=== PATIENT | male | born 1945 | race Caucasian/White ===

== ENCOUNTER 2024-08-25 20:04 | Inpatient (IN) | payer MEDICARE, OTHER, SELFPAY ==
[2024-08-25 16:28] VITALS: BP 146/91
--- NOTE | 2024-08-25 16:34 | ED.GENMED ---
History of Present Illness
General
Chief Complaint: Fall
Source: patient
Exam Limitations: none
Time Seen by Provider: 08/25/24 16:25
History of Present Illness
History of Present Illness:
79-year-old male presents via EMS from home. He slid out of the couch sometime yesterday watching a football game and has been facedown since. He was able to call his daughter who called the ambulance. He denies any known injury from this
episode. He notes he is sore on his elbows and his knees. He is on an aspirin. Family notes that he has been having slurred speech for about a week. He denies chest pain or shortness of breath. No recent fever or cough. No other complaints at
this time
Phy Exam
Physical Exam
Physical Exam:
General: Well-developed male no acute respiratory distress
HEENT: Normocephalic superficial abrasions noted to the face mucosa dry
Heart: Regular rate and rhythm
Lungs: Clear to auscultation bilaterally no wheezing
Abdomen is soft nontender nondistended
Extremities: Mild edema bilateral lower extremities
Neurologic exam: Alert oriented to person and place. No facial asymmetry. There is mild dysarthria. There is no aphasia. There is no unilateral deficit otherwise
Course
Orders/Labs/Results
Orders:
Orders
08/25/24 16:27
Electrocardiogram (*1) Urgent
Reason for Study: Fatigue / Weakness
EKG- Treatment ONCE
08/25/24 16:32
CR Chest - 2 Views Urgent
Comment:
Reason For Exam: weakness
08/25/24 16:33
Urinalysis Reflex To Culture Urgent
Date Specimen was Collected: 08/25/24
Time Specimen was Collected: 16:55
08/25/24 16:34
COVID-19 Antigen Urgent
Source: Nasal Swab
CPK [Creatine Phosphokinase] Urgent
Complete Blood Count/With Diff Urgent
Comprehensive Metabolic Panel Urgent
Prothrombin Time Urgent
08/25/24 16:38
Influenza A+B Rapid Molecular Urgent
MK Source: Nasal Swab
Specimen Description:
08/25/24 16:47
CT Head W/o Iv Contrast Urgent
Comment:
Reason For Exam: fall
08/25/24 16:48
0.9% Sodium Chloride 500 ml [Nss] 500 ml IV BOLUS
08/25/24 18:24
0.9% Sodium Chloride 1000 ml [Nss] 1,000 ml IV BOLUS
Abnormal Lab Results
08/25/24
16:34
WBC 17.4 H 10^3/uL
(4.8-10.8)
MPV 11.2 H fL
(7.4-10.4)
Abs Immat Gran (auto) 0.1 H 10^3/uL
(0-0.05)
Absolute Neuts (auto) 14.8 H 10^3/uL
(1.4-6.5)
Absolute Monos (auto) 1.1 H 10^3/uL
(0.1-0.6)
Neutrophils % 85.1 H %
(42.2-75.2)
Lymphocytes % 7.2 L %
(20.5-51.1)
PT 14.8 H Sec
(11.4-14.6)
Glucose 177 H mg/dl
(70-99)
Total Bilirubin 1.8 H mg/dl
(0.2-1.3)
AST 63 H U/L
(17-59)
Creatine Kinase 1167 H U/L
(55-170)
08/25/24 16:34
08/25/24 16:34
Vital Signs
Initial and Last Documented VS:
Initial Vital Signs
Temp Pulse Resp BP Pulse Ox
98 F 95 18 146/91 96
08/25/24 16:28 08/25/24 16:28 08/25/24 16:28 08/25/24 16:28 08/25/24 16:28
Last Documented Vital Signs
Temp Pulse Resp BP Pulse Ox
98 F 95 18 146/91 96
08/25/24 16:28 08/25/24 16:28 08/25/24 16:28 08/25/24 16:28 08/25/24 16:28
MDM/Problems Addressed
Differential Diagnosis Includes:
Weakness slid out of couch yesterday on the floor since then. Question electrolyte abnormality versus rhabdomyolysis versus kidney failure. Will check for COVID flu UTI and perform chest. CT of the head pending.
*Critical Care Note
Total Time (30-74mins, 75-104mins- exclusive of procedures): Not Applicable
Update Note
Update Note:
CT head negative for acute finding. CPK 1167 with normal renal functions. COVID and flu negative. Patient has rhabdomyolysis from prolonged downtime on floor but also concern for potential stroke. Family now in the room I spoke with his daughter
and son. He was last spoken to and he had a normal dorsalis 1 week ago. Family noticed his slurred speech 4 days ago. He is beyond any potential window for TNK. But does warrant admission for dehydration and further stroke workup.
ED Attending Note
-
Portions of this chart may have been created with voice recognition software.� Occasional wrong word or��sound alike� substitutions may have occurred due to the inherent limitations of voice recognition software.
Discharge Plan
Departure
Patient Disposition: Admit
Date of Disposition: 08/25/24
Time of Disposition: 18:25
Presentation/result/management discussed w/ accepting MD/DO: Hospitalist
Discharge Problem:
Rhabdomyolysis, Dysarthria
Referrals:
Junaid Mckeon MD [Family Provider] -
Interventions
Interventions:
*Risk Screen - Suicide Last Done: 08/25/24 16:28
*General Assessment Last Done: 08/25/24 16:28
*Neglect/Abuse Screening Last Done: 08/25/24 16:28
Discharge Date and Time
Print Language: MONEGASQUE
[2024-08-25 16:42] LABS: % Basophils 0.6 % (0-2); % Eosinophils 0.5 % (0-6); % Immature Granulocytes 0.3 % (0-0.5); % Lymphocytes 7.2 % (20.5-51.1); % Monocytes 6.3 % (1.7-9.3); % Neutrophils 85.1 % (42.2-75.2); Absolute Basophils 0.1 10^3/uL (0-0.2); Absolute Eosinophils 0.1 10^3/uL (0-0.7); Absolute Immature Granulocytes 0.1 10^3/uL (0-0.05); Absolute Lymphocytes 1.3 10^3/uL (1.2-3.4); Absolute Monocytes 1.1 10^3/uL (0.1-0.6); Absolute Neutrophils 14.8 10^3/uL (1.4-6.5); Hematocrit 48.3 % (39.0-52.0); Hemoglobin 16.4 g/dL (13.0-18.0); Mean Corpuscular Hgb 29.2 pg (27.0-31.0); Mean Corpuscular Volume 86.1 fL (80.0-94.0); Mean Platelet Volume 11.2 fL (7.4-10.4); Nucleated Red Blood Cells % 0 % (-); Platelet Count 215 10^3/uL (130-400); Red Blood Cell Count 5.61 10^6/uL (4.70-6.10); Red Cell Dist. Width 13.4 % (11.5-14.5); White Blood Cell Count 17.4 10^3/uL (4.8-10.8)
[2024-08-25 16:52] LABS: INR 1.13; PT 14.8 Sec (11.4-14.6)
[2024-08-25] MEDS: NSS 500 IV (16:56)
[2024-08-25 16:58] LABS: ALT (SGPT) 32 U/L (0-50); AST (SGOT) 63 U/L (17-59); Albumin 4.4 g/dl (3.5-5.0); Alkaline Phosphatase 120 U/L (38-126); Blood Urea Nitrogen 15 mg/dl (9-20); Calcium 9.1 mg/dl (8.4-10.2); Carbon Dioxide 25 mmol/L (22-30); Chloride 101 mmol/L (98-107); Creatine Phosphokinase 1167 U/L (55-170); Glucose 177 mg/dl (70-99); Potassium 4.1 mmol/L (3.5-5.1); Sodium 141 mmol/L (135-145); Total Bilirubin 1.8 mg/dl (0.2-1.3); Total Protein 7.2 g/dl (6.3-8.2); eGFR > 60.00
[2024-08-25 17:34] LABS: COVID-19 Antigen Negative (Negative)
[2024-08-25] MEDS: NSS 1000 IV ×2 (18:32→21:55)
--- NOTE | 2024-08-25 18:33 | HPS.HSE ---
Addendum entered and electronically signed by Jamari Kowalski DO 08/25/24 23:12:
Patient seen and examined independently. Agree with findings and plan as set forth by ALDEN Gillette.
Patient is an 79y M with PMH significant for hypertension, DM-II and BPH who presents to ED after being 'found down' today at home. Patient states that he 'lowered' himself to the floor yesterday evening while trying to get to the bathroom. He
denies any trauma, injury, head impact, LOC, etc. He was unable to get up unassisted and crawled along the floor until he was able to reach his phone this afternoon. He called his daughter who came to assist him and found him down with abrasions
on the knees / feet. Patient was brought to the ED for further evaluation and treatment.
Daughter further stated that she has noted some thick or slurred speech for the past week or so. No recent symptoms of infection / acute illness.
In the ED, patient has some thickened or slurred speech with perhaps some mild L-sided weakness.
Ass:
Weakness, Aphasia / Dysarthria
Rhabdomyolysis
Leukocytosis - likely stress response
DM-II
Benign Hypertension
BPH
Plan:
Admit for further evaluation and treatment.
Monitor on tele overnight.
Follow serial Neuro exams.
Aggressive IVF support given time down, CPK, elevation, etc.
Follow renal function for any changes.
Check MRI brain in the AM.
PT / OT / Speech evaluations.
Neurology evaluation.
DAPT for now.
Original Note:
Family Physician
-
Family Physician: Junaid Mckeon
Chief Complaint
-
slurred speech
fall
History of Present Illness
79-year-old male with PMhf or DM, HTN, HLD, BPH presented to us with s/p fall at home. patient was found on the floor by his daughter today. patient stated he lowered himself to the floor as he was not able to get to the bathroom as there is steps
to get to the kitchen and bathroom from the living room. daughter thinks he fell sometimes last night. he crawled on the floor to get to the phone and called his daughter today afternoon asking for water. he has carpet rash on his knees and toes.
denied hitting head on the floor. he was noted to have some slurred speech for one week. stated dizzy. denied syncope.denied fever, chills, runny nose,congestion and cough.denied chest pain, sob. denied abdominal pain,n,v,d. denied dysuria or
hematuria
patient received normal saline in ER. admitting for further management.
Medical History
Past Medical History
Past Medical History: Reports Other
Additional Past Medical History:
HTN
HLD
BPH
DM
Past Surgical History: Reports Other
Additional Past Surgical History:
right hand surgery
Social History
Tobacco: Former Smoker
Alcohol: None
Drug: None
Personal: Single
Living: Alone
Family History
Family History: Not pertinent
Allergies / Home Medications
Allergies reflects when Allergies were last updated in [employer].
Home Medications with original date entered in [employer]
Allergy/Medication List:
Allergies
Allergy/AdvReac Type Severity Reaction Status Date / Time
Sulfa (Sulfonamide Allergy Unknown Unknown Verified 08/25/24 16:24
Antibiotics)
Home Medications
atorvastatin 20 mg tablet 20 mg PO DAILY 08/25/24
glyburide 5 mg tablet 5 mg PO DAILY 08/25/24
insulin glargine 100 unit/mL (3 mL) subcutaneous pen (Basaglar KwikPen U-100 Insulin) 11 unit SC HS 08/25/24
tamsulosin 0.4 mg capsule 0.4 mg PO HS 08/25/24
therapeutic multivitamin 1 tab PO DAILY 08/25/24
Review of Systems
-
Constitutional: Reports No Symptoms
EENT: Reports No Symptoms
Respiratory: Reports No Symptoms
Cardiac: Reports No Symptoms
Abdomen/GI: Reports No Symptoms
: Reports No Symptoms
Musculoskeletal: Reports No Symptoms
Skin: Reports No Symptoms
Neurological: Reports Dizzy and Other (slurred speech)
Endocrine: Reports No Symptoms
Hematologic/Lymphatic: Reports No Symptoms
Psych: Reports No Symptoms
Physical Exam
Vital Signs
Vital Signs
Temp Pulse Resp BP Pulse Ox
98 F 95 18 146/91 96
08/25/24 16:28 08/25/24 16:28 08/25/24 16:28 08/25/24 16:28 08/25/24 16:28
Physical Exam
General: Well Developed, Well Nourished and No Apparent Distress
HEENT: NormoCephalic, Moist mucous membranes and Atraumatic
Respiratory: Clear
Cardiac: S1/S2 and Regular Rhythm; No Murmur or Rub
GI: Soft, Non Tender, Non Distended and Normal Bowel Sounds; No Organomegaly
Rectal: Deferred by Provider
Musculoskeletal: No Clubbing, No Cyanosis and No Edema
Skin: No Rash
Neuro: Nonfocal/grossly intact, Slurred Speech and Other (left sided weakness)
Laboratory Results
-
08/25/24 16:34
08/25/24 16:34
Laboratory Results
PT 14.8 Sec (11.4-14.6) H 08/25/24 16:34
INR 1.13 08/25/24 16:34
Total Bilirubin 1.8 mg/dl (0.2-1.3) H 08/25/24 16:34
AST 63 U/L (17-59) H 08/25/24 16:34
ALT 32 U/L (0-50) 08/25/24 16:34
Alkaline Phosphatase 120 U/L (38-126) 08/25/24 16:34
Data Reviewed
-
CT Scan: Report Reviewed by me
Lab Data: Labs Reviewed by me
Impression/Plan
-
#weakness/slurred speech r/o acute CVA
-CT head negative
-obtain MRI/MRA
-obtain a1c and lipid profile
-statin and asa continued
-Plavix continued
-PT/OT
-neurology consulted
#rhabdo
-CPK 1167
-fluids continued
-trend CPK in am
#acute on chornic leukocytosis likely stress reaction
-wbc 17.4,-UA pending
-COVID negative
-negative for Flu A and B
-chest x ray with no acute cardiopulmonary process
-patient is afebrile
#HLD
-statin
#type 2 Dm
-sliding scale
-glyburide
-CHO diet
-glargine 5units at hs
#BPH
-Flomax continued
#DVT prophylaxis
-scd
#CODE status
-DNR
[2024-08-25 19:20] VITALS: BP 156/81
[2024-08-25 20:32] VITALS: BP 134/54
[2024-08-25 21:12] VITALS: BP 129/74; BMI 31.4
[2024-08-25 21:49] LABS: Glucose - Point of Care 237 mg/dl (70-99)
[2024-08-25] MEDS: FLOMAX 0.4 MG PO (21:56)
[2024-08-25] MEDS: LOW STRENGTH ASPIRIN 324 MG PO (21:56)
[2024-08-25] MEDS: LANTUS 0.05 UNITS SC (21:56)
[2024-08-25 23:54] VITALS: BP 153/73
[2024-08-26] VITALS (8 sets, daily range): BP systolic 133–173; BP diastolic 65–79; PULSE 74–82; O2SAT 93–94; BMI 31.4
[2024-08-26] MEDS: NSS 1000 IV ×2 (04:48→12:25)
[2024-08-26 07:57] LABS: Hematocrit 39.8 % (39.0-52.0); Hemoglobin 13.4 g/dL (13.0-18.0); Mean Corp Hgb Conc. 33.7 g/dL (33.0-37.0); Mean Corpuscular Volume 86.1 fL (80.0-94.0); Mean Platelet Volume 11.8 fL (7.4-10.4); Platelet Count 175 10^3/uL (130-400); Red Blood Cell Count 4.62 10^6/uL (4.70-6.10); Red Cell Dist. Width 13.7 % (11.5-14.5); White Blood Cell Count 11.6 10^3/uL (4.8-10.8)
--- NOTE | 2024-08-26 08:09 | CON.NEURO ---
Consultation
Order
Date of Consultation: 08/26/24
Requesting Provider: Jackie Mustafa CRNP
Reason for Consult: Dysarthria
Neurology Consultation Note.
HPI: This is an 79-year-old RH man with compromised man who presented to [facility] on 08/25/[facility]24 with dysarthria and left hemiparesis. The patient was found by the family on the floor on the day of presentation. Last time seen in
usual state of health�unknow.
ER VS: 146/91, 95, afebrile
EKG:NSR, QTc Int : 489 ms
PDMP: None
Labs: WBCs�17.4�11.6, fingerstick�237, total bili�1.8, SARS 2 COVID�negative, CK�1167,
CT head wo contrast�diffuse cortical atrophy
PMH: Ulcerative colitis on Remicade, L4-L5 spinal central canal stenosis, HTN, DLP, DM, BPH, hepatic steatosis,
PSH:
SH: Lives with family, retired,
FH: Not contributory to current presentation
All:Sulfas
ROS: Positive for left hemiparesis, dysarthria, negative for headache, chest pain
General: Well developed. In no acute distress.
Cardio: Regular rate and rhythm without murmur. Extremities are without cyanosis or edema.
Neuro:
Mental Status: Lethargic, oriented to self, place, month. Did not know the date, day or year. Poor attention and comprehension. Follows simple requests.
Cranial Nerves: Pupils are equally round and reactive to light. EOMs full. Blink to threat bilaterally. Left facial weakness. Severe dysarthria.
Motor: Severe left hemiparesis (no effort antigravity in the left>R leg, unable to lift left elbow of the bed).
Reflexes: Limited exam due to body habitus
Sensory: Localizes noxious stimuli
Coordination: No tremors myoclonic movements.
Gait: deferred
Assessment and Plan:
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
II. Encephalopathy(vascular, metabolic)
III. Chronic immunosuppression
-Continue Telemetry monitoring.
-Aspiration precautions
-Brain MRI results
-TTE
-CTA head and neck
-ASA 81 mg QD or 300 mg [place] daily
-No indications to DAPT due to high NIH score
-Lipitor 40 mg QHS.
-Please check HbA1C, LDL.
-I have left a message for patient's daughter with request to return my call to clarify patient's medical history and prior cognitive and functional baseline.
-DVT prophylaxis.
I personally reviewed all radiology and labs along with past medical records pertinent to current medical problems. Total time spent in patient care is 60 minutes.
Thank you for allowing us to participate in the care of this patient. We will continue to follow. Please do not hesitate to contact us with any questions or concerns.
Subjective/Objective
Subjective Data
Date of Service: August 26, 2024
Objective Data
Vital Signs
Temp Pulse Resp BP Pulse Ox
36.4 C 85 20 150/73 93
08/26/24 03:49 08/26/24 03:49 08/26/24 03:49 08/26/24 03:49 08/26/24 03:49
Lab Results
08/26/24 05:56
08/25/24 16:34
PT 14.8 Sec (11.4-14.6) H 08/25/24 16:34
INR 1.13 08/25/24 16:34
Sodium 141 mmol/L (135-145) 08/25/24 16:34
Potassium 4.1 mmol/L (3.5-5.1) 08/25/24 16:34
BUN 15 mg/dl (9-20) 08/25/24 16:34
Glucose 177 mg/dl (70-99) H 08/25/24 16:34
Calcium 9.1 mg/dl (8.4-10.2) 08/25/24 16:34
Patient Allergies
Sulfa (Sulfonamide Antibiotics) Allergy (Verified 08/25/24 21:05)
Unknown
Medications
-
Active Medications
Generic Name Dose Route Start Last Admin
Trade Name Freq PRN Reason Stop Dose Admin
Acetaminophen 650 mg 08/25/24 20:56
Acetaminophen 650 Mg Rectal Suppository RECTAL 09/22/24 20:55
Q4HPRN PRN
TRONCOSO, mild pain, or temp >100.4F
Acetaminophen 650 mg 08/25/24 20:56
Acetaminophen 325 Mg Tablet PO 09/22/24 20:55
Q4HPRN PRN
TRONCOSO, mild pain, or temp >100.4F
Aspirin 81 mg 08/26/24 08:00
Aspirin 81 Mg Chewable Tablet PO 09/23/24 07:59
DAILY LAUREL
Atorvastatin Calcium 20 mg 08/26/24 08:00
Atorvastatin (Lipitor) 20 Mg Tablet PO 09/23/24 07:59
DAILY LAUREL
Clopidogrel Bisulfate 75 mg 08/26/24 08:00
Clopidogrel 75 Mg Tablet PO 09/23/24 07:59
DAILY LAUREL
Dextrose 12.5 grams 08/25/24 20:56
Dextrose 50% (0.5 Grams/Ml) 50 Ml Syringe IV 09/22/24 20:55
[id number] PRN
hypoglycemia
Protocol
Glucagon 1 mg 08/25/24 20:56
Glucagon 1 Mg Vial IM 09/22/24 20:55
PRN PRN
hypoglycemia
Protocol
Glyburide 5 mg 08/26/24 08:00
Glyburide 5 Mg Tablet PO 09/23/24 07:59
DAILY LAUREL
Sodium Chloride 1,000 mls @ 150 mls/hr 08/25/24 20:56 08/26/24 04:48
Nss IV 1,000 mls
.Q6H40M LAUREL Administration
Insulin Glargine 5 units/ 0.05 mls @ 0 mls/hr 08/25/24 22:00 08/25/24 21:56
Device SC 09/22/24 21:59 0.05 mls
HS LAUREL Administration
As Directed
Insulin Aspart 0 units 08/26/24 07:30
Insulin Aspart Low Resistance 300 Units/3 Ml Pen.Injctr SC 09/23/24 07:29
AC LAUREL
Protocol
Sodium Chloride 0 flush 08/25/24 21:00
Sodium Chloride 0.9% (Flush) Syringe IV 09/22/24 20:59
PER PROTOCOL LAUREL
Tamsulosin HCl 0.4 mg 08/25/24 22:00 08/25/24 21:56
Tamsulosin 0.4 Mg Capsule PO 09/22/24 21:59 0.4 mg
HS LAUREL Administration
Home Medications
�Medication �Instructions �Recorded
atorvastatin 20 mg tablet 20 mg PO DAILY 08/25/24
glyburide 5 mg tablet 5 mg PO DAILY 08/25/24
insulin glargine 100 unit/mL (3 11 unit SC HS 08/25/24
mL) subcutaneous pen (Basaglar
KwikPen U-100 Insulin)
tamsulosin 0.4 mg capsule 0.4 mg PO HS 08/25/24
therapeutic multivitamin 1 tab PO DAILY 08/25/24
Vital Signs and Labs
-
Vital Signs and Labs:
Vital Signs
Temp Pulse Resp BP Pulse Ox
36.7 C 75 18 162/65 95
08/26/24 08:14 08/26/24 08:14 08/26/24 08:14 08/26/24 08:14 08/26/24 08:14
Lab Results
08/26/24 05:56
08/25/24 16:34
PT 14.8 Sec (11.4-14.6) H 08/25/24 16:34
INR 1.13 08/25/24 16:34
Sodium 141 mmol/L (135-145) 08/25/24 16:34
Potassium 4.1 mmol/L (3.5-5.1) 08/25/24 16:34
BUN 15 mg/dl (9-20) 08/25/24 16:34
Glucose 177 mg/dl (70-99) H 08/25/24 16:34
Calcium 9.1 mg/dl (8.4-10.2) 08/25/24 16:34
Medications
-
Medications:
Generic Name Dose Route Start Last Admin
Trade Name Freq PRN Reason Stop Dose Admin
Acetaminophen 650 mg 08/25/24 20:56
Acetaminophen 650 Mg Rectal Suppository RECTAL 09/22/24 20:55
Q4HPRN PRN
TRONCOSO, mild pain, or temp >100.4F
Acetaminophen 650 mg 08/25/24 20:56
Acetaminophen 325 Mg Tablet PO 09/22/24 20:55
Q4HPRN PRN
TRONCOSO, mild pain, or temp >100.4F
Aspirin 81 mg 08/26/24 08:00
Aspirin 81 Mg Chewable Tablet PO 09/23/24 07:59
DAILY LAUREL
Atorvastatin Calcium 20 mg 08/26/24 08:00
Atorvastatin (Lipitor) 20 Mg Tablet PO 09/23/24 07:59
DAILY LAUREL
Clopidogrel Bisulfate 75 mg 08/26/24 08:00
Clopidogrel 75 Mg Tablet PO 09/23/24 07:59
DAILY LAUREL
Dextrose 12.5 grams 08/25/24 20:56
Dextrose 50% (0.5 Grams/Ml) 50 Ml Syringe IV 09/22/24 20:55
[id number] PRN
hypoglycemia
Protocol
Glucagon 1 mg 08/25/24 20:56
Glucagon 1 Mg Vial IM 09/22/24 20:55
PRN PRN
hypoglycemia
Protocol
Glyburide 5 mg 08/26/24 08:00
Glyburide 5 Mg Tablet PO 09/23/24 07:59
DAILY LAUREL
Sodium Chloride 1,000 mls @ 150 mls/hr 08/25/24 20:56 08/26/24 04:48
Nss IV 1,000 mls
.Q6H40M LAUREL Administration
Insulin Glargine 5 units/ 0.05 mls @ 0 mls/hr 08/25/24 22:00 08/25/24 21:56
Device SC 09/22/24 21:59 0.05 mls
HS LAUREL Administration
As Directed
Insulin Aspart 0 units 08/26/24 07:30
Insulin Aspart Low Resistance 300 Units/3 Ml Pen.Injctr SC 09/23/24 07:29
AC LAUREL
Protocol
Sodium Chloride 0 flush 08/25/24 21:00
Sodium Chloride 0.9% (Flush) Syringe IV 09/22/24 20:59
PER PROTOCOL LAUREL
Tamsulosin HCl 0.4 mg 08/25/24 22:00 08/25/24 21:56
Tamsulosin 0.4 Mg Capsule PO 09/22/24 21:59 0.4 mg
HS LAUREL Administration
Home Medications
-
Home Medications
atorvastatin 20 mg tablet 20 mg PO DAILY 08/25/24
glyburide 5 mg tablet 5 mg PO DAILY 08/25/24
insulin glargine 100 unit/mL (3 mL) subcutaneous pen (Basaglar KwikPen U-100 Insulin) 11 unit SC 08/25/24
tamsulosin 0.4 mg capsule 0.4 mg PO HS 08/25/24
therapeutic multivitamin 1 tab PO DAILY 08/25/24
--- NOTE | 2024-08-26 08:15 | PTCARENOTE ---
NIHSS performed this AM with an increased score of 11 (previous score 6). Dr Guerra at bedside, made aware and felt a rapid response was not necessary. Will continue to monitor closely.
[2024-08-26 08:31] LABS: Creatine Phosphokinase 680 U/L (55-170); HDL Cholesterol 36 mg/dl; LDL Cholesterol, Calculated 59 mg/dl; Total Cholesterol 111 mg/dl (50-199); Triglyceride 84 mg/dl (10-149); Very Low Density Lipoprotein 16 mg/dl (0-30)
[2024-08-26 09:11] LABS: Glucose - Point of Care 131 mg/dl (70-99)
[2024-08-26] MEDS: NOVOLOG FLEXPEN-LOW RESISTANCE SC ×2 (09:42→12:31)
[2024-08-26] MEDS: MICRONASE 5 MG PO (09:54)
[2024-08-26] MEDS: PLAVIX 75 MG PO (09:54)
[2024-08-26] MEDS: LIPITOR 20 MG PO (09:54)
[2024-08-26] MEDS: LOW STRENGTH ASPIRIN 81 MG PO (09:54)
[2024-08-26 10:18] LABS: Glycohemoglobin (HgbA1c) 8.8 % (4.0-5.6)
--- NOTE | 2024-08-26 11:26 | PTOTSP ---
ST Acute Care Evaluations
Pt currently presents with clinical signs of moderate dysarthria as well as mild receptive and expressive language deficits. Further investigation into pt's hearing acuity and pt's baseline cognitive communication skills is warranted to further
guide tx plan.
Pt also presents with clinical signs of mild oral dysphagia characterized by prolonged mastication and bolus formation with munch chew pattern as well as mild pharyngeal dysphagia as evidenced by coughing during oral manipulation of solids as well
as coughing s/p ingestion of thin liquid consistencies.
Recommendations:
- Initiate a PO diet of SOFT BITE SIZED SOLIDS and MILDLY THICK LIQUIDS with NO STRAWS and meds whole in puree.
- Aspiration precautions: Close supervision with PO intake; HOB upright for all PO intake; small bites/sips; slow intake rate.
- TABLE GAMES SUPERVISOR to f/u re: diet tolerance and to determine if/when pt would benefit from an instrumental swallow study.
- TABLE GAMES SUPERVISOR to f/u for speech/language tx.
--- NOTE | 2024-08-26 11:34 | W.PN.UPDATE ---
Update Note
Progress Note Update
Spoke to patient's daughter who informed me that she spoke to Mr. Livingston around 4:30 PM on 08/24/24 before finding him on Sunday around 3 PM.
Prior to her admission the patient lived alone, ambulating independently and taking his medications unassisted.
--- NOTE | 2024-08-26 11:49 | W.PN.HOSP.TC ---
Today's Communication/Plan
-
Monitor vital signs see plan
Continue with aspirin and Plavix
MRI
Continue with neurochecks
PT/OT
Speech
Assessment / Plan
Assessment / Plan
right sided weakness/slurred speech likely secondary to acute CVA
-CT head negative
-obtain MRI/MRA
A1c 8.8, LDL 59
-statin and asa continued
-Plavix continued
-PT/OT
Speech following, recommended soft and bite-size
-neurology following
#rhabdo
Continue to monitor CK
Continue fluids for now
#acute on chornic leukocytosis likely stress reaction
-wbc 17.4
Check UA
-COVID negative
-negative for Flu A and B
-chest x ray with no acute cardiopulmonary process
-patient is afebrile
#HLD
-statin
#type 2 Dm
-sliding scale
-glyburide
-CHO diet
-glargine 5units at hs
#BPH
-Flomax continued
#DVT prophylaxis
-scd, Lovenox
#CODE status
-DNR
I spent a total of 52 minutes with the patient or on the floor. More than 50% of this time involved counseling and coordination of care.
Anticipated Discharge: 24 - 48 hours
Subjective/Interval History
-
Date of Service: August 26, 2024
Denies pain
Objective Data
-
Labs:
Laboratory Results
08/26/24
05:56
WBC 11.6 H
Hgb 13.4
Hct 39.8
Plt Count 175
Vital Signs:
Vital Signs
Temp Pulse Resp BP Pulse Ox
98.1 F 75 18 162/65 95
08/26/24 08:14 08/26/24 08:14 08/26/24 08:14 08/26/24 08:14 08/26/24 08:14
I&O
08/25/24 08/26/24 08/27/24
06:59 06:59 06:59
Intake Total 0 / 0
Balance 0 / 0
[2024-08-26 12:27] LABS: Glucose - Point of Care 178 mg/dl (70-99)
--- NOTE | 2024-08-26 15:37 | CM ---
Alert awake oriented patient who lives alone in a 2 story home with 2 step to enter and 13 steps to bed and bathroom. He is independent in all activities of daily living.PT OT indicated acute rehab. Reviewed acute rehab with pt and dgchristiana James. Pt
would like referral placed . [facility] rep notified to look at referral.No DME.
No VN /SNF hx
Pharmacy [facility]
PCP DR Junaid Mckeon
PLAN To [facility] if accepted
[2024-08-26 16:55] LABS: Glucose - Point of Care 294 mg/dl (70-99)
[2024-08-26] MEDS: LOVENOX 40 MG SC (17:37)
[2024-08-26] MEDS: NSS IV (17:38)
[2024-08-26] MEDS: NOVOLOG FLEXPEN-LOW RESISTANCE 3 UNITS SC (17:39)
[2024-08-26 18:08] LABS: Urine Albumin Trace (Neg - Trace); Urine Bilirubin Negative (Negative); Urine Character Clear (Clear); Urine Color Yellow; Urine Glucose 3+ (Negative); Urine Ketone Trace (Negative); Urine Leukocyte Negative (Negative); Urine Nitrite Negative (Negative); Urine Occult Blood Negative (Negative); Urine Specific Gravity 1.015 (<1.030); Urine Urobilinogen Negative (Neg - 1+)
[2024-08-26 21:35] LABS: Glucose - Point of Care 208 mg/dl (70-99)
[2024-08-26] MEDS: LANTUS 0.05 UNITS SC (21:46)
[2024-08-26] MEDS: FLOMAX 0.4 MG PO (21:46)
[2024-08-27] VITALS (9 sets, daily range): BP systolic 133–179; BP diastolic 60–87
[2024-08-27] MEDS: DESENEX/MITRAZOL/ZEASORB 1 APPLIC TOPICAL (01:25)
[2024-08-27 07:43] LABS: Glucose - Point of Care 154 mg/dl (70-99)
[2024-08-27 08:04] LABS: Hematocrit 38.6 % (39.0-52.0); Hemoglobin 13.4 g/dL (13.0-18.0); Mean Corp Hgb Conc. 34.7 g/dL (33.0-37.0); Mean Corpuscular Hgb 29.8 pg (27.0-31.0); Mean Corpuscular Volume 85.8 fL (80.0-94.0); Mean Platelet Volume 11.6 fL (7.4-10.4); Platelet Count 171 10^3/uL (130-400); Red Cell Dist. Width 13.6 % (11.5-14.5)
[2024-08-27 08:35] LABS: ALT (SGPT) 27 U/L (0-50); AST (SGOT) 33 U/L (17-59); Albumin 3.2 g/dl (3.5-5.0); Alkaline Phosphatase 88 U/L (38-126); Blood Urea Nitrogen 9 mg/dl (9-20); Calcium 8.1 mg/dl (8.4-10.2); Carbon Dioxide 27 mmol/L (22-30); Chloride 107 mmol/L (98-107); Creatine Phosphokinase 294 U/L (55-170); Estimated Creatinine Clearance 98 ml/min; Glucose 105 mg/dl (70-99); Potassium 3.4 mmol/L (3.5-5.1); Sodium 141 mmol/L (135-145); Total Bilirubin 0.9 mg/dl (0.2-1.3); Total Protein 5.6 g/dl (6.3-8.2); eGFR > 60.00
[2024-08-27] MEDS: LOW STRENGTH ASPIRIN 81 MG PO (08:46)
[2024-08-27] MEDS: MICRONASE 5 MG PO (08:46)
[2024-08-27] MEDS: LIPITOR 20 MG PO (08:46)
[2024-08-27] MEDS: NOVOLOG FLEXPEN-LOW RESISTANCE 1 UNITS SC (08:46)
[2024-08-27] MEDS: PROCARDIA XL (EXTENDED RELEASE) 30 MG PO (08:50)
[2024-08-27] MEDS: TYLENOL 650 MG PO (10:41)
[2024-08-27 11:41] LABS: Glucose - Point of Care 271 mg/dl (70-99)
--- NOTE | 2024-08-27 11:41 | PN.CDI ---
CDI
- -
CDI:
Physician Documentation Request
Admit Date: 08/25/24 20:04
Dear Doctor Raphael,
Patient admitted after being found on ground at home. Diagnosis include CVA and rhabdomyolysis
Please further clarify the type of rhabdomyolysis:
Traumatic
non-traumatic
Other
Use of terms such as suspected, likely, concern for, or probable (associated with a specific diagnosis that is being evaluated, monitored, or treated as if it exists) are acceptable and can be coded in the inpatient setting, when documented at the
time of discharge.
Thank you,
Vicenta Fraser RN, BSN
CDI Specialist
tiger text
Please use your independent medical judgment in providing your response.
--- NOTE | 2024-08-27 12:30 | PTCARENOTE ---
Addendum entered by Tiffanie Cespedes RN 08/27/24 15:00:
Ordered to check bladder scan- 236cc. Awaiting transport for CT. Will continue to monitor.
Original Note:
Patient complaining of diaphoresis and nausea. Dr Lim and Neurology made aware. Orders for Zofran given. NIH score remains an 11. Will continue to monitor closely.
--- NOTE | 2024-08-27 12:35 | W.PN.HOSP.TC ---
Addendum entered and electronically signed by Raymond Lim MD 08/28/24 11:46:
General: Well Developed, Well Nourished and No Apparent Distress
HEENT: NormoCephalic, Moist mucous membranes and Atraumatic
Respiratory: Clear
Cardiac: S1/S2 and Regular Rhythm
GI: Soft, Non Tender, Non Distended and Normal Bowel Sounds
Musculoskeletal: No Edema
Neuro: Slurred Speech and Other (left sided weakness)
Original Note:
Today's Communication/Plan
-
Monitor vital signs see plan
PT/OT
Physiatry consulted
Neurology following
Continue with aspirin
Started nifedipine
Discussed with son over the phone
Replete potassium
Assessment / Plan
Assessment / Plan
right sided weakness/slurred speech likely secondary to acute CVA
-CT head negative
CTA without any acute abnormality
MRI with restricted diffusion in the right paramedian stuart, compatible with acute or subacute infarct. Moderate atrophy. Also has possible C3-C4 spinal canal stenosis per imaging however patient has no symptoms.
A1c 8.8, LDL 59
-statin and asa continued
Plavix stopped due to high NIH scale, neurology following
-PT/OT recommending acute rehab, physiatry consulted
Speech following, recommended soft and bite-size
-neurology following
monitor on tele for arrhythmia
. Echo without any vegetations
#rhabdomyolysis, traumatic likely secondary to fall
Continue to monitor CK
Continue fluids for now
#acute on chornic leukocytosis likely stress reaction
-wbc 17.4 on admit
UA without UTI
-COVID negative
-negative for Flu A and B
-chest x ray with no acute cardiopulmonary process
-patient is afebrile
Hypertension
No prior history, start nifedipine
Monitor
Hypokalemia
Replete
#HLD
-statin
#type 2 Dm
-sliding scale
-glyburide
-CHO diet
Increase glargine to 11 units at bedtime which is his home dose
#BPH
-Flomax continued
#DVT prophylaxis
-scd, Lovenox
#CODE status
-DNR
PT/OT recommending acute rehab, physiatry consulted
I spent a total of 51 minutes with the patient or on the floor. More than 50% of this time involved counseling and coordination of care.
Anticipated Discharge: 24 - 48 hours
Subjective/Interval History
-
Date of Service: August 27, 2024
denies pain
Objective Data
-
Labs:
Laboratory Results
08/27/24
07:38
WBC 11.0 H
Hgb 13.4
Hct 38.6 L
Plt Count 171
Sodium 141
Potassium 3.4 L
Chloride 107
Carbon Dioxide 27
BUN 9
Creatinine 0.7
Glucose 105 H
Calcium 8.1 L
Total Bilirubin 0.9
AST 33
ALT 27
Alkaline Phosphatase 88
Vital Signs:
Vital Signs
Temp Pulse Resp BP Pulse Ox
97.9 F 73 18 133/60 91
08/27/24 11:18 08/27/24 12:20 08/27/24 11:18 08/27/24 12:20 08/27/24 11:18
I&O
08/26/24 08/27/24 08/28/24
06:59 06:59 06:59
Intake Total 0 / 0 2520 / 2520
Output Total 925 / 925
Balance 0 / 0 1595 / 1595
[2024-08-27] MEDS: NOVOLOG FLEXPEN-LOW RESISTANCE 3 UNITS SC ×2 (12:37→17:50)
[2024-08-27] MEDS: ZOFRAN 4 MG IV (12:39)
[2024-08-27] MEDS: KCL 260 MEQ IV (14:55)
[2024-08-27 16:47] LABS: Glucose - Point of Care 261 mg/dl (70-99)
--- NOTE | 2024-08-27 17:44 | W.PN.NEURO.1 ---
Today's Communication / Plan
-
.
Subjective/Objective
Subjective Data
Date of Service: August 27, 2024.
Neurology Follow up
Mr. Livingston complains about headache with associated vertigo nausea that started in the morning.
He has been hypertensive up to 179/87 in the morning.
Brain MRI showed an acute right pontine infarct.
Labs: Normal sodium, creatinine, glucose�105, CK�680�294, WBC�11, platelets�171.
TTE-ejection fraction�550-55%, normal LV wall thickness.
LDL�59, hemoglobin A1c�8.8
PMH: Ulcerative colitis on Remicade, L4-L5 spinal central canal stenosis, HTN, DLP, DM, BPH, hepatic steatosis,
SH: Lives with family, retired, non-smoker.
All:Sulfas
ROS: Positive for left hemiplegia, headache, vertigo, nausea.
Bitemporal abrasions
General: Well developed. In no acute distress.
Cardio: Regular rate and rhythm without murmur. Extremities are without cyanosis or edema.
Neuro:
Mental Status: Lethargic, oriented to self, place, month. Poor attention and comprehension. Follows simple requests.
Cranial Nerves: Pupils are equally round and reactive to light. EOMs full. Blink to threat bilaterally. Left facial weakness. Severe dysarthria.
Motor: Left hemiplegia right arm antigravity, right leg�moves within bed plane.
Reflexes: Limited exam due to body habitus
Sensory: Localizes noxious stimuli
Coordination: No tremors myoclonic movements.
Gait: deferred
Assessment and Plan:
I. Acute right pontine stroke. Likely etiology�small vessel disease
II. Encephalopathy(vascular, metabolic)
III. Postconcussive syndrome
IV. DM, uncontrolled
-Continue Telemetry monitoring.
-Blood pressure goal�normotension
-Optimize glycemic control
-Aspiration precautions
-ASA 81 mg QD or 300 mg SC daily
-No indications to DAPT due to high NIH score
-Lipitor 40 mg QHS.
-Repeat CT head to rule out ich
-PT
-Reglan as needed for nausea, meclizine 25 mg every 8 hours as needed for vertigo
-DVT prophylaxis.
-Please recall neurology service with any questions or concerns.
I personally reviewed all radiology and labs along with past medical records pertinent to current medical problems. Total time spent in patient care is 640minutes.
Thank you for allowing us to participate in the care of this patient. Please do not hesitate to contact us with any questions or concerns.
Objective Data
Vital Signs
Temp Pulse Resp BP Pulse Ox
36.4 C 71 18 147/74 93
08/27/24 15:11 08/27/24 15:11 08/27/24 15:11 08/27/24 15:11 08/27/24 12:35
Lab Results
08/27/24 07:38
08/27/24 07:38
PT 14.8 Sec (11.4-14.6) H 08/25/24 16:34
INR 1.13 08/25/24 16:34
Sodium 141 mmol/L (135-145) 08/27/24 07:38
Potassium 3.4 mmol/L (3.5-5.1) L 08/27/24 07:38
BUN 9 mg/dl (9-20) 08/27/24 07:38
Glucose 105 mg/dl (70-99) H 08/27/24 07:38
Calcium 8.1 mg/dl (8.4-10.2) L 08/27/24 07:38
LDL Cholesterol, Calc 59 mg/dl 08/26/24 05:56
Patient Allergies
Sulfa (Sulfonamide Antibiotics) Allergy (Verified 08/25/24 21:05)
Unknown
Vital Signs and Labs
-
Vital Signs and Labs:
Vital Signs
Temp Pulse Resp BP Pulse Ox
36.4 C 71 18 147/74 93
08/27/24 15:11 08/27/24 15:11 08/27/24 15:11 08/27/24 15:11 08/27/24 12:35
Lab Results
08/27/24 07:38
08/27/24 07:38
PT 14.8 Sec (11.4-14.6) H 08/25/24 16:34
INR 1.13 08/25/24 16:34
Sodium 141 mmol/L (135-145) 08/27/24 07:38
Potassium 3.4 mmol/L (3.5-5.1) L 08/27/24 07:38
BUN 9 mg/dl (9-20) 08/27/24 07:38
Glucose 105 mg/dl (70-99) H 08/27/24 07:38
Calcium 8.1 mg/dl (8.4-10.2) L 08/27/24 07:38
LDL Cholesterol, Calc 59 mg/dl 08/26/24 05:56
Medications
-
Medications:
Generic Name Dose Route Start Last Admin
Trade Name Freq PRN Reason Stop Dose Admin
Acetaminophen 650 mg 08/25/24 20:56
Acetaminophen 650 Mg Rectal Suppository RECTAL 09/22/24 20:55
Q4HPRN PRN
TRONCOSO, mild pain, or temp >100.4F
Acetaminophen 650 mg 08/25/24 20:56 08/27/24 10:41
Acetaminophen 325 Mg Tablet PO 09/22/24 20:55 650 mg
Q4HPRN PRN Administration
TRONCOSO, mild pain, or temp >100.4F
Aspirin 81 mg 08/26/24 08:00 08/27/24 08:46
Aspirin 81 Mg Chewable Tablet PO 09/23/24 07:59 81 mg
DAILY LAUREL Administration
Atorvastatin Calcium 20 mg 08/26/24 08:00 08/27/24 08:46
Atorvastatin (Lipitor) 20 Mg Tablet PO 09/23/24 07:59 20 mg
DAILY LAUREL Administration
Dextrose 12.5 grams 08/25/24 20:56
Dextrose 50% (0.5 Grams/Ml) 50 Ml Syringe IV 09/22/24 20:55
[id number] PRN
hypoglycemia
Protocol
Enoxaparin Sodium 40 mg 08/26/24 18:00 08/26/24 17:37
Enoxaparin Sodium 40 Mg/0.4 Ml Syringe SC 09/23/24 17:59 40 mg
QPM LAUREL Administration
Glucagon 1 mg 08/25/24 20:56
Glucagon 1 Mg Vial IM 09/22/24 20:55
PRN PRN
hypoglycemia
Protocol
Glyburide 5 mg 08/26/24 08:00 08/27/24 08:46
Glyburide 5 Mg Tablet PO 09/23/24 07:59 5 mg
DAILY LAUREL Administration
Hydralazine HCl 5 mg 08/27/24 10:40
Hydralazine 20 Mg/Ml Vial IV 09/24/24 10:39
Q6HPRN PRN
SBP>160
Insulin Glargine 11 units/ 0.11 mls @ 0 mls/hr 08/27/24 12:49
Device SC 09/22/24 21:59
HS LAUREL
As Directed
Insulin Aspart 0 units 08/26/24 07:30 08/27/24 12:37
Insulin Aspart Low Resistance 300 Units/3 Ml Pen.Injctr SC 09/23/24 07:29 3 units
AC LAUREL Administration
Protocol
Miconazole Nitrate 0 applic 08/26/24 08:58 08/27/24 01:25
Miconazole Powder Bottle TOPICAL 09/23/24 08:57 1 applic
BIDPRN PRN Administration
PER PROTOCOL
Nifedipine 30 mg 08/27/24 09:00 08/27/24 08:50
Nifedipine 30 Mg Extended Release Tablet PO 09/24/24 08:59 30 mg
DAILY LAUREL Administration
Ondansetron HCl 4 mg 08/27/24 12:33
Ondansetron 4 Mg/2 Ml Vial IV 09/24/24 12:32
Q6HPRN PRN
NAUSEA/VOMITING
Sodium Chloride 0 flush 08/25/24 21:00
Sodium Chloride 0.9% (Flush) Syringe IV 09/22/24 20:59
PER PROTOCOL LAUREL
Tamsulosin HCl 0.4 mg 08/25/24 22:00 08/26/24 21:46
Tamsulosin 0.4 Mg Capsule PO 09/22/24 21:59 0.4 mg
HS LAUREL Administration
Home Medications
-
Home Medications
atorvastatin 20 mg tablet 20 mg PO DAILY 08/25/24
glyburide 5 mg tablet 5 mg PO DAILY 08/25/24
insulin glargine 100 unit/mL (3 mL) subcutaneous pen (Basaglar KwikPen U-100 Insulin) 11 unit SC HS 08/25/24
tamsulosin 0.4 mg capsule 0.4 mg PO HS 08/25/24
therapeutic multivitamin 1 tab PO DAILY 08/25/24
[2024-08-27] MEDS: LOVENOX 40 MG SC (17:56)
[2024-08-27] MEDS: FLOMAX 0.4 MG PO (21:03)
[2024-08-27] MEDS: LANTUS 0.11 UNITS SC (21:28)
[2024-08-27 21:29] LABS: Glucose - Point of Care 222 mg/dl (70-99)
[2024-08-27] MEDS: APRESOLINE 5 MG IV (23:16)
[2024-08-28] VITALS (7 sets, daily range): BP systolic 139–177; BP diastolic 68–83; PULSE 73; O2SAT 92
[2024-08-28 08:15] LABS: Glucose - Point of Care 98 mg/dl (70-99)
[2024-08-28 08:16] LABS: Hematocrit 40.9 % (39.0-52.0); Hemoglobin 13.8 g/dL (13.0-18.0); Mean Corp Hgb Conc. 33.7 g/dL (33.0-37.0); Mean Corpuscular Hgb 29.2 pg (27.0-31.0); Mean Corpuscular Volume 86.7 fL (80.0-94.0); Mean Platelet Volume 11.5 fL (7.4-10.4); Platelet Count 180 10^3/uL (130-400); Red Blood Cell Count 4.72 10^6/uL (4.70-6.10); Red Cell Dist. Width 13.6 % (11.5-14.5); White Blood Cell Count 11.1 10^3/uL (4.8-10.8)
[2024-08-28] MEDS: NOVOLOG FLEXPEN-LOW RESISTANCE SC ×2 (08:30→12:10)
[2024-08-28] MEDS: MICRONASE 5 MG PO (08:31)
[2024-08-28] MEDS: PROCARDIA XL (EXTENDED RELEASE) 30 MG PO ×2 (08:31→21:10)
[2024-08-28] MEDS: LIPITOR 20 MG PO (08:31)
[2024-08-28] MEDS: LOW STRENGTH ASPIRIN 81 MG PO (08:32)
[2024-08-28 09:21] LABS: ALT (SGPT) 23 U/L (0-50); AST (SGOT) 23 U/L (17-59); Albumin 3.3 g/dl (3.5-5.0); Alkaline Phosphatase 93 U/L (38-126); Blood Urea Nitrogen 8 mg/dl (9-20); Calcium 8.2 mg/dl (8.4-10.2); Carbon Dioxide 27 mmol/L (22-30); Chloride 106 mmol/L (98-107); Creatine Phosphokinase 118 U/L (55-170); Estimated Creatinine Clearance 114 ml/min; Glucose 113 mg/dl (70-99); Potassium 3.7 mmol/L (3.5-5.1); Sodium 141 mmol/L (135-145); Total Bilirubin 0.7 mg/dl (0.2-1.3); Total Protein 5.9 g/dl (6.3-8.2); eGFR > 60.00
[2024-08-28] MEDS: ZOFRAN 4 MG IV (09:26)
--- NOTE | 2024-08-28 11:33 | W.PN.HOSP.TC ---
Today's Communication/Plan
-
Monitor vital signs see plan
Speech following
Continue to monitor p.o. intake
PT/OT
Bladder scan
Assessment / Plan
Assessment / Plan
right sided weakness/slurred speech likely secondary to acute CVA
-CT head negative
CTA without any acute abnormality
MRI with restricted diffusion in the right paramedian stuart, compatible with acute or subacute infarct. Moderate atrophy. Also has possible C3-C4 spinal canal stenosis per imaging however patient has no symptoms.
A1c 8.8, LDL 59
-statin and asa continued
Plavix stopped due to high NIH scale, neurology following
-PT/OT recommending acute rehab, physiatry consulted
repeat CT 08/27 neg for any bleeding. Suspect headaches is secondary to postconcussive syndrome
Speech following, recommended soft and bite-size
-neurology following
monitor on tele for arrhythmia
. Echo without any vegetations
#rhabdomyolysis, traumatic likely secondary to fall
Resolved
#acute on chornic leukocytosis likely stress reaction
-wbc 17.4 on admit
UA without UTI
-COVID negative
-negative for Flu A and B
-chest x ray with no acute cardiopulmonary process
-patient is afebrile
Hypertension
No prior history, started nifedipine, increase to twice daily
Monitor
Hypokalemia
Replete
#HLD
-statin
#type 2 Dm
-sliding scale
-glyburide
-CHO diet
glargine to 11 units at bedtime which is his home dose
#BPH
-Flomax continued
bladder scan
#DVT prophylaxis
-scd, Lovenox
#CODE status
-DNR
PT/OT recommending acute rehab, physiatry consulted
General: Well Developed, Well Nourished and No Apparent Distress
HEENT: NormoCephalic, Moist mucous membranes and Atraumatic
Respiratory: Clear
Cardiac: S1/S2 and Regular Rhythm; No Murmur or Rub
GI: Soft, Non Tender, Non Distended and Normal Bowel Sounds
Musculoskeletal: No Clubbing, No Cyanosis and No Edema
Neuro: Slurred Speech and Other (left sided weakness)
I spent a total of 51 minutes with the patient or on the floor. More than 50% of this time involved counseling and coordination of care.
Anticipated Discharge: 24 - 48 hours
Subjective/Interval History
-
Date of Service: August 28, 2024
denies pain
Objective Data
-
Labs:
Laboratory Results
08/28/24
06:18
WBC 11.1 H
Hgb 13.8
Hct 40.9
Plt Count 180
Sodium 141
Potassium 3.7
Chloride 106
Carbon Dioxide 27
BUN 8 L
Creatinine 0.6 L
Glucose 113 H
Calcium 8.2 L
Total Bilirubin 0.7
AST 23
ALT 23
Alkaline Phosphatase 93
Vital Signs:
Vital Signs
Temp Pulse Resp BP Pulse Ox
98.2 F 73 18 139/73 92
08/28/24 11:25 08/28/24 11:25 08/28/24 11:25 08/28/24 11:25 08/28/24 11:25
I&O
08/27/24 08/28/24 08/29/24
06:59 06:59 06:59
Intake Total 2520 / 2520 740 / 740
Output Total 925 / 925 300 / 300
Balance 1595 / 1595 440 / 440
[2024-08-28 12:03] LABS: Glucose - Point of Care 160 mg/dl (70-99)
[2024-08-28] MEDS: COLACE 100 MG PO ×2 (12:20→21:10)
--- NOTE | 2024-08-28 15:58 | CM ---
CM reviewed chart, per Juan Daniel at [facility], able to accept patient for acute rehab tomorrow. TT to Hospitalist with update. CM will continue to follow for all discharge planning needs.
Plan: [facility] tomorrow 08/29/24
--- NOTE | 2024-08-28 16:08 | PTOTSP ---
[employer] Notes
Impression: At least mild oral/pharyngeal dysphagia and moderate dysarthria secondary to right pontine stroke. Videofluoroscopic swallow study warranted to objectively assess swallowing function and rule out silent aspiration.
Recommendations:
1. IDDSI Level 6 Soft and Bite Sized, Thin Liquids
2. Medications: whole in puree
3. Strategies: partial supervision/assistance, HOB upright for all PO intake, small bites/sips, slow intake rate
4. Videofluoroscopic swallow study
5. Speech/language tx and cognitive linguistic evaluation as able/appropriate.
[2024-08-28 17:01] LABS: Glucose - Point of Care 172 mg/dl (70-99)
[2024-08-28] MEDS: NOVOLOG FLEXPEN-LOW RESISTANCE 1 UNITS SC (18:15)
[2024-08-28] MEDS: LOVENOX 40 MG SC (18:15)
[2024-08-28] MEDS: FLOMAX 0.4 MG PO (21:10)
[2024-08-28] MEDS: LANTUS 0.11 UNITS SC (21:30)
[2024-08-28 21:31] LABS: Glucose - Point of Care 173 mg/dl (70-99)
[2024-08-29] VITALS (7 sets, daily range): BP systolic 122–179; BP diastolic 66–87; BMI 31.4
[2024-08-29] MEDS: APRESOLINE 5 MG IV (00:10)
[2024-08-29] MEDS: LIPITOR 20 MG PO (08:07)
[2024-08-29] MEDS: PROCARDIA XL (EXTENDED RELEASE) 30 MG PO (08:07)
[2024-08-29] MEDS: COLACE PO ×2 (08:07→19:59)
[2024-08-29] MEDS: LOW STRENGTH ASPIRIN 81 MG PO (08:07)
[2024-08-29] MEDS: NOVOLOG FLEXPEN-LOW RESISTANCE SC ×2 (08:11→12:52)
[2024-08-29 08:22] LABS: Glucose - Point of Care 104 mg/dl (70-99)
[2024-08-29 08:35] LABS: ALT (SGPT) 22 U/L (0-50); AST (SGOT) 22 U/L (17-59); Albumin 3.3 g/dl (3.5-5.0); Alkaline Phosphatase 96 U/L (38-126); Blood Urea Nitrogen 10 mg/dl (9-20); Calcium 8.1 mg/dl (8.4-10.2); Carbon Dioxide 30 mmol/L (22-30); Chloride 101 mmol/L (98-107); Estimated Creatinine Clearance 98 ml/min; Glucose 91 mg/dl (70-99); Potassium 3.4 mmol/L (3.5-5.1); Sodium 138 mmol/L (135-145); Total Bilirubin 0.8 mg/dl (0.2-1.3); Total Protein 5.9 g/dl (6.3-8.2); eGFR > 60.00
--- NOTE | 2024-08-29 09:00 | CON.MD ---
Documented by User: Ana Ríos PA-C 08/29/24 17:12
Consultation - Medical
-
Referring Provider:
Chief Complaint: CVA with left sided weakness
History of Present Illness: Patient is a 79 year old make with PMH of (Ulcerative colitis on Remicade, L4-L5 spinal central canal stenosis, HTN, DLP, DM, BPH, hepatic steatosis) presented to ED on 08/25/24 after being found down at home the next
day. Patient reported to have lowered himself to the floor while trying to get to the bathroom. He was unable to get up unassisted and crawled along the floor until he was able to reach his phone the next day. He called his daughter who found him
and brought him to the ED with dysarthria and left sided weakness. He received IV fluid in the ED. CT head was initially negative. CTA without any acute abnormality. MRI of the brain showed right stuart acute or subacute infarct. Also noted to
have C3-C4 spinal canal stenosis. No indications to DAPT due to high NIH score. Was started on Plavix and aspirin. Plavix was stopped due to high NIH.
Past Medical History:�Ulcerative colitis on Remicade, L4-L5 spinal central canal stenosis, HTN, DLP, DM, BPH, hepatic steatosis,
Procedure History: Right hand surgery,
Family History:�
�
Social History:�
Functional Level Premorbidly:�Independent with all activities, daughter assist with grocery shopping. Has 4 children
Functional Level Currently: Bed mobility�dependent, transfer�mod assist, ambulation�sidesteps 1 foot to HOB with jolene-walker�max assist of 2, eating, grooming�set up, toileting�dependent, upper extremity self-care�max assist, lower extremity
self-care�dependent
Tobacco: Former smoker
Alcohol:�Denies
Drug use:�Denies
�
Lives with: Alone
24-hour assistance available:�
Number of floors:�Multilevel
# steps to enter:�1-2
# steps to second floor: FF
Potential First floor set up:�no
Driving:�yes
Occupation:�quality assurance manager
�
�
Allergies:�
Allergy/AdvReac Type Severity Reaction Status Date / Time
Sulfa (Sulfonamide Allergy Unknown Verified 08/25/24 21:05
Antibiotics)
Review of Systems:�
Constitutional: (x) abNormal _ fatigue
Eye: (x) Normal _
Ear/Nose/Throat: (x) Normal _
Respiratory: (x) normal
Cardiovascular: normal
Gastrointestinal: (x) abNormal _nausea, ulcerative colitis,
Genitourinary: (x)
Musculoskeletal: (x) left weakness due CVA, left inattention
Integumentary: (x) Normal _
Neurologic: (x) CVA, headache
Psychiatric: (x) Normal _
Endocrine: (x) Normal _
Hematologic/Lymphatic: (x) Normal _
Allergic/Immunologic: (x) Normal _
�
Medications:�
Active Current Visit Medication List
Category Date Time Status
Acetaminophen [Tylenol/Feverall] Med 08/25/24 20:56 Active
650 mg RECTAL Q4HPRN PRN
Acetaminophen [Tylenol] Med 08/25/24 20:56 Active
650 mg PO Q4HPRN PRN
Aspirin Chewable [Low Strength Aspirin] Med 08/26/24 08:00 Active
81 mg PO DAILY
Atorvastatin [Lipitor] Med 08/26/24 08:00 Active
20 mg PO DAILY
Dextrose 50%-Water [Dextrose 50% Syringe] Med 08/25/24 20:56 Active
12.5 grams IV [id number] PRN
Docusate Sodium [Colace] Med 08/28/24 12:00 Active
100 mg PO BID
Enoxaparin Sodium [Lovenox] Med 08/26/24 18:00 Active
40 mg SC QPM
Flush (0.9% Sodium Chloride) [Flush (Nss)] Med 08/25/24 21:00 Active
See Dose Instructions IV PER PROTOCOL
Glucagon [GlucaGen] Med 08/25/24 20:56 Active
1 mg IM PRN PRN
Glyburide [Micronase] Med 08/26/24 08:00 Hold
5 mg PO DAILY
HydrALAZINE [Apresoline] Med 08/27/24 10:40 Active
5 mg IV Q6HPRN PRN
Insulin Aspart Corrective Low [Novolog Flexpen-Low Med 08/26/24 07:30 Active
Resistance]
See Protocol SC AC
Insulin Glargine Lantus [Lantus] 11 units Med 08/27/24 12:49 Active
Subcutaneous Insulin Syringe [Syringe-Insulin] 0 unit
SC HS
Miconazole Nitrate [Desenex/Mitrazol/Zeasorb] Med 08/26/24 08:58 Active
See Dose Instructions TOPICAL BIDPRN PRN
NIFEdipine EXTENDED RELEASE [Procardia Xl (Extended Med 08/28/24 20:00 Active
Release)]
30 mg PO BID
Ondansetron Injectable [Zofran] Med 08/27/24 12:33 Active
4 mg IV Q6HPRN PRN
Tamsulosin [Flomax] Med 08/25/24 22:00 Active
0.4 mg PO HS
Vitals:
Physical Exam:�
General Appearance/Observation: Well-developed, well-nourished in no apparent distress.�
Pain/Comfort Assessment: none
Mood/Affect: Appropriate�
�
Integumentary/Operative Site:�No lesions noted during course of exam.
�
Eyes: Conjunctiva/Lids: normal���� Pupils: pupils equal round and reactive to light and Accommodation�
Ears/Nose/Throat: oral mucosa moist,� throat clear.������������ Lips/Teeth/Gums: normal�
Neck: No muscle spasm or tenderness�
Cardiovascular: Heart: regular, no murmur�
Pulses: dorsalis pedis 2+ bilaterally�
Respiratory: Respiratory Effort/Chest Expansion: normal������� Auscultation: Clear to auscultation bilaterally�
Gastrointestinal: abdomen not tender, seems distended and semi firm, normal abdominal bowel sounds with gurgling
Genitourinary: [place]�
Extremities:�Edema: None�Cyanosis: None�Trophic�changes: None
�
Neurology Exam:
Orientation: Alert, Oriented to self, time, Place.
Memory: seems intact for immediate medical concerns.
Comprehension: Intact
Two step command: Intact
Naming:says TV,bed, clock and able to tell time on clock
Cranial Nerves:
CNII:�Pupillary light reflex: Intact����Visual Field: intact
CN III, IV, : Extraocular muscles: Intact�
CN V:�Facial Sensation�at�Forehead: Impaired on the left,�Maxilla: Intact,�Mandible: Intact
CN VII:�Facial movement: weakness on the left
CN VIII:�Hearing: Normal
�� CN IX/X:�Speech & swallow: low volume, dysarthria, able to partially understand what he is saying �Position of Uvula: Midline
�� CN XI:�Shoulder shrug: weakness on left, flaccid
�� CN XII:�Tongue protrusion: deviated
Sensory:
Light touch: Intact in bilateral upper and lower extremities.
�
Reflexes:
Biceps: 1+ bilaterally
Brachioradialis: 1+ bilaterally
Triceps: 1+ bilaterally
Patellar: absent+ bilaterally
Achilles: absent+ bilaterally
�� Babinski: Down going on right, upgoing on the left
�� Clonus:none
�� Dyllan: Negative bilaterally�
Cerebellar: Dysmetria/Ataxia: not able to test left side due to weakness
Musculoskeletal: Motor: (Manual muscle scale 0-5)�
Muscle SA EF WE EE FF FA HF KE DF EHL PF
Right� 4 5 5 5 5 5 4 4 5 5 5
Left 0 0 0 0 0 0 0 0 0 0 0
�unable to lift or move LUE or LLE, Minimal wiggling of fingers on left hand
Tone:intact in all extremities
Range of Motion: Passively within normal limits in all extremities. �
Lab Results:
Labs
WBC 11.1 10^3/uL (4.8-10.8) H 08/28/24 06:18
RBC 4.72 10^6/uL (4.70-6.10) 08/28/24 06:18
Hgb 13.8 g/dL (13.0-18.0) 08/28/24 06:18
Hct 40.9 % (39.0-52.0) 08/28/24 06:18
MCV 86.7 fL (80.0-94.0) 08/28/24 06:18
MCH 29.2 pg (27.0-31.0) 08/28/24 06:18
MCHC 33.7 g/dL (33.0-37.0) 08/28/24 06:18
RDW 13.6 % (11.5-14.5) 08/28/24 06:18
Plt Count 180 10^3/uL (130-400) 08/28/24 06:18
MPV 11.5 fL (7.4-10.4) H 08/28/24 06:18
Abs Immat Gran (auto) 0.1 10^3/uL (0-0.05) H 08/25/24 16:34
Absolute Neuts (auto) 14.8 10^3/uL (1.4-6.5) H 08/25/24 16:34
Absolute Lymphs (auto) 1.3 10^3/uL (1.2-3.4) 08/25/24 16:34
Absolute Monos (auto) 1.1 10^3/uL (0.1-0.6) H 08/25/24 16:34
Absolute Eos (auto) 0.1 10^3/uL (0-0.7) 08/25/24 16:34
Absolute Basos (auto) 0.1 10^3/uL (0-0.2) 08/25/24 16:34
Immature Gran % 0.3 % (0-0.5) 08/25/24 16:34
Neutrophils % 85.1 % (42.2-75.2) H 08/25/24 16:34
Lymphocytes % 7.2 % (20.5-51.1) L 08/25/24 16:34
Monocytes % 6.3 % (1.7-9.3) 08/25/24 16:34
Eosinophils % 0.5 % (0-6) 08/25/24 16:34
Basophils % 0.6 % (0-2) 08/25/24 16:34
Nucleated RBC % 0 % (-) 08/25/24 16:34
PT 14.8 Sec (11.4-14.6) H 08/25/24 16:34
INR 1.13 08/25/24 16:34
Sodium 138 mmol/L (135-145) 08/29/24 07:06
Potassium 3.4 mmol/L (3.5-5.1) L 08/29/24 07:06
Chloride 101 mmol/L (98-107) 08/29/24 07:06
Carbon Dioxide 30 mmol/L (22-30) 08/29/24 07:06
BUN 10 mg/dl (9-20) 08/29/24 07:06
Creatinine 0.7 mg/dL (0.7-1.3) 08/29/24 07:06
Estimated Creat Clear 98 ml/min 08/29/24 07:06
eGFR > 60.00 08/29/24 07:06
Glucose 91 mg/dl (70-99) 08/29/24 07:06
Hemoglobin A1c 8.8 % (4.0-5.6) H 08/26/24 05:56
Calcium 8.1 mg/dl (8.4-10.2) L 08/29/24 07:06
Total Bilirubin 0.8 mg/dl (0.2-1.3) 08/29/24 07:06
AST 22 U/L (17-59) 08/29/24 07:06
ALT 22 U/L (0-50) 08/29/24 07:06
Alkaline Phosphatase 96 U/L (38-126) 08/29/24 07:06
Creatine Kinase 118 U/L (55-170) D 08/28/24 06:18
Total Protein 5.9 g/dl (6.3-8.2) L 08/29/24 07:06
Albumin 3.3 g/dl (3.5-5.0) L 08/29/24 07:06
Triglycerides 84 mg/dl (10-149) 08/26/24 05:56
Total Cholesterol 111 mg/dl (50-199) 08/26/24 05:56
LDL Cholesterol, Calc 59 mg/dl 08/26/24 05:56
VLDL Cholesterol, Calc 16 mg/dl (0-30) 08/26/24 05:56
HDL Cholesterol 36 mg/dl 08/26/24 05:56
Urine Color Yellow 08/26/24 17:49
Urine Clarity Clear (Clear) 08/26/24 17:49
Urine pH 5.0 (5.0-9.0) 08/26/24 17:49
Ur Specific [place] 1.015 (<1.030) 08/26/24 17:49
Urine Ketones Trace (Negative) A 08/26/24 17:49
Ur Occult Blood Reflex Negative (Negative) 08/26/24 17:49
Urine Nitrite (Reflex) Negative (Negative) 08/26/24 17:49
Urine Bilirubin Negative (Negative) 08/26/24 17:49
Urine Urobilinogen Negative (Neg - 1+) 08/26/24 17:49
Leukocyte Esterase Rfl Negative (Negative) 08/26/24 17:49
Urine Glucose 3+ (Negative) A 08/26/24 17:49
Urine Albumin (Reflex) Trace (Neg - Trace) 08/26/24 17:49
SARS-CoV-2 Antigen Negative (Negative) 08/25/24 16:34
POC Glucose 104 mg/dl (70-99) H 08/29/24 08:11
Diagnostic Results:�as per HPI�
CT scan without contrast brain - 08/27/24: No acute intracranial hemorrhage.
Small recent nonhemorrhagic infarct in the right stuart.
Brain MRI 08/26/2024:Foci of abnormal restricted diffusion in the right paramedian stuart, compatible with acute to subacute infarct. appears to be spinal cord compression and probably a degree of central canal stenosis at C3-4.
CT head and neck angio with/without contrast 08/25/2024 no evidence of acute vascular pathology of the head and neck. Mild atherosclerotic vascular disease. No focal stenosis
Chest x-ray 08/25/24:No acute cardiopulmonary process.
Echo 08/26/2024:Normal left ventricular wall
thickness. Normal left ventricular systolic function. Left ventricular ejection
fraction is 50-55% by visual assessment. Wall motion analysis is limited by
the image quality. Stage I diastolic dysfunction suggestive of abnormal
relaxation.
Lab Results:
Labs
WBC 11.1 10^3/uL (4.8-10.8) H 08/28/24 06:18
RBC 4.72 10^6/uL (4.70-6.10) 08/28/24 06:18
Hgb 13.8 g/dL (13.0-18.0) 08/28/24 06:18
Hct 40.9 % (39.0-52.0) 08/28/24 06:18
MCV 86.7 fL (80.0-94.0) 08/28/24 06:18
MCH 29.2 pg (27.0-31.0) 08/28/24 06:18
MCHC 33.7 g/dL (33.0-37.0) 08/28/24 06:18
RDW 13.6 % (11.5-14.5) 08/28/24 06:18
Plt Count 180 10^3/uL (130-400) 08/28/24 06:18
MPV 11.5 fL (7.4-10.4) H 08/28/24 06:18
Abs Immat Gran (auto) 0.1 10^3/uL (0-0.05) H 08/25/24 16:34
Absolute Neuts (auto) 14.8 10^3/uL (1.4-6.5) H 08/25/24 16:34
Absolute Lymphs (auto) 1.3 10^3/uL (1.2-3.4) 08/25/24 16:34
Absolute Monos (auto) 1.1 10^3/uL (0.1-0.6) H 08/25/24 16:34
Absolute Eos (auto) 0.1 10^3/uL (0-0.7) 08/25/24 16:34
Absolute Basos (auto) 0.1 10^3/uL (0-0.2) 08/25/24 16:34
Immature Gran % 0.3 % (0-0.5) 08/25/24 16:34
Neutrophils % 85.1 % (42.2-75.2) H 08/25/24 16:34
Lymphocytes % 7.2 % (20.5-51.1) L 08/25/24 16:34
Monocytes % 6.3 % (1.7-9.3) 08/25/24 16:34
Eosinophils % 0.5 % (0-6) 08/25/24 16:34
Basophils % 0.6 % (0-2) 08/25/24 16:34
Nucleated RBC % 0 % (-) 08/25/24 16:34
PT 14.8 Sec (11.4-14.6) H 08/25/24 16:34
INR 1.13 08/25/24 16:34
Sodium 138 mmol/L (135-145) 08/29/24 07:06
Potassium 3.4 mmol/L (3.5-5.1) L 08/29/24 07:06
Chloride 101 mmol/L (98-107) 08/29/24 07:06
Carbon Dioxide 30 mmol/L (22-30) 08/29/24 07:06
BUN 10 mg/dl (9-20) 08/29/24 07:06
Creatinine 0.7 mg/dL (0.7-1.3) 08/29/24 07:06
Estimated Creat Clear 98 ml/min 08/29/24 07:06
eGFR > 60.00 08/29/24 07:06
Glucose 91 mg/dl (70-99) 08/29/24 07:06
Hemoglobin A1c 8.8 % (4.0-5.6) H 08/26/24 05:56
Calcium 8.1 mg/dl (8.4-10.2) L 08/29/24 07:06
Total Bilirubin 0.8 mg/dl (0.2-1.3) 08/29/24 07:06
AST 22 U/L (17-59) 08/29/24 07:06
ALT 22 U/L (0-50) 08/29/24 07:06
Alkaline Phosphatase 96 U/L (38-126) 08/29/24 07:06
Creatine Kinase 118 U/L (55-170) D 08/28/24 06:18
Total Protein 5.9 g/dl (6.3-8.2) L 08/29/24 07:06
Albumin 3.3 g/dl (3.5-5.0) L 08/29/24 07:06
Triglycerides 84 mg/dl (10-149) 08/26/24 05:56
Total Cholesterol 111 mg/dl (50-199) 08/26/24 05:56
LDL Cholesterol, Calc 59 mg/dl 08/26/24 05:56
VLDL Cholesterol, Calc 16 mg/dl (0-30) 08/26/24 05:56
HDL Cholesterol 36 mg/dl 08/26/24 05:56
Urine Color Yellow 08/26/24 17:49
Urine Clarity Clear (Clear) 08/26/24 17:49
Urine pH 5.0 (5.0-9.0) 08/26/24 17:49
Ur Specific [place] 1.015 (<1.030) 08/26/24 17:49
Urine Ketones Trace (Negative) A 08/26/24 17:49
Ur Occult Blood Reflex Negative (Negative) 08/26/24 17:49
Urine Nitrite (Reflex) Negative (Negative) 08/26/24 17:49
Urine Bilirubin Negative (Negative) 08/26/24 17:49
Urine Urobilinogen Negative (Neg - 1+) 08/26/24 17:49
Leukocyte Esterase Rfl Negative (Negative) 08/26/24 17:49
Urine Glucose 3+ (Negative) A 08/26/24 17:49
Urine Albumin (Reflex) Trace (Neg - Trace) 08/26/24 17:49
SARS-CoV-2 Antigen Negative (Negative) 08/25/24 16:34
POC Glucose 104 mg/dl (70-99) H 08/29/24 08:11
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
Plan
PT/OT to increase independence with ADLs, improve balance, coordination, endurance, strength, mobility, community reintegration, decreased burden of care on others and family education.
CVA: right paramedian stuart acute or subacute infarct.Plavix DC'd due to high NIH. Continue aspirin and blood pressure control (SBP less than 180 and diastolic less than 100 to participate with therapy for ischemic stroke). Continue to monitor
neurologic status.
Left nondominant hemiparesis: High risk for falls and sliding out of chair/bed. Safety reinforced.
- Avoid using affected arm to help lift or pull patient as this will cause trauma to the shoulder.
Left neglect: Will need help scanning the environment
Dysphagia: speech evaluation, aspiration precautions. Advance diet as tolerated. T/C video swallow . On Soft and bite-size
Dysarthria: speech evaluation
rhabdomyolysis: traumatic likely secondary to fall. Resolved
HTN: nifedipine bid. monitor closely
HLD: Statin
DM II: Accu-Cheks, insulin sliding scale,glyburide, lantus- 11 units at bedtime which is his home dose
Acute on chronic leukocytosis: likely stress reaction. UA without UTI.COVID negative. Negative for Flu A and B.chest x ray with no acute cardiopulmonary process
patient is afebrile.
Hypokalemia: replete
Psych: Psychology consult. Monitor mood, adjust medications as needed.
Skin: monitor for pressure sores/rashes/lesions.
Pain: acetaminophen or oxycodone as needed.
Bowel: Colace and Senna, PRN bisacodyl.
Bladder/ BPH: Flomax time void, PVRs, PRN straight cath.
GI Prophylasis/ulcerative colitis: t/c Pantoprazole
DVT Prophylaxis: Mechanical and Lovenox
Pulmonary: Incentive spirometry
Obesity: Continue to licensed professional counselor patient about diet adjustments to control obesity. Body habitus and increased force to move body and extremities causes further difficulty with functional tasks.
Safety: Continue to reinforce assistance with all transfers.
Code Status: DNR
Dispo (date/plan/equipment needs): Home with family care. Social history reviewed.
Functional and Medical Goals:�Modified Independent with ADL�s, ambulation, transfers�
Discharge Destination:�Acute inpatient rehabilitation�when is medically stable and all testing recommended have been completed
Summary of recommendations: would benefit from acute inpatient rehabilitation for PT/OT to increase independence with ADLs, improve balance, coordination, endurance, strength, mobility, community reintegration, decreased burden of care on others
and family education.�.
Left nondominant hemiparesis: High risk for falls and sliding out of chair/bed. Safety reinforced. Recommend multi podus boot in LLE to prevent pressure injury
- Avoid using affected arm to help lift or pull patient as this will cause trauma to the shoulder.
Left neglect: Will need help scanning the environment
Dysphagia: speech evaluation, aspiration precautions. Advance diet as tolerated. T/C video swallow . On Soft and bite-size
Dysarthria: speech evaluation
Bowel: Colace and Senna, PRN bisacodyl.
Pulmonary: Incentive spirometry

Documented by User: Paddy Cha MD 08/29/24 17:40
Consultation - Medical
-
Referring Provider: Dr. Jimmy Lim
Chief Complaint: CVA with left sided weakness
History of Present Illness: Patient is a 79 year old make with PMH of (Ulcerative colitis on Remicade, L4-L5 spinal central canal stenosis, HTN, DLP, DM, BPH, hepatic steatosis) presented to ED on 08/25/24 after being found down at home the next
day. Patient reported to have lowered himself to the floor while trying to get to the bathroom. He was unable to get up unassisted and crawled along the floor until he was able to reach his phone the next day. He called his daughter who found him
and brought him to the ED with dysarthria and left sided weakness. He received IV fluid in the ED. CT head was initially negative. CTA without any acute abnormality. MRI of the brain showed right stuart acute or subacute infarct. Also noted to
have C3-C4 spinal canal stenosis. No indications to DAPT due to high NIH score. Was started on Plavix and aspirin. Plavix was stopped due to high NIH.
Overall patient feeling tired, notes that he inhaled something in his lungs earlier and is wiped out. GI is coming to bedside to place an NG tube. He denies any new numbness or tingling concerns. He had a video swallow this morning and was made
temporarily n.p.o. with an NG tube being placed as noted.
Past Medical History:�Ulcerative colitis on Remicade, L4-L5 spinal central canal stenosis, HTN, DLP, DM, BPH, hepatic steatosis,
Procedure History: Right hand surgery,
Family History:�Denies
�
Social History:�
Functional Level Premorbidly:�Independent with all activities, daughter assist with grocery shopping. Has 4 children
Functional Level Currently: Bed mobility�dependent, transfer�mod assist, ambulation�sidesteps 1 foot to HOB with jolene-walker�max assist of 2, eating, grooming�set up, toileting�dependent, upper extremity self-care�max assist, lower extremity
self-care�dependent
Tobacco: Former smoker
Alcohol:�Denies
Drug use:�Denies
�
Lives with: Alone
24-hour assistance available:�No
Number of floors:�Multilevel
# steps to enter:�1-2
# steps to second floor: FF
Potential First floor set up:�no
Driving:�yes
Occupation:�quality assurance manager
�
�
Allergies:�
Allergy/AdvReac Type Severity Reaction Status Date / Time
Sulfa (Sulfonamide Allergy Unknown Verified 08/25/24 21:05
Antibiotics)
Review of Systems:�
Constitutional: (x) abNormal _ fatigue
Eye: (x) Normal _
Ear/Nose/Throat: (x) Normal _
Respiratory: (x) normal
Cardiovascular: normal
Gastrointestinal: (x) abNormal _nausea, ulcerative colitis,
Genitourinary: (x)
Musculoskeletal: (x) left weakness due CVA, left inattention
Integumentary: (x) Normal _
Neurologic: (x) CVA, headache
Psychiatric: (x) Normal _
Endocrine: (x) Normal _
Hematologic/Lymphatic: (x) Normal _
Allergic/Immunologic: (x) Normal _
�
Medications:�
Active Current Visit Medication List
Category Date Time Status
Acetaminophen [Tylenol/Feverall] Med 08/25/24 20:56 Active
650 mg RECTAL Q4HPRN PRN
Acetaminophen [Tylenol] Med 08/25/24 20:56 Active
650 mg PO Q4HPRN PRN
Aspirin Chewable [Low Strength Aspirin] Med 08/26/24 08:00 Active
81 mg PO DAILY
Atorvastatin [Lipitor] Med 08/26/24 08:00 Active
20 mg PO DAILY
Dextrose 50%-Water [Dextrose 50% Syringe] Med 08/25/24 20:56 Active
12.5 grams IV [id number] PRN
Docusate Sodium [Colace] Med 08/28/24 12:00 Active
100 mg PO BID
Enoxaparin Sodium [Lovenox] Med 08/26/24 18:00 Active
40 mg SC QPM
Flush (0.9% Sodium Chloride) [Flush (Nss)] Med 08/25/24 21:00 Active
See Dose Instructions IV PER PROTOCOL
Glucagon [GlucaGen] Med 08/25/24 20:56 Active
1 mg IM PRN PRN
Glyburide [Micronase] Med 08/26/24 08:00 Hold
5 mg PO DAILY
HydrALAZINE [Apresoline] Med 08/27/24 10:40 Active
5 mg IV Q6HPRN PRN
Insulin Aspart Corrective Low [Novolog Flexpen-Low Med 08/26/24 07:30 Active
Resistance]
See Protocol SC AC
Insulin Glargine Lantus [Lantus] 11 units Med 08/27/24 12:49 Active
Subcutaneous Insulin Syringe [Syringe-Insulin] 0 unit
SC HS
Miconazole Nitrate [Desenex/Mitrazol/Zeasorb] Med 08/26/24 08:58 Active
See Dose Instructions TOPICAL BIDPRN PRN
NIFEdipine EXTENDED RELEASE [Procardia Xl (Extended Med 08/28/24 20:00 Active
Release)]
30 mg PO BID
Ondansetron Injectable [Zofran] Med 08/27/24 12:33 Active
4 mg IV Q6HPRN PRN
Tamsulosin [Flomax] Med 08/25/24 22:00 Active
0.4 mg PO HS
Vitals:
Temp Pulse Resp BP Pulse Ox
98.1 F 74 18 179/81 96
08/29/24 15:45 08/29/24 15:45 08/29/24 15:45 08/29/24 15:45 08/29/24 15:45
Height 5 ft 10 in
Actual Weight 99.393 kg
Body Mass Index (BMI) 31.4
Physical Exam:�
General Appearance/Observation: Well-developed, well-nourished male appears a little bit fatigued.�
Pain/Comfort Assessment: none
Mood/Affect: Appropriate�
�
Integumentary/Operative Site:�No lesions noted during course of exam.
�
Eyes: Conjunctiva/Lids: normal���� Pupils: pupils equal round and reactive to light and Accommodation�
Ears/Nose/Throat: oral mucosa moist,� throat clear.������������ Lips/Teeth/Gums: normal�
Cardiovascular: Heart: regular, no murmur�
Pulses: dorsalis pedis 2+ bilaterally�
Respiratory: Respiratory Effort/Chest Expansion: Has some decreased air to the bases bilaterally������� auscultation: Mild rhonchi to auscultation bilaterally�
Gastrointestinal: abdomen not tender, seems distended and semi firm, normal abdominal bowel sounds with gurgling
Genitourinary: [place]�
Extremities:�Edema: None�Cyanosis: None�Trophic�changes: None
�
Neurology Exam:
Orientation: Alert, Oriented to self, time, Place.
Memory: intact for immediate medical concerns.
Comprehension: Intact
Two step command: Intact
Naming:says TV,bed, clock and able to tell time on clock
Cranial Nerves:
CNII:�Pupillary light reflex: Intact����Visual Field: intact
CN III, IV, : Extraocular muscles: Intact�
CN V:�Facial Sensation�at�Forehead: Impaired on the left,�Maxilla: Intact,�Mandible: Intact
CN VII:�Facial movement: weakness on the left
CN VIII:�Hearing: Normal
CN IX/X:�Speech & swallow: low volume, dysarthria, able to partially understand what he is saying �Position of Uvula: Midline
CN XI:�Shoulder shrug: weakness on left, flaccid
CN XII:�Tongue protrusion: deviated to the left
Sensory:
Light touch: Intact in bilateral upper and lower extremities.
�
Reflexes:
Biceps: 2+ bilaterally
Brachioradialis: 2+ bilaterally
Triceps: 2+ bilaterally
Patellar: absent+ bilaterally
Achilles: absent+ bilaterally
�� Babinski: Down going on right, upgoing on the left
�� Clonus:none
�� Dyllan: Negative bilaterally�
Cerebellar: Dysmetria/Ataxia: not able to test left side due to weakness
Musculoskeletal: Motor: (Manual muscle scale 0-5)�
Muscle SA EF WE EE FF FA HF KE DF EHL PF
Right� 4 5 5 5 5 5 4 4 5 5 5
Left 0 0 0 0 1 0 0 0 0 0 0
�unable to lift or move LUE or LLE, Minimal wiggling of fingers on left hand
Tone:intact in all extremities
Range of Motion: Passively within normal limits in all extremities. �
Lab Results:
Labs
WBC 11.1 10^3/uL (4.8-10.8) H 08/28/24 06:18
RBC 4.72 10^6/uL (4.70-6.10) 08/28/24 06:18
Hgb 13.8 g/dL (13.0-18.0) 08/28/24 06:18
Hct 40.9 % (39.0-52.0) 08/28/24 06:18
MCV 86.7 fL (80.0-94.0) 08/28/24 06:18
MCH 29.2 pg (27.0-31.0) 08/28/24 06:18
MCHC 33.7 g/dL (33.0-37.0) 08/28/24 06:18
RDW 13.6 % (11.5-14.5) 08/28/24 06:18
Plt Count 180 10^3/uL (130-400) 08/28/24 06:18
MPV 11.5 fL (7.4-10.4) H 08/28/24 06:18
Abs Immat Gran (auto) 0.1 10^3/uL (0-0.05) H 08/25/24 16:34
Absolute Neuts (auto) 14.8 10^3/uL (1.4-6.5) H 08/25/24 16:34
Absolute Lymphs (auto) 1.3 10^3/uL (1.2-3.4) 08/25/24 16:34
Absolute Monos (auto) 1.1 10^3/uL (0.1-0.6) H 08/25/24 16:34
Absolute Eos (auto) 0.1 10^3/uL (0-0.7) 08/25/24 16:34
Absolute Basos (auto) 0.1 10^3/uL (0-0.2) 08/25/24 16:34
Immature Gran % 0.3 % (0-0.5) 08/25/24 16:34
Neutrophils % 85.1 % (42.2-75.2) H 08/25/24 16:34
Lymphocytes % 7.2 % (20.5-51.1) L 08/25/24 16:34
Monocytes % 6.3 % (1.7-9.3) 08/25/24 16:34
Eosinophils % 0.5 % (0-6) 08/25/24 16:34
Basophils % 0.6 % (0-2) 08/25/24 16:34
Nucleated RBC % 0 % (-) 08/25/24 16:34
PT 14.8 Sec (11.4-14.6) H 08/25/24 16:34
INR 1.13 08/25/24 16:34
Sodium 138 mmol/L (135-145) 08/29/24 07:06
Potassium 3.4 mmol/L (3.5-5.1) L 08/29/24 07:06
Chloride 101 mmol/L (98-107) 08/29/24 07:06
Carbon Dioxide 30 mmol/L (22-30) 08/29/24 07:06
BUN 10 mg/dl (9-20) 08/29/24 07:06
Creatinine 0.7 mg/dL (0.7-1.3) 08/29/24 07:06
Estimated Creat Clear 98 ml/min 08/29/24 07:06
eGFR > 60.00 08/29/24 07:06
Glucose 91 mg/dl (70-99) 08/29/24 07:06
Hemoglobin A1c 8.8 % (4.0-5.6) H 08/26/24 05:56
Calcium 8.1 mg/dl (8.4-10.2) L 08/29/24 07:06
Total Bilirubin 0.8 mg/dl (0.2-1.3) 08/29/24 07:06
AST 22 U/L (17-59) 08/29/24 07:06
ALT 22 U/L (0-50) 08/29/24 07:06
Alkaline Phosphatase 96 U/L (38-126) 08/29/24 07:06
Creatine Kinase 118 U/L (55-170) D 08/28/24 06:18
Total Protein 5.9 g/dl (6.3-8.2) L 08/29/24 07:06
Albumin 3.3 g/dl (3.5-5.0) L 08/29/24 07:06
Triglycerides 84 mg/dl (10-149) 08/26/24 05:56
Total Cholesterol 111 mg/dl (50-199) 08/26/24 05:56
LDL Cholesterol, Calc 59 mg/dl 08/26/24 05:56
VLDL Cholesterol, Calc 16 mg/dl (0-30) 08/26/24 05:56
HDL Cholesterol 36 mg/dl 08/26/24 05:56
Urine Color Yellow 08/26/24 17:49
Urine Clarity Clear (Clear) 08/26/24 17:49
Urine pH 5.0 (5.0-9.0) 08/26/24 17:49
Ur Specific [place] 1.015 (<1.030) 08/26/24 17:49
Urine Ketones Trace (Negative) A 08/26/24 17:49
Ur Occult Blood Reflex Negative (Negative) 08/26/24 17:49
Urine Nitrite (Reflex) Negative (Negative) 08/26/24 17:49
Urine Bilirubin Negative (Negative) 08/26/24 17:49
Urine Urobilinogen Negative (Neg - 1+) 08/26/24 17:49
Leukocyte Esterase Rfl Negative (Negative) 08/26/24 17:49
Urine Glucose 3+ (Negative) A 08/26/24 17:49
Urine Albumin (Reflex) Trace (Neg - Trace) 08/26/24 17:49
SARS-CoV-2 Antigen Negative (Negative) 08/25/24 16:34
POC Glucose 104 mg/dl (70-99) H 08/29/24 08:11
Diagnostic Results:�as per HPI�
CT scan without contrast brain - 08/27/24: No acute intracranial hemorrhage.
Small recent nonhemorrhagic infarct in the right stuart.
Brain MRI 08/26/2024:Foci of abnormal restricted diffusion in the right paramedian stuart, compatible with acute to subacute infarct. appears to be spinal cord compression and probably a degree of central canal stenosis at C3-4.
CT head and neck angio with/without contrast 08/25/2024 no evidence of acute vascular pathology of the head and neck. Mild atherosclerotic vascular disease. No focal stenosis
Chest x-ray 08/25/24:No acute cardiopulmonary process.
Echo 08/26/2024:Normal left ventricular wall
thickness. Normal left ventricular systolic function. Left ventricular ejection
fraction is 50-55% by visual assessment. Wall motion analysis is limited by
the image quality. Stage I diastolic dysfunction suggestive of abnormal
relaxation.
Lab Results:
Labs
WBC 11.1 10^3/uL (4.8-10.8) H 08/28/24 06:18
RBC 4.72 10^6/uL (4.70-6.10) 08/28/24 06:18
Hgb 13.8 g/dL (13.0-18.0) 08/28/24 06:18
Hct 40.9 % (39.0-52.0) 08/28/24 06:18
MCV 86.7 fL (80.0-94.0) 08/28/24 06:18
MCH 29.2 pg (27.0-31.0) 08/28/24 06:18
MCHC 33.7 g/dL (33.0-37.0) 08/28/24 06:18
RDW 13.6 % (11.5-14.5) 08/28/24 06:18
Plt Count 180 10^3/uL (130-400) 08/28/24 06:18
MPV 11.5 fL (7.4-10.4) H 08/28/24 06:18
Abs Immat Gran (auto) 0.1 10^3/uL (0-0.05) H 08/25/24 16:34
Absolute Neuts (auto) 14.8 10^3/uL (1.4-6.5) H 08/25/24 16:34
Absolute Lymphs (auto) 1.3 10^3/uL (1.2-3.4) 08/25/24 16:34
Absolute Monos (auto) 1.1 10^3/uL (0.1-0.6) H 08/25/24 16:34
Absolute Eos (auto) 0.1 10^3/uL (0-0.7) 08/25/24 16:34
Absolute Basos (auto) 0.1 10^3/uL (0-0.2) 08/25/24 16:34
Immature Gran % 0.3 % (0-0.5) 08/25/24 16:34
Neutrophils % 85.1 % (42.2-75.2) H 08/25/24 16:34
Lymphocytes % 7.2 % (20.5-51.1) L 08/25/24 16:34
Monocytes % 6.3 % (1.7-9.3) 08/25/24 16:34
Eosinophils % 0.5 % (0-6) 08/25/24 16:34
Basophils % 0.6 % (0-2) 08/25/24 16:34
Nucleated RBC % 0 % (-) 08/25/24 16:34
PT 14.8 Sec (11.4-14.6) H 08/25/24 16:34
INR 1.13 08/25/24 16:34
Sodium 138 mmol/L (135-145) 08/29/24 07:06
Potassium 3.4 mmol/L (3.5-5.1) L 08/29/24 07:06
Chloride 101 mmol/L (98-107) 08/29/24 07:06
Carbon Dioxide 30 mmol/L (22-30) 08/29/24 07:06
BUN 10 mg/dl (9-20) 08/29/24 07:06
Creatinine 0.7 mg/dL (0.7-1.3) 08/29/24 07:06
Estimated Creat Clear 98 ml/min 08/29/24 07:06
eGFR > 60.00 08/29/24 07:06
Glucose 91 mg/dl (70-99) 08/29/24 07:06
Hemoglobin A1c 8.8 % (4.0-5.6) H 08/26/24 05:56
Calcium 8.1 mg/dl (8.4-10.2) L 08/29/24 07:06
Total Bilirubin 0.8 mg/dl (0.2-1.3) 08/29/24 07:06
AST 22 U/L (17-59) 08/29/24 07:06
ALT 22 U/L (0-50) 08/29/24 07:06
Alkaline Phosphatase 96 U/L (38-126) 08/29/24 07:06
Creatine Kinase 118 U/L (55-170) D 08/28/24 06:18
Total Protein 5.9 g/dl (6.3-8.2) L 08/29/24 07:06
Albumin 3.3 g/dl (3.5-5.0) L 08/29/24 07:06
Triglycerides 84 mg/dl (10-149) 08/26/24 05:56
Total Cholesterol 111 mg/dl (50-199) 08/26/24 05:56
LDL Cholesterol, Calc 59 mg/dl 08/26/24 05:56
VLDL Cholesterol, Calc 16 mg/dl (0-30) 08/26/24 05:56
HDL Cholesterol 36 mg/dl 08/26/24 05:56
Urine Color Yellow 08/26/24 17:49
Urine Clarity Clear (Clear) 08/26/24 17:49
Urine pH 5.0 (5.0-9.0) 08/26/24 17:49
Ur Specific [place] 1.015 (<1.030) 08/26/24 17:49
Urine Ketones Trace (Negative) A 08/26/24 17:49
Ur Occult Blood Reflex Negative (Negative) 08/26/24 17:49
Urine Nitrite (Reflex) Negative (Negative) 08/26/24 17:49
Urine Bilirubin Negative (Negative) 08/26/24 17:49
Urine Urobilinogen Negative (Neg - 1+) 08/26/24 17:49
Leukocyte Esterase Rfl Negative (Negative) 08/26/24 17:49
Urine Glucose 3+ (Negative) A 08/26/24 17:49
Urine Albumin (Reflex) Trace (Neg - Trace) 08/26/24 17:49
SARS-CoV-2 Antigen Negative (Negative) 08/25/24 16:34
POC Glucose 104 mg/dl (70-99) H 08/29/24 08:11
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
Plan
PT/OT to increase independence with ADLs, improve balance, coordination, endurance, strength, mobility, community reintegration, decreased burden of care on others and family education.
CVA: right paramedian stuart acute or subacute infarct. Plavix DC'd due to high NIH. Continue aspirin and blood pressure control (SBP less than 180 and diastolic less than 100 to participate with therapy for ischemic stroke). Continue to monitor
neurologic status.
Left nondominant hemiparesis: High risk for falls and sliding out of chair/bed. Safety reinforced.
- Avoid using affected arm to help lift or pull patient as this will cause trauma to the shoulder.
Left neglect: Will need help scanning the environment
Dysphagia: speech, aspiration precautions. Failed video swallow test and made n.p.o., NG tube placed 08/29/2024 advance diet as tolerated.
Dysarthria: speech
rhabdomyolysis: traumatic likely secondary to fall. Resolved
HTN: nifedipine bid. monitor closely
HLD: Statin
DM II: Accu-Cheks, insulin sliding scale,glyburide, lantus- 11 units at bedtime which is his home dose
Acute on chronic leukocytosis: likely stress reaction. UA without UTI.COVID negative. Negative for Flu A and B.chest x ray with no acute cardiopulmonary process
patient is afebrile.
Hypokalemia: replete
Psych: Psychology consult. Monitor mood, adjust medications as needed.
Skin: monitor for pressure sores/rashes/lesions.
Pain: acetaminophen or oxycodone as needed.
Bowel: Colace and Senna, PRN bisacodyl.
Bladder/ BPH: Flomax time void, PVRs, PRN straight cath.
GI Prophylasis/ulcerative colitis: t/c Pantoprazole
DVT Prophylaxis: Mechanical and Lovenox
Pulmonary: Incentive spirometry
Obesity: Continue to licensed professional counselor patient about diet adjustments to control obesity. Body habitus and increased force to move body and extremities causes further difficulty with functional tasks.
Safety: Continue to reinforce assistance with all transfers.
Code Status: DNR
Dispo (date/plan/equipment needs): Home with family care. Social history reviewed.
Functional and Medical Goals:�Modified Independent with ADL�s, ambulation, transfers�
Discharge Destination:�Acute inpatient rehabilitation�when is medically stable and all testing recommended have been completed
Summary of recommendations: would benefit from acute inpatient rehabilitation for PT/OT to increase independence with ADLs, improve balance, coordination, endurance, strength, mobility, community reintegration, decreased burden of care on others
and family education.�.
Left nondominant hemiparesis: High risk for falls and sliding out of chair/bed. Safety reinforced. Recommend multi podus boot in LLE to prevent pressure injury
- Avoid using affected arm to help lift or pull patient as this will cause trauma to the shoulder.
Left neglect: Will need help scanning the environment
Dysphagia: speech evaluation, aspiration precautions. Advance diet as tolerated. T/C video swallow . On Soft and bite-size
Dysarthria: speech evaluation
Bowel: Colace and Senna, PRN bisacodyl.
Pulmonary: Incentive spirometry
Attending Statement:
I saw and examined the patient today. Reviewed care plan with patient, therapy, nursing, and physician psychology assistant. I agree with the above subjective and physical exam, and plan as documented by LONI Ríos with adjustments made as necessary.
Unfortunately patient with aspiration concern. Made n.p.o. based upon video swallow today and had NG tube placed. Will need consistent hydration and nutritional intake prior to going to an acute inpatient rehabilitation program which she will
benefit most from upon discharge after his feeding has been addressed.
--- NOTE | 2024-08-29 10:39 | CM ---
Addendum entered by Maria Alejandra Ramos 08/29/24 10:48:
Next available bed at [facility] is anticipated for September 02.
Addendum entered by Maria Alejandra Ramos 08/29/24 10:46:
Pt is not medically cleared for discharge to [facility] today due to aspiration. Mohini Alba at [facility] notified fo same. CM will continue to follow for transfer to [facility] when medically stable.
Original Note:
CM contacted by [facility] that a bed is available today for transfer of medically cleared. TT to Dr. Lim re: bed availability.
--- NOTE | 2024-08-29 11:00 | PTCARENOTE ---
Addendum entered by Tiffanie Cespedes RN 08/29/24 14:21:
Patient ordered strict NPO with Dobhoff placed. Abdominal xray to confirm placement.
Original Note:
Received call from speech stating VSE is complete but patient is complaining of feeling dizzy, diaphoretic and has a headache. Patient brought back to floor. MD made aware. PRN zofran given. Patient states he is tired and wants to sleep. Will
continue to monitor closely.
[2024-08-29] MEDS: KCL 270 MEQ IV (11:06)
[2024-08-29] MEDS: ZOFRAN 4 MG IV (11:08)
[2024-08-29 12:14] LABS: Glucose - Point of Care 151 mg/dl (70-99)
--- NOTE | 2024-08-29 12:49 | PTOTSP ---
Videofluoroscopic Swallow Study
Summary: Patient presents with mild-moderate oral and severe pharyngeal dysphagia with small volumes of aspiration with thin, mildly thick, moderately thick, and pureed consistencies without a sensory response. Volitional cough/swallow was
ineffective most of the time. Etiology of dysphagia is right pontine stroke. Acute aspiration complication risk is elevated given acute stroke, changes to mobility s/p stroke, and poor state of dentition/oral health.
Recommend:
1. Temporary NPO and further goals of care discussions about nutrition/hydration
2. Medications via non-oral means
3. Hold Aspiration Risk Hydration Protocol � as patient with significant lethargy and falling asleep upon f/u. Determine if when appropriate to initiate sips/chips.
4. Oral care 4x daily
5. Dysphagia tx and motor speech tx at the acute care level.
[2024-08-29] MEDS: D5/0.9% SODIUM CHLORIDE 1000 IV (12:57)
--- NOTE | 2024-08-29 13:06 | W.PN.HOSP.TC ---
Today's Communication/Plan
-
Monitor vitals
See plan
VSE noted
GI evaluation
Discussed with son
Dietary consult for tube feeding recs
Make aspirin rectally
Hydralazine as needed
gentle hydration
Assessment / Plan
Assessment / Plan
right sided weakness/slurred speech likely secondary to acute CVA
-CT head negative
CTA without any acute abnormality
MRI with restricted diffusion in the right paramedian stuart, compatible with acute or subacute infarct. Moderate atrophy. Also has possible C3-C4 spinal canal stenosis per imaging however patient has no symptoms.
A1c 8.8, LDL 59
Plavix stopped due to high NIH scale, neurology following; will need neurology follow-up outpatient
-PT/OT recommending acute rehab, physiatry consulted
repeat CT 08/27 neg for any bleeding. Suspect headaches is secondary to postconcussive syndrome
Speech following, initially recommended soft and bite-size. VSE 08/29 with aspiration. Now having difficulty with swallowing. VSE 08/29 with aspiration. Speech recommending n.p.o. Discussed with patient's son. Consulted GI for Dobbhoff and
possible PEG tube if does not improve. Speech to continue follow-up. Dietary consult for tube feeding recs. Start aspirin rectally. Holding p.o. meds.
-neurology following
monitor on tele for arrhythmia
. Echo without any vegetations
#rhabdomyolysis, traumatic likely secondary to fall
Resolved
#acute on chornic leukocytosis likely stress reaction
-wbc 17.4 on admit
UA without UTI
-COVID negative
-negative for Flu A and B
-chest x ray with no acute cardiopulmonary process
-patient is afebrile
cbc pending
Hypertension
No prior history, started nifedipine, increase to twice daily. however now on hold since NPO
Monitor
Hypokalemia
Replete
#HLD
-statin
#type 2 Dm
-sliding scale
-glyburide on hold
glargine to 11 units at bedtime which is his home dose; decreased glargine to 5 units since n.p.o. Gentle hydration
#BPH
-Flomax continued
bladder scan
#DVT prophylaxis
-scd, Lovenox
#CODE status
-DNR
PT/OT recommending acute rehab, physiatry consulted
General: Well Developed, Well Nourished and No Apparent Distress
HEENT: NormoCephalic, Moist mucous membranes and Atraumatic
Respiratory: Clear
Cardiac: S1/S2 and Regular Rhythm; No Murmur or Rub
GI: Soft, Non Tender, Non Distended and Normal Bowel Sounds
Musculoskeletal: No Clubbing, No Cyanosis and No Edema
Neuro: Slurred Speech and Other (left sided weakness)
I spent a total of 51 minutes with the patient or on the floor. More than 50% of this time involved counseling and coordination of care.
Anticipated Discharge: > 48 hours
Subjective/Interval History
-
Date of Service: August 29, 2024
denies nausea
Objective Data
-
Labs:
Laboratory Results
08/29/24 08/29/24
07:06 12:56
WBC Pending
Hgb Pending
Hct Pending
Plt Count Pending
Sodium 138
Potassium 3.4 L
Chloride 101
Carbon Dioxide 30
BUN 10
Creatinine 0.7
Glucose 91
Calcium 8.1 L
Total Bilirubin 0.8
AST 22
ALT 22
Alkaline Phosphatase 96
Vital Signs:
Vital Signs
Temp Pulse Resp BP Pulse Ox
98.6 F 74 18 134/68 94
08/29/24 11:36 08/29/24 11:36 08/29/24 11:36 08/29/24 11:36 08/29/24 11:36
I&O
08/28/24 08/29/24 08/30/24
06:59 06:59 06:59
Intake Total 740 / 740 1200 / 1200
Output Total 300 / 300 500 / 500
Balance 440 / 440 700 / 700
[2024-08-29 13:52] LABS: % Basophils 0.5 % (0-2); % Eosinophils 1.1 % (0-6); % Immature Granulocytes 0.4 % (0-0.5); % Lymphocytes 8.6 % (20.5-51.1); % Monocytes 5.7 % (1.7-9.3); % Neutrophils 83.7 % (42.2-75.2); Absolute Basophils 0.1 10^3/uL (0-0.2); Absolute Eosinophils 0.2 10^3/uL (0-0.7); Absolute Immature Granulocytes 0.1 10^3/uL (0-0.05); Absolute Lymphocytes 1.4 10^3/uL (1.2-3.4); Absolute Monocytes 0.9 10^3/uL (0.1-0.6); Absolute Neutrophils 13.3 10^3/uL (1.4-6.5); Hematocrit 44.1 % (39.0-52.0); Hemoglobin 14.8 g/dL (13.0-18.0); Mean Corp Hgb Conc. 33.6 g/dL (33.0-37.0); Mean Corpuscular Hgb 29.2 pg (27.0-31.0); Mean Corpuscular Volume 87.2 fL (80.0-94.0); Mean Platelet Volume 10.6 fL (7.4-10.4); Nucleated Red Blood Cells % 0 % (-); Platelet Count 197 10^3/uL (130-400); Red Blood Cell Count 5.06 10^6/uL (4.70-6.10); Red Cell Dist. Width 13.6 % (11.5-14.5); White Blood Cell Count 15.9 10^3/uL (4.8-10.8)
--- NOTE | 2024-08-29 15:04 | CON.GI ---
Addendum entered and electronically signed by Adonis Sharp MD 08/29/24 16:04:
I saw and examined the patient.
The MOTOR VEHICLE LICENSE CLERK or PA's note was reviewed and I agree with the note.
Comment: 79yo male admitted with weakness and aphasia dx'd with CVA. Pt failed VSE today and rec NPO. GI asked to place DHT
REC:
Place DHT and begin TF when position confirmed
Will follow status. If swallow function not improving, will discuss PEG placement then
Addendum entered and electronically signed by ALDEN Talbot 08/29/24 15:50:
DHT at tip of GE junction pulled back and repositioned -- will repeat X ray to confirm placement.
Original Note:
Consultation
-
Date/Time Consultation Requested: 08/29/24 1230
Date/Time Consultation Performed: 08/29/24 1430
Requesting Provider: Jimmy Lim MD
Performing Provider: ALDEN Castellon, Adonis Sharp MD
Reason for Consultation: nutritional evaluation
Medical History
Chief Complaint / HPI
Chief Complaint: dysphagia
History of Present Illness:
Pt is a 79yo with hx HTN, hypercholesterolemia, NIDDM, BPH with admission with weakness and aphasia with concern for CVA. VSE completed 08/29 with mild to mod oral and severe pharyngeal dysphagia with recommended NPO status. Asked to place DHT and
follow for need for possible peg. Pt currently complaints of nausea with movement but denies any other GI complaints, He denies hx EGD or colonoscopy in past. No current anticoagulation prior or during admission.
Past Medical History
Past Medical History: HTN, Hypercholesterolemia, NIDDM and Other (BPH)
Social History
Tobacco: Former Smoker
Alcohol: Other (social in past )
Drug: None
Living: Alone
Employment: Retired
Family History
Family History: Reviewed & Not Pertinent
Allergies / Home Medications
Allergy/AdvReac Type Severity Reaction Status Date / Time
Sulfa (Sulfonamide Allergy Unknown Verified 08/25/24 21:05
Antibiotics)
�Medication �Instructions �Recorded
atorvastatin 20 mg tablet 20 mg PO DAILY 08/25/24
glyburide 5 mg tablet 5 mg PO DAILY 08/25/24
insulin glargine 100 unit/mL (3 11 unit SC HS 08/25/24
mL) subcutaneous pen (Basaglar
KwikPen U-100 Insulin)
tamsulosin 0.4 mg capsule 0.4 mg PO HS 08/25/24
therapeutic multivitamin 1 tab PO DAILY 08/25/24
Review of Systems
-
History Source: Patient
Constitutional: Reports No Symptoms
EENT: Reports No Symptoms
Respiratory: Reports No Symptoms
Cardiac: Reports No Symptoms
Abdomen/GI: Reports Nausea
: Reports No Symptoms
Musculoskeletal: Reports No Symptoms
Skin: Reports No Symptoms
Neurological: Reports Weakness and Other (speech difficulty with CVA)
Endocrine: Reports No Symptoms
Hematologic/Lymphatic: Reports No Symptoms
Vital Signs
Temp Pulse Resp BP Pulse Ox
98.6 F 74 18 134/68 94
08/29/24 11:36 08/29/24 11:36 08/29/24 11:36 08/29/24 11:36 08/29/24 11:36
Physical Exam
Exam
General: Well Developed, Well Nourished and No Apparent Distress
HEENT: Normocephalic and Anicteric
Respiratory: Clear
Cardiac: Regular Rhythm
GI: Soft, Non Tender and Non Distended
Musculoskeletal: No Clubbing and No Cyanosis
Skin: Warm and Dry
Neuro: Awake, Alert, AO x 3 and Other (thick speech, left side weakness )
Psych: Calm
Results
WBC 15.9 10^3/uL (4.8-10.8) H 08/29/24 13:39
Hgb 14.8 g/dL (13.0-18.0) 08/29/24 13:39
Hct 44.1 % (39.0-52.0) 08/29/24 13:39
MCV 87.2 fL (80.0-94.0) 08/29/24 13:39
Plt Count 197 10^3/uL (130-400) 08/29/24 13:39
Absolute Neuts (auto) 13.3 10^3/uL (1.4-6.5) H 08/29/24 13:39
PT 14.8 Sec (11.4-14.6) H 08/25/24 16:34
INR 1.13 08/25/24 16:34
Sodium 138 mmol/L (135-145) 08/29/24 07:06
Potassium 3.4 mmol/L (3.5-5.1) L 08/29/24 07:06
Chloride 101 mmol/L (98-107) 08/29/24 07:06
Carbon Dioxide 30 mmol/L (22-30) 08/29/24 07:06
BUN 10 mg/dl (9-20) 08/29/24 07:06
Creatinine 0.7 mg/dL (0.7-1.3) 08/29/24 07:06
Calcium 8.1 mg/dl (8.4-10.2) L 08/29/24 07:06
Total Bilirubin 0.8 mg/dl (0.2-1.3) 08/29/24 07:06
AST 22 U/L (17-59) 08/29/24 07:06
ALT 22 U/L (0-50) 08/29/24 07:06
Alkaline Phosphatase 96 U/L (38-126) 08/29/24 07:06
Diagnostic Image Results:
08/26 MRI brain
IMPRESSION: Foci of abnormal restricted diffusion in the right paramedian stuart, compatible with acute to subacute infarct.
Foci of old infarction as described.
Prior GI Procedures:
EGD: none
Colonoscopy: none
Assessment / Plan
-
Pt is a 79yo with hx HTN, hypercholesterolemia, NIDDM, BPH with admission with weakness and aphasia with concern for CVA. VSE completed 08/29 with mild to mod oral and severe pharyngeal dysphagia with recommended NPO status. Asked to place DHT and
follow for need for possible peg. Pt currently complaints of nausea with movement but denies any other GI complaints, He denies hx EGD or colonoscopy in past. No current anticoagulation prior or during admission.
-failed VSE
-dysphagia/left sided weakness -s/p CVA
other med problems:
-NIDDM
-hypercholesterolemia
-BPH
-HTN
PLAN:
s/p DHT placement for nutrition
placed at 60cm left nare without difficulty
check X ray to confirm placement
tube feed per macroeconomics professor after DHT placement confirmed
call back if not improving and peg placement needed
-
-
Thank you for consultation and allowing me to participate in the patient's care. Please call the charge account identification clerk GI physician during the after hours with any questions or concerns.
[2024-08-29 17:04] LABS: Glucose - Point of Care 162 mg/dl (70-99)
[2024-08-29] MEDS: LOVENOX 40 MG SC (17:34)
[2024-08-29] MEDS: NOVOLOG FLEXPEN-LOW RESISTANCE 1 UNITS SC (17:34)
[2024-08-29] MEDS: PROCARDIA XL (EXTENDED RELEASE) PO (19:59)
[2024-08-29] MEDS: FLOMAX PO (20:00)
[2024-08-29 21:08] LABS: Glucose - Point of Care 131 mg/dl (70-99)
[2024-08-30] VITALS (9 sets, daily range): BP systolic 147–174; BP diastolic 61–78
[2024-08-30] MEDS: NOVOLOG FLEXPEN-LOW RESISTANCE SC ×4 (03:06→18:24)
[2024-08-30] MEDS: APRESOLINE 5 MG IV (04:47)
[2024-08-30] MEDS: D5/0.9% SODIUM CHLORIDE 1000 IV (04:48)
[2024-08-30 05:43] LABS: % Basophils 0.7 % (0-2); % Eosinophils 2.7 % (0-6); % Immature Granulocytes 0.4 % (0-0.5); % Lymphocytes 11.5 % (20.5-51.1); % Neutrophils 77.7 % (42.2-75.2); Absolute Basophils 0.1 10^3/uL (0-0.2); Absolute Eosinophils 0.4 10^3/uL (0-0.7); Absolute Immature Granulocytes 0.1 10^3/uL (0-0.05); Absolute Lymphocytes 1.6 10^3/uL (1.2-3.4); Hematocrit 41.4 % (39.0-52.0); Hemoglobin 13.7 g/dL (13.0-18.0); Mean Corp Hgb Conc. 33.1 g/dL (33.0-37.0); Mean Corpuscular Volume 87.5 fL (80.0-94.0); Mean Platelet Volume 11.3 fL (7.4-10.4); Nucleated Red Blood Cells % 0 % (-); Platelet Count 177 10^3/uL (130-400); Red Blood Cell Count 4.73 10^6/uL (4.70-6.10); Red Cell Dist. Width 13.4 % (11.5-14.5); White Blood Cell Count 14.1 10^3/uL (4.8-10.8)
[2024-08-30 06:05] LABS: Glucose - Point of Care 120 mg/dl (70-99)
[2024-08-30 06:16] LABS: ALT (SGPT) 19 U/L (0-50); AST (SGOT) 21 U/L (17-59); Alkaline Phosphatase 94 U/L (38-126); Blood Urea Nitrogen 10 mg/dl (9-20); Calcium 8.1 mg/dl (8.4-10.2); Carbon Dioxide 29 mmol/L (22-30); Chloride 104 mmol/L (98-107); Estimated Creatinine Clearance 98 ml/min; Glucose 122 mg/dl (70-99); Potassium 3.5 mmol/L (3.5-5.1); Sodium 138 mmol/L (135-145); Total Bilirubin 0.8 mg/dl (0.2-1.3); Total Protein 5.6 g/dl (6.3-8.2); eGFR > 60.00
[2024-08-30] MEDS: ASPIRIN 300 MG RECTAL (08:17)
[2024-08-30] MEDS: COLACE PO ×2 (08:19→20:33)
[2024-08-30] MEDS: PROCARDIA XL (EXTENDED RELEASE) PO (08:19)
--- NOTE | 2024-08-30 08:46 | W.PN.GI.CBS2 ---
Today's Communication / Plan
-
DHT tip now in antrum
Start TF- Jevity 1.5
Monitor swallowing function
If no improvement, discuss PEG
Assessment / Plan
-
Pt is a 79yo with hx HTN, hypercholesterolemia, NIDDM, BPH with admission with weakness and aphasia with concern for CVA. VSE completed 08/29 with mild to mod oral and severe pharyngeal dysphagia with recommended NPO status. Asked to place DHT and
follow for need for possible peg. Pt currently complaints of nausea with movement but denies any other GI complaints, He denies hx EGD or colonoscopy in past. No current anticoagulation prior or during admission.
Impression:
CVA
Dysphagia
other med problems:
-NIDDM
-hypercholesterolemia
-BPH
-HTN
Subjective
Subjective
Date of Service: August 30, 2024
No complaints
Objective
Data Reviewed
Laboratory Data:
Laboratory Results
08/30/24 04:48
08/30/24 04:48
Laboratory Results
PT 14.8 Sec (11.4-14.6) H 08/25/24 16:34
INR 1.13 08/25/24 16:34
Total Bilirubin 0.8 mg/dl (0.2-1.3) 08/30/24 04:48
AST 21 U/L (17-59) 08/30/24 04:48
ALT 19 U/L (0-50) 08/30/24 04:48
Alkaline Phosphatase 94 U/L (38-126) 08/30/24 04:48
Vital Signs and I&O:
Vital Signs
Temp Pulse Resp BP Pulse Ox
98.7 F 77 18 174/78 92
08/30/24 07:30 08/30/24 07:30 08/30/24 07:30 08/30/24 07:30 08/30/24 07:30
I&O
08/29/24 08/30/24 08/31/24
06:59 06:59 06:59
Intake Total 1200 / 1200 630 / 630
Output Total 500 / 500
Balance 700 / 700 630 / 630
Physical Exam
Physical Exam
GI: Soft, Non Distended and Non Tender
[2024-08-30] MEDS: NORVASC 5 MG TUBE (09:36)
--- NOTE | 2024-08-30 10:56 | PTCARENOTE ---
Patient with DHT confirmed in place by Xray. Jevity 1.5 started at 20 mls/hour with 25 ml water flush as per order. Educated patient. HOB elevated.
[2024-08-30 11:41] LABS: Glucose - Point of Care 128 mg/dl (70-99)
--- NOTE | 2024-08-30 12:11 | W.PN.HOSP.TC ---
Today's Communication/Plan
-
Monitor vitals
See plan
Speech to continue to follow
Start tube feeding
Start amlodipine through Dobbhoff
If swallowing does not improve then likely will need PEG tube
Monitor leukocytosis
Assessment / Plan
Assessment / Plan
right sided weakness/slurred speech likely secondary to acute CVA
-CT head negative
CTA without any acute abnormality
MRI with restricted diffusion in the right paramedian stuart, compatible with acute or subacute infarct. Moderate atrophy. Also has possible C3-C4 spinal canal stenosis per imaging however patient has no symptoms. Per neck CTA, its mild
A1c 8.8, LDL 59
Plavix stopped due to high NIH scale, neurology following; will need neurology follow-up outpatient
-PT/OT recommending acute rehab, physiatry consulted
repeat CT 08/27 neg for any bleeding. Suspect headaches is secondary to postconcussive syndrome
Speech following, initially recommended soft and bite-size. VSE 08/29 with aspiration. Now having difficulty with swallowing. VSE 08/29 with aspiration. Speech recommending n.p.o. Discussed with patient's son. Consulted GI for Dobbhoff and
possible PEG tube if does not improve. Speech to continue follow-up. aspirin rectally. Status post Dobbhoff. Started tube feeds. Nifedipine cannot go through Dobbhoff so instead started amlodipine for blood pressure
-neurology following
monitor on tele for arrhythmia
. Echo without any vegetations
#rhabdomyolysis, traumatic likely secondary to fall
Resolved
#acute on chronic leukocytosis likely stress reaction
-wbc 17.4 on admit
UA without UTI
-COVID negative
-negative for Flu A and B
-chest x ray with no acute cardiopulmonary process
-patient is afebrile
Hypertension
No prior history, started nifedipine, increase to twice daily. however now on hold since NPO
Monitor
Hypokalemia
Replete
#HLD
-statin
#type 2 Dm
-sliding scale
-glyburide on hold
glargine to 11 units at bedtime which is his home dose
#BPH
-Flomax continued
bladder scan
#DVT prophylaxis
-scd, Lovenox
#CODE status
-DNR
PT/OT recommending acute rehab, physiatry consulted
General: Well Developed, Well Nourished and No Apparent Distress
HEENT: NormoCephalic, Moist mucous membranes and Atraumatic; + dobhoff
Respiratory: Clear
Cardiac: S1/S2 and Regular Rhythm; No Murmur or Rub
GI: Soft, Non Tender, Non Distended and Normal Bowel Sounds
Musculoskeletal: No Clubbing, No Cyanosis and No Edema
Neuro: Slurred Speech and Other (left sided weakness)
I spent a total of 51 minutes with the patient or on the floor. More than 50% of this time involved counseling and coordination of care.
Anticipated Discharge: > 48 hours
Subjective/Interval History
-
Date of Service: August 30, 2024
Denies nausea
Objective Data
-
Labs:
Laboratory Results
08/30/24
04:48
WBC 14.1 H
Hgb 13.7
Hct 41.4
Plt Count 177
Sodium 138
Potassium 3.5
Chloride 104
Carbon Dioxide 29
BUN 10
Creatinine 0.7
Glucose 122 H
Calcium 8.1 L
Total Bilirubin 0.8
AST 21
ALT 19
Alkaline Phosphatase 94
Vital Signs:
Vital Signs
Temp Pulse Resp BP Pulse Ox
98.5 F 72 18 160/76 97
08/30/24 11:32 08/30/24 11:32 08/30/24 11:32 08/30/24 11:32 08/30/24 11:32
I&O
08/29/24 08/30/24 08/31/24
06:59 06:59 06:59
Intake Total 1200 / 1200 630 / 630
Output Total 500 / 500
Balance 700 / 700 630 / 630
[2024-08-30] MEDS: LOVENOX 40 MG SC (18:12)
[2024-08-30 18:20] LABS: Glucose - Point of Care 139 mg/dl (70-99)
[2024-08-30] MEDS: FLOMAX PO (20:34)
[2024-08-31] VITALS (8 sets, daily range): BP systolic 138–177; BP diastolic 59–80; PULSE 72
[2024-08-31 00:22] LABS: Glucose - Point of Care 220 mg/dl (70-99)
[2024-08-31] MEDS: APRESOLINE 5 MG IV ×2 (00:39→15:52)
[2024-08-31] MEDS: NOVOLOG FLEXPEN-LOW RESISTANCE 2 UNITS SC ×2 (00:40→13:23)
[2024-08-31] MEDS: LANTUS 0.11 UNITS SC (00:40)
[2024-08-31 06:19] LABS: Glucose - Point of Care 257 mg/dl (70-99)
[2024-08-31] MEDS: NOVOLOG FLEXPEN-LOW RESISTANCE 3 UNITS SC ×2 (06:35→18:18)
[2024-08-31] MEDS: COLACE PO ×2 (07:34→22:14)
[2024-08-31 08:15] LABS: % Basophils 0.7 % (0-2); % Eosinophils 5.2 % (0-6); % Immature Granulocytes 0.5 % (0-0.5); % Lymphocytes 13.1 % (20.5-51.1); % Monocytes 7.7 % (1.7-9.3); % Neutrophils 72.8 % (42.2-75.2); Absolute Basophils 0.1 10^3/uL (0-0.2); Absolute Eosinophils 0.6 10^3/uL (0-0.7); Absolute Immature Granulocytes 0.1 10^3/uL (0-0.05); Absolute Lymphocytes 1.4 10^3/uL (1.2-3.4); Absolute Monocytes 0.8 10^3/uL (0.1-0.6); Absolute Neutrophils 7.8 10^3/uL (1.4-6.5); Hemoglobin 13.5 g/dL (13.0-18.0); Mean Corp Hgb Conc. 33.8 g/dL (33.0-37.0); Mean Corpuscular Hgb 29.2 pg (27.0-31.0); Mean Corpuscular Volume 86.6 fL (80.0-94.0); Mean Platelet Volume 11.7 fL (7.4-10.4); Nucleated Red Blood Cells % 0 % (-); Platelet Count 172 10^3/uL (130-400); Red Blood Cell Count 4.62 10^6/uL (4.70-6.10); Red Cell Dist. Width 13.6 % (11.5-14.5); White Blood Cell Count 10.7 10^3/uL (4.8-10.8)
[2024-08-31 08:38] LABS: Glucose - Point of Care 231 mg/dl (70-99)
[2024-08-31 08:44] LABS: ALT (SGPT) 20 U/L (0-50); AST (SGOT) 21 U/L (17-59); Albumin 2.9 g/dl (3.5-5.0); Alkaline Phosphatase 89 U/L (38-126); Blood Urea Nitrogen 9 mg/dl (9-20); Calcium 7.8 mg/dl (8.4-10.2); Carbon Dioxide 30 mmol/L (22-30); Chloride 100 mmol/L (98-107); Estimated Creatinine Clearance 114 ml/min; Glucose 217 mg/dl (70-99); Potassium 3.6 mmol/L (3.5-5.1); Sodium 137 mmol/L (135-145); Total Bilirubin 0.5 mg/dl (0.2-1.3); Total Protein 5.4 g/dl (6.3-8.2); eGFR > 60.00
[2024-08-31] MEDS: NORVASC 5 MG TUBE (09:41)
[2024-08-31] MEDS: ASPIRIN 300 MG RECTAL (09:41)
[2024-08-31] MEDS: COZAAR 25 MG TUBE (09:41)
--- NOTE | 2024-08-31 10:52 | W.PN.GI.CBS2 ---
Today's Communication / Plan
-
Cont DHT feeds
Cont Speech therapy
If not improving, will discuss PEG next
Assessment / Plan
-
Pt is a 79yo with hx HTN, hypercholesterolemia, NIDDM, BPH with admission with weakness and aphasia with concern for CVA. VSE completed 08/29 with mild to mod oral and severe pharyngeal dysphagia with recommended NPO status. Asked to place DHT and
follow for need for possible peg. Pt currently complaints of nausea with movement but denies any other GI complaints, He denies hx EGD or colonoscopy in past. No current anticoagulation prior or during admission.
Impression:
CVA
Dysphagia
other med problems:
-NIDDM
-hypercholesterolemia
-BPH
-HTN
Subjective
Subjective
Date of Service: August 31, 2024
TF at 60cc/hr. Worked with Speech/Swallow yesterday
Objective
Data Reviewed
Laboratory Data:
Laboratory Results
08/31/24 05:52
08/31/24 05:52
Laboratory Results
PT 14.8 Sec (11.4-14.6) H 08/25/24 16:34
INR 1.13 08/25/24 16:34
Total Bilirubin 0.5 mg/dl (0.2-1.3) 08/31/24 05:52
AST 21 U/L (17-59) 08/31/24 05:52
ALT 20 U/L (0-50) 08/31/24 05:52
Alkaline Phosphatase 89 U/L (38-126) 08/31/24 05:52
Vital Signs and I&O:
Vital Signs
Temp Pulse Resp BP Pulse Ox
97.7 F 62 20 177/68 94
08/31/24 07:55 08/31/24 07:55 08/31/24 07:55 08/31/24 09:41 08/31/24 07:55
I&O
08/30/24 08/31/24 09/01/24
06:59 06:59 06:59
Intake Total 630 / 630
Output Total 250 / 250
Balance 630 / 630 -250 / -250
Physical Exam
Physical Exam
GI: Soft and Non Tender
--- NOTE | 2024-08-31 12:43 | W.PN.HOSP.TC ---
Today's Communication/Plan
-
Monitor vital signs see plan
Continue with tube feeds with Dobbhoff
Speech following, if does not improve then will likely need PEG tube
GI following
Continue with amlodipine, add losartan
Assessment / Plan
Assessment / Plan
right sided weakness/slurred speech likely secondary to acute CVA
-CT head negative
CTA without any acute abnormality
MRI with restricted diffusion in the right paramedian stuart, compatible with acute or subacute infarct. Moderate atrophy. Also has possible C3-C4 spinal canal stenosis per imaging however patient has no symptoms. Per neck CTA, its mild
A1c 8.8, LDL 59
Plavix stopped due to high NIH scale, neurology following; will need neurology follow-up outpatient
-PT/OT recommending acute rehab, physiatry consulted
repeat CT 08/27 neg for any bleeding. Suspect headaches is secondary to postconcussive syndrome
Speech following,VSE 08/29 with aspiration. Now having difficulty with swallowing. Speech recommending n.p.o. Discussed with patient's son. Consulted GI for Dobbhoff and possible PEG tube if does not improve. Speech to continue follow-up.
aspirin rectally. Status post Dobbhoff. cw tube feeds. Nifedipine cannot go through Dobbhoff so instead started amlodipine for blood pressure. added losartan
-neurology following
monitor on tele for arrhythmia
. Echo without any vegetations
#rhabdomyolysis, traumatic likely secondary to fall
Resolved
#acute on chronic leukocytosis likely stress reaction
-wbc 17.4 on admit
UA without UTI
-COVID negative
-negative for Flu A and B
-chest x ray with no acute cardiopulmonary process
-patient is afebrile
Hypertension
Started amlodipine, added losartan. Uptitrate as tolerated
Hydralazine as needed
Monitor
Hypokalemia
resolved
#HLD
-statin
#type 2 Dm
-sliding scale
-glyburide on hold
Increase glargine to 14 units
#BPH
-Flomax continued
bladder scan
#DVT prophylaxis
-scd, Lovenox
#CODE status
-DNR
PT/OT recommending acute rehab, physiatry consulted
General: Well Developed, Well Nourished and No Apparent Distress
HEENT: NormoCephalic, Moist mucous membranes and Atraumatic; + dobhoff
Respiratory: Clear
Cardiac: S1/S2 and Regular Rhythm; No Murmur or Rub
GI: Soft, Non Tender, Non Distended and Normal Bowel Sounds
Musculoskeletal: No Clubbing, No Cyanosis and No Edema
Neuro: Slurred Speech and Other (left sided weakness)
I spent a total of 52 minutes with the patient or on the floor. More than 50% of this time involved counseling and coordination of care.
Anticipated Discharge: 24 - 48 hours
Subjective/Interval History
-
Date of Service: August 31, 2024
denies headache
Objective Data
-
Labs:
Laboratory Results
08/31/24
05:52
WBC 10.7
Hgb 13.5
Hct 40.0
Plt Count 172
Sodium 137
Potassium 3.6
Chloride 100
Carbon Dioxide 30
BUN 9
Creatinine 0.6 L
Glucose 217 H
Calcium 7.8 L
Total Bilirubin 0.5
AST 21
ALT 20
Alkaline Phosphatase 89
Vital Signs:
Vital Signs
Temp Pulse Resp BP Pulse Ox
97.7 F 62 20 177/68 94
08/31/24 07:55 08/31/24 07:55 08/31/24 07:55 08/31/24 09:41 08/31/24 07:55
I&O
08/30/24 08/31/2425
06:59 06:59 06:59
Intake Total 630 / 630
Output Total 250 / 250
Balance 630 / 630 -250 / -250
[2024-08-31 13:23] LABS: Glucose - Point of Care 247 mg/dl (70-99)
[2024-08-31] MEDS: LOVENOX 40 MG SC (18:10)
[2024-08-31 18:18] LABS: Glucose - Point of Care 252 mg/dl (70-99)
--- NOTE | 2024-08-31 18:31 | PTCARENOTE ---
Patient at goal rate of Jevity 1.5 - 55 mls/hour with 25 ml/hour flush. Two episodes of diarrhea today. DHT in right nare at 70 cm. Denies nausea/no vomiting. Denies abdominal tenderness.
[2024-08-31] MEDS: FLOMAX 0.4 MG TUBE (22:14)
[2024-08-31 23:39] LABS: Glucose - Point of Care 241 mg/dl (70-99)
[2024-09-01] VITALS (7 sets, daily range): BP systolic 157–171; BP diastolic 70–79; PULSE 81
[2024-09-01] MEDS: LANTUS 0.14 UNITS SC ×2 (00:25→21:43)
[2024-09-01] MEDS: NOVOLOG FLEXPEN-LOW RESISTANCE 2 UNITS SC ×4 (00:26→17:48)
[2024-09-01 05:58] LABS: Glucose - Point of Care 208 mg/dl (70-99)
[2024-09-01 08:17] LABS: % Basophils 0.7 % (0-2); % Eosinophils 4.7 % (0-6); % Immature Granulocytes 0.5 % (0-0.5); % Lymphocytes 9.8 % (20.5-51.1); % Monocytes 6.8 % (1.7-9.3); % Neutrophils 77.5 % (42.2-75.2); Absolute Basophils 0.1 10^3/uL (0-0.2); Absolute Eosinophils 0.6 10^3/uL (0-0.7); Absolute Immature Granulocytes 0.1 10^3/uL (0-0.05); Absolute Lymphocytes 1.2 10^3/uL (1.2-3.4); Absolute Monocytes 0.8 10^3/uL (0.1-0.6); Absolute Neutrophils 9.3 10^3/uL (1.4-6.5); Hematocrit 41.6 % (39.0-52.0); Hemoglobin 14.3 g/dL (13.0-18.0); Mean Corp Hgb Conc. 34.4 g/dL (33.0-37.0); Mean Corpuscular Hgb 29.3 pg (27.0-31.0); Mean Corpuscular Volume 85.2 fL (80.0-94.0); Mean Platelet Volume 11.2 fL (7.4-10.4); Nucleated Red Blood Cells % 0 % (-); Platelet Count 190 10^3/uL (130-400); Red Blood Cell Count 4.88 10^6/uL (4.70-6.10); Red Cell Dist. Width 13.5 % (11.5-14.5); White Blood Cell Count 11.9 10^3/uL (4.8-10.8)
[2024-09-01 08:37] LABS: ALT (SGPT) 23 U/L (0-50); AST (SGOT) 21 U/L (17-59); Albumin 3.1 g/dl (3.5-5.0); Alkaline Phosphatase 89 U/L (38-126); Blood Urea Nitrogen 10 mg/dl (9-20); Calcium 8.3 mg/dl (8.4-10.2); Carbon Dioxide 30 mmol/L (22-30); Chloride 97 mmol/L (98-107); Estimated Creatinine Clearance 114 ml/min; Glucose 246 mg/dl (70-99); Potassium 3.7 mmol/L (3.5-5.1); Sodium 135 mmol/L (135-145); Total Bilirubin 0.5 mg/dl (0.2-1.3); Total Protein 5.7 g/dl (6.3-8.2); eGFR > 60.00
--- NOTE | 2024-09-01 08:44 | W.PN.GI.CBS2 ---
Addendum entered and electronically signed by Adonis Sharp MD 09/01/24 12:16:
I saw and examined the patient.
The COST CONTROL SUPERVISOR or PA's note was reviewed and I agree with the note.
Comment: No complaints. Tolerating TF
ABD soft NT
REC:
Speech continuing to work with pt
Planning VSE Sunday
Cont TF via DHT
Will sign off for now. Please call back if PEG tube needed
Original Note:
Today's Communication / Plan
-
pt speech with some improvement but still with hemiplegia
cont tube feeds via DHT
for repeat speech eval today to determine if peg needed vs continue with speech therapy follow
plan for eventual rehab post admission
remains on Lovenox low dose for DVT prophylaxis
will hold stool softener with loose stools with tube feeds now running add Miralax PRN
Assessment / Plan
-
Pt is a 79yo with hx HTN, hypercholesterolemia, NIDDM, BPH with admission with weakness and aphasia with concern for CVA. VSE completed 08/29 with mild to mod oral and severe pharyngeal dysphagia with recommended NPO status. Asked to place DHT and
follow for need for possible peg. Pt currently complaints of nausea with movement but denies any other GI complaints, He denies hx EGD or colonoscopy in past. No current anticoagulation prior or during admission.
Impression:
CVA
Dysphagia
mild leukocytosis
other med problems:
-NIDDM
-hypercholesterolemia
-BPH
-HTN
PLAN:
pt speech with some improvement but still with hemiplegia
cont tube feeds via DHT
for repeat speech eval today to determine if peg needed vs continue with speech therapy follow
plan for eventual rehab post admission
remains on Lovenox low dose for DVT prophylaxis
will hold stool softener with loose stools with tube feeds now running add Miralax PRN
Subjective
Subjective
Date of Service: September 01, 2024
08/31 brown stool on tube feeds
Objective
Data Reviewed
Laboratory Data:
Laboratory Results
09/01/24 07:37
09/01/24 07:37
Laboratory Results
PT 14.8 Sec (11.4-14.6) H 08/25/24 16:34
INR 1.13 08/25/24 16:34
Total Bilirubin 0.5 mg/dl (0.2-1.3) 09/01/24 07:37
AST 21 U/L (17-59) 09/01/24 07:37
ALT 23 U/L (0-50) 09/01/24 07:37
Alkaline Phosphatase 89 U/L (38-126) 09/01/24 07:37
Vital Signs and I&O:
Vital Signs
Temp Pulse Resp BP Pulse Ox
97.8 F 73 20 157/75 94
08/31/24 23:17 09/01/24 03:15 08/31/24 23:17 09/01/24 03:15 08/31/24 23:17
I&O
08/31/24 09/01/24 09/02/24
06:59 06:59 06:59
Intake Total 1999
Output Total 250 / 250 1750 / 1750
Balance -250 / -250 250 / 250
Physical Exam
Physical Exam
HEENT: Anicteric and Moist mucous membranes
Cardiology: Normal Sinus Rhythm
Pulmonary: Clear
GI: Soft, Non Distended and Non Tender
Rectal: Other (large liquid brown stool)
Extremities: No Edema
Neuro: Other (left hemiplegia -- speech with some improvment since Sunday )
[2024-09-01] MEDS: NORVASC 5 MG TUBE (09:09)
[2024-09-01] MEDS: ASPIRIN 300 MG RECTAL (09:09)
[2024-09-01] MEDS: COZAAR 25 MG TUBE (09:09)
[2024-09-01] MEDS: COLACE PO (09:09)
--- NOTE | 2024-09-01 11:15 | W.PN.HOSP.TC ---
Today's Communication/Plan
-
repeat VSE on 09/03
Assessment / Plan
Assessment / Plan
right sided weakness/slurred speech likely secondary to acute CVA
Dysphagia
-CT head negative
-CTA without any acute abnormality
-MRI with restricted diffusion in the right paramedian stuart, compatible with acute or subacute infarct. Moderate atrophy. Also has possible C3-C4 spinal canal stenosis per imaging however patient has no symptoms. Per neck CTA, its mild
-A1c 8.8, LDL 59
-with high NIH score, Plavix not recmomended
-PT/OT recommending acute rehab, physiatry consulted
-repeat CT 08/27 neg for any bleeding. Suspect headaches is secondary to postconcussive syndrome
-Speech following,VSE 08/29 with aspiration - continue TF. Plan to repeat VSE on 09/03 to assess change and then assess if PEG indicated
-continue asa (via tube is OK); Lipitor
-BP control: Losartan QD, Amlodipine 5mg QD - new meds
-TTE without thrombus
#rhabdomyolysis, traumatic likely secondary to fall
Resolved
#acute on chronic leukocytosis likely stress reaction
-wbc 17.4 on admit
UA without UTI
-COVID negative
-negative for Flu A and B
-chest x ray with no acute cardiopulmonary process
-patient is afebrile
Hypertension
Started amlodipine, added losartan. Uptitrate as tolerated
Hydralazine as needed
Hypokalemia
resolved
#HLD
-statin
#type 2 Dm
-sliding scale
-glyburide on hold
Increase glargine to 14 units
#BPH
-Flomax continued
bladder scan
#DVT prophylaxis
-scd, Lovenox
#CODE status
-DNR
PT/OT recommending acute rehab, physiatry consulted
General: Well Developed, Well Nourished and No Apparent Distress
HEENT: NormoCephalic, Moist mucous membranes and Atraumatic; + dobhoff
Respiratory: Clear
Cardiac: S1/S2 and Regular Rhythm; No Murmur or Rub
GI: Soft, Non Tender, Non Distended and Normal Bowel Sounds
Musculoskeletal: No Clubbing, No Cyanosis and No Edema
Neuro: Slurred Speech and Other (left sided weakness)
I spent a total of 52 minutes with the patient or on the floor. More than 50% of this time involved counseling and coordination of care.
Anticipated Discharge: > 48 hours
Subjective/Interval History
-
Date of Service: September 01, 2024
no new complaints
did not pass swallow this morning
Objective Data
-
Labs:
Laboratory Results
09/01/24
07:37
WBC 11.9 H
Hgb 14.3
Hct 41.6
Plt Count 190
Sodium 135
Potassium 3.7
Chloride 97 L
Carbon Dioxide 30
BUN 10
Creatinine 0.6 L
Glucose 246 H
Calcium 8.3 L
Total Bilirubin 0.5
AST 21
ALT 23
Alkaline Phosphatase 89
Vital Signs:
Vital Signs
Temp Pulse Resp BP Pulse Ox
97.8 F 74 20 168/75 92
09/01/24 07:30 09/01/24 07:30 09/01/24 07:30 09/01/24 07:30 09/01/24 07:30
I&O
08/31/24 09/01/24 09/02/24
06:59 06:59 06:59
Intake Total 1999
Output Total 250 / 250 1750 / 1750
Balance -250 / -250 250 / 250
Review of Systems
-
History Source: Patient
All other systems: Reviewed and negative
Data Reviewed
-
Diagnostic Radiology: Report Reviewed by me
Labs: Labs Reviewed by me
[2024-09-01 11:45] LABS: Glucose - Point of Care 205 mg/dl (70-99)
--- NOTE | 2024-09-01 12:38 | PN.CDI ---
CDI
- -
CDI:
Physician Documentation Request
Admit Date: 08/25/24 20:04
Dear Doctor Maxine,
Patient admitted for CVA.
Neuro consult, progress notes and rehab evaluation state 'left hemiplegia'
Hospitalist progress notes states 'right sided weakness'
In an attempt to clarify potentially conflicting documentation, please clarify the side of the hemiplegia:
Left
Right
Other
Use of terms such as suspected, likely, concern for, or probable (associated with a specific diagnosis that is being evaluated, monitored, or treated as if it exists) are acceptable and can be coded in the inpatient setting, when documented at the
time of discharge.
Thank you,
Vicenta Fraser RN, BSN
CDI Specialist
tiger text
Please use your independent medical judgment in providing your response.
--- NOTE | 2024-09-01 15:31 | PTOTSP ---
Dysphagia Therapy
Impression: Per video swallow study 08/29/2024 - Mild-moderate oral and severe pharyngeal dysphagia with small volumes of aspiration of all consistencies without a sensory response. Of note, no aspiration occurred with thin liquids via tsp.
Initiate Aspiration Risk Hydration Protocol to allow opportunities to use swallowing muscles. Repeat video swallow study planned for 09/03/2024 at the earliest.
Recommend:
1. NPO (DHT in place)
2. Medications via non-oral means
3. Aspiration Risk Hydration Protocol � unlimited ice chips after oral care with supervision.
4. Oral care 4x daily
5. Dysphagia tx and motor speech tx at the acute care level. Assess cognitive linguistic skills as able/appropriate.
6. Repeat video swallow study no earlier than 09/03/2024
--- NOTE | 2024-09-01 16:12 | W.PN.UPDATE ---
Update Note
Progress Note Update
DHT clogged -- replaced by Dr. collier in distal stomach--ok to use as confirmed placement with X ray
[2024-09-01] MEDS: MYCOSTATIN ORAL SUSPENSION PO (16:37)
[2024-09-01] MEDS: MYCOSTATIN ORAL SUSPENSION 5 ML PO ×2 (17:48→21:42)
[2024-09-01] MEDS: LOVENOX 40 MG SC (17:48)
[2024-09-01 17:50] LABS: Glucose - Point of Care 236 mg/dl (70-99)
[2024-09-01 21:08] LABS: Glucose - Point of Care 299 mg/dl (70-99)
[2024-09-01] MEDS: FLOMAX 0.4 MG TUBE (21:43)
[2024-09-02 00:07] LABS: Glucose - Point of Care 290 mg/dl (70-99)
[2024-09-02] MEDS: APRESOLINE 5 MG IV (00:16)
[2024-09-02] MEDS: NOVOLOG FLEXPEN-LOW RESISTANCE 3 UNITS SC ×4 (00:17→23:50)
[2024-09-02 05:17] LABS: Glucose - Point of Care 287 mg/dl (70-99)
[2024-09-02 06:09] LABS: Glucose - Point of Care 322 mg/dl (70-99)
[2024-09-02 06:26] LABS: Hematocrit 41.4 % (39.0-52.0); Hemoglobin 14.1 g/dL (13.0-18.0); Mean Corp Hgb Conc. 34.1 g/dL (33.0-37.0); Mean Corpuscular Hgb 29.1 pg (27.0-31.0); Mean Corpuscular Volume 85.4 fL (80.0-94.0); Mean Platelet Volume 11.4 fL (7.4-10.4); Platelet Count 207 10^3/uL (130-400); Red Blood Cell Count 4.85 10^6/uL (4.70-6.10); Red Cell Dist. Width 13.7 % (11.5-14.5); White Blood Cell Count 11.7 10^3/uL (4.8-10.8)
[2024-09-02 06:48] LABS: Blood Urea Nitrogen 13 mg/dl (9-20); Calcium 8.4 mg/dl (8.4-10.2); Carbon Dioxide 30 mmol/L (22-30); Chloride 96 mmol/L (98-107); Estimated Creatinine Clearance 98 ml/min; Glucose 307 mg/dl (70-99); Potassium 4.1 mmol/L (3.5-5.1); Sodium 135 mmol/L (135-145); eGFR > 60.00
[2024-09-02 07:30] VITALS: BP 184/78
[2024-09-02] MEDS: COZAAR 25 MG TUBE (08:12)
[2024-09-02] MEDS: NORVASC 5 MG TUBE (08:12)
[2024-09-02] MEDS: MYCOSTATIN ORAL SUSPENSION 5 ML PO ×4 (08:12→21:00)
[2024-09-02] MEDS: LOW STRENGTH ASPIRIN 81 MG TUBE (08:12)
--- NOTE | 2024-09-02 11:12 | W.PN.HOSP.TC ---
Today's Communication/Plan
-
VSE tomorrow
Assessment / Plan
Assessment / Plan
right sided weakness/slurred speech likely secondary to acute CVA
Dysphagia
-CT head negative
-CTA without any acute abnormality
-MRI with restricted diffusion in the right paramedian stuart, compatible with acute or subacute infarct. Moderate atrophy. Also has possible C3-C4 spinal canal stenosis per imaging however patient has no symptoms. Per neck CTA, its mild
-A1c 8.8, LDL 59
-with high NIH score, Plavix not recmomended
-PT/OT recommending acute rehab, physiatry consulted
-repeat CT 08/27 neg for any bleeding. Suspect headaches is secondary to postconcussive syndrome
-Speech following,VSE 08/29 with aspiration - continue TF. Plan to repeat VSE on 09/03 to assess change and then assess if PEG indicated
-continue asa (via tube is OK); Lipitor
-BP control: Losartan QD, Amlodipine 5mg QD - new meds
-TTE without thrombus
#rhabdomyolysis, traumatic likely secondary to fall
Resolved
#acute on chronic leukocytosis likely stress reaction
-wbc 17.4 on admit
UA without UTI
-COVID negative
-negative for Flu A and B
-chest x ray with no acute cardiopulmonary process
-patient is afebrile
Hypertension
Started amlodipine, added losartan. Uptitrate as tolerated
Hydralazine as needed
Hypokalemia
resolved
#HLD
-statin
#type 2 Dm
-sliding scale
-glyburide on hold
Increase glargine to 14 units; add on lantus 5 in AM and start TID aspart 5u nits
#BPH
-Flomax continued
bladder scan
#DVT prophylaxis
-scd, Lovenox
#CODE status
-DNR
PT/OT recommending acute rehab, physiatry consulted
I spent a total of 52 minutes with the patient or on the floor. More than 50% of this time involved counseling and coordination of care.
Anticipated Discharge: 24 - 48 hours
Subjective/Interval History
-
Date of Service: September 02, 2024
no new complaints
Objective Data
-
Labs:
Laboratory Results
09/02/24
05:26
WBC 11.7 H
Hgb 14.1
Hct 41.4
Plt Count 207
Sodium 135
Potassium 4.1
Chloride 96 L
Carbon Dioxide 30
BUN 13
Creatinine 0.7
Glucose 307 H
Calcium 8.4
Vital Signs:
Vital Signs
Temp Pulse Resp BP Pulse Ox
97.7 F 73 20 184/78 96
09/02/24 07:30 09/02/24 07:30 09/02/24 07:30 09/02/24 07:30 09/02/24 08:00
I&O
09/01/24 09/02/24 09/03/24
06:59 06:59 06:59
Intake Total 1999 / 1999 1480 / 1480
Output Total 1750 / 1750 1275 / 1275
Balance 250 / 250 205 / 205
Review of Systems
-
History Source: Patient
All other systems: Reviewed and negative
Physical Exam
-
General: No Apparent Distress and Appears Chronically Ill
HEENT: PERRLA
Respiratory: Clear to Auscultation; Negative Wheezes
Cardiac: Regular Rhythm and S1/S2
GI: Soft and Nontender
Skin: Warm and Dry; Negative Rash
Neuro: AO x 3 and Other (left hemiparesis )
Psych: Calm
Data Reviewed
-
Diagnostic Radiology: Report Reviewed by me
Labs: Labs Reviewed by me
[2024-09-02 12:01] LABS: Glucose - Point of Care 302 mg/dl (70-99)
[2024-09-02] MEDS: LANTUS 0.05 UNITS SC (12:01)
[2024-09-02] MEDS: NOVOLOG FLEXPEN-LOW RESISTANCE 4 UNITS SC (12:03)
[2024-09-02] MEDS: NOVOLOG FLEXPEN 5 UNITS SC ×3 (12:03→21:22)
--- NOTE | 2024-09-02 14:44 | CM ---
Gan transfer on hold.
Patient for VSE tomorrow.
TF via Dobbhoff.
CM will continue to follow for d/c needs.
[2024-09-02 15:30] VITALS: BP 150/68
[2024-09-02 16:07] VITALS: BP 120/72; BP 141/72; PULSE 85; PULSE 92; O2SAT 92
[2024-09-02] MEDS: ZOFRAN 4 MG IV (16:46)
[2024-09-02] MEDS: LOVENOX 40 MG SC (16:55)
[2024-09-02 17:44] LABS: Glucose - Point of Care 238 mg/dl (70-99)
[2024-09-02] MEDS: FLOMAX 0.4 MG TUBE (21:00)
[2024-09-02] MEDS: LANTUS 0.14 UNITS SC (21:21)
[2024-09-02 23:45] LABS: Glucose - Point of Care 251 mg/dl (70-99)
[2024-09-02 23:55] VITALS: BP 138/65
--- NOTE | 2024-09-03 02:35 | DOWNTIME ---
There was a [employer] Client Quality And Reliability Engineer Downtime on 09/03/2024 from 0100 to 09/03/2023 at 0205 . Downtime documentation of patient's care, including medication administrations, has been reconciled in the electronic record per guidelines. Refer to the
patient's paper chart under the miscellaneous tab to see printed paper medication records and downtime forms.
[2024-09-03 06:19] LABS: Glucose - Point of Care 319 mg/dl (70-99)
[2024-09-03] MEDS: NOVOLOG FLEXPEN-LOW RESISTANCE 4 UNITS SC (06:19)
[2024-09-03 06:33] LABS: Glucose - Point of Care 332 mg/dl (70-99)
[2024-09-03 06:49] LABS: Hematocrit 42.3 % (39.0-52.0); Mean Corp Hgb Conc. 33.1 g/dL (33.0-37.0); Mean Corpuscular Hgb 28.9 pg (27.0-31.0); Mean Corpuscular Volume 87.4 fL (80.0-94.0); Mean Platelet Volume 11.5 fL (7.4-10.4); Platelet Count 206 10^3/uL (130-400); Red Blood Cell Count 4.84 10^6/uL (4.70-6.10); Red Cell Dist. Width 13.8 % (11.5-14.5); White Blood Cell Count 11.9 10^3/uL (4.8-10.8)
[2024-09-03 07:07] LABS: Blood Urea Nitrogen 18 mg/dl (9-20); Calcium 8.6 mg/dl (8.4-10.2); Carbon Dioxide 32 mmol/L (22-30); Chloride 94 mmol/L (98-107); Estimated Creatinine Clearance 98 ml/min; Glucose 342 mg/dl (70-99); Potassium 4.2 mmol/L (3.5-5.1); Sodium 135 mmol/L (135-145); eGFR > 60.00
[2024-09-03 07:25] VITALS: BP 145/66
[2024-09-03 08:18] LABS: Glucose - Point of Care 354 mg/dl (70-99)
[2024-09-03] MEDS: LOW STRENGTH ASPIRIN TUBE ×2 (08:36→11:31)
[2024-09-03] MEDS: LANTUS 0.05 UNITS SC ×2 (08:36→21:17)
[2024-09-03] MEDS: MYCOSTATIN ORAL SUSPENSION PO ×5 (08:36→21:15)
[2024-09-03] MEDS: NORVASC TUBE ×2 (08:36→11:31)
[2024-09-03] MEDS: COZAAR TUBE ×2 (08:36→11:32)
[2024-09-03] MEDS: NOVOLOG FLEXPEN 5 UNITS SC (08:37)
--- NOTE | 2024-09-03 09:39 | PTCARENOTE ---
unable to flush DHT at this time. GI made aware. pt to go for VSE. Unable to give pt's AM meds at this time. awaiting VSE results to resume.
--- NOTE | 2024-09-03 10:05 | PTCARENOTE ---
Tiago Jose M out at this time as per GI.
--- NOTE | 2024-09-03 11:24 | PTCARENOTE ---
pt s/p VSE. pt stated not feeling good. pt with white Emesis from Barium. MD made aware.
--- NOTE | 2024-09-03 11:34 | W.PN.HOSP.TC ---
Addendum entered and electronically signed by Trina Goodman MD 09/03/24 12:14:
*left sided weakness/ not right
Original Note:
Today's Communication/Plan
-
awaiting results VSE, may need PEG tomorrow. patient states he would want this
Assessment / Plan
Assessment / Plan
right sided weakness/slurred speech likely secondary to acute CVA
Dysphagia
-CT head negative
-CTA without any acute abnormality
-MRI with restricted diffusion in the right paramedian stuart, compatible with acute or subacute infarct. Moderate atrophy. Also has possible C3-C4 spinal canal stenosis per imaging however patient has no symptoms. Per neck CTA, its mild
-A1c 8.8, LDL 59
-with high NIH score, Plavix not recommended
-PT/OT recommending acute rehab, physiatry consulted
-repeat CT 08/27 neg for any bleeding. Suspect headaches is secondary to postconcussive syndrome
-Speech following,VSE 08/29 with aspiration - continue TF. Plan to repeat VSE on 09/03 to assess change and then assess if PEG indicated. Patient states he would want PEG if indicated
-morning 09/03 - dobhoff clogged - rectal aspirin, IV hydral PRN;
-continue asa (via tube is OK); Lipitor
-BP control: Losartan QD, Amlodipine 5mg QD - new meds
-TTE without thrombus
#rhabdomyolysis, traumatic likely secondary to fall
Resolved
#acute on chronic leukocytosis likely stress reaction
-wbc 17.4 on admit
UA without UTI
-COVID negative
-negative for Flu A and B
-chest x ray with no acute cardiopulmonary process
-patient is afebrile
Hypertension
Started amlodipine, added losartan. Uptitrate as tolerated
Hydralazine as needed
Hypokalemia
resolved
#HLD
-statin
#type 2 Dm
Hyperglycemia
-lantus BID
-TF on hold with clogged dobjoff
-increase ISS to moderate given BGL > 300 and monitor throughout today
#BPH
-Flomax continued
bladder scan
#DVT prophylaxis
-scd, Lovenox
#CODE status
-DNR
PT/OT recommending acute rehab, physiatry consulted
I spent a total of 52 minutes with the patient or on the floor. More than 50% of this time involved counseling and coordination of care.
Anticipated Discharge: 24 - 48 hours
Subjective/Interval History
-
Date of Service: September 03, 2024
no new complaints
Objective Data
-
Labs:
Laboratory Results
09/03/24
05:53
WBC 11.9 H
Hgb 14.0
Hct 42.3
Plt Count 206
Sodium 135
Potassium 4.2
Chloride 94 L
Carbon Dioxide 32 H
BUN 18
Creatinine 0.7
Glucose 342 H
Calcium 8.6
Vital Signs:
Vital Signs
Temp Pulse Resp BP Pulse Ox
97.6 F 82 18 145/66 96
09/03/24 07:25 09/03/24 07:25 09/03/24 07:25 09/03/24 07:25 09/03/24 10:25
I&O
09/02/24 09/03/24 09/04/24
06:59 06:59 06:59
Intake Total 1480 / 1480 0 / 0
Output Total 1275 / 1275 1300 / 1300
Balance 205 / 205 -1300 / -1300
Review of Systems
-
History Source: Patient
All other systems: Reviewed and negative
Physical Exam
-
General: No Apparent Distress and Appears Chronically Ill
HEENT: PERRLA
Respiratory: Clear to Auscultation; Negative Wheezes
Cardiac: Regular Rhythm and S1/S2
GI: Soft and Nontender
Skin: Warm and Dry; Negative Rash
Neuro: AO x 3 and Other (left hemiparesis )
Psych: Calm
Data Reviewed
-
Diagnostic Radiology: Report Reviewed by me
Labs: Labs Reviewed by me
[2024-09-03 12:07] LABS: Glucose - Point of Care 176 mg/dl (70-99)
[2024-09-03] MEDS: NOVOLOG FLEXPEN-LOW RESISTANCE 1 UNITS SC ×2 (12:15→18:03)
--- NOTE | 2024-09-03 12:26 | PTOTSP ---
Videofluoroscopic swallow study
Summary: Patient with mild oral and severe pharyngeal dysphagia without significant improvement from last study. Aspiration without a cough occurred during the swallow with thin liquids and mildly thick liquids. Increased darkening of contrast
noted in anterior trachea with trials over time concerning for aspiration of pharyngeal residue with other thickened liquid trials. Volitional cough/swallow was largely ineffective.
Recommend:
1. NPO - consider non-oral means
2. Medications via non-oral means
3. Aspiration Risk Hydration Protocol � unlimited ice chips after oral care with supervision.
4. Oral care 4x daily
5. Dysphagia tx and motor speech tx at the acute care level and after D/C from acute care. Patient would benefit from cough strength training (EMST) and therapeutic trials of PO with BOND ANALYST (swallowing against resistive bolus with puree).
[2024-09-03] MEDS: ASPIRIN 300 MG RECTAL (12:49)
[2024-09-03] MEDS: NSS 1000 IV (12:52)
--- NOTE | 2024-09-03 12:52 | W.PN.GI.CBS2 ---
Today's Communication / Plan
-
repeat speech eval with continued dysphagia and recommended NPO
will add for peg tomorrow
abx diamond sizer and sorter for GI procedure
hold Lovenox and add comp stocking
pt agreeable to proceed - reviewed risk/benefits
NPO for now - hold on replacing DHT with plan for peg- 09/04 - reviewed with hospitalist for alternative meds
plan for eventual rehab post admission
Assessment / Plan
-
Pt is a 79yo with hx HTN, hypercholesterolemia, NIDDM, BPH with admission with weakness and aphasia with concern for CVA. VSE completed 08/29 with mild to mod oral and severe pharyngeal dysphagia with recommended NPO status. Asked to place DHT and
follow for need for possible peg. Pt currently complaints of nausea with movement but denies any other GI complaints, He denies hx EGD or colonoscopy in past. No current anticoagulation prior or during admission.
09/03 VSE mild oral and severe pharyngeal dysphagia without significant improvement from last study- cont NPO, aspiration risk
Impression:
CVA with hemiplegia
Dysphagia
mild leukocytosis
other med problems:
-NIDDM
-hypercholesterolemia
-BPH
-HTN
PLAN:
repeat speech eval with continued dysphagia and recommended NPO
will add for peg tomorrow
abx diamond sizer and sorter to OR for tomorrow
hold Lovenox and add comp stocking
pt agreeable to proceed - reviewed risk/benefits
NPO for now - hold on replacing DHT with plan for peg- 09/04 - reviewed with hospitalist for alternative meds
plan for eventual rehab post admission
Subjective
Subjective
Date of Service: September 03, 2024
NPO, DHT was clogged, brown stools
Objective
Data Reviewed
Laboratory Data:
Laboratory Results
09/03/24 05:53
09/03/24 05:53
Laboratory Results
PT 14.8 Sec (11.4-14.6) H 08/25/24 16:34
INR 1.13 08/25/24 16:34
Magnesium 2.0 mg/dl (1.6-2.3) 09/02/24 05:26
Total Bilirubin 0.5 mg/dl (0.2-1.3) 09/01/24 07:37
AST 21 U/L (17-59) 09/01/24 07:37
ALT 23 U/L (0-50) 09/01/24 07:37
Alkaline Phosphatase 89 U/L (38-126) 09/01/24 07:37
Vital Signs and I&O:
Vital Signs
Temp Pulse Resp BP Pulse Ox
97.6 F 82 18 145/66 96
09/03/24 07:25 09/03/24 07:25 09/03/24 07:25 09/03/24 07:25 09/03/24 10:25
I&O
09/02/24 09/03/24 09/04/24
06:59 06:59 06:59
Intake Total 1480 / 1480 0 / 0
Output Total 1275 / 1275 1300 / 1300
Balance 205 / 205 -1300 / -1300
Physical Exam
Physical Exam
HEENT: Anicteric and Moist mucous membranes
Cardiology: Normal Sinus Rhythm
Pulmonary: Clear
GI: Soft, Non Distended and Non Tender
Extremities: No Edema
Neuro: Other (hemiplegia )
[2024-09-03 15:05] VITALS: BP 127/55
[2024-09-03 15:55] LABS: Glucose - Point of Care 152 mg/dl (70-99)
--- NOTE | 2024-09-03 16:29 | CM ---
Spoke with [facility] rep. Pt is for Peg tube placement tomorrow.
MD to reorder PT OT postop and then Malik will evaluate if pt ap[propriate.
Pt will need to tolerate tube feedings prior to dc to [place].
IMM reviewed with pt . IMM copy left in room.
[place]/Dr Cha evaluated pt.
PLAN Post Peg tube evaluate for [facility] rehab
[2024-09-03 18:01] LABS: Glucose - Point of Care 167 mg/dl (70-99)
[2024-09-03] MEDS: FLOMAX TUBE (21:15)
[2024-09-03 21:20] LABS: Glucose - Point of Care 127 mg/dl (70-99)
[2024-09-03 23:25] VITALS: BP 148/68
[2024-09-04] VITALS (14 sets, daily range): BP systolic 105–175; BP diastolic 57–83; PULSE 73; O2SAT 95
[2024-09-04 00:13] LABS: Glucose - Point of Care 127 mg/dl (70-99)
[2024-09-04] MEDS: NOVOLOG FLEXPEN-LOW RESISTANCE SC ×3 (00:36→23:23)
[2024-09-04] MEDS: NSS 1000 IV ×2 (05:17→23:24)
[2024-09-04 05:27] LABS: Glucose - Point of Care 125 mg/dl (70-99)
[2024-09-04 06:21] LABS: Hemoglobin 15.2 g/dL (13.0-18.0); Mean Corpuscular Hgb 28.8 pg (27.0-31.0); Mean Corpuscular Volume 87.3 fL (80.0-94.0); Mean Platelet Volume 11.2 fL (7.4-10.4); Platelet Count 222 10^3/uL (130-400); Red Blood Cell Count 5.27 10^6/uL (4.70-6.10); Red Cell Dist. Width 13.6 % (11.5-14.5); White Blood Cell Count 13.6 10^3/uL (4.8-10.8)
[2024-09-04 06:26] LABS: INR 1.03; PT 13.8 Sec (11.4-14.6)
[2024-09-04 06:46] LABS: Blood Urea Nitrogen 13 mg/dl (9-20); Calcium 8.7 mg/dl (8.4-10.2); Carbon Dioxide 28 mmol/L (22-30); Chloride 99 mmol/L (98-107); Estimated Creatinine Clearance 114 ml/min; Glucose 139 mg/dl (70-99); Potassium 4.2 mmol/L (3.5-5.1); Sodium 137 mmol/L (135-145); eGFR > 60.00
--- NOTE | 2024-09-04 10:51 | PTCARENOTE ---
Received pt from PACU via stretcher s/p PEG tube placement, accompanied by volunteer. Pt transferred to bed with assit x3. Pt AAO x3; moves RT side well; LUE/LLE without random movement. VSS. On nc 4 lpm- pulse ox 96%, no SOB noted. Abd obese,
soft, PEG tube intact; bumper @ 3.5 cm; abd binder in place over site. Condom cath P/I clear yellow urine. IVF's NSS @ 60 ml/hr resumed via Rt forearm site; infusing without sx of infiltraton. Resting quietly at present, no c/o. Will continue to
monitor.
[2024-09-04 11:03] LABS: Glucose - Point of Care 161 mg/dl (70-99)
[2024-09-04] MEDS: MYCOSTATIN ORAL SUSPENSION PO ×4 (11:03→22:20)
[2024-09-04] MEDS: COZAAR 25 MG TUBE (11:06)
[2024-09-04] MEDS: LANTUS 0.05 UNITS SC ×2 (11:08→23:22)
[2024-09-04] MEDS: PROTONIX IV 40 MG IV ×2 (11:09→19:50)
[2024-09-04] MEDS: FLUSH (NSS) 1 FLUSH IV (11:09)
[2024-09-04] MEDS: LOW STRENGTH ASPIRIN 81 MG TUBE (11:09)
[2024-09-04] MEDS: NORVASC 5 MG TUBE (11:09)
[2024-09-04] MEDS: NSS (PRESERVATIVE FREE) 10 ML IV ×2 (11:09→19:50)
--- NOTE | 2024-09-04 12:08 | W.PN.HOSP.TC ---
Today's Communication/Plan
-
s/p PEG
Assessment / Plan
Assessment / Plan
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
-CT head negative
-CTA without any acute abnormality
-MRI with restricted diffusion in the right paramedian stuart, compatible with acute or subacute infarct. Moderate atrophy.
-A1c 8.8, LDL 59
-with high NIH score, Plavix not recommended
-PT/OT recommending acute rehab, physiatry consulted
-repeat CT 08/27 neg for any bleeding. Suspect headaches is secondary to postconcussive syndrome
-Speech following,VSE 08/29 and repeat 09/03 with aspiration - continue TF. now s/p PEG this AM
-continue asa/statin
-BP control: Losartan QD, Amlodipine 5mg QD - new meds
-TTE without thrombus
#rhabdomyolysis, traumatic likely secondary to fall
Resolved
#acute on chronic leukocytosis likely stress reaction
-wbc 17.4 on admit, improved but remains mildly elevatd
UA without UTI
-COVID negative
-negative for Flu A and B
-chest x ray with no acute cardiopulmonary process
-patient is afebrile
Hypertension
Started amlodipine, added losartan. Uptitrate as tolerated
Hydralazine as needed
Hypokalemia
resolved
#HLD
-statin
#type 2 Dm
Hyperglycemia
-lantus BID
-BGL were very elevated with TF - will need to adjust insulin when resumed
#BPH
-Flomax continued
bladder scan
#DVT prophylaxis
-scd, Lovenox
#CODE status
-DNR
PT/OT recommending acute rehab, physiatry consulted
I spent a total of 52 minutes with the patient or on the floor. More than 50% of this time involved counseling and coordination of care.
Anticipated Discharge: 24 - 48 hours
Subjective/Interval History
-
Date of Service: September 04, 2024
no new complaints
s/p PEG, has abdominal binder on
Objective Data
-
Labs:
Laboratory Results
09/04/24
05:56
WBC 13.6 H
Hgb 15.2
Hct 46.0
Plt Count 222
PT 13.8
INR 1.03
Sodium 137
Potassium 4.2
Chloride 99
Carbon Dioxide 28
BUN 13
Creatinine 0.6 L
Glucose 139 H
Calcium 8.7
Vital Signs:
Vital Signs
Temp Pulse Resp BP Pulse Ox
98 F 69 18 160/76 98
09/04/24 11:30 09/04/24 11:30 09/04/24 11:30 09/04/24 11:30 09/04/24 11:30
I&O
09/03/24 09/04/24 09/05/24
06:59 06:59 06:59
Intake Total 0 / 0 360 / 360 50 / 50
Output Total 1300 / 1300 1300 / 1300
Balance -1300 / -1300 -940 / -940 50 / 50
Review of Systems
-
History Source: Patient
All other systems: Reviewed and negative
Physical Exam
-
General: No Apparent Distress and Appears Chronically Ill
HEENT: PERRLA
Respiratory: Clear to Auscultation; Negative Wheezes
Cardiac: Regular Rhythm and S1/S2
GI: Soft, Nontender and Other (s/p PEG; abdominal binder on )
Skin: Warm and Dry; Negative Rash
Neuro: AO x 3 and Other (left hemiparesis )
Psych: Calm
Data Reviewed
-
Diagnostic Radiology: Report Reviewed by me
Labs: Labs Reviewed by me
[2024-09-04 12:33] LABS: Glucose - Point of Care 209 mg/dl (70-99)
[2024-09-04] MEDS: NOVOLOG FLEXPEN-LOW RESISTANCE 2 UNITS SC (13:01)
--- NOTE | 2024-09-04 16:41 | PTCARENOTE ---
Pt sleeping but easily arousable; alert; oriented x 3 when awake. Speech sl slurred at times. Pt has Lt facial droop; LUE/LLE weakness. Pleasant and cooperative. VSS. On room air- pulse ox 96%, no SOB noted. Abd large, soft, PEG tube site
intact; Abd binder in place. Condom cath P/I large amts clear lt [place] urine. IV NSS @ 60 ml/hr infusing via Rt forearm site without sx of infiltration. Knee high SCDs in place. Pt resting comfortably at present, no c/o . Will continue to monitor.
[2024-09-04 17:50] LABS: Glucose - Point of Care 150 mg/dl (70-99)
[2024-09-04] MEDS: NOVOLOG FLEXPEN-LOW RESISTANCE 1 UNITS SC (17:51)
[2024-09-04] MEDS: FLUSH (NSS) 2 FLUSH IV (19:51)
[2024-09-04] MEDS: FLOMAX 0.4 MG TUBE (22:20)
[2024-09-04 23:14] LABS: Glucose - Point of Care 120 mg/dl (70-99)
[2024-09-05] VITALS (7 sets, daily range): BP systolic 138–164; BP diastolic 63–80; PULSE 67; O2SAT 93
[2024-09-05 05:24] LABS: Glucose - Point of Care 118 mg/dl (70-99)
[2024-09-05] MEDS: NOVOLOG FLEXPEN-LOW RESISTANCE SC ×4 (05:27→23:39)
[2024-09-05 06:02] LABS: Hematocrit 41.7 % (39.0-52.0); Hemoglobin 14.2 g/dL (13.0-18.0); Mean Corp Hgb Conc. 34.1 g/dL (33.0-37.0); Mean Corpuscular Hgb 29.2 pg (27.0-31.0); Mean Corpuscular Volume 85.6 fL (80.0-94.0); Mean Platelet Volume 11.1 fL (7.4-10.4); Platelet Count 217 10^3/uL (130-400); Red Blood Cell Count 4.87 10^6/uL (4.70-6.10); Red Cell Dist. Width 13.5 % (11.5-14.5); White Blood Cell Count 13.1 10^3/uL (4.8-10.8)
[2024-09-05 06:26] LABS: Blood Urea Nitrogen 13 mg/dl (9-20); Calcium 8.7 mg/dl (8.4-10.2); Carbon Dioxide 27 mmol/L (22-30); Chloride 101 mmol/L (98-107); Estimated Creatinine Clearance 98 ml/min; Glucose 120 mg/dl (70-99); Sodium 136 mmol/L (135-145); eGFR > 60.00
[2024-09-05] MEDS: COZAAR 25 MG TUBE (09:29)
[2024-09-05] MEDS: NORVASC 5 MG TUBE (09:30)
[2024-09-05] MEDS: LOW STRENGTH ASPIRIN 81 MG TUBE (09:30)
[2024-09-05] MEDS: PROTONIX IV 40 MG IV ×2 (09:31→21:30)
[2024-09-05] MEDS: MYCOSTATIN ORAL SUSPENSION PO ×4 (09:31→21:31)
[2024-09-05] MEDS: NSS (PRESERVATIVE FREE) 10 ML IV ×2 (09:31→21:30)
[2024-09-05] MEDS: LANTUS 0.05 UNITS SC ×2 (10:20→23:17)
--- NOTE | 2024-09-05 10:35 | W.PN.HOSP.TC ---
Today's Communication/Plan
-
see bold
Assessment / Plan
Assessment / Plan
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
-CT head negative
-CTA without any acute abnormality
-MRI with restricted diffusion in the right paramedian stuart, compatible with acute or subacute infarct. Moderate atrophy.
-A1c 8.8, LDL 59
-with high NIH score, Plavix not recommended
-PT/OT recommending acute rehab, physiatry consulted
-repeat CT 08/27 neg for any bleeding. Suspect headaches is secondary to postconcussive syndrome
-Speech following, VSE 08/29 and repeat 09/03 with aspiration - continue TF. now s/p PEG morning of 09/04 --> will start TF todya
-continue asa/statin
-BP control: Losartan QD, Amlodipine 5mg QD - new meds
-TTE without thrombus
-PT/OT re-consulted to evaluated for acute rehab
#rhabdomyolysis, traumatic likely secondary to fall
Resolved
#acute on chronic leukocytosis likely stress reaction
-wbc 17.4 on admit, improved but remains mildly elevated
UA without UTI
-COVID negative
-negative for Flu A and B
-chest x ray with no acute cardiopulmonary process
-patient is afebrile
Hypertension
Started amlodipine, added losartan. Uptitrate as tolerated
Hydralazine as needed
Hypokalemia
resolved
#HLD
-statin
#type 2 Dm
Hyperglycemia
-lantus BID
-BGL were very elevated with TF - will need to adjust insulin when resumed *DM JUNK DEALER consulted todau
#BPH
-Flomax continued
bladder scan
#DVT prophylaxis
-scd, Lovenox
#CODE status
-DNR
PT/OT recommending acute rehab, physiatry consulted
I spent a total of 52 minutes with the patient or on the floor. More than 50% of this time involved counseling and coordination of care.
Anticipated Discharge: 24 - 48 hours
Subjective/Interval History
-
Date of Service: September 05, 2024
no new complaints
site of PEG insertion a little sore
Objective Data
-
Labs:
Laboratory Results
09/05/24
05:22
WBC 13.1 H
Hgb 14.2
Hct 41.7
Plt Count 217
Sodium 136
Potassium 4.0
Chloride 101
Carbon Dioxide 27
BUN 13
Creatinine 0.7
Glucose 120 H
Calcium 8.7
Vital Signs:
Vital Signs
Temp Pulse Resp BP Pulse Ox
97.4 F 70 20 156/68 95
09/05/24 07:05 09/05/24 09:29 09/05/24 07:05 09/05/24 09:29 09/05/24 07:05
I&O
09/04/24 09/05/24 09/06/24
06:59 06:59 06:59
Intake Total 360 / 360 750 / 750
Output Total 1300 / 1300 2074 / 2074
Balance -940 / -940 -1325 / -1325
Review of Systems
-
History Source: Patient
All other systems: Reviewed and negative
Physical Exam
-
General: No Apparent Distress and Appears Chronically Ill
HEENT: PERRLA
Respiratory: Clear to Auscultation; Negative Wheezes
Cardiac: Regular Rhythm and S1/S2
GI: Soft, Nontender and Other (s/p PEG; abdominal binder on )
Skin: Warm and Dry; Negative Rash
Neuro: AO x 3 and Other (left hemiparesis )
Psych: Calm
Data Reviewed
-
Diagnostic Radiology: Report Reviewed by me
Labs: Labs Reviewed by me
--- NOTE | 2024-09-05 11:02 | W.PN.GI.CBS2 ---
Addendum entered and electronically signed by ALDEN Ulloa 09/05/24 16:42:
Asked to see Patient as PEG became clogged at FEED port. Was able to unclog with cleaning brush and flush with water. There was also medication granules impacted in the medication port that were removed as well and flushed. Would use the feed port
for meds as this has larger caliber. Ensure that they are completely crushed and flushed.
Original Note:
Today's Communication / Plan
-
as per plan.
GI signing off
Assessment / Plan
-
Pt is a 79yo with hx HTN, hypercholesterolemia, NIDDM, BPH with admission with weakness and aphasia with concern for CVA. VSE completed 08/29 with mild to mod oral and severe pharyngeal dysphagia with recommended NPO status. Asked to place DHT and
follow for need for possible peg. Pt currently complaints of nausea with movement but denies any other GI complaints, He denies hx EGD or colonoscopy in past. No current anticoagulation prior or during admission.
09/03 VSE mild oral and severe pharyngeal dysphagia without significant improvement from last study- cont NPO, aspiration risk
Impression:
S/P PEG on 09/04/23
Non Bleeding DU on EGD
CVA with hemiplegia
Dysphagia
mild leukocytosis
other med problems:
-NIDDM
-hypercholesterolemia
-BPH
-HTN
PLAN:
-Ok to use PEG tube for feeds
-Continue PPI BID x 6 weeks then daily. If has issue [facility] can always get Omeprazole orally disintegrating tablets-> found OTC (20 mg) dissolve in 5 ml water and give via PEG (BID for 6 weeks then daily)
-PEG care: antibiotic ointment to site daily x 7 days. Clean site with soap and water daily and dry thoroughly.
-Call office for follow up for PEG check with SECURITY DISPATCHER in 1 month.
-Will be available as needed or by request.
Subjective
Subjective
Date of Service: September 05, 2024
Patient s/p PEG yesterday. No complaints. Using for meds without any issues. Patient with non bleeding DU on EGD. Discussed with him. Will need to be on PPI BID for 6 weeks then daily.
Objective
Data Reviewed
Laboratory Data:
Laboratory Results
09/05/24 05:22
09/05/24 05:22
Laboratory Results
PT 13.8 Sec (11.4-14.6) 09/04/24 05:56
INR 1.03 09/04/24 05:56
Magnesium 2.0 mg/dl (1.6-2.3) 09/02/24 05:26
Total Bilirubin 0.5 mg/dl (0.2-1.3) 09/01/24 07:37
AST 21 U/L (17-59) 09/01/24 07:37
ALT 23 U/L (0-50) 09/01/24 07:37
Alkaline Phosphatase 89 U/L (38-126) 09/01/24 07:37
Vital Signs and I&O:
Vital Signs
Temp Pulse Resp BP Pulse Ox
97.4 F 70 20 156/68 95
09/05/24 07:05 09/05/24 09:29 09/05/24 07:05 09/05/24 09:29 09/05/24 07:05
I&O
09/04/24 09/05/24 09/06/24
06:59 06:59 06:59
Intake Total 360 / 360 750 / 750
Output Total 1300 / 1300 2074 / 2074
Balance -940 / -940 -1325 / -1325
Physical Exam
Physical Exam
HEENT: Anicteric
Cardiology: Normal Sinus Rhythm
Pulmonary: Clear (anterior)
GI: Soft, Non Distended, Non Tender, Normal Bowel Sounds and Other (PEG in LUQ, no erythema or exudate, bumper loosened to 4 cm from skin.)
Neuro: Non Focal
--- NOTE | 2024-09-05 11:16 | CM ---
Peg placed yesterday .
Tube feeding starting today.
Spoke with [facility] rep. Malik aware Peg tube placement.
As per Malik rehab will reassess PT OT Sunday . Would appreciate PT OT evals done on Sunday if possible.
Pt will need to tolerate tube feedings prior to dc to [place].
Malik
[phone]'
fax [phone]
PLAN [facility] rehab if tolerating Peg tube feeding and PT OT done and appropriate
[2024-09-05 11:32] LABS: Glucose - Point of Care 116 mg/dl (70-99)
--- NOTE | 2024-09-05 11:49 | PN.DE.MGMTRT ---
Insulin Management
- -
09/05/2024: Diabetes management Consult
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
PMH; HTN, HLD, BPH and T2DM. Was taking Basaglar 11 units @ HS and Glyburide 5mg daily SALES AND MARKETING INTERN. A1C 8.8, Cr 0.7, eGFR>60
PT awake, alert, oriented, resting in bed, offers no complaints, able to discuss diabetes plan of care.
Pt was initiated on tube feeds contributing to hyperglycemia 09/01-09/03, requiring BID dose of Lantus and Aspart Q6hrs.
Of note, Pt underwent Speech eval with VSE 08/29, repeated on 09/03 with aspiration.
TF were held 09/04 for PEG tube placement and glucose level was WNL off tube feeds. Plan is to resume TF via PEG today.
Recs once tube feeds have been resumed: Lantus 10 units BID, NovoLog 5 units Q6hrs with low corrective. closely monitor glucose trend and adjust insulin doses if necessary
Stop Glyburide indefinitely, especially if pt is discharge home on short acting insulin.
Diabetes History
- -
Type of Diabetes: 2 requiring insulin
Pre-Admission Diabetes Regimen
09/05/24
05:22
Creatinine 0.7
Lab Results
Hemoglobin A1c 8.8 % (4.0-5.6) H 08/26/24 05:56
Insulin Pump Settings
IP Diabetes Regimen
09/04/24 09/04/24 09/04/24
12:32 17:49 23:13
Glucose
POC Glucose 209 H 150 H 120 H
09/05/24 09/05/24 09/05/24
05:22 05:23 11:30
Glucose 120 H
POC Glucose 118 H 116 H
Patient Education
[2024-09-05] MEDS: NSS 1000 IV (15:41)
--- NOTE | 2024-09-05 17:15 | PTCARENOTE ---
Received patient this am AAOx3 . Pt NPO. Jevity 1.5 started this afternoon. Peg tube clogged. GI DENTURE WAXER saw patient. G tube now working. Tube feeding infusing without difficulty. Pt offered no complaints. Made patient comfortable. Cont to assess
patient status.
[2024-09-05 17:42] LABS: Glucose - Point of Care 119 mg/dl (70-99)
[2024-09-05] MEDS: FLOMAX 0.4 MG TUBE (21:31)
[2024-09-05 23:11] LABS: Glucose - Point of Care 143 mg/dl (70-99)
[2024-09-06 05:56] LABS: Glucose - Point of Care 183 mg/dl (70-99)
[2024-09-06] MEDS: NOVOLOG FLEXPEN-LOW RESISTANCE 1 UNITS SC (06:33)
[2024-09-06 07:05] VITALS: BP 143/64
[2024-09-06 08:01] LABS: Blood Urea Nitrogen 15 mg/dl (9-20); Calcium 8.6 mg/dl (8.4-10.2); Carbon Dioxide 25 mmol/L (22-30); Chloride 102 mmol/L (98-107); Estimated Creatinine Clearance 98 ml/min; Glucose 201 mg/dl (70-99); Potassium 3.9 mmol/L (3.5-5.1); Sodium 135 mmol/L (135-145); eGFR > 60.00
[2024-09-06] MEDS: NSS 1000 IV (08:07)
[2024-09-06] MEDS: NORVASC 5 MG TUBE (08:07)
[2024-09-06] MEDS: MYCOSTATIN ORAL SUSPENSION PO (08:07)
[2024-09-06] MEDS: COZAAR 25 MG TUBE (08:08)
[2024-09-06] MEDS: PROTONIX IV 40 MG IV ×2 (08:08→20:18)
[2024-09-06] MEDS: NSS (PRESERVATIVE FREE) 10 ML IV ×2 (08:08→20:18)
[2024-09-06] MEDS: FLUSH (NSS) 1 FLUSH IV (08:08)
[2024-09-06] MEDS: LOW STRENGTH ASPIRIN 81 MG TUBE (08:08)
[2024-09-06] MEDS: LANTUS 0.05 UNITS SC (08:09)
--- NOTE | 2024-09-06 10:24 | W.PN.HOSP.TC ---
Addendum entered and electronically signed by Trina Goodman MD 09/06/24 13:20:
Non-bleeding Duodenal ulcers seen on EGD
-continue PPI
Original Note:
Today's Communication/Plan
-
continue advancing TF to goal rate
plan for acute rehab Sunday
Assessment / Plan
Assessment / Plan
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
-CT head negative
-CTA without any acute abnormality
-MRI with restricted diffusion in the right paramedian stuart, compatible with acute or subacute infarct. Moderate atrophy.
-A1c 8.8, LDL 59
-with high NIH score, Plavix not recommended
-PT/OT recommending acute rehab, physiatry consulted
-repeat CT 08/27 neg for any bleeding. Suspect headaches is secondary to postconcussive syndrome
-Speech following, VSE 08/29 and repeat 09/03 with aspiration - continue TF. now s/p PEG morning of 09/04 --> TF initiated on 09/05
-continue asa/statin
-BP control: Losartan QD, Amlodipine 5mg QD - new meds
-TTE without thrombus
-PT/OT re-consulted to evaluated for acute rehab - earliest would be [facility] per CM
#rhabdomyolysis, traumatic likely secondary to fall
Resolved
#acute on chronic leukocytosis likely stress reaction
-wbc 17.4 on admit, improved but remains mildly elevated
UA without UTI
-COVID negative
-negative for Flu A and B
-chest x ray with no acute cardiopulmonary process
-patient is afebrile
Hypertension
Started amlodipine, added losartan. Uptitrate as tolerated
Hydralazine as needed
Hypokalemia
resolved
#HLD
-statin
#type 2 Dm
Hyperglycemia
-lantus BID
-BGL were very elevated with TF - will need to adjust insulin when resumed
-appreciate DM CAFETERIA HELPER recs - will increase Lantus to 10 units BID starting tomorrow
#BPH
-Flomax continued
bladder scan
#DVT prophylaxis
-scd, Lovenox
#CODE status
-DNR
PT/OT recommending acute rehab, physiatry consulted
Anticipated Discharge: 24 - 48 hours
Subjective/Interval History
-
Date of Service: September 06, 2024
no complaints
tolerating tube feeds
Objective Data
-
Labs:
Laboratory Results
09/06/24
06:18
Sodium 135
Potassium 3.9
Chloride 102
Carbon Dioxide 25
BUN 15
Creatinine 0.7
Glucose 201 H
Calcium 8.6
Vital Signs:
Vital Signs
Temp Pulse Resp BP Pulse Ox
97.6 F 71 20 143/64 95
09/06/24 07:05 09/06/24 08:08 09/06/24 07:05 09/06/24 08:08 09/06/24 08:04
I&O
09/05/24 09/06/24 09/07/24
06:59 06:59 06:59
Intake Total 750 / 750 1800 / 1800
Output Total 2074 1320 / 1320
Balance -1325 / -1325 480 / 480
Review of Systems
-
History Source: Patient
All other systems: Reviewed and negative
Physical Exam
-
General: No Apparent Distress and Appears Chronically Ill
HEENT: PERRLA
Respiratory: Clear to Auscultation; Negative Wheezes
Cardiac: Regular Rhythm and S1/S2
GI: Soft, Nontender and Other (s/p PEG; abdominal binder on )
Skin: Warm and Dry; Negative Rash
Neuro: AO x 3 and Other (left hemiparesis )
Psych: Calm
Data Reviewed
-
Diagnostic Radiology: Report Reviewed by me
Labs: Labs Reviewed by me
[2024-09-06] MEDS: LOVENOX 40 MG SC (10:43)
[2024-09-06 11:58] LABS: Glucose - Point of Care 247 mg/dl (70-99)
[2024-09-06] MEDS: NOVOLOG FLEXPEN-LOW RESISTANCE 2 UNITS SC ×3 (12:26→23:33)
[2024-09-06] MEDS: MYCOSTATIN ORAL SUSPENSION 5 ML PO ×3 (12:26→21:18)
[2024-09-06 14:27] VITALS: BP 90/63; PULSE 75
[2024-09-06 15:28] VITALS: BP 90/63
[2024-09-06 16:05] VITALS: BP 144/63
--- NOTE | 2024-09-06 16:05 | PTCARENOTE ---
Pt AAO x3; cooperative; speech sl slurred at times d/t Lt facial droop. LUE/LLE without random movement. VSS. On room air- pulse ox 93%, no SOB noted. Abd large, soft, PEG tube with Jevity 1.5 currently infusing @ 40 ml/hr; ivan well. Incont
large amts urine. Resting comfortably at present. Will continue to monitor.
[2024-09-06 17:19] LABS: Glucose - Point of Care 240 mg/dl (70-99)
[2024-09-06 21:06] LABS: Glucose - Point of Care 238 mg/dl (70-99)
[2024-09-06] MEDS: LIPITOR 20 MG TUBE (21:14)
[2024-09-06] MEDS: FLOMAX 0.4 MG TUBE (21:18)
[2024-09-06] MEDS: LANTUS 0.1 UNITS SC (21:19)
[2024-09-06 23:25] LABS: Glucose - Point of Care 239 mg/dl (70-99)
[2024-09-06 23:32] VITALS: BP 172/72
[2024-09-07] VITALS (7 sets, daily range): BP systolic 131–161; BP diastolic 64–76; PULSE 73; O2SAT 92
[2024-09-07 05:42] LABS: Glucose - Point of Care 259 mg/dl (70-99)
[2024-09-07] MEDS: NOVOLOG FLEXPEN-LOW RESISTANCE 3 UNITS SC ×2 (05:55→11:52)
[2024-09-07] MEDS: PROTONIX IV 40 MG IV (08:23)
[2024-09-07] MEDS: NSS (PRESERVATIVE FREE) 10 ML IV (08:23)
[2024-09-07] MEDS: NORVASC 5 MG TUBE (08:23)
[2024-09-07] MEDS: MYCOSTATIN ORAL SUSPENSION 5 ML PO ×3 (08:24→20:59)
[2024-09-07] MEDS: COZAAR 25 MG TUBE (08:24)
[2024-09-07] MEDS: LOW STRENGTH ASPIRIN 81 MG TUBE (08:24)
[2024-09-07] MEDS: LANTUS 0.1 UNITS SC ×2 (08:37→22:56)
[2024-09-07 08:52] LABS: Blood Urea Nitrogen 14 mg/dl (9-20); Calcium 8.5 mg/dl (8.4-10.2); Carbon Dioxide 28 mmol/L (22-30); Chloride 98 mmol/L (98-107); Estimated Creatinine Clearance 114 ml/min; Glucose 277 mg/dl (70-99); Potassium 3.9 mmol/L (3.5-5.1); Sodium 136 mmol/L (135-145); eGFR > 60.00
--- NOTE | 2024-09-07 09:28 | W.PN.HOSP.TC ---
Today's Communication/Plan
-
dispo planning, hopefully [facility] tomorrow
Assessment / Plan
Assessment / Plan
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
-CT head negative
-CTA without any acute abnormality
-MRI with restricted diffusion in the right paramedian stuart, compatible with acute or subacute infarct. Moderate atrophy.
-A1c 8.8, LDL 59
-TTE without thrombus
-repeat CT 08/27 neg for any bleeding. Suspect headaches is secondary to postconcussive syndrome
-VSE 08/29 and repeat 09/03 with aspiration. now s/p PEG morning of 09/04 --> TF initiated on 09/05 and now at goal
-continue asa/statin, -with high NIH score, Plavix not recommended
-BP control: Losartan QD, Amlodipine 5mg QD - new meds
-PT/OT re-consulted to evaluated for acute rehab - earliest would be Sunday per CM
#rhabdomyolysis, traumatic likely secondary to fall
Resolved
#acute on chronic leukocytosis likely stress reaction
-wbc 17.4 on admit, improved but remains mildly elevated
UA without UTI
-COVID negative
-negative for Flu A and B
-chest x ray with no acute cardiopulmonary process
-patient is afebrile
Hypertension
Started amlodipine, added losartan
Hydralazine as needed
Hypokalemia
resolved
#HLD
-statin
#type 2 Dm
Hyperglycemia
-BGL were very elevated with TF
-appreciate DM PUBLIC HEALTH POLICY ANALYST recs: Lantus 10 units BID with Aspart 5 units QID and adjust as needed
-*post rehab ideally lower glucose TF can be ordered for patient
#BPH
-Flomax continued
bladder scan
#DVT prophylaxis
-scd, Lovenox
#CODE status
-DNR
PT/OT recommending acute rehab, physiatry consulted
Anticipated Discharge: 24 - 48 hours
Subjective/Interval History
-
Date of Service: September 07, 2024
no new complaints
Objective Data
-
Labs:
Laboratory Results
09/07/24
07:22
Sodium 136
Potassium 3.9
Chloride 98
Carbon Dioxide 28
BUN 14
Creatinine 0.6 L
Glucose 277 H
Calcium 8.5
Vital Signs:
Vital Signs
Temp Pulse Resp BP Pulse Ox
97.6 F 74 14 142/74 93
09/07/24 07:11 09/07/24 08:23 09/07/24 07:11 09/07/24 08:23 09/07/24 07:11
I&O
09/06/24 09/07/24 09/08/24
06:59 06:59 06:59
Intake Total 2069 212 / 2124
Output Total 1050 / 1050 400 / 400
Balance 1020 / 1020 1725 / 1725
Review of Systems
-
History Source: Patient
All other systems: Reviewed and negative
Physical Exam
-
General: No Apparent Distress and Appears Chronically Ill
HEENT: PERRLA
Respiratory: Clear to Auscultation; Negative Wheezes
Cardiac: Regular Rhythm and S1/S2
GI: Soft, Nontender and Other (s/p PEG; site c/d/i)
Skin: Warm and Dry; Negative Rash
Neuro: AO x 3 and Other (left hemiparesis )
Psych: Calm
Data Reviewed
-
Diagnostic Radiology: Report Reviewed by me
Labs: Labs Reviewed by me
[2024-09-07 10:18] LABS: Glucose - Point of Care 264 mg/dl (70-99)
[2024-09-07] MEDS: NOVOLOG FLEXPEN 5 UNITS SC ×3 (10:20→18:43)
[2024-09-07 11:34] LABS: Glucose - Point of Care 282 mg/dl (70-99)
[2024-09-07] MEDS: TYLENOL 650 MG PO (11:51)
--- NOTE | 2024-09-07 12:16 | W.PN.HOSP.TC ---
Today's Communication/Plan
-
dispo planning for [facility]
Assessment / Plan
Assessment / Plan
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
-CT head negative
-CTA without any acute abnormality
-MRI with restricted diffusion in the right paramedian stuart, compatible with acute or subacute infarct. Moderate atrophy.
-A1c 8.8, LDL 59
-TTE without thrombus
-repeat CT 08/27 neg for any bleeding. Suspect headaches is secondary to postconcussive syndrome
-VSE 08/29 and repeat 09/03 with aspiration. now s/p PEG morning of 09/04 --> TF initiated on 09/05 and now at goal
-continue asa/statin, -with high NIH score, Plavix not recommended
-BP control: Losartan QD, Amlodipine 5mg QD - new meds
-PT/OT re-consulted to evaluated for acute rehab - earliest would be Sunday per CM
Duodenal Ulcer
-EGD 09/04 with Duodenitis and non-bleeding duoedenal ulcers
-continue BID PPI x 6 weeks then daily
- lansoprazole ordered here. Per GI, can also use omeprazole orally disintegrating tablets which are OTC (20mg) dissolve in 5ml water and give via PEG
Rhabdomyolysis, traumatic likely secondary to fall
Resolved
Acute on chronic leukocytosis likely stress reaction
-WBC 17.4 on admit, improved but remains mildly elevated
UA without UTI
-COVID negative
-negative for Flu A and B
-chest x ray with no acute cardiopulmonary process
-patient is afebrile
Hypertension
Started amlodipine, added losartan
Hydralazine as needed
Hypokalemia
resolved
#HLD
-statin
#type 2 Dm
Hyperglycemia
-BGL were very elevated with TF
-appreciate DM WASHING MACHINE LOADER recs: Lantus 10 units BID with Aspart 5 units QID and adjust as needed
-*post rehab ideally lower glucose TF can be ordered for patient
#BPH
-Flomax continued
bladder scan
#DVT prophylaxis
-scd, Lovenox
#CODE status
-DNR
PT/OT recommending acute rehab, physiatry consulted
Anticipated Discharge: 24 - 48 hours
Subjective/Interval History
-
Date of Service: September 07, 2024
feeling well this morning, no new complaints
Objective Data
-
Labs:
Laboratory Results
09/07/24
07:22
Sodium 136
Potassium 3.9
Chloride 98
Carbon Dioxide 28
BUN 14
Creatinine 0.6 L
Glucose 277 H
Calcium 8.5
Vital Signs:
Vital Signs
Temp Pulse Resp BP Pulse Ox
97.6 F 74 14 142/74 93
09/07/24 07:11 09/07/24 08:23 09/07/24 07:11 09/07/24 08:23 09/07/24 08:00
I&O
09/06/24 09/07/24 09/08/24
06:59 06:59 06:59
Intake Total 2069 / 0 5 / 2124
Output Total 1050 / 1050 400 / 400 275 / 275
Balance 1020 / 1020 1725 / 1725 -275 / -275
Review of Systems
-
History Source: Patient
All other systems: Reviewed and negative
Physical Exam
-
General: No Apparent Distress and Appears Chronically Ill
HEENT: PERRLA
Respiratory: Clear to Auscultation; Negative Wheezes
Cardiac: Regular Rhythm and S1/S2
GI: Soft, Nontender and Other (s/p PEG; site c/d/i)
Skin: Warm and Dry; Negative Rash
Neuro: AO x 3 and Other (left hemiparesis )
Psych: Calm
Data Reviewed
-
Diagnostic Radiology: Report Reviewed by me
Labs: Labs Reviewed by me
[2024-09-07] MEDS: MYCOSTATIN ORAL SUSPENSION PO (13:00)
[2024-09-07] MEDS: LOVENOX 40 MG SC (18:21)
[2024-09-07 18:30] LABS: Glucose - Point of Care 237 mg/dl (70-99)
[2024-09-07] MEDS: NOVOLOG FLEXPEN-LOW RESISTANCE 2 UNITS SC (18:42)
--- NOTE | 2024-09-07 19:14 | PTCARENOTE ---
Received patient this am AAOx3. Pt OOB to chair an tolerated for 2 hrs. At 1330 Pt complained of being nausea. Tube feeding residual was 150 ml. Discarded. Pt stated that nausea went away after [address] Goodman made aware. Pt's tube
feeding was held for 2.5 hours. Residual 5 ml. Tube feedings restarted at 55/hr at 1615 an patient tolerating. Made patient comfortable. Cont to assess pt status.
[2024-09-07] MEDS: PREVACID 15 MG TUBE (20:46)
[2024-09-07] MEDS: LIPITOR 20 MG TUBE (20:59)
[2024-09-07] MEDS: FLOMAX 0.4 MG TUBE (20:59)
[2024-09-07 21:39] LABS: Glucose - Point of Care 208 mg/dl (70-99)
[2024-09-08 00:18] LABS: Glucose - Point of Care 182 mg/dl (70-99)
[2024-09-08] MEDS: NOVOLOG FLEXPEN 5 UNITS SC ×2 (00:18→05:57)
[2024-09-08] MEDS: NOVOLOG FLEXPEN-LOW RESISTANCE 1 UNITS SC ×2 (00:23→17:55)
[2024-09-08 05:50] LABS: Glucose - Point of Care 261 mg/dl (70-99)
[2024-09-08] MEDS: NOVOLOG FLEXPEN-LOW RESISTANCE 3 UNITS SC ×2 (05:57→12:13)
[2024-09-08 07:25] VITALS: BP 136/59
--- NOTE | 2024-09-08 07:50 | PN.DE.MGMTRT ---
Insulin Management
- -
09/08/2024: Diabetes management Follow Up
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
PMH; HTN, HLD, BPH and T2DM. Was taking Basaglar 11 units @ HS and Glyburide 5mg daily CONTINUOUS IMPROVEMENT ANALYST. A1C 8.8, Cr 0.7, eGFR>60
PT awake, alert, oriented, resting in bed, offers no complaints, able to discuss diabetes plan of care.
Pt remains on tube feeds contributing to hyperglycemia, currently on Lantus BID and Aspart Q6hrs.
09/07 glucose range 208 to 282, requiring 3 units additional corrective insulin. FBG 261 this AM.
Will increase NovoLog to 8 units Q6 hrs and Lantus to 12 units BID. Cont low corrective.
Will cont to follow and closely monitor glucose trend and adjust insulin doses if necessary
Stop Glyburide indefinitely. PEG tube in place with group home tube feeds.
Diabetes History
- -
Type of Diabetes: 2 requiring insulin
Pre-Admission Diabetes Regimen
09/07/24
07:22
Creatinine 0.6 L
Lab Results
Hemoglobin A1c 8.8 % (4.0-5.6) H 08/26/24 05:56
Insulin Pump Settings
IP Diabetes Regimen
09/07/24 09/07/24 09/07/24
07:22 10:16 11:33
Glucose 277 H
POC Glucose 264 H 282 H
09/07/24 09/07/24 09/08/24
18:29 21:38 00:17
Glucose
POC Glucose 237 H 208 H 182 H
09/08/24
05:49
Glucose
POC Glucose 261 H
Meal type: Dinner
Meal type: Lunch
Meal type: Breakfast
Patient Education
[2024-09-08] MEDS: LANTUS 0.1 UNITS SC (08:00)
[2024-09-08] MEDS: MYCOSTATIN ORAL SUSPENSION 5 ML PO ×3 (09:16→17:50)
[2024-09-08] MEDS: LOW STRENGTH ASPIRIN 81 MG TUBE (09:16)
[2024-09-08] MEDS: NORVASC 5 MG TUBE (09:16)
[2024-09-08] MEDS: PREVACID 15 MG TUBE (09:17)
[2024-09-08] MEDS: COZAAR 25 MG TUBE (09:17)
--- NOTE | 2024-09-08 11:14 | CM ---
Addendum entered by Mayra Bunch RN 09/08/24 12:10:
MD ordered discharge today.
PLAN To [facility]
Original Note:
Peg placed placed last week. Tube feeding maintained at 55 cc hr.
Spoke with [facility] can accept today.
PT OT evals done Sunday = acute rehab.
[facility]
[phone]'
fax [phone]
PLAN [facility] can accept today if medically ready
[2024-09-08 11:45] LABS: Glucose - Point of Care 263 mg/dl (70-99)
--- NOTE | 2024-09-08 11:55 | W.PN.HOSP.TC ---
Today's Communication/Plan
-
Monitor vital signs see plan
Discharged today to [facility]
Continue with tube feeds
Continue aspirin
Continue with BP meds
Time of discharge 38 minutes
Assessment / Plan
Assessment / Plan
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
-CT head negative
-CTA without any acute abnormality
-MRI with restricted diffusion in the right paramedian stuart, compatible with acute or subacute infarct. Moderate atrophy.
-A1c 8.8, LDL 59
-TTE without thrombus
-repeat CT 08/27 neg for any bleeding. Suspect headaches is secondary to postconcussive syndrome
-VSE 08/29 and repeat 09/03 with aspiration. now s/p PEG morning of 09/04 --> TF initiated on 09/05 and now at goal
-continue asa/statin, -with high NIH score, Plavix not recommended
-BP control: Losartan QD, Amlodipine 5mg QD - new meds
-PT/OT re-consulted to evaluated for acute rehab - earliest would be Sunday per CM
Duodenal Ulcer
-EGD 09/04 with Duodenitis and non-bleeding duoedenal ulcers
-continue BID PPI x 6 weeks then daily
- lansoprazole ordered here. Per GI, can also use omeprazole orally disintegrating tablets which are OTC (20mg) dissolve in 5ml water and give via PEG
Rhabdomyolysis, traumatic likely secondary to fall
Resolved
Acute on chronic leukocytosis likely stress reaction
-WBC 17.4 on admit, improved but remains mildly elevated
UA without UTI
-COVID negative
-negative for Flu A and B
-chest x ray with no acute cardiopulmonary process
-patient is afebrile
Hypertension
Started amlodipine, added losartan
Hydralazine as needed
Hypokalemia
resolved
#HLD
-statin
#type 2 Dm
Hyperglycemia
-BGL were very elevated with TF
-appreciate DM FIELD TECHNICAL ASSISTANT recs: Lantus 12 units BID with Aspart 8 units QID and adjust as needed
-*post rehab ideally lower glucose TF can be ordered for patient
#BPH
-Flomax continued
bladder scan
#DVT prophylaxis
-scd, Lovenox
#CODE status
-DNR
PT/OT recommending acute rehab, physiatry consulted
General: No Apparent Distress and Appears Chronically Ill
HEENT: PERRLA
Respiratory: Clear to Auscultation; Negative Wheezes
Cardiac: Regular Rhythm and S1/S2
GI: Soft, Nontender and Other (s/p PEG; site c/d/i)
Skin: Warm and Dry; Negative Rash
Neuro: AO x 3 and Other (left hemiparesis )
Psych: Calm
Anticipated Discharge: Today
Subjective/Interval History
-
Date of Service: September 08, 2024
Denies nausea
Objective Data
-
Vital Signs:
Vital Signs
Temp Pulse Resp BP Pulse Ox
97.6 F 70 20 136/59 92
09/08/24 07:25 09/08/24 09:16 09/08/24 07:25 09/08/24 09:16 09/08/24 07:25
I&O
09/07/24 09/08/24 09/09/24
06:59 06:59 06:59
Intake Total 2125 / 2125 1555 / 1555
Output Total 400 / 400 725 / 725
Balance 1725 / 1725 830 / 830
--- NOTE | 2024-09-08 12:03 | W.DCSUMMARY ---
Discharge Summary
Discharge Data
Date of Admission: 08/25/24
Date of Discharge: 09/08/24
-
Pending Results: No
Hospital Course
79-year-old male with past medical history of diabetes mellitus, BPH came to the hospital with acute stroke with left sided hemiparesis and aphasia with dysphagia. MRI was done which showed acute stroke. Patient was seen by neurology throughout
hospitalization. Patient was seen by speech therapy throughout hospitalization and had a video swallow study which was concerning for aspiration. Initially patient had NG tube however his dysphagia did not improve so he ends up getting PEG tube on
09/04/2024. Patient was seen by GI throughout hospitalization and had an EGD on this hospitalization which showed duodenitis and nonbleeding duodenal ulcer. Patient was then put on PPI. While he was on tube feeds his blood sugar also continue to
be elevated so he was started on insulin. On this hospitalization he was also hypertensive and was started on amlodipine and losartan. Patient was also evaluated by physical therapy who recommended acute rehab. Once his symptoms continue to
improve he was then discharged to acute rehab with instructions to follow-up with all the physicians outpatient.
Discharge Plan
-
Patient Disposition: Acute Rehab Facility
Discharge Diagnosis/Procedures: Ischemic stroke with left hemiparesis and dysarthria now s/p PEG placement 09/05/24
Rhabdomyolysis
Hypertension
Type 2 diabetes mellitus
Diet: Tube feeding
Additional Diets: Jevity 1.5 55 mL/hr ; tube flushes 25ml/hr
Activity: As tolerated
Driving Restrictions: No driving
Bathing Restrictions: None
Other Services: PT and OT
Referrals:
Laura Garcia CRNP [Specified Professional Personl] - in one month (PEG tube check)
Junaid Mckeon MD [Family Provider] - in less than 1 week
Renee Guerra MD [Active] -
Additional Discharge Medication Instructions: STOP GLYBURIDE, Your insulin dosing is adjusted on TF
Lansoprazole started for treatment of Duodenal Ulcers. Take twice a day x 6 weeks then daily
Prescriptions:
New
atorvastatin 20 mg Tablet
20 mg feeding tube HS Qty: 0 0RF
miconazole nitrate [Miconazorb AF] 2 % Powder
1 applic topical BIDPRN PRN (Reason: PER PROTOCOL) Qty: 0 0RF
losartan 25 mg Tablet
25 mg feeding tube DAILY Qty: 0 0RF
nystatin 100,000 unit/mL Suspension
5 ml PO QID Qty: 0 0RF
polyethylene glycol 3350 17 gram Powder In Packet
17 g feeding tube DAILY PRN (Reason: constipation) Qty: 0 0RF
aspirin 81 mg Tablet,Chewable
81 mg feeding tube DAILY Qty: 0 0RF
Insulin Glargine Lantus [Lantus] 12 UNITS
Subcutaneous Insulin Syringe [Syringe-Insulin] 0 UNIT
As Directed mls/hr SC DAILY
Ordered By: Raymond Lim MD
Last Taken: 09/08/24 08:00 0.1 mls
Insulin Glargine Lantus [Lantus] 12 UNITS
Subcutaneous Insulin Syringe [Syringe-Insulin] 0 UNIT
As Directed mls/hr SC HS
Ordered By: Raymond Lim MD
Last Taken: 09/07/24 22:56 0.1 mls
insulin aspart U-100 100 unit/mL (3 mL) Insulin Pen
8 unit SC Q6 Qty: 0 0RF
amlodipine 5 mg Tablet
5 mg feeding tube DAILY Qty: 0 0RF
lansoprazole 15 mg Tablet,Disintegrat, Delay Rel
15 mg feeding tube BID Qty: 0 0RF
Rx Instructions:
Take twice a day for 6 weeks, then daily.
acetaminophen 325 mg Tablet
650 mg PO Q4HPRN PRN (Reason: TRONCOSO, mild pain, or temp >100.4F) Qty: 0 0RF
Continued
therapeutic multivitamin Tablet
1 tab PO DAILY
tamsulosin 0.4 mg Capsule
0.4 mg PO HS
Discontinued
atorvastatin 20 mg Tablet
20 mg PO DAILY
glyburide 5 mg Tablet
5 mg PO DAILY
insulin glargine [Basaglar KwikPen U-100 Insulin] 100 unit/mL (3 mL) Insulin Pen
11 unit SC HS
Discharge Orders:
Discharge Patient (As Directed); Ordered 09/08/24
Ordered By: Raymond Lim
Discharge Date and Time
Discharge Date/Time: 09/08/24 18:30
Print Language: KHMER
[2024-09-08] MEDS: NOVOLOG FLEXPEN 8 UNITS SC ×2 (12:13→17:56)
[2024-09-08 15:04] VITALS: BP 146/68
[2024-09-08] MEDS: LOVENOX 40 MG SC (17:49)
[2024-09-08 17:56] LABS: Glucose - Point of Care 179 mg/dl (70-99)
== END 2024-09-08 18:30 | DRG 64 ==
LOC: 4 EAST ACU 20:04
PROVIDERS: Emergency Medicine; Internal Medicine Gastroenterology; Physician Assistant; Registered Nurse; Student in an Organized Health Care Education/Training Program; ADMITTING PHYSICIAN Hospitalist; ATTENDING PHYSICIAN Internal Medicine; CONSULT PHYSICIAN Physical Medicine & Rehabilitation; CONSULT PHYSICIAN Psychiatry & Neurology Neurology; CONSULT PHYSICIAN Specialist; EMERGENCY PHYSICIAN Student in an Organized Health Care Education/Training Program; FAMILY PHYSICIAN Family Medicine
PROC: 3E0G76Z Introduction of Nutritional Substance into Upper GI, Via Natural or Artificial Opening (ICD-10-PCS; 2024-09-04)
PROC: 0DH63UZ Insertion of Feeding Device into Stomach, Percutaneous Approach (ICD-10-PCS; 2024-09-04)
PROC: 0DB68ZX Excision of Stomach, Via Natural or Artificial Opening Endoscopic, Diagnostic (ICD-10-PCS; 2024-09-04)
DX: I63.9 Cerebral infarction, unspecified (principal); G93.41 Metabolic encephalopathy; G81.94 Hemiplegia, unspecified affecting left nondominant side; D84.821 Immunodeficiency due to drugs; K51.90 Ulcerative colitis, unspecified, without complications; R47.01 Aphasia; R13.10 Dysphagia, unspecified; K26.9 Duodenal ulcer, unspecified as acute or chronic, without hemorrhage or perforation; K29.80 Duodenitis without bleeding; K29.70 Gastritis, unspecified, without bleeding; E11.9 Type 2 diabetes mellitus without complications; N40.0 Benign prostatic hyperplasia without lower urinary tract symptoms; E78.00 Pure hypercholesterolemia, unspecified; I10 Essential (primary) hypertension; T79.6XXA Traumatic ischemia of muscle, initial encounter; W08.XXXA Fall from other furniture, initial encounter; E87.6 Hypokalemia; Z66 Do not resuscitate
CPT/HCPCS: 88305; 70450; 70496; 70498; 70551; 71046; 74018; 74230; 80048; 80053; 80061; 81003; 82550; 82962; 83036; 83735; 85025; 85027; 85610; 87502; 87811; 88342; 92507; 92523; 92526; 92610; 92611; 93005; 93306; 96360; 96361; 97110; 97112; 97129; 97163; 97167; 97530; 97535; 99285; Q9967

== ENCOUNTER → 2024-10-09 10:51 | Outpatient (REF) | payer OTHER, MEDICARE, SELFPAY ==
[2024-10-09 11:36] LABS: % Eosinophils 5.8 % (0-6); % Immature Granulocytes 0.4 % (0-0.5); % Lymphocytes 15.7 % (20.5-51.1); % Monocytes 7.1 % (1.7-9.3); Absolute Basophils 0.1 10^3/uL (0-0.2); Absolute Eosinophils 0.6 10^3/uL (0-0.7); Absolute Lymphocytes 1.6 10^3/uL (1.2-3.4); Absolute Monocytes 0.7 10^3/uL (0.1-0.6); Absolute Neutrophils 7.2 10^3/uL (1.4-6.5); Hematocrit 38.6 % (39.0-52.0); Mean Corp Hgb Conc. 33.7 g/dL (33.0-37.0); Mean Corpuscular Hgb 29.6 pg (27.0-31.0); Mean Corpuscular Volume 87.9 fL (80.0-94.0); Mean Platelet Volume 11.6 fL (7.4-10.4); Nucleated Red Blood Cells % 0 % (-); Platelet Count 188 10^3/uL (130-400); Red Blood Cell Count 4.39 10^6/uL (4.70-6.10); Red Cell Dist. Width 13.8 % (11.5-14.5); White Blood Cell Count 10.3 10^3/uL (4.8-10.8)
[2024-10-09 11:48] LABS: Blood Urea Nitrogen 12 mg/dl (9-20); Calcium 8.8 mg/dl (8.4-10.2); Carbon Dioxide 33 mmol/L (22-30); Chloride 97 mmol/L (98-107); Glucose 346 mg/dl (70-99); Sodium 135 mmol/L (135-145); eGFR > 60.00
== END ==
LOC: OLABN 10:51
PROVIDERS: ATTENDING PHYSICIAN Student in an Organized Health Care Education/Training Program
DX: I63.9 Cerebral infarction, unspecified (principal)
CPT/HCPCS: 36415; 80048; 85025

== ENCOUNTER → 2024-10-20 09:36 | Outpatient (REF) | payer OTHER, MEDICARE, SELFPAY ==
[2024-10-20 11:19] LABS: Hematocrit 39.1 % (39.0-52.0); Mean Corp Hgb Conc. 33.2 g/dL (33.0-37.0); Mean Corpuscular Hgb 29.3 pg (27.0-31.0); Mean Corpuscular Volume 88.1 fL (80.0-94.0); Mean Platelet Volume 11.7 fL (7.4-10.4); Platelet Count 209 10^3/uL (130-400); Red Blood Cell Count 4.44 10^6/uL (4.70-6.10); Red Cell Dist. Width 14.2 % (11.5-14.5); White Blood Cell Count 13.1 10^3/uL (4.8-10.8)
[2024-10-20 12:25] LABS: Blood Urea Nitrogen 10 mg/dl (9-20); Calcium 9.1 mg/dl (8.4-10.2); Carbon Dioxide 30 mmol/L (22-30); Chloride 98 mmol/L (98-107); Glucose 201 mg/dl (70-99); Sodium 138 mmol/L (135-145); eGFR > 60.00
[2024-10-20 12:32] LABS: Glycohemoglobin (HgbA1c) 9.3 % (4.0-5.6)
== END ==
LOC: OLABN 09:36
PROVIDERS: ATTENDING PHYSICIAN Student in an Organized Health Care Education/Training Program
DX: I10 Essential (primary) hypertension (principal); E78.5 Hyperlipidemia, unspecified; E11.9 Type 2 diabetes mellitus without complications
CPT/HCPCS: 36415; 80048; 83036; 85027

== ENCOUNTER → 2024-10-21 10:11 | Outpatient (REF) | payer OTHER, MEDICARE, SELFPAY ==
[2024-10-21 10:59] LABS: Urine Albumin 1+ (Neg - Trace); Urine Bilirubin Negative (Negative); Urine Character Cloudy (Clear); Urine Color Yellow; Urine Glucose 4+ (Negative); Urine Ketone Negative (Negative); Urine Leukocyte Negative (Negative); Urine Nitrite Negative (Negative); Urine Occult Blood Negative (Negative); Urine Specific Gravity 1.025 (<1.030); Urine Urobilinogen Negative (Neg - 1+)
[2024-10-21 12:54] LABS: Urine Amorphous Seen; Urine Squamous Cell 0-2 /LPF (Few)
[2024-10-21 12:59] LABS: Urine Bacteria Moderate (Negative)
[2024-10-21 13:01] LABS: Urine Red Blood Cell 0-2 /HPF (0-2); Urine White Cell 0-2 /HPF (0-5)
== END ==
LOC: OLABN 10:11
PROVIDERS: ATTENDING PHYSICIAN Student in an Organized Health Care Education/Training Program
DX: D72.820 Lymphocytosis (symptomatic) (principal); R53.0 Neoplastic (malignant) related fatigue
CPT/HCPCS: 81003; 81015; 87086

== ENCOUNTER 2024-11-20 17:27 | Emergency (ER) | payer MEDICARE, OTHER, SELFPAY ==
[2024-11-20 17:30] VITALS: BP 129/59; BMI 29.4
[2024-11-20 17:34] VITALS: BP 129/59
[2024-11-20 18:00] VITALS: BP 133/70
[2024-11-20 19:00] VITALS: BP 136/77
--- NOTE | 2024-11-20 19:33 | ED.GENMED ---
History of Present Illness
General
Chief Complaint: Abnormal Lab Value
Source: patient and family (daughter)
Exam Limitations: none
Time Seen by Provider: 11/20/24 17:33
Nursing documentation reviewed up to this point in time: agreed with
History of Present Illness
History of Present Illness:
The patient is an 79-year-old man with a past medical history of high blood pressure, hyperlipidemia, and a history of prior stroke which left patient with left-sided weakness and slurred speech, who was sent in from [facility] after patient
was found to have an abnormality seen on his CT head that was done earlier this morning. According to his daughter who is with the patient in the ED, the patient developed fairly sudden onset of right body weakness and difficulty walking at least 5
weeks ago (during beginning of October). At that time, the family expressed to [facility] that they were concerned that he was having a stroke and wanted him sent to the ED for evaluation. However, at that time, the patient adamantly refused to
go to the ER and never went to be assessed. Since then, the patient has had ongoing difficulties with walking. Daughter reports that the right sided weakness seems to be substantially improved. His daughter reports that he had a CT head done this
morning as recommendation based of ongoing difficulty walking and it showed encephalomalacia within the cerebellar hemispheres likely due to late subacute/chronic infarct. Patient reports he feels well and really does not want to have to be
admitted to the hospital. His daughter reports that he seems slightly confused but has had no fever, cough, chest pain or shortness of breath.
Past History
Past History
ED Past Medical History: CVA, HTN and Hypercholesterolemia
ED Past Surgical History: Other
Social History
Tobacco: Other
Alcohol: Other
Drug: None
Personal:
Living: assisted
Employment: Other
Family History
Family History: Other
Review of Systems
Review of Systems
Allergies reviewed?: Yes
All Other Systems: ROS reviewed and negative except as documented in HPI and ROS
Constitutional: Reports no symptoms
EENT: Reports no symptoms
Respiratory: Reports no symptoms
Cardiac: Reports no symptoms
ABD/GI: Reports no symptoms
: Reports no symptoms
Musculoskeletal: Reports no symptoms
Skin: Reports no symptoms
Neurological: Reports other (Weakness on the right of several weeks that is now better. Difficulty walking)
Endocrine: Reports no symptoms
Hematologic/Lymphatic: Reports no symptoms
Psychiatric: Reports no symptoms
Phy Exam
Physical Exam
Physical Exam:
Physical Exam
General: no apparent distress, not acutely ill. Well and comfortable appearing, conversational
Neck: supple.
Heart: s1/s2 regular rate and rhythm,
Lungs: no acute respiratory distress. clear bilaterally
Abdomen: Soft, nontender
Neuro: alert and orientedx3. Answers all questions appropriately. Cranial nerves equal and symmetric bilaterally. Extraocular muscles intact. Left arm 1 out of 5 strength which patient reports is chronic. Left leg 3
out of 5 strength which patient reports is chronic. 5 out of 5 strength in right arm and right leg.
Skin: no rash
Psychiatric: well kept. interactive and cooperative
Extremities: no edema. no calf tenderness. negative homans. good distal pulses
Course
Orders/Labs/Results
Orders:
Orders
11/20/24 19:48
Urinalysis Reflex To Culture Urgent
Date Specimen was Collected: 11/20/24
Time Specimen was Collected: 20:38
11/20/24 19:49
Electrocardiogram (*1) Urgent
Reason for Study: TIA/Stroke
EKG- Treatment ONCE
11/20/24 20:26
Complete Blood Count/With Diff Urgent
Comprehensive Metabolic Panel Urgent
Abnormal Lab Results
11/20/24
20:26
WBC 14.3 H 10^3/uL
(4.8-10.8)
RBC 4.45 L 10^6/uL
(4.70-6.10)
Hct 38.2 L %
(39.0-52.0)
MPV 10.7 H fL
(7.4-10.4)
Abs Immat Gran (auto) 0.1 H 10^3/uL
(0-0.05)
Absolute Neuts (auto) 10.7 H 10^3/uL
(1.4-6.5)
Absolute Monos (auto) 0.9 H 10^3/uL
(0.1-0.6)
Lymphocytes % 12.8 L %
(20.5-51.1)
11/20/24 20:26
Vital Signs
Initial and Last Documented VS:
Initial Vital Signs
Temp Pulse Resp BP Pulse Ox
97.6 F 88 17 129/59 95
11/20/24 17:30 11/20/24 17:30 11/20/24 17:30 11/20/24 17:30 11/20/24 17:30
Last Documented Vital Signs
Temp Pulse Resp BP Pulse Ox
97.6 F 88 17 129/59 94
11/20/24 17:30 11/20/24 17:30 11/20/24 17:30 11/20/24 17:34 11/20/24 17:36
MDM/Problems Addressed
Differential Diagnosis Includes:
TIA, CVA, UTI, hyponatremia
MDM/Problems Addressed:
Patient reports with subacute (at least 5 to 6 weeks) of increased difficulty walking and resolved right sided body weakness
Chronic conditions affecting care:
CVA
*Radiology
Radiology exam reviewed: radiology read reviewed
*Pulse Oximetry
Patient hypoxic: no
*EKG
Interpreted by ED Provider?: Yes
Interpretation: abnormal
Comparison EKG: no changes
Rate: normal
Rhythm: sinus
[place]: left axis deviation
Interval: normal interval
QRS Pattern: wide non-specific
Ischemia: non-specific ST changes
*Marketing Writer Interpretation
Rate: normal
Interpretation: normal
Rhythm: sinus
*Critical Care Note
Total Time (30-74mins, 75-104mins- exclusive of procedures): Not Applicable
Data Reviewed
Review of Other/Old Records Reveals: Discharge Summary (Discharge summary reviewed from August 2024 which showed that patient was admitted for aphasia and left-sided paresis due to acute stroke)
Source: patient and family
Patient Management
Social determinants of health affecting care: Living situation and Strong social support
Discussion with other providers: Other (Case discussed at length with Dr. Asher Holly from neurology who felt that due to the fact the patient has been having the symptoms for over 5 weeks, he did not need to be admitted to the hospital. Rather, he
encouraged that we increase the patient's statin from 20 mg to 40 mg. )
Escalation/DeEscalation of care consider admission/obs:
Given that the patient experienced these stroke-like symptoms over 5 weeks ago involving gait disturbance and right-sided body weakness, Dr. Holly did not feel that patient needed to be hospitalized. Fortunately, patient has excellent strength on the
right side of his body. Dr. Holly did not feel that a carotid artery ultrasound or MRI needed to be done emergently or urgently, and additionally, patient adamantly did not want to be admitted. Daughter understands this and is comfortable with the
plan to increase patient's statin dose as to decrease his risk of further strokes.
ED Attending Note
-
Portions of this chart may have been created with voice recognition software.� Occasional wrong word or��sound alike� substitutions may have occurred due to the inherent limitations of voice recognition software.
Discharge Plan
Departure
Prescriptions:
No Action
therapeutic multivitamin Tablet
1 tab PO DAILY
tamsulosin 0.4 mg Capsule
0.4 mg PO HS
miconazole nitrate [Miconazorb AF] 2 % Powder
1 applic topical BIDPRN PRN (Reason: PER PROTOCOL) Qty: 0 0RF
polyethylene glycol 3350 17 gram Powder In Packet
17 g feeding tube DAILY PRN (Reason: constipation) Qty: 0 0RF
trazodone 50 mg Tablet
25 mg feeding tube HS 30 Days Qty: 15 0RF
clotrimazole [Athlete's Foot (clotrimazole)] 1 % Cream
1 applic topical BID 30 Days Qty: 50 0RF
enoxaparin 40 mg/0.4 mL Syringe
40 mg SC QPM 30 Days Qty: 12 0RF
Insulin Glargine Lantus [Lantus] 8 UNITS
Subcutaneous Insulin Syringe [Syringe-Insulin] 0 UNIT
As Directed mls/hr SC HS
Ordered By: Ana Ríos PA-C
Last Taken: Unknown
melatonin 5 mg Tablet
5 mg feeding tube HSPRN PRN (Reason: sleep) 30 Days Qty: 30 0RF
ondansetron HCl 4 mg Tablet
4 mg feeding tube Q8HPRN PRN (Reason: nausea) 30 Days Qty: 30 0RF
metoclopramide HCl 5 mg Tablet
5 mg PO Q8HPRN PRN (Reason: nausea,vomiting) 30 Days Qty: 30 0RF
pantoprazole 40 mg Tablet,Delayed Release (Dr/Ec)
40 mg PO BID 30 Days Qty: 60 0RF
acetaminophen 650 mg/20.3 mL Solution
650 mg PO Q4HPRN PRN (Reason: mild pain) 30 Days Qty: 100 0RF
atorvastatin 20 mg Tablet
20 mg feeding tube HS Qty: 0 0RF
losartan 25 mg Tablet
25 mg feeding tube DAILY Qty: 0 0RF
aspirin 81 mg Tablet,Chewable
81 mg feeding tube DAILY Qty: 0 0RF
Referrals:
Won Benjamin DO [Family Provider] -
Interventions
Interventions:
*Risk Screen - Suicide Last Done: 11/20/24 17:30
*General Assessment Last Done: 11/20/24 17:30
*Neglect/Abuse Screening Last Done: 11/20/24 17:30
*ED- Fall Risk Assessment Last Done: 11/20/24 17:30
*ED COVID-19 Vaccine History Last Done: 11/20/24 17:30
Discharge Date and Time
Print Language: TELUGU
[2024-11-20 20:00] VITALS: BP 141/84
[2024-11-20 20:33] LABS: % Basophils 0.7 % (0-2); % Eosinophils 4.7 % (0-6); % Immature Granulocytes 0.4 % (0-0.5); % Lymphocytes 12.8 % (20.5-51.1); % Monocytes 6.5 % (1.7-9.3); % Neutrophils 74.9 % (42.2-75.2); Absolute Basophils 0.1 10^3/uL (0-0.2); Absolute Eosinophils 0.7 10^3/uL (0-0.7); Absolute Immature Granulocytes 0.1 10^3/uL (0-0.05); Absolute Lymphocytes 1.8 10^3/uL (1.2-3.4); Absolute Monocytes 0.9 10^3/uL (0.1-0.6); Absolute Neutrophils 10.7 10^3/uL (1.4-6.5); Hematocrit 38.2 % (39.0-52.0); Mean Corpuscular Hgb 29.2 pg (27.0-31.0); Mean Corpuscular Volume 85.8 fL (80.0-94.0); Mean Platelet Volume 10.7 fL (7.4-10.4); Nucleated Red Blood Cells % 0 % (-); Platelet Count 236 10^3/uL (130-400); Red Blood Cell Count 4.45 10^6/uL (4.70-6.10); Red Cell Dist. Width 14.1 % (11.5-14.5); White Blood Cell Count 14.3 10^3/uL (4.8-10.8)
[2024-11-20 20:50] LABS: Urine Albumin Negative (Neg - Trace); Urine Bilirubin Negative (Negative); Urine Character Clear (Clear); Urine Color Yellow; Urine Glucose 4+ (Negative); Urine Ketone Negative (Negative); Urine Leukocyte Negative (Negative); Urine Nitrite Negative (Negative); Urine Occult Blood Negative (Negative); Urine Urobilinogen Negative (Neg - 1+)
[2024-11-20 20:50] LABS: ALT (SGPT) 19 U/L (0-50); AST (SGOT) 18 U/L (17-59); Albumin 3.8 g/dl (3.5-5.0); Alkaline Phosphatase 90 U/L (38-126); Blood Urea Nitrogen 16 mg/dl (9-20); Calcium 9.1 mg/dl (8.4-10.2); Carbon Dioxide 31 mmol/L (22-30); Chloride 102 mmol/L (98-107); Estimated Creatinine Clearance 85 ml/min; Glucose 185 mg/dl (70-99); Potassium 4.2 mmol/L (3.5-5.1); Sodium 140 mmol/L (135-145); Total Bilirubin 0.6 mg/dl (0.2-1.3); Total Protein 6.7 g/dl (6.3-8.2); eGFR > 60.00
[2024-11-20 21:00] VITALS: BP 115/62
== END 2024-11-21 00:42 | disposition home or self-care (01) ==
LOC: EMR 17:27
PROVIDERS: EMERGENCY PHYSICIAN Emergency Medicine; FAMILY PHYSICIAN Student in an Organized Health Care Education/Training Program
DX: I63.9 Cerebral infarction, unspecified (principal); R47.81 Slurred speech; E78.00 Pure hypercholesterolemia, unspecified; I10 Essential (primary) hypertension; Z86.73 Personal history of transient ischemic attack (TIA), and cerebral infarction without residual deficits
CPT/HCPCS: 99283; 70450; 80053; 81003; 85025; 93005

== ENCOUNTER → 2024-12-23 10:25 | Outpatient (REF) | payer MEDICARE, OTHER, SELFPAY | LOC: MRI 3T 10:25 | PROVIDERS: ATTENDING PHYSICIAN Nurse Practitioner Adult Health; FAMILY PHYSICIAN Student in an Organized Health Care Education/Training Program | DX: I63.9 Cerebral infarction, unspecified (principal) | CPT/HCPCS: 70551 ==

== ENCOUNTER → 2025-01-19 13:55 | Outpatient (REF) | payer MEDICARE, OTHER, SELFPAY | LOC: OLABN 13:55 | PROVIDERS: ATTENDING PHYSICIAN Student in an Organized Health Care Education/Training Program | DX: E11.9 Type 2 diabetes mellitus without complications (principal) | CPT/HCPCS: 36415; 83036 ==

== ENCOUNTER → 2025-02-09 22:30 | Outpatient (REF) | payer MEDICARE, OTHER, SELFPAY | LOC: OLABN 22:30 | PROVIDERS: ATTENDING PHYSICIAN Student in an Organized Health Care Education/Training Program | DX: K59.00 Constipation, unspecified (principal) | CPT/HCPCS: 82705; 83993; 87045; 87046; 87324; 87328; 87329; 87338; 87427; 87449; 89055 ==

== ENCOUNTER → 2025-02-10 09:21 | Outpatient (REF) | payer MEDICARE, OTHER, SELFPAY ==
[2025-02-10 10:25] LABS: Hematocrit 37.8 % (39.0-52.0); Hemoglobin 12.1 g/dL (13.0-18.0); Mean Corp Hgb Conc. 32.0 g/dL (33.0-37.0); Mean Corpuscular Volume 86.7 fL (80.0-94.0); Nucleated Red Blood Cells % 0 % (-); Platelet Count 268 10^3/uL (130-400); Red Cell Dist. Width 13.4 % (11.5-14.5)
[2025-02-10 10:43] LABS: ALT (SGPT) 28 U/L (0-50); AST (SGOT) 22 U/L (17-59); Alkaline Phosphatase 96 U/L (38-126); Blood Urea Nitrogen 14 mg/dl (9-20); Calcium 8.4 mg/dl (8.4-10.2); Carbon Dioxide 31 mmol/L (22-30); Chloride 105 mmol/L (98-107); Glucose 87 mg/dl (70-99); Magnesium 2.1 mg/dl (1.6-2.3); Potassium 4.1 mmol/L (3.5-5.1); Sodium 141 mmol/L (135-145); eGFR > 60.00
[2025-02-10 10:54] LABS: Albumin 3.4 g/dl (3.5-5.0); Total Protein 6.2 g/dl (6.3-8.2)
[2025-02-10 11:31] LABS: C-Reactive Protein 72.80 mg/L (0.0-10.00)
== END ==
LOC: OLABN 09:21
PROVIDERS: ATTENDING PHYSICIAN Student in an Organized Health Care Education/Training Program
DX: K59.00 Constipation, unspecified (principal)
CPT/HCPCS: 36415; 80053; 83735; 85025; 86140

== ENCOUNTER 2025-03-20 21:08 | Inpatient (IN) | payer MEDICARE, OTHER, SELFPAY ==
[2025-03-20 18:00] VITALS: BP 116/57
[2025-03-20 18:21] LABS: Hematocrit 35.3 % (39.0-52.0); Hemoglobin 11.6 g/dL (13.0-18.0); Mean Corp Hgb Conc. 32.9 g/dL (33.0-37.0); Mean Corpuscular Volume 82.3 fL (80.0-94.0); Nucleated Red Blood Cells % 0 % (-); Platelet Count 273 10^3/uL (130-400); Red Cell Dist. Width 15.9 % (11.5-14.5)
[2025-03-20 18:29] LABS: Urine Character Clear (Clear)
[2025-03-20 18:40] LABS: ALT (SGPT) 35 U/L (0-50); AST (SGOT) 37 U/L (17-59); Albumin 3.1 g/dl (3.5-5.0); Alkaline Phosphatase 464 U/L (38-126); Blood Urea Nitrogen 18 mg/dl (9-20); Calcium 8.4 mg/dl (8.4-10.2); Carbon Dioxide 31 mmol/L (22-30); Chloride 97 mmol/L (98-107); Glucose 310 mg/dl (70-99); Potassium 4.0 mmol/L (3.5-5.1); Sodium 134 mmol/L (135-145); Total Protein 6.4 g/dl (6.3-8.2); eGFR > 60.00
[2025-03-20 18:41] LABS: Urine Squamous Cell 0-2 /LPF (Few)
[2025-03-20 18:42] LABS: Urine White Cell >100 /HPF (0-5)
--- NOTE | 2025-03-20 18:42 | ED.GENMED ---
History of Present Illness
General
Chief Complaint: Change in Mental Status
Time Seen by Provider: 03/20/25 18:32
History of Present Illness
History of Present Illness:
79-year-old male with history of prior stroke and left hemiparesis presents from assisted living facility for evaluation of altered mental status and confusion beginning earlier today. According to EMS the patient was not able to respond to
questions as he normally would. On arrival he has noted to be febrile and very delayed to respond to questions. He is not oriented to time or place
Past History
Past History
ED Past Medical History: CVA, HTN and Hypercholesterolemia
ED Past Surgical History: Other
Social History
Tobacco: Other
Alcohol: Other
Drug: None
Personal:
Living: [facility]
Employment: Other
Family History
Family History: Other
Review of Systems
Review of Systems
Allergies reviewed?: Yes
All Other Systems: ROS reviewed and negative except as documented in HPI and ROS
Phy Exam
Physical Exam
Physical Exam:
GEN: Ill-appearing alert
HEENT: Oral mucosa dry, no scleral icterus
Cardiac: Tachycardic, regular
Lung: No respiratory distress, no tachypnea, lungs clear
Abdomen: Soft, nontender
MSK: No gross deformity or injuries, superficial ulceration to the left calcaneus with extensive edema and swelling extending proximally into the calf
Skin: Good color, no pallor or jaundice, no rashes
Neuro: Alert, follows commands, LEFT hemiparesis
Psych: Calm, cooperative
Sepsis
Sepsis Screening
Sepsis Assessment: Sepsis
Sepsis Screen
Sepsis Screen: Sepsis
Date: 03/20/25
Time: 23:07
Course
Orders/Labs/Results
Orders:
Orders
03/20/25 Breakfast
Clear Liquid
03/20/25 18:06
Electrocardiogram (*1) Urgent
Reason for Study: Tachycardia
EKG- Treatment ONCE
03/20/25 18:13
Complete Blood Count/With Diff Urgent
Lactic Acid Urgent
Urinalysis Reflex To Culture Urgent
Date Specimen was Collected: 03/20/25
Time Specimen was Collected: 18:06
Urine Microscopic Reflex Cult Urgent
Blood Culture Urgent
MK Source: Blood/Venous
Specimen Description:
Date Specimen was Collected: 03/20/25
Time Specimen was Collected: 18:06
Urine Culture Urgent
MK Source: U
Specimen Description:
Date Specimen was Collected: 03/20/25
Time Specimen was Collected: 18:06
03/20/25 18:14
Comprehensive Metabolic Panel Urgent
03/20/25 18:18
COVID-19 Antigen Urgent
Source: Nasal Swab
Blood Culture Urgent
MK Source: Blood/Venous
Specimen Description:
Influenza A+B Rapid Molecular Urgent
MK Source: Nasal Swab
Specimen Description:
03/20/25 18:40
CefTRIAXone [Rocephin] 1,000 mg IV NOW STA
CR Heel/os Calcis - Left 2 Vw* Urgent
Comment:
Reason For Exam: heel ulcer
Venous Doppler Lwr Ext Left [US Periph Venous LOWER Ext LT] Urgent
Comment:
Reason For Exam: LLE edema
03/20/25 18:41
CT Head W/o Iv Contrast Urgent
Comment:
Reason For Exam: altered mental status
0.9% Sodium Chloride 1000 ml [Nss] 1,000 ml IV BOLUS
Acetaminophen 1000MG/100Ml [Ofirmev] 1,000 mg in 100 ml IV ONCE
Acetaminophen IV Indication:: ED Narcotic Naive Pt-ONCE
03/20/25 18:50
Wound Culture [Wound/Abscess/Other Culture] Urgent
MK Source: Ulcer
Specimen Description:
Date Specimen was Collected: 03/20/25
Time Specimen was Collected: 18:49
Comment: L heel
03/20/25 19:27
Vancomycin [Vancocin] 2,000 mg 0.9% Sodium Chloride 500 ml [Nss] 500 ml IV NOW
03/20/25 20:53
Admit/Transfer Patient As Directed
Co-Sign Provider:
Level of Care: Inpatient admission
Assign to:: Telemetry
Physician / Group: Dex
Diagnosis: Sepsis, UTI, Left Heel Wound, UC
Reason for Telemetry: Arrhythmia
Date to Stop Telemetry: 03/23/25
Time to Stop Telemetry: 11:00
Reason for Hospitalization: Sepsis, UTI, Left Heel Wound, UC
Expected length of stay greater than two midnights?: Yes
ELOS- Estimated Length of Stay in days: 4
I certify the patient meets the requirements for IP care: Yes
03/20/25 20:55
PRN Pain Medication Management As Directed
May give lesser potent ordered pain med per pt: Yes
preference::
Protocol:: Medication orders for pain may be administered in a
manner that supports deferring to patient preference
when the pt is:
- Requesting an ordered lesser potent pain medication.
Least to most potent pain medications are defined
as: acetaminophen < NSAID < tramadol < opioids
(morphine, oxycodone, hydromorphone).
- Requesting a lesser dose of the same medication IF
ORDERED.
- Requesting a less intrusive route of administration
if both routes are prescribed by the provider (PO <
IV).
03/20/25 20:59
Code Status As Directed
Resuscitation Status: Full Code
03/20/25 22:47
0.9% Sodium Chloride 1000 ml [Nss] 1,000 ml IV 125 mls/hr
Acetaminophen [Tylenol] 650 mg PO Q4HPRN PRN
Dextrose 50%-Water [Dextrose 50% Syringe] 12.5 grams IV [id number] PRN
Glucagon [GlucaGen] 1 mg IM PRN PRN
Tamsulosin [Flomax] 0.4 mg PO HS
VANCOMYCIN Pharmacy to Dose [VANCOCIN Pharmacy to Dose] 1 each Pharmacy To Prepare [Call Pharmacy To Prepare] 0 ml IV PER PROTOCOL
insulin glargine [Basaglar KwikPen U-100 Insulin] 20 unit SC HS
03/20/25 22:47
WOUND/OSTOMY CONSULT Routine
Reason for Consult: L Heel Wound, Sacral Wound
Activity As Directed
Activity Level: Ambulate
With Assistance
Bedside Glucose Monitoring As Directed
Frequency: AC&HS
Additional Instructions:: Change to q6h if pt on TPN, tube feeding or not eating
Bladder Scan As Directed
Follow Bladder Retention/Intermittent Cath Algorithm?: Yes
PRN if no void in __ hours: 6
Frequency: Per Retention Algorithm
If Bladder Scan Result >: 400
then:: Straight cath
EKG with chest pain [ECG as needed] As Directed
ECG as needed for:: Chest Pain
I/O [Intake/ Output] As Directed
Frequency: Per unit guidelines
Straight Cath As Directed
Frequency: Per Retention Algorithm
Additional Instructions: straight cath as needed per acute urinary retention algorithm for 24 hrs
Additional Instructions: for bladder scan greater than 400 mL
Vital Signs As Directed
Frequency: Per unit guidelines
Weight As Directed
Frequency: Daily
Oxygen Therapy [O2 Therapy] [RESP] Routine
Titrate/Wean O2 to maintain O2 sat greater than (%): 94
Ot Eval And Treat Routine
PT Consult [Pt Eval And Treat] Routine
Activity Level: Ambulate
With Assistance
Speech Therapy Eval & Treat Routine
DX Deep Vein Thrombosis Video Routine
03/21/25 00:00
Piperacillin/Tazo 3.375 Gram [Zosyn] 3.375 gram in 50 ml IV Q6H
03/21/25 06:00
Basic Metabolic Panel IN AM
Complete Blood Count/No Diff IN AM
Glycohemoglobin (HgbA1c) IN AM
LFT [Rnger-Wcbu-Zmnlpbx] IN AM
03/21/25 07:30
Insulin Aspart Corrective Low [Novolog Flexpen-Low Resistance] See Protocol SC AC
03/21/25 08:00
Budesonide [Entocort EC] 9 mg PO DAILY
Clopidogrel Bisulfate [Plavix] 75 mg PO DAILY
Gabapentin [Neurontin] 100 mg PO BID
Heparin 5,000 units SC Q12
mesalamine 4.8 grams PO DAILY
03/23/25 11:00
DC Protocol for Telemetry ONCE
Abnormal Lab Results
03/20/25 03/20/25
18:13 18:14
WBC 19.7 H 10^3/uL
(4.8-10.8)
RBC 4.29 L 10^6/uL
(4.70-6.10)
Hgb 11.6 L g/dL
(13.0-18.0)
Hct 35.3 L %
(39.0-52.0)
MCHC 32.9 L g/dL
(33.0-37.0)
RDW 15.9 H %
(11.5-14.5)
Abs Immat Gran (auto) 0.1 H 10^3/uL
(0-0.05)
Absolute Neuts (auto) 17.2 H 10^3/uL
(1.4-6.5)
Absolute Lymphs (auto) 0.7 L 10^3/uL
(1.2-3.4)
Absolute Monos (auto) 1.6 H 10^3/uL
(0.1-0.6)
Immature Gran % 0.6 H %
(0-0.5)
Neutrophils % 87.4 H %
(42.2-75.2)
Lymphocytes % 3.4 L %
(20.5-51.1)
Sodium 134 L mmol/L
(135-145)
Chloride 97 L mmol/L
(98-107)
Carbon Dioxide 31 H mmol/L
(22-30)
Glucose 310 H mg/dl
(70-99)
Alkaline Phosphatase 464 H U/L
(38-126)
Albumin 3.1 L g/dl
(3.5-5.0)
Ur Occult Blood Reflex 2+ A
(Negative)
Urine Nitrite (Reflex) Positive A
(Negative)
Leukocyte Esterase Rfl 3+ A
(Negative)
Urine RBC 3-6 A /HPF
(0-2)
Urine WBC (Reflex) >100 A /HPF
(0-5)
Urine Bacteria (Reflex) Many A
(Negative)
Urine Glucose 3+ A
(Negative)
Urine Albumin (Reflex) 3+ A
(Neg - Trace)
03/20/25 18:13
03/20/25 18:14
Vital Signs
Initial and Last Documented VS:
Initial Vital Signs
Temp Pulse Resp BP Pulse Ox
104.1 F H 107 16 116/57 95
03/20/25 18:00 03/20/25 18:00 03/20/25 18:00 03/20/25 18:00 03/20/25 18:00
Last Documented Vital Signs
Temp Pulse Resp BP Pulse Ox
97.8 F 87 16 99/49 95
03/20/25 20:40 03/20/25 22:00 03/20/25 22:00 03/20/25 22:00 03/20/25 22:00
MDM/Problems Addressed
MDM/Problems Addressed:
Patient's mental status did improve with antipyretics in the ED. Given IV fluids and broad-spectrum IV antibiotics as source of infection is felt to be most likely urinary tract infection as well as left lower extremity cellulitis. Will admit to
the hospitalist service for further management
*Pulse Oximetry
SaO2: 95
Nasal Cannula flow liters per minute: 4
Oxygen Mode of Delivery: Room air
Patient hypoxic: no
*Critical Care Note
Total Time (30-74mins, 75-104mins- exclusive of procedures): Not Applicable
ED Attending Note
-
Portions of this chart may have been created with voice recognition software.� Occasional wrong word or��sound alike� substitutions may have occurred due to the inherent limitations of voice recognition software.
Discharge Plan
Departure
Patient Disposition: Admit
Date of Disposition: 03/20/25
Time of Disposition: 20:19
Admit to: Med/Surg
Presentation/result/management discussed w/ accepting MD/DO: Hospitalist
Discharge Problem:
Sepsis, Urinary tract infection, Cellulitis of left lower extremity
Interventions
Interventions:
*Risk Screen - Suicide Last Done: 03/20/25 18:07
*General Assessment Last Done: 03/20/25 18:07
*Neglect/Abuse Screening Last Done: 03/20/25 18:07
*ED- Fall Risk Assessment Last Done: 03/20/25 18:07
*ED COVID-19 Vaccine History Last Done: 03/20/25 18:07
*Nursing Disposition Last Done: 03/20/25 22:41
ED- Pulmonary Assessment Last Done: 03/20/25 20:51
ED- Neurological Assessment Last Done: 03/20/25 20:51
ED- Cardiac Assessment Last Done: 03/20/25 20:51
Discharge Date and Time
Discharge Date/Time: 03/20/25 22:41
[2025-03-20] MEDS: OFIRMEV 100 IV (18:44)
[2025-03-20] MEDS: NSS 1000 IV ×3 (18:44→23:35)
[2025-03-20] MEDS: ROCEPHIN 1000 MG IV (18:45)
[2025-03-20 18:54] LABS: COVID-19 Antigen Negative (Negative)
[2025-03-20 19:00] VITALS: BP 97/44
--- NOTE | 2025-03-20 19:13 | EDRN ---
called pharmacy for vancomycin
[2025-03-20] MEDS: VANCOCIN 540 MG IV (20:25)
--- NOTE | 2025-03-20 20:57 | EDRN ---
Pillow placed under pt's head, under LLE/heel and pt propped on R side with pillows to relieve pain in sacrum. Pt said he was comfortable after repositioning.
[2025-03-20 21:00] VITALS: BP 95/48
--- NOTE | 2025-03-20 21:03 | HPS.HSE ---
Family Physician
-
Family Physician: Laura Newton DO
Chief Complaint
-
Lethargy / Confusion
History of Present Illness
Patient is an 79y M with PMH significant for L hemiparesis and dysphagia s/p CVA who presents to ED from local assisted living for evaluation of lethargy. History obtained from patient, family and assisted living record. Patient suffered a CVA
in August 2024 with resultant L hemiparesis and dysphagia. He was PEG-dependent for a time but has been eating / drinking on his own since October. Family states that he entered assisted living about 3 weeks ago and has steadily declined since that
time. Patient has had increase in frequency of loose, non-bloody stools. He has known UC; however, his symptoms were relatively controlled for several months following his stroke.
Patient has some sacral breakdown as he spends the majority of his time in bed / in a wheelchair.
Family also noted a wound to the L heel / ankle about one week ago. It is unclear when / how this wound occurred. Patient does not move his LLE on his own at all following his CVA.
Today, AL staff noted that the patient was lethargic / poorly responsive and they sent him to the ED for further evaluation.
At the time of my examination, patient is awake and answering questions - though he does appear fatigued.
Medical History
Past Medical History
Past Medical History: Reports Other
Additional Past Medical History:
ASCVD / CVA
Left Hemiparesis / Dysphagia
Hypertension
DM-II
BPH
Ulcerative Colitis
Past Surgical History: Reports Other
Additional Past Surgical History:
Right Hand Surgery
PEG Placement / Removal
Social History
Tobacco: Former Smoker
Alcohol: None
Drug: None
Personal: Single
Living: Assisted Living
Family History
Family History: Not pertinent
Allergies / Home Medications
Allergies reflects when Allergies were last updated in [employer].
Home Medications with original date entered in [employer]
Allergy/Medication List:
Allergies
Allergy/AdvReac Type Severity Reaction Status Date / Time
Sulfa (Sulfonamide Allergy Unknown Verified 03/20/25 21:08
Antibiotics)
Home Medications
tamsulosin 0.4 mg capsule 0.4 mg PO HS Urinary Issue 08/25/24
therapeutic multivitamin 1 tab PO DAILY Supplement 08/25/24
pantoprazole 40 mg tablet,delayed release 40 mg PO BID Gastrointestinal issue 30 days #60 tabs 10/01/24
atorvastatin 40 mg tablet 40 mg PO DAILY #30 tabs 11/20/24
acetaminophen 325 mg tablet (Tylenol) 650 mg PO HS 03/20/25
acetaminophen 325 mg tablet (Tylenol) 650 mg PO Q4HPRN PRN mild pain 03/20/25
baclofen 5 mg tablet 5 mg PO HS 03/20/25
bisacodyl 10 mg rectal suppository (Dulcolax (bisacodyl)) 10 mg CA DAILYPRN PRN if no bm by 3rd day 03/20/25
budesonide 3 mg capsule,delayed,extended release 9 mg PO DAILY 03/20/25
clopidogrel 75 mg tablet (Plavix) 75 mg PO DAILY 03/20/25
gabapentin 100 mg capsule 100 mg PO BID 03/20/25
guar gum 1 tbsp PO DAILY 03/20/25
insulin glargine 100 unit/mL (3 mL) subcutaneous pen (Basaglar KwikPen U-100 Insulin) 20 unit SC HS 03/20/25
losartan 25 mg tablet 25 mg PO DAILY Blood pressure 03/20/25
magnesium hydroxide 400 mg/5 mL oral suspension (Milk of Magnesia) 2,400 mg PO DAILYPRN PRN constipation 03/20/25
mesalamine 1.2 gram tablet,delayed release 4.8 g PO DAILY 03/20/25
ondansetron 4 mg disintegrating tablet 4 mg PO Q8HPRN PRN nausea 03/20/25
sitagliptin phosphate 100 mg tablet (Januvia) 100 mg PO DAILY 03/20/25
trazodone 50 mg tablet 25 mg PO HS Sleep 03/20/25
vitamins A,C,F-ipxx-ceoqld 2,148 mcg-113 mg-45 mg-17.4 mg tablet (PreserVision AREDS) 1 tab PO BID 03/20/25
Review of Systems
-
History Source: Patient and Family
A 12 point ROS was completed and negative except as noted: Yes
Constitutional: Reports Fatigue; Denies Fever or Chills
Respiratory: Denies Cough or Trouble Breathing
Cardiac: Denies Chest Pain or Palpitations
Abdomen/GI: Reports Diarrhea; Denies Abdominal Pain, Nausea, Vomiting or Bloody Stools
: Denies Dysuria or Frequency
Musculoskeletal: Denies Joint Pain or Edema
Skin: Reports Other (Wounds: sacrum, L heel)
Neurological: Denies Headache
Physical Exam
Vital Signs
Vital Signs
Temp Pulse Resp BP Pulse Ox
97.8 F 100 25 97/44 96
03/20/25 20:40 03/20/25 19:00 03/20/25 19:00 03/20/25 19:00 03/20/25 19:00
Physical Exam
General: Other (Chronically ill-appearing 79y M in no acute distress.)
HEENT: Other (Dry MM. Neck supple.)
Respiratory: Clear; No Wheezes, Rales or Rhonchi
Cardiac: S1/S2 and Regular Rhythm; No Murmur
GI: Soft, Non Tender, Non Distended and Normal Bowel Sounds
Musculoskeletal: No Clubbing and Other (L heel wound / semilunar laceration over the heel with necrotic edges and scant bloody discharge / drainage.)
Skin: Other (Small sacral wound with minimal skin breakdown and mild surrounding erythema.)
Neuro: Other (L hemiparesis, L facial droop, mild dysarthria - no new deficits.)
Laboratory Results
-
03/20/25 18:13
03/20/25 18:14
Laboratory Results
Lactic Acid 1.8 mmol/L (0.7-2.0) 03/20/25 18:13
Total Bilirubin 1.1 mg/dl (0.2-1.3) 03/20/25 18:14
AST 37 U/L (17-59) 03/20/25 18:14
ALT 35 U/L (0-50) 03/20/25 18:14
Alkaline Phosphatase 464 U/L (38-126) H 03/20/25 18:14
Impression/Plan
-
A/P: Patient is an 79y M with PMH significant for CVA with L hemiparesis, UC, hypertension and DM-II who presents to ED for evaluation of lethargy / fatigue.
UTI
Sepsis secondary to the above
BPH with LUTS
- Admit for further evaluation and treatment.
- Patient presents with fever, tachycardia, tachypnea, leukocytosis and UA consistent with infection.
- Recent flare of UC / increased stooling and immobility likely contributing to development of UTI.
- Continue broad spectrum abx for now pending culture results and adjust as able.
- IVF support and follow for improvement.
- Follow fever curve.
- Bladder scan protocol to rule out retention. Continue tamsulosin.
Wounds
- Patient with small area of sacral breakdown - but more significant wound of the L heel.
- Unclear etiology / mechanism of wound.
- Wound Care evaluation for local care recommendations.
- Abx as noted above.
Ulcerative Colitis
- Family reports recent increase in loose, non-bloody stools.
- Was off of UC medications for a time (while in rehab, SNF, etc).
- Continue current mesalamine / budesonide for now.
- GI evaluation for additional recommendations.
ASCVD
CVA with L Hemiparesis and Dysphagia / Dysarthria
- Stable. No new focal deficits.
- Continue Plavix.
- Patient functionally not doing very well at assisted living over the past 3 weeks.
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
Benign Hypertension
- Stable. Losartan on hold acutely. Resume when appropriate.
DM-II
- Stable. Continue basal insulin.
- Follow glucose and cover with SSI as needed.
- Update A1C.
DVT Prophylaxis: Subcut Heparin
Code Status: Full
[2025-03-20 22:00] VITALS: BP 99/37; BP 99/49
[2025-03-20 23:17] VITALS: BP 101/49; BMI 27.2
[2025-03-20 23:42] LABS: Glucose - Point of Care 291 mg/dl (70-99)
[2025-03-20] MEDS: FLOMAX 0.4 MG PO (23:48)
[2025-03-20] MEDS: LANTUS 0.2 UNITS SC (23:48)
[2025-03-20] MEDS: ZOSYN 50 IV (23:48)
[2025-03-20] MEDS: TYLENOL 650 MG PO (23:49)
[2025-03-21] VITALS (8 sets, daily range): BP systolic 104–132; BP diastolic 47–70; BMI 27.2
[2025-03-21] MEDS: ZOSYN 50 IV ×4 (05:38→23:06)
[2025-03-21 08:12] LABS: Glucose - Point of Care 229 mg/dl (70-99)
[2025-03-21 08:58] LABS: Hematocrit 33.2 % (39.0-52.0); Hemoglobin 11.0 g/dL (13.0-18.0); Mean Corp Hgb Conc. 33.1 g/dL (33.0-37.0); Mean Corpuscular Volume 82.0 fL (80.0-94.0); Platelet Count 256 10^3/uL (130-400); Red Cell Dist. Width 15.6 % (11.5-14.5)
--- NOTE | 2025-03-21 09:06 | W.PN.HOSP.TC ---
Addendum entered and electronically signed by Pilo Terry DO 03/21/25 14:49:
Updated patient's daughter Leah on the phone, all questions answered.
I feel that Asher would best be served in a intermediate rather than assisted living. Daughter mentioned that he was previously in [facility] and she took him out and moved him to an assisted living facility 3 weeks ago.
Subsequently he had a rapid decline.
Will need to address goals of care with patient.
Addendum entered and electronically signed by Pilo Terry DO 03/21/25 13:46:
I left a voicemail for patient's son Mariano to call me back.
Original Note:
Today's Communication/Plan
-
Continue antibiotics
Await cultures
Podiatry consult
TREVOR
Assessment / Plan
Assessment / Plan
Gen-AAOx3, NAD
HEENT-NC, AT, anicteric, clear oral mm
Neck-supple
CV-reg, no M, +S1/S2
Lungs-clear B/L
Abd-soft, NT, ND
Ext-no edema
Musculoskeletal-no cyanosis, clubbing
Skin-warm and dry
Neuro-grossly non-focal
Psych-calm, cooperative
Sepsis -differential diagnosis of UTI versus left heel wound infection versus other. Hemodynamically stable, afebrile this morning. Currently on IV vancomycin, Zosyn.
1 out of 2 blood cultures show gram-positive cocci in clusters, unclear if true infection versus contamination. Urine culture pending.
Left heel necrotic decubital wound - suspect pressure injury related due to limited mobility, hemiparesis from stroke. Offload left heel with pillows. Discussed with nursing. Consult podiatry for debridement. X-ray of heel negative for osteo.
Check TREVOR.
Ulcerative colitis -with diarrhea. GI was consulted. On budesonide, mesalamine. Currently on clear liquid diet, advance if okay with GI.
Normocytic anemia -unknown acuity. Hemoglobin was normal in November. Monitor for now. No evidence of bleeding.
Pseudohyponatremia -present on admission, due to hyperglycemia. 134. Repeat labs pending.
DM 2 with hyperglycemia -hemoglobin A1c 8.0% in January of this year. Glucose 229 this morning.
Prior to admission he was on Januvia 100 mg daily, glargine insulin 20 units at bedtime.
Currently on Lantus 20 units at bedtime, low resistance aspart scale.
Stage II sacral decubital wound -continue local care. Wound care consulted.
History of stroke with left hemiparesis
Hyperlipidemia -atorvastatin.
Essential hypertension -stable.
BPH -tamsulosin.
Full code
Anticipated Discharge: > 48 hours
Subjective/Interval History
-
Date of Service: March 21, 2025
Patient seen and examined. No complaints.
Objective Data
-
Labs:
Laboratory Results
03/21/25
08:14
WBC 16.6 H
Hgb 11.0 L
Hct 33.2 L
Plt Count 256
Sodium Pending
Potassium Pending
Chloride Pending
Carbon Dioxide Pending
BUN Pending
Creatinine Pending
Glucose Pending
Calcium Pending
Total Bilirubin Pending
AST Pending
ALT Pending
Alkaline Phosphatase Pending
Vital Signs:
Vital Signs
Temp Pulse Resp BP Pulse Ox
97.5 F 85 18 111/55 91
03/21/25 07:00 03/21/25 07:00 03/21/25 07:00 03/21/25 07:00 03/21/25 07:00
Review of Systems
-
History Source: Patient
All other systems: Reviewed and negative
[2025-03-21 09:21] LABS: ALT (SGPT) 28 U/L (0-50); AST (SGOT) 29 U/L (17-59); Albumin 2.9 g/dl (3.5-5.0); Alkaline Phosphatase 369 U/L (38-126); Blood Urea Nitrogen 19 mg/dl (9-20); Calcium 8.1 mg/dl (8.4-10.2); Carbon Dioxide 27 mmol/L (22-30); Chloride 103 mmol/L (98-107); Estimated Creatinine Clearance 72 ml/min; Glucose 232 mg/dl (70-99); Potassium 4.1 mmol/L (3.5-5.1); Sodium 136 mmol/L (135-145); Total Protein 6.0 g/dl (6.3-8.2); eGFR > 60.00
[2025-03-21] MEDS: VANCOCIN 150 IV (09:21)
--- NOTE | 2025-03-21 09:26 | PTOTSP ---
Addendum entered and electronically signed by ST Jerald 03/21/25 09:43:
*Pt at risk for developing aspiration given history of silent aspiration on VSE, history of CVA, and poor state of dentition/oral health
Original Note:
Speech Therapy Evaluation
Pt seen at bedside for swallow evaluation. Pt on clear liquids only until a clearance is obtained from gastroenterology. Pt managed single sips and sequential sips of thin liquids with grossly functional oral phase, multiple swallows, and
intermittent throat clear but no immediate or delayed cough response. Pt with history of silent aspiration with thins and mildly thick liquids per VSE 09/25/2024. Cannot rule out silent aspiration at bedside.
Recommendations:
1. Recommend IDDSI 0 (Thins liquids) diet with good oral care
2. Meds as tolerated
3. Standard aspiration precautions
4. Trials of solid PO once gastroenterology provides clearance for solids
5. Consider VSE due to history of silent aspiration
[2025-03-21] MEDS: NOVOLOG FLEXPEN-LOW RESISTANCE 2 UNITS SC ×3 (09:30→17:06)
[2025-03-21] MEDS: ENTOCORT EC 9 MG PO (09:32)
[2025-03-21] MEDS: HEPARIN 5000 UNITS SC ×2 (09:32→22:23)
[2025-03-21] MEDS: NEURONTIN 100 MG PO ×2 (09:33→22:23)
[2025-03-21] MEDS: PLAVIX 75 MG PO (09:33)
--- NOTE | 2025-03-21 09:34 | PHA.VAN.IN ---
Assessment
- Assessment
Renal Function: Appears similar to baseline
Maximum Temperature: 104.1
Minimum Temperature: 97.5
Concomitant Antimicrobials: piperacillin/tazobactam
AUC Dosing Plan
- Dosing Variables
Dosing Weight (kg): 83.5
Dosing CrCl (ml/min): 72
Vd coefficient (L/kg): 0.7
- Empiric Dosing
Initial / Loading Dose: vancomycin 2000 mg x 1
Maintenance Regimen: vancomycin 1000 mg Q12H
Estimated AUC (mcg*h/mL): 550
Estimated Peak (mcg*h/mL): 31.9
Estimated Trough (mcg/ml): 15.7
Estimated Half Life (H): 10.8
- Monitoring
No levels ordered at this time: consider levels in next few days
Pharmacokinetics Vancomycin I
- -
Patient Age: 79
Patient Sex: Male
Vancomycin Day #: 2
Indication: Skin And Soft Tissue
Requesting Provider: Dr. Dex Kauffman
Pertinent Antimicrobial Allergies:
sulfa
Height / Weight:
Height 5 ft 9 in
Actual Weight 83.461 kg
IBW in k.7
Adjusted BW in k.8
- Vital Signs / Lab Results
Temp Pulse Resp BP Pulse Ox
97.5 F 85 18 111/55 91
03/21/25 07:00 03/21/25 07:00 03/21/25 07:00 03/21/25 07:00 03/21/25 07:00
Lab Results - Hematology
03/20/25 03/21/25
18:13 08:14
WBC 19.7 H 16.6 H
Lab Results - Chemistry
03/20/25 03/21/25
18:14 08:14
BUN 18 19
Creatinine 0.9 0.8
Estimated Creat Clear 72
Albumin 3.1 L 2.9 L
03/20/25
18:13
Lactic Acid 1.8
Lab Results - Urine
03/20/25
18:13
Urine Nitrite (Reflex) Positive A
Leukocyte Esterase Rfl 3+ A
Urine WBC (Reflex) >100 A
Ur Squamous Epith Cells 0-2
Urine Bacteria (Reflex) Many A
Microbiology Results
03/20/25 18:13 Blood Culture - Preliminary
Blood/Venous Staph aureus MRSA
Gram Stain - Preliminary
03/20/25 18:18 Influenza Types A & B (KRISTINE) - Final
Nasal Swab Negative for Influenza A & B, NAAT
Negative results must be combined with clinical observations
and patient history.
Nucleic Acid Amplification test (NAAT)performed on the
[employer] platform.
[2025-03-21] MEDS: NSS IV (10:37)
[2025-03-21] MEDS: LR 1000 IV (11:02)
[2025-03-21 11:06] LABS: Glycohemoglobin (HgbA1c) 9.3 % (4.0-5.6)
[2025-03-21 12:09] LABS: Glucose - Point of Care 211 mg/dl (70-99)
--- NOTE | 2025-03-21 13:37 | W.CS.POD ---
Consult Summary - Podiatry
-
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
and admitted with concern for sepsis related to possibly URI vs left heel wound and/cellulitis. The patient is unsure how the heel wound developed, however he is in a wheel chair most of the time. He reports pain in the heel with pressure, but
denies fever, chills or sweats. The patient was seen today with pressure of the involved heel currently on the bed surface.
LE EXAM:
Non-paplable pedal pulses, bilaterally.
There is dependent edema with light erythema of the left lower leg. Left postero-plantar heel with large, well demarcated wound approximately 8cm x 5cm in diameter with 5cm x 5cm of this a soft, black decubitus wound.
The base is soft, but without fluctuance. No discharge/bleeding noted. This area is very cold, and quite painful to the touch, ischemic in nature. There is no cellulitis extending off the heel, and no extension proximally.
Hemiplegia, Left. with no other overt deformity noted.
Assessment:
Ischemic, decubitus wound of the left posteroplantar heel, without overt clinical signs of infection.
Type 2 DM
PVD
Sepsis of unclear origin.
Plan:
I do not believe the patient's sepsis is related to the heel decubitus. Much of the LLE edema is due to the hemiplegia and dependent positioning of the LE.
No surgical intervention of the left heel warranted at this time.
Consider vascular consult.
Suggest Santyl for chemical debridement topically. Await wound care consult.
The left heel must be suspended off the bed surface. Heel drop device recommended.
Will follow as necessary..
--- NOTE | 2025-03-21 14:28 | PTOTSP ---
Speech Pathology Follow Up
Patient seen for follow up same day as evaluation per RN request re: GI upgraded pt from clears to low residue.
Impression:
79M with admission for sepsis, UTI, and lt heel wound presents with at least a mild oropgharynegal dyspgaia likely acute on chronic. Intermittent throat clearing and coughing with thin liquids and solids this date, although inconsistent and appeared
to be related to poor positioning. Aspiration risk is increased given current hospitalization for sepsis and UTI; and hx of CVA with lt hemiparesis.
Recommend:
1. Trial Minced and Moist (IDDSI 5), thin liquids SINGLE SIPS ONLY
2. Meds crushed in puree
3. FULL supervision
4. Safe swallowing strategies: small bites, single sips, slow rate, upright as much as possible for PO
5. [employer] service to follow up re: to assess diet level tolerance; r/o need for repeat VSE; and upgrade diet as able
--- NOTE | 2025-03-21 14:48 | CM ---
Jeana attempted to see patient but he is sleeping. SPoke to RN who said patient's sleep has been interrupt/ed since admit to floor. CM attempted call to /dgtr and to son. JEANA spoke to Yamileth nurse at [facility] where patient has been living
since 02/27/2025. He was admitted there from [facility] where he went after last admit to . He was at w/c level. He needed to be pushed in w/c. He was an assist of 1 but became an assist of 2 after the wound on his heel developed. Yamileth confirmed son
is out of country on vacation and dgtr did not answer phone.
PT OT assessed today and he was dependent.
CM to follow for discharge needs. Patient may need SNF placement or return to [facility].
--- NOTE | 2025-03-21 14:57 | CON.GI ---
Addendum entered and electronically signed by Elsa Szymanski MD 03/22/25 09:21:
Spoke to patient's daughter this am . both budesonide and mesalamine were discontinued at the facility as they were making his symptoms worse . He was doing ok without those medications at the facility. will d/c steroids
Original Note:
Consultation
-
Date/Time Consultation Requested: 03/20/2025
Date/Time Consultation Performed: 03/21/2025
Requesting Provider: Hospitalist
Performing Provider: Sarmad CLARKE
Reason for Consultation: Lethargy/confusion
Medical History
Chief Complaint / HPI
Chief Complaint: Lethargy/confusion
History of Present Illness:
79-year-old male with past medical history of CVA with left hemiparesis/dysphagia, hypertension, diabetes, BPH, ulcerative colitis brought in by family as patient health has been declining steadily over the last 3 weeks. Patient is currently
staying at the assisted living and was noted to be lethargic/poor responsive. Most of the history obtained from H&P as patient is not a good historian. Patient is currently being treated for sepsis secondary to UTI/necrotic wound in the heel. GI
was consulted with history of ulcerative colitis. Documented patient has been on mesalamine/budesonide.
Patient was seen by BRICK VENEER MAKER in our office 02/18/2025. Office notes reviewed.
Patient was diagnosed to have rectosigmoid colitis Diagnosed initially 2012 . last colonoscopy [address] Shelton. Failed in the past Remicade/Humira/Entyvio/Xeljanz/Stela. Adverse reactions with 6-MP with LFT elevation. Adverse reaction
to sulfa as well. Patient was started on budesonide/mesalamine at that time.
Past Medical History
Past Medical History: Other (ASCVD / CVA Left Hemiparesis / Dysphagia Hypertension DM-II BPH Ulcerative Colitis)
Past Surgical History: Other (Right Hand Surgery PEG Placement / Removal)
Social History
Tobacco: Former Smoker
Alcohol: None
Drug: None
Allergies / Home Medications
Allergy/AdvReac Type Severity Reaction Status Date / Time
Sulfa (Sulfonamide Allergy Unknown Verified 03/20/25 21:08
Antibiotics)
�Medication �Instructions �Recorded
tamsulosin 0.4 mg capsule 0.4 mg PO HS Urinary Issue 08/25/24
therapeutic multivitamin 1 tab PO DAILY Supplement 08/25/24
pantoprazole 40 mg tablet,delayed 40 mg PO BID Gastrointestinal 10/01/24
release issue 30 days #60 tabs
atorvastatin 40 mg tablet 40 mg PO DAILY #30 tabs 11/20/24
acetaminophen 325 mg tablet 650 mg PO HS 03/20/25
(Tylenol)
acetaminophen 325 mg tablet 650 mg PO Q4HPRN PRN mild pain 03/20/25
(Tylenol)
baclofen 5 mg tablet 5 mg PO HS 03/20/25
bisacodyl 10 mg rectal suppository 10 mg IN DAILYPRN PRN if no bm by 03/20/25
(Dulcolax (bisacodyl)) 3rd day
budesonide 3 mg 9 mg PO DAILY 03/20/25
capsule,delayed,extended release
clopidogrel 75 mg tablet (Plavix) 75 mg PO DAILY 03/20/25
gabapentin 100 mg capsule 100 mg PO BID 03/20/25
guar gum 1 tbsp PO DAILY 03/20/25
insulin glargine 100 unit/mL (3 20 unit SC HS 03/20/25
mL) subcutaneous pen (Basaglar
KwikPen U-100 Insulin)
losartan 25 mg tablet 25 mg PO DAILY Blood pressure 03/20/25
magnesium hydroxide 400 mg/5 mL 2,400 mg PO DAILYPRN PRN 03/20/25
oral suspension (Milk of Magnesia) constipation
mesalamine 1.2 gram tablet,delayed 4.8 g PO DAILY 03/20/25
release
ondansetron 4 mg disintegrating 4 mg PO Q8HPRN PRN nausea 03/20/25
tablet
sitagliptin phosphate 100 mg 100 mg PO DAILY 03/20/25
tablet (Januvia)
trazodone 50 mg tablet 25 mg PO HS Sleep 03/20/25
vitamins A,C,Q-oyjp-qpoolt 2,148 1 tab PO BID 03/20/25
mcg-113 mg-45 mg-17.4 mg tablet
(PreserVision AREDS)
Review of Systems
Vital Signs
Temp Pulse Resp BP Pulse Ox
99 F 108 18 130/62 93
03/21/25 11:00 03/21/25 11:00 03/21/25 11:00 03/21/25 11:00 03/21/25 11:00
Physical Exam
Exam
General: Comfortable
Respiratory: Clear
Cardiac: S1/S2
GI: Soft, Non Tender and Non Distended
Results
WBC 16.6 10^3/uL (4.8-10.8) H 03/21/25 08:14
Hgb 11.0 g/dL (13.0-18.0) L 03/21/25 08:14
Hct 33.2 % (39.0-52.0) L 03/21/25 08:14
MCV 82.0 fL (80.0-94.0) 03/21/25 08:14
Plt Count 256 10^3/uL (130-400) 03/21/25 08:14
Absolute Neuts (auto) 17.2 10^3/uL (1.4-6.5) H 03/20/25 18:13
Sodium 136 mmol/L (135-145) 03/21/25 08:14
Potassium 4.1 mmol/L (3.5-5.1) 03/21/25 08:14
Chloride 103 mmol/L (98-107) 03/21/25 08:14
Carbon Dioxide 27 mmol/L (22-30) 03/21/25 08:14
BUN 19 mg/dl (9-20) 03/21/25 08:14
Creatinine 0.8 mg/dL (0.7-1.3) 03/21/25 08:14
Calcium 8.1 mg/dl (8.4-10.2) L 03/21/25 08:14
Total Bilirubin 1.0 mg/dl (0.2-1.3) 03/21/25 08:14
AST 29 U/L (17-59) 03/21/25 08:14
ALT 28 U/L (0-50) 03/21/25 08:14
Alkaline Phosphatase 369 U/L (38-126) H 03/21/25 08:14
Diagnostic Image Results:
Prior GI Procedures:
EGD: 09/04/2024-EGD with PEG placement
Normal esophagus
Gastritis
Duodenitis/nonbleeding duodenal ulcer
Colonoscopy:
Assessment / Plan
-
79-year-old male With past medical history of CVA, diabetes, hypertension, ulcerative colitis admitted with sepsis secondary to UTI/heel ulcers. GI was consulted with history of ulcerative colitis in the past.
Patient was seen by BRICK VENEER MAKER in our office 02/18/2025. Office notes reviewed.
Patient was diagnosed to have rectosigmoid colitis Diagnosed initially 2012 . last colonoscopy [address] Shelton. Failed in the past Remicade/Humira/Entyvio/Xeljanz/Stelara. Adverse reactions with 6-MP with LFT elevation. Adverse reaction
to sulfa as well. Patient was started on budesonide/mesalamine
--sepsis
--hx of UC-currently on budesonide/mesalamine
--Hx of PUD on last EGD
--s/p PEG removal 12/2024
plan
Continue management of sepsis as per medical team
ok to advance diet as tolerated
Attempted to reach family (son/daughter) multiple times for further information but no answer. His history of ulcerative colitis is chronic. Last telephone encounter with Dr. Reddy last month reviewed-worsening symptom after starting
budesonide/mesalamine. Some improvement after stopping medication. I am not sure whether patient continues to take the medication at the facility prior to the admission. Unable to clarify the information with patient/patient's family at this
point. Okay to continue steroids for now. Will attempt to call tomorrow again
If Worsening diarrhea will recommend stool studies for infection
Recommend adding pantoprazole with history of peptic ulcer disease
Will follow
Total Time Spent with Patient (in minutes): 55
-
-
Thank you for consultation and allowing me to participate in the patient's care. Please call the human capital consultant GI physician during the after hours with any questions or concerns.
[2025-03-21] MEDS: PROTONIX 40 MG PO (16:00)
--- NOTE | 2025-03-21 16:40 | CON.ID ---
Consultation
-
Date/Time Consultation Requested: March 21, 2025 0943
Date/Time Consultation Performed: March 21, 2025 1640
Requesting Provider: Dr. Pilo Terry
Performing Provider: Dr. Indy Moralez
Reason for Consultation: Diabetic foot infection
Chief Complaint / Past History
Chief Complaint
Weakness
History of Present Illness
79-year-old male with history of diabetes mellitus type 2, ulcerative colitis, CVA with left hemiparesis in August 2024 went to [facility] then discharged to SNF. He was then recently went back to the assisted living 3 weeks ago. Patient noted to
be very lethargic at home and therefore sent to the ER yesterday. He was febrile 104.1. White count 19.7. Patient noted to have a large left heel wound. He was started on vancomycin and Zosyn. Patient reports fevers and chills. He complains of
left foot pain. He thinks he got the left heel wound at the snf. He noticed it when he went back to the assisted living. Patient also with recent increase stool output when he was off of the mesalamine while at SNF. Diarrhea improved
today. He reports poor appetite. No cough or shortness of breath. No dysuria, urgency, frequency, or back pain.
Past History
Additional Past Medical History:
CVA with left hemiparesis and dysphagia
Diabetes mellitus type 2
Hypertension
BPH
Ulcerative colitis on mesalamine
Allergy History:
Sulfa (Sulfonamide Antibiotics) Allergy (Verified 03/20/25 21:08)
Unknown
Medications Reviewed: Yes
Current Antibiotics:
Vancomycin
Zosyn
Social History
Tobacco: Former Smoker
Alcohol: None
Drug: None
Living: Assisted Living
Family History
Family History: Not Pertinent
Review of Systems
Review of Systems
General: Fever, Chills and Change in Appetite
HEENT: Negative Headache or Pharyngitis
Cardiovascular: Negative Chest Pain or Dyspnea
Respiratory: Negative Cough
Gasteroenterology: Negative Nausea or Vomiting
Genital / Urological: Negative Dysuria or Flank Pain
Endocrine: Weakness and Fatigue
All systems: All other systems were reviewed and were negative
Vital Signs
Temp Pulse Resp BP Pulse Ox
99 F 108 18 130/62 93
03/21/25 11:00 03/21/25 11:00 03/21/25 11:00 03/21/25 11:00 03/21/25 11:00
Selected Entries
03/20/25
18:00
Temp 104.1 F H
Physical Exam
Physical Exam
Constitutional: Acutely Ill and Chronically Ill
Eyes: No Conjunctival Hemorrhage and Sclera Anicteric
Cardiovascular: Regular Rate and S1/S2
Pulmonary: Non Labored and Other (poor respiratory effort)
Gastrointestinal: Soft, Non Tender, Non Distended and Normal Bowel Sounds
Genito-Urinary: Negative CVA Tenderness
Extremities: Edema (LLE) and Erythema (mild erythema distal LLE with warmth)
Wound: Other (left heel large necrotic wound,unstageable)
Neurological: AO x 3 and Other
Lab / Diagnostic Study Results
03/21/25 08:14
03/21/25 08:14
Abs Immat Gran (auto) 0.1 10^3/uL (0-0.05) H 03/20/25 18:13
Absolute Neuts (auto) 17.2 10^3/uL (1.4-6.5) H 03/20/25 18:13
Absolute Lymphs (auto) 0.7 10^3/uL (1.2-3.4) L 03/20/25 18:13
Absolute Monos (auto) 1.6 10^3/uL (0.1-0.6) H 03/20/25 18:13
Absolute Basos (auto) 0.1 10^3/uL (0-0.2) 03/20/25 18:13
Immature Gran % 0.6 % (0-0.5) H 03/20/25 18:13
Neutrophils % 87.4 % (42.2-75.2) H 03/20/25 18:13
Lymphocytes % 3.4 % (20.5-51.1) L 03/20/25 18:13
Monocytes % 8.3 % (1.7-9.3) 03/20/25 18:13
Eosinophils % 0.0 % (0-6) 03/20/25 18:13
Basophils % 0.3 % (0-2) 03/20/25 18:13
ESR 97 mm/hour (0-20) H 03/21/25 08:14
Lactic Acid 1.8 mmol/L (0.7-2.0) 03/20/25 18:13
Ur Squamous Epith Cells 0-2 /LPF (Few) 03/20/25 18:13
Microbiology Results
Micro:
03/20/25 18:50 Wound Culture - Pending
Ulcer Gram Stain - Preliminary
03/20/25 18:18 Blood Culture - Preliminary
Blood/Venous Positive culture in progress
Gram Stain - Preliminary
03/20/25 18:13 Blood Culture - Preliminary
Blood/Venous Staph aureus MRSA
Gram Stain - Preliminary
03/21/25 05:42 MRSA Screen - Pending
Nose
03/20/25 18:18 Influenza Types A & B (KRISTINE) - Final
Nasal Swab Negative for Influenza A & B, NAAT
Negative results must be combined with clinical observations
and patient history.
Nucleic Acid Amplification test (NAAT)performed on the
[employer] platform.
03/20/25 18:13 Urine Culture - Pending
Urine
03/20/25 Left heel XRAY: No findings to suggest recent focal cortical bony destructive process.
Assessment / Plan
# MRSA bacteremia
# Left heel necrotic wound - possible source of bacteremia
# Fever
# Leukocytosis
# Diabetes mellitus type 2, uncontrolled A1c 9.3
# Hx CVA with left hemiparesis and dysphagia
# Ulcerative colitis on mesalamine
- Repeat blood cx's in am
- Ordered TTE for Sunday
- PAD work-up with arterial duplex
- Consider MRI of foot to eval for underlying abscess
- Continue Vancomycin IV. Follow levels closely.
- Can continue Zosyn for now.
- Trend temps/wbc.
[2025-03-21 16:44] LABS: Glucose - Point of Care 211 mg/dl (70-99)
[2025-03-21] MEDS: NOVOLOG FLEXPEN 4 UNITS SC (17:06)
[2025-03-21] MEDS: VANCOCIN 200 IV (17:07)
--- NOTE | 2025-03-21 19:00 | PTCARENOTE ---
1845 Explain to pt and pt's daughter at bedside, pt will be moved to a private room. Pt transferred via bed to room 430. All personnel belongings sent with pt. Report given to fleet service clerk nurse.
[2025-03-21 21:51] LABS: Glucose - Point of Care 191 mg/dl (70-99)
[2025-03-21] MEDS: FLOMAX 0.4 MG PO (22:24)
[2025-03-21] MEDS: LANTUS 0.24 UNITS SC (22:27)
[2025-03-21] MEDS: TYLENOL 650 MG PO (22:37)
[2025-03-22 03:12] VITALS: BP 102/44
[2025-03-22] MEDS: ZOSYN 50 IV ×3 (05:09→17:22)
[2025-03-22] MEDS: VANCOCIN 200 IV ×2 (05:33→17:22)
[2025-03-22 06:00] VITALS: BMI 27.8
[2025-03-22 06:35] LABS: Hematocrit 31.1 % (39.0-52.0); Hemoglobin 10.0 g/dL (13.0-18.0); Mean Corp Hgb Conc. 32.2 g/dL (33.0-37.0); Mean Corpuscular Volume 83.6 fL (80.0-94.0); Nucleated Red Blood Cells % 0 % (-); Platelet Count 233 10^3/uL (130-400); Red Cell Dist. Width 15.7 % (11.5-14.5)
[2025-03-22 06:46] LABS: Blood Urea Nitrogen 16 mg/dl (9-20); Calcium 8.0 mg/dl (8.4-10.2); Carbon Dioxide 30 mmol/L (22-30); Chloride 102 mmol/L (98-107); Estimated Creatinine Clearance 72 ml/min; Glucose 68 mg/dl (70-99); Potassium 3.5 mmol/L (3.5-5.1); Sodium 137 mmol/L (135-145); eGFR > 60.00
[2025-03-22 07:00] VITALS: BP 97/50
--- NOTE | 2025-03-22 07:49 | CON.VAS ---
Consultation
Consultation Request
Date/Time Consultation Performed: 03/22/2025
Requesting Provider: Mara
Performing Provider: Norman
Reason for Consultation: Left heel wound
Medical History
-
Chief Complaint: Left heel wound
History of Present Illness:
79 yo male, frail appearing
CVA in 08/2024
Resulted in left hemiparesis
Living in a facility currently
Mostly in wheelchair. Little to no ambulation
Left heel wound
Vascular surgery input requested
Patient reports some pain at the left heel
Not sure how long the wound has been there
Past Medical History
Past Medical History: Reports Other
Additional Past Medical History:
ASCVD / CVA
Left Hemiparesis / Dysphagia
Hypertension
DM-II
BPH
Ulcerative Colitis
Past Surgical History: Reports Other
Additional Past Surgical History:
Right Hand Surgery
PEG Placement / Removal
Social History
Tobacco: Former Smoker
Alcohol: None
Drug: None
Personal: Single
Living: Assisted Living
Family History
Family History: Not pertinent
Allergies / Home Medications
Allergy/AdvReac Type Severity Reaction Status Date / Time
Sulfa (Sulfonamide Allergy Unknown Verified 03/20/25 21:08
Antibiotics)
�Medication �Instructions �Recorded �Confirmed �Type
tamsulosin 0.4 mg capsule 0.4 mg PO HS Urinary Issue 08/25/24 03/20/25 History
therapeutic multivitamin 1 tab PO DAILY Supplement 08/25/24 03/20/25 History
pantoprazole 40 mg tablet,delayed 40 mg PO BID Gastrointestinal 10/01/24 03/20/25 Rx
release issue 30 days #60 tabs
atorvastatin 40 mg tablet 40 mg PO DAILY #30 tabs 11/20/24 03/20/25 Rx
acetaminophen 325 mg tablet 650 mg PO HS 03/20/25 03/20/25 History
(Tylenol)
acetaminophen 325 mg tablet 650 mg PO Q4HPRN PRN mild pain 03/20/25 03/20/25 History
(Tylenol)
baclofen 5 mg tablet 5 mg PO HS 03/20/25 03/20/25 History
bisacodyl 10 mg rectal suppository 10 mg AK DAILYPRN PRN if no bm by 03/20/25 03/20/25 History
(Dulcolax (bisacodyl)) 3rd day
budesonide 3 mg 9 mg PO DAILY 03/20/25 03/20/25 History
capsule,delayed,extended release
clopidogrel 75 mg tablet (Plavix) 75 mg PO DAILY 03/20/25 03/20/25 History
gabapentin 100 mg capsule 100 mg PO BID 03/20/25 03/20/25 History
guar gum 1 tbsp PO DAILY 03/20/25 03/20/25 History
insulin glargine 100 unit/mL (3 20 unit SC HS 03/20/25 03/20/25 History
mL) subcutaneous pen (Basaglar
KwikPen U-100 Insulin)
losartan 25 mg tablet 25 mg PO DAILY Blood pressure 03/20/25 03/20/25 History
magnesium hydroxide 400 mg/5 mL 2,400 mg PO DAILYPRN PRN 03/20/25 03/20/25 History
oral suspension (Milk of Magnesia) constipation
mesalamine 1.2 gram tablet,delayed 4.8 g PO DAILY 03/20/25 03/20/25 History
release
ondansetron 4 mg disintegrating 4 mg PO Q8HPRN PRN nausea 03/20/25 03/20/25 History
tablet
sitagliptin phosphate 100 mg 100 mg PO DAILY 03/20/25 03/20/25 History
tablet (Januvia)
trazodone 50 mg tablet 25 mg PO HS Sleep 03/20/25 03/20/25 History
vitamins A,C,S-tmhc-ibvbkl 2,148 1 tab PO BID 03/20/25 03/20/25 History
mcg-113 mg-45 mg-17.4 mg tablet
(PreserVision AREDS)
Physical Exam
Vital Signs
Temp Pulse Resp BP Pulse Ox
98.4 F 85 16 102/44 92
03/22/25 03:12 03/22/25 03:12 03/22/25 03:12 03/22/25 03:12 03/22/25 03:12
Lab Results
03/22/25 06:27
03/22/25 06:27
Physical Exam
General: Other (Non toxic appearing. No distress. Alert/oriented. Left heel wound. Non palp pedal pulses on the left. Non palp pop. Left foot is warm. Toes pink. )
Assessment / Plan
-
Left heel wound. Likely pressure induced. Likely underlying PAD
-TREVOR/TBI with arterial duplex
-Keep NPO after MN for possible LLE a'gram endovascular intervention afternoon of 03/23/25
-IV ABX
-Local wound care to left heel
-Soft heel protector boot to offload the left heel AT ALL TIMES
-Call with questions/concerns
[id number]
[facility] Vascular Surgery
[2025-03-22 08:29] LABS: Glucose - Point of Care 59 mg/dl (70-99)
[2025-03-22] MEDS: NOVOLOG FLEXPEN SC (08:48)
[2025-03-22] MEDS: HEPARIN 5000 UNITS SC ×2 (08:49→21:42)
[2025-03-22] MEDS: ENTOCORT EC 9 MG PO (08:49)
[2025-03-22] MEDS: PLAVIX 75 MG PO (08:49)
[2025-03-22] MEDS: NEURONTIN 100 MG PO ×2 (08:49→21:42)
[2025-03-22] MEDS: NOVOLOG FLEXPEN-LOW RESISTANCE SC ×3 (08:49→16:43)
--- NOTE | 2025-03-22 08:59 | PHA.VAN.FU ---
Vancomycin Assessment / Plan
- Assessment
Renal Function: Stable
WBC's are: Trending Up
In the past 24 hrs, patient has been: Afebrile
Concomitant Antimicrobials: piperacillin/tazobactam
- Dosing Plan
Continue: vancomycin 1000 mg Q12H
- Monitoring Plan
Peak Level: 03/22 2100
Trough Level: 03/23 0530
MRSA Screen: Ordered per protocol (MRSA screen positive)
- Follow Up
Pharmacy will continue to follow.
Vancomycin Follow UP
- -
Patient Age: 79
Patient Sex: Male
Vancomycin Day #: 3
Indication: Skin And Soft Tissue
Requesting Provider: Dr. Dex Kauffman
Pertinent Antimicrobial Allergies:
sulfa
Height / Weight:
Height 5 ft 9 in
Actual Weight 85.417 kg
IBW in k.7
Adjusted BW in k.8
- Vital Signs / Lab Results
Temp Pulse Resp BP Pulse Ox
97.9 F 90 16 97/50 92
03/22/25 07:00 03/22/25 07:00 03/22/25 07:00 03/22/25 07:00 03/22/25 07:00
Lab Results - Hematology
03/20/25 03/21/25 03/22/25
18:13 08:14 06:27
WBC 19.7 H 16.6 H 16.8 H
Lab Results - Chemistry
03/20/25 03/21/25 03/22/25
18:14 08:14 06:27
BUN 18 19 16
Creatinine 0.9 0.8 0.8
Estimated Creat Clear 72 72
Albumin 3.1 L 2.9 L
03/20/25
18:13
Lactic Acid 1.8
Microbiology Results
03/21/25 05:42 MRSA Screen - Final
Nose Staph aureus MRSA
03/20/25 18:50 Gram Stain - Preliminary
Ulcer
03/20/25 18:18 Blood Culture - Preliminary
Blood/Venous Positive culture in progress
Gram Stain - Preliminary
03/20/25 18:13 Blood Culture - Preliminary
Blood/Venous Staph aureus MRSA
Gram Stain - Preliminary
03/20/25 18:18 Influenza Types A & B (KRISTINE) - Final
Nasal Swab Negative for Influenza A & B, NAAT
Negative results must be combined with clinical observations
and patient history.
Nucleic Acid Amplification test (NAAT)performed on the
[employer] platform.
[2025-03-22 09:21] LABS: Glucose - Point of Care 66 mg/dl (70-99)
[2025-03-22 09:54] LABS: Glucose - Point of Care 101 mg/dl (70-99)
[2025-03-22 11:00] VITALS: BP 108/52
--- NOTE | 2025-03-22 11:09 | W.PN.HOSP.TC ---
Addendum entered and electronically signed by Pilo Terry DO 03/22/25 14:30:
Updated patient's daughter Leah on the phone, all questions answered.
Original Note:
Today's Communication/Plan
-
Continue antibiotics
MRI left heel
Echocardiogram
Adjust insulin
Assessment / Plan
Assessment / Plan
Gen-AAOx3, NAD
HEENT-NC, AT, anicteric, clear oral mm
Neck-supple
CV-reg, no M, +S1/S2
Lungs-clear B/L
Abd-soft, NT, ND
Ext-no edema, left heel dressing intact
Musculoskeletal-no cyanosis, clubbing
Skin-warm and dry
Neuro-grossly non-focal
Psych-calm, cooperative
MRSA sepsis -suspect source is left heel decubital wound infection. MRI ordered, rule out osteomyelitis, abscess. Podiatry to comment. Continue empiric antibiotics, ID following.
Transthoracic echocardiogram ordered.
Left heel necrotic decubital wound - suspect pressure injury related due to limited mobility, hemiparesis from stroke. Offload left heel with pillows. Discussed with nursing. Podiatry following. X-ray of heel negative for osteo.
Check TREVOR. Vascular surgery following.
Ulcerative colitis -with diarrhea. GI recommends discontinuing steroids and mesalamine. Discussed with Dr. Szymanski. Advance diet.
Normocytic anemia -unknown acuity. Hemoglobin was normal in November. Monitor for now. No evidence of bleeding.
Pseudohyponatremia -present on admission, resolved.
DM 2 with hyperglycemia/hypoglycemia -hemoglobin A1c 8.0% in January of this year. Glucose 68 this morning, 191 last night.
Prior to admission he was on Januvia 100 mg daily, glargine insulin 20 units at bedtime.
Lower Lantus dose from 24 down to 20 units at bedtime.
Stage II sacral decubital wound -continue local care. Wound care consulted.
History of stroke with left hemiparesis
Hyperlipidemia -atorvastatin.
Essential hypertension -stable.
BPH -tamsulosin.
Full code
Anticipated Discharge: > 48 hours
Subjective/Interval History
-
Date of Service: March 22, 2025
Patient seen and examined. No complaints.
Objective Data
-
Labs:
Laboratory Results
03/22/25
06:27
WBC 16.8 H
Hgb 10.0 L
Hct 31.1 L
Plt Count 233
Sodium 137
Potassium 3.5
Chloride 102
Carbon Dioxide 30
BUN 16
Creatinine 0.8
Glucose 68 L
Calcium 8.0 L
Vital Signs:
Vital Signs
Temp Pulse Resp BP Pulse Ox
97.9 F 90 16 97/50 92
03/22/25 07:00 03/22/25 07:00 03/22/25 07:00 03/22/25 07:00 03/22/25 07:00
I&O
03/21/25 03/22/25 03/23/25
06:59 06:59 06:59
Intake Total 1790 / 1790 920 / 920
Balance 1790 / 1790 920 / 920
Review of Systems
-
History Source: Patient
All other systems: Reviewed and negative
--- NOTE | 2025-03-22 11:20 | W.PN.GI.CBS2 ---
Today's Communication / Plan
-
Continue diet
Assessment / Plan
-
79-year-old male With past medical history of CVA, diabetes, hypertension, ulcerative colitis admitted with sepsis secondary to UTI/heel ulcers. GI was consulted with history of ulcerative colitis in the past.
Patient was seen by MECHANICAL MANUFACTURING ENGINEER in our office 02/18/2025. Office notes reviewed.
Patient was diagnosed to have rectosigmoid colitis Diagnosed initially 2012 . last colonoscopy [address] Shelton. Failed in the past Remicade/Humira/Entyvio/Xeljanz/Stelara. Adverse reactions with 6-MP with LFT elevation. Adverse reaction
to sulfa as well. Patient was started on budesonide/mesalamine
--sepsis
--hx of UC-currently not on budesonide/mesalamine
--Hx of PUD on last EGD
--s/p PEG removal 12/2024
plan
Continue management of sepsis as per medical team
ok to advance diet as tolerated
Discussed with patient's daughter. Patient discontinued mesalamine/steroids at his facility after discussing with Dr. Reddy . Symptomatic improvement of loose stool after stopping medication. Currently not experiencing any severe diarrhea.
Will continue to hold medication for UC. Patient requires outpatient follow-up with Dr. Reddy to discuss further treatment
If Worsening diarrhea will recommend stool studies for infection
pantoprazole was added with history of peptic ulcer disease
No further GI recommendation at this point. Will sign off. Please call us back if any questions
Total Time Spent with Patient (in minutes): 35
Subjective
Subjective
Date of Service: March 22, 2025
Denies any abdominal pain/diarrhea. Discussed with patient's daughter this a.m-patient is not currently taking any mesalamine or budesonide for UC. (Symptomatic improvement at the facility after stopping the medication )
Objective
Data Reviewed
Laboratory Data:
Laboratory Results
03/22/25 06:27
03/22/25 06:27
Laboratory Results
Total Bilirubin 1.0 mg/dl (0.2-1.3) 03/21/25 08:14
AST 29 U/L (17-59) 03/21/25 08:14
ALT 28 U/L (0-50) 03/21/25 08:14
Alkaline Phosphatase 369 U/L (38-126) H 03/21/25 08:14
Vital Signs and I&O:
Vital Signs
Temp Pulse Resp BP Pulse Ox
99.1 F 98 20 108/52 92
03/22/25 11:00 03/22/25 11:00 03/22/25 11:00 03/22/25 11:00 03/22/25 11:00
I&O
03/21/25 03/22/25 03/23/25
06:59 06:59 06:59
Intake Total 1790 / 1790 920 / 920
Balance 1790 / 1790 920 / 920
Physical Exam
Physical Exam
GI: Soft, Non Distended and Non Tender
[2025-03-22] MEDS: KCL 40 MEQ PO (11:43)
[2025-03-22 12:02] LABS: Glucose - Point of Care 143 mg/dl (70-99)
[2025-03-22 14:11] LABS: Glucose - Point of Care 106 mg/dl (70-99)
--- NOTE | 2025-03-22 14:25 | W.PN.ID1 ---
Date of Service
Date of Service: March 22, 2025
Today's Communication
Continue current antibiotics for today.
Assessment / Plan
# MRSA bacteremia
# Left heel necrotic wound - possible source of bacteremia
# Fever
# Leukocytosis
# Elevated ESR
# Diabetes mellitus type 2, uncontrolled A1c 9.3
# Hx CVA with left hemiparesis and dysphagia
# Ulcerative colitis on mesalamine
- Repeat blood pending.
- Await echocardiogram (TTE)
- PAD work-up with arterial duplex
- Consider MRI of foot to eval for underlying abscess
- Continue Vancomycin IV. Follow levels closely.
- Continue Zosyn for now.
- Trend temps/wbc.
- local care to left heel; offload.
Chief Complaint
-: Bacteremia
Subjective / Review of Systems
Patient seen and examined. Reports some left lower extremity discomfort.
Review of Systems: No Fever and No Chills
Vital Signs / Physical Exam
Vital Signs
Vital Signs
Temp Pulse Resp BP Pulse Ox
99.1 F 98 20 108/52 92
03/22/25 11:00 03/22/25 11:00 03/22/25 11:00 03/22/25 11:00 03/22/25 11:00
Physical Exam
Constitutional: Comfortable, Chronically Ill and Non-toxic
Eyes: No Conjunctival Hemorrhage and Sclera Anicteric
Cardiovascular: S1/S2; Negative S3/S4 or Murmur
Pulmonary: Clear and Non Labored
Gastrointestinal: Soft and Non Tender
Extremities: Edema; Negative Cyanosis or Erythema
Wound: Other (Right heel wound dressed.)
Neurological: Awake and Alert
Psychological: Calm
Objective Data
Lab Data
Lab Results
03/22/25 06:27
03/22/25 06:27
ESR 97 mm/hour (0-20) H 03/21/25 08:14
Estimated Creat Clear 72 ml/min 03/22/25 06:27
Lactic Acid 1.8 mmol/L (0.7-2.0) 03/20/25 18:13
Total Bilirubin 1.0 mg/dl (0.2-1.3) 03/21/25 08:14
AST 29 U/L (17-59) 03/21/25 08:14
ALT 28 U/L (0-50) 03/21/25 08:14
Alkaline Phosphatase 369 U/L (38-126) H 03/21/25 08:14
Most recent labs reviewed.
Micro Results:
03/20/25 18:18 Blood Culture - Preliminary
Blood/Venous Positive culture in progress
Gram Stain - Preliminary
03/20/25 18:13 Blood Culture - Preliminary
Blood/Venous Staph aureus MRSA
Gram Stain - Preliminary
03/20/25 18:13 Urine Culture - Preliminary
Urine Escherichia coli
03/20/25 18:50 Wound Culture - Preliminary
Ulcer Gram Stain - Preliminary
03/21/25 05:42 MRSA Screen - Final
Nose Staph aureus MRSA
03/22/25 07:08 Blood Culture - Pending
Blood/Venous
03/22/25 06:27 Blood Culture - Pending
Blood/Venous
03/20/25 18:18 Influenza Types A & B (KRISTINE) - Final
Nasal Swab Negative for Influenza A & B, NAAT
Negative results must be combined with clinical observations
and patient history.
Nucleic Acid Amplification test (NAAT)performed on the
[employer] platform.
03/20/25 Left heel XRAY: No findings to suggest recent focal cortical bony destructive process.
[2025-03-22 15:00] VITALS: BP 110/55
[2025-03-22 16:40] LABS: Glucose - Point of Care 121 mg/dl (70-99)
[2025-03-22] MEDS: TYLENOL 650 MG PO (17:21)
[2025-03-22 19:13] VITALS: BP 112/51
[2025-03-22] MEDS: FLOMAX 0.4 MG PO (21:43)
[2025-03-22 21:54] LABS: Glucose - Point of Care 150 mg/dl (70-99)
[2025-03-22] MEDS: LANTUS 0.2 UNITS SC (22:09)
[2025-03-22 23:30] VITALS: BP 114/55
[2025-03-23] VITALS (19 sets, daily range): BP systolic 102–146; BP diastolic 42–87; BMI 28.0
[2025-03-23] MEDS: ZOSYN 50 IV ×3 (00:38→12:42)
[2025-03-23] MEDS: FLUSH (NSS) 2 FLUSH IV ×2 (00:39→05:21)
[2025-03-23 03:06] LABS: Glucose - Point of Care 83 mg/dl (70-99)
[2025-03-23] MEDS: VANCOCIN 200 IV ×2 (06:27→17:14)
[2025-03-23 06:47] LABS: Hematocrit 28.6 % (39.0-52.0); Hemoglobin 9.5 g/dL (13.0-18.0); Mean Corp Hgb Conc. 33.2 g/dL (33.0-37.0); Mean Corpuscular Volume 81.7 fL (80.0-94.0); Nucleated Red Blood Cells % 0 % (-); Platelet Count 239 10^3/uL (130-400); Red Cell Dist. Width 15.6 % (11.5-14.5)
[2025-03-23 07:06] LABS: Blood Urea Nitrogen 14 mg/dl (9-20); Calcium 7.9 mg/dl (8.4-10.2); Carbon Dioxide 30 mmol/L (22-30); Chloride 103 mmol/L (98-107); Estimated Creatinine Clearance 72 ml/min; Glucose 71 mg/dl (70-99); Potassium 3.3 mmol/L (3.5-5.1); Sodium 136 mmol/L (135-145); eGFR > 60.00
[2025-03-23 07:29] LABS: C-Reactive Protein 241.10 mg/L (0.0-10.00)
[2025-03-23 08:09] LABS: Glucose - Point of Care 83 mg/dl (70-99)
[2025-03-23] MEDS: NOVOLOG FLEXPEN-LOW RESISTANCE SC ×3 (08:15→16:27)
[2025-03-23] MEDS: NEURONTIN 100 MG PO ×2 (08:15→20:33)
[2025-03-23] MEDS: PLAVIX 75 MG PO (08:15)
[2025-03-23] MEDS: HEPARIN 5000 UNITS SC ×2 (08:16→20:33)
--- NOTE | 2025-03-23 09:26 | PHA.VAN.FU ---
Addendum entered and electronically signed by Urvashi Parks RPH 03/23/25 11:48:
Agree with assessment and plan.
Original Note:
Vancomycin Assessment / Plan
- Assessment
Renal Function: Stable
WBC's are: Trending Down
In the past 24 hrs, patient has been: Afebrile
Concomitant Antimicrobials: piperacillin/tazobactam
- Assessment - Trough Based Monitoring
Trough Value: 14.9 - drawn ~11H after third 1000mg dose
Level Today was: Appropriate
Level Comments: peak not drawn as ordered, unable to calculate pt specific PK
- Dosing Plan
Continue: 1000mg q12h
- Monitoring Plan
Peak Level: 03/23 2100
Trough Level: 03/24 0530
- Follow Up
Pharmacy will continue to follow.
Vancomycin Follow UP
- -
Patient Age: 79
Patient Sex: Male
Vancomycin Day #: 4
Indication: Skin And Soft Tissue
Requesting Provider: Dr. Dex Kauffman
Pertinent Antimicrobial Allergies:
sulfa
Height / Weight:
Height 5 ft 9 in
Actual Weight 85.927 kg
IBW in k.7
Adjusted BW in k.8
Pertinent Past Medical History: limited mobility
- Vital Signs / Lab Results
Temp Pulse Resp BP Pulse Ox
97.7 F 74 16 125/55 92
03/23/25 07:45 03/23/25 07:45 03/23/25 07:45 03/23/25 07:45 03/23/25 07:45
Lab Results - Hematology
03/20/25 03/21/25 03/22/25
18:13 08:14 06:27
WBC 19.7 H 16.6 H 16.8 H
03/23/25
06:23
WBC 14.6 H
Lab Results - Chemistry
03/20/25 03/21/25 03/22/25
18:14 08:14 06:27
BUN 18 19 16
Creatinine 0.9 0.8 0.8
Estimated Creat Clear 72 72
Albumin 3.1 L 2.9 L
03/23/25
06:23
BUN 14
Creatinine 0.8
Estimated Creat Clear 72
Albumin
03/20/25
18:13
Lactic Acid 1.8
Microbiology Results
03/20/25 18:13 Blood Culture - Preliminary
Blood/Venous Staph aureus MRSA
Gram Stain - Preliminary
03/20/25 18:13 Urine Culture - Final
Urine Escherichia coli
03/22/25 07:08 Blood Culture - Preliminary
Blood/Venous Positive culture in progress
Gram Stain - Preliminary
03/22/25 06:27 Blood Culture - Preliminary
Blood/Venous Positive culture in progress
Gram Stain - Preliminary
03/20/25 18:18 Blood Culture - Preliminary
Blood/Venous Positive culture in progress
Gram Stain - Preliminary
03/20/25 18:50 Wound Culture - Preliminary
Ulcer Gram Stain - Preliminary
03/21/25 05:42 MRSA Screen - Final
Nose Staph aureus MRSA
Therapeutic Drug Monitoring
Vancomycin Peak Cancelled 03/23/25 08:00
Vancomycin Trough 14.9 ug/ml (5-20) 03/23/25 06:23
--- NOTE | 2025-03-23 10:15 | WOUNDNOTE ---
L HEEL MEDIAL VIEW
--- NOTE | 2025-03-23 10:16 | WOUNDNOTE ---
NADINE RN note: Patient admitted with sepsis, UTI and cellulitis of L leg.
See H&P for complete history. [facility] since 02/27/25.
PMH: ED Past Medical History: CVA-L sided weakness, HTN, diabetes type 2 and Hypercholesterolemia
Wound Location and type/assessment: Patient admitted with: Unstageable PI to L heel, dry intact brown eschar, painful to touch. R heel is intact. R sacrum with small stage 3 PI, blanchable pink surrounding. Pale light maroon discoloration on
gluteal cleft, suspect evolving DTI. R medial upper thigh with light pink line, patient confirmed he uses diaper at [place], suspect from ties. Patient confirmed he goes from bed to wheelchair daily, not walking. Patient turned with assist of Dr. Moralez at
bedside. Patient had TREVOR/TBI and MRI this morning, results pending. Vascular on consult, reviewed note. Hgb A1c is 9.3.
Appetite: Poor, encouraged protein in diet.
Pressure redistribution devices in place: On [facility] care air bed, turning schedule. Fiber filled boots ordered. Air chair cushion when sitting in chair.
Plan: L heel keep dry, paint with Betadine and dry dressing daily. Offloading heel boots. Will order Santyl for R sacral ulcer, silicone foam changed. Nurse Queenie updated on the above, supplies brought to , nurse will apply boots to offload both
heels when back from testing. Confirmed orders with Dr. Moralez.
Updated care plan and will follow as needed.
Note to case management of equipment requested for discharge: Wound care.
Recommend follow up with vascular.
--- NOTE | 2025-03-23 12:06 | W.SUR.PREOP ---
Addendum entered and electronically signed by Luis Austin III, MD 03/23/25 13:27:
Spoke with the patient as well as his son Mariano at [phone]. Explained my assessment and plan regarding Mr. Livingston's left heel wound and limb threatening ischemia. The technical aspects of the lower extremity arteriogram were discussed with
them in detail. The benefits and rationale for this approach were discussed with them in detail. Operative risks were discussed with them in detail including but not limited to arterial access site injury, bleeding, infection, contrast
nephropathy, distal embolization and the inability to successfully complete endovascular intervention which may necessitate additional procedures. They both expressed a clear understanding of our conversation and agree to proceed with the plan as
detailed above.
Luis Austin III, MD
Vascular Surgery
[facility]
Original Note:
Pre-Operative Surgical Note
-
I have examined this patient prior to the performance of the scheduled procedure.
The patient's condition is unchanged from the time of the current History and
Physical and the patient is able to undergo the scheduled procedure.
--- NOTE | 2025-03-23 13:04 | W.PN.ID1 ---
Date of Service
Date of Service: March 23, 2025
Today's Communication
TTE. Continue Vanco.
Assessment / Plan
# Complicated MRSA bacteremia, sustained
# Feverm - resolved
# Leukocytosis
# Left heel necrotic wound
. Not source of bacteremia
. MRI: no abscess, no osteo
# PAD
# Diabetes mellitus type 2, uncontrolled A1c 9.3
# Hx CVA with left hemiparesis and dysphagia
# Ulcerative colitis on mesalamine
- Repeat blood cultures for clearance
- Await echocardiogram (TTE)
- Continue Vancomycin IV. Follow levels closely.
- dc Zosyn
- Trend wbc.
- local care to left heel; offload.
Chief Complaint
-: Bacteremia
Subjective / Review of Systems
Feels slightly better.
Vital Signs / Physical Exam
Vital Signs
Vital Signs
Temp Pulse Resp BP Pulse Ox
97.7 F 69 16 113/48 95
03/23/25 11:10 03/23/25 11:10 03/23/25 11:10 03/23/25 11:10 03/23/25 11:10
Physical Exam
Constitutional: Acutely Ill and Chronically Ill
Cardiovascular: Regular Rate and S1/S2
Pulmonary: Clear (anteriorly)
Gastrointestinal: Soft, Non Tender, Non Distended and Normal Bowel Sounds
Extremities: Edema (LLE decreased edema)
Wound: Other (Left heel large wound covered with hard eschar)
Neurological: AO x 3
Objective Data
Lab Data
Lab Results
03/23/25 06:23
03/23/25 06:23
ESR 97 mm/hour (0-20) H 03/21/25 08:14
Estimated Creat Clear 72 ml/min 03/23/25 06:23
Lactic Acid 1.8 mmol/L (0.7-2.0) 03/20/25 18:13
Total Bilirubin 1.0 mg/dl (0.2-1.3) 03/21/25 08:14
AST 29 U/L (17-59) 03/21/25 08:14
ALT 28 U/L (0-50) 03/21/25 08:14
Alkaline Phosphatase 369 U/L (38-126) H 03/21/25 08:14
C-Reactive Protein 241.10 mg/L (0.0-10.00) H 03/23/25 06:23
Most recent labs reviewed.
Micro Results:
03/20/25 18:50 Wound Culture - Preliminary
Ulcer Escherichia coli
Proteus species
Gram Stain - Preliminary
03/20/25 18:13 Blood Culture - Preliminary
Blood/Venous Staph aureus MRSA
Gram Stain - Preliminary
03/20/25 18:13 Urine Culture - Final
Urine Escherichia coli
03/22/25 07:08 Blood Culture - Preliminary
Blood/Venous Positive culture in progress
Gram Stain - Preliminary
03/22/25 06:27 Blood Culture - Preliminary
Blood/Venous Positive culture in progress
Gram Stain - Preliminary
03/20/25 18:18 Blood Culture - Preliminary
Blood/Venous Positive culture in progress
Gram Stain - Preliminary
03/21/25 05:42 MRSA Screen - Final
Nose Staph aureus MRSA
03/20/25 18:18 Influenza Types A & B (KRISTINE) - Final
Nasal Swab Negative for Influenza A & B, NAAT
Negative results must be combined with clinical observations
and patient history.
Nucleic Acid Amplification test (NAAT)performed on the
[employer] platform.
03/23/25 MRI LLE: Lateral posterior heel ulceration noted with mild underlying subcutaneous edema. No loculated fluid collections. No evidence for osteomyelitis.
Mild to moderate subcutaneous edema about the ankle extending more proximally, suggesting cellulitis. Mild tenosynovitis of the posterior tibialis and flexor digitorum longus tendons.
03/20/25 Left heel XRAY: No findings to suggest recent focal cortical bony destructive process.
--- NOTE | 2025-03-23 13:37 | CM ---
Chart reviewed and field nurse case manager spoke with patient, and reached out to [facility], [facility], and spoke with [facility] and plan is for patient to return to [facility] when stable, with resumption of care with
[facility]. Referral sent through [facility] for [facility].
Plan; Patient to return to [facility] when stable with [facility].
[facility]
Report [phone]

[facility]
[phone]
--- NOTE | 2025-03-23 15:42 | W.IMMPOSTOP ---
Surgical Immed Post Op Note
-
Primary Surgeon: Norman
Assisting Surgeon: Sarah
Pre-op Diagnosis: Chronic-limb threatening ischemia, Non-healing L calcaneous ulcer
Post-op Diagnosis: Chronic-limb threatening ischemia
Procedure Performed: LLE angiogram, IVL of SFA and occluded PT
Anesthesia Type: Local/sedation
Specimen / Cultures: None
Estimated Blood Loss: 2 cc
Complications: None
Operative Findings: Chronic occlusion of L PT, focal calcification of distal SFA. IVL+balloon angioplasty of SFA and PT, stenting of focal SFA lesion
--- NOTE | 2025-03-23 15:47 | OR.RPT ---
Operative Report
Operative Report
Date of Operation: 03/23/2025
Pre Op Diagnosis:
1. 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
2. Limb threatening ischemia, left lower extremity
Post Op Diagnosis:
1. 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
2. Limb threatening ischemia, left lower extremity
Procedure:
1. Intravascular lithotripsy to left popliteal artery (Shockwave Javelin)
2. Intravascular lithotripsy to left posterior tibial artery and plantar artery (Shockwave Javelin)
3. Balloon angioplasty of left posterior tibial artery (2 mm x 220 mm followed by 2.5 mm x 200 mm angioplasty balloon)
4. Drug-eluting bioabsorbable scaffold stent to proximal posterior tibial artery (2.5 mm x 38 mm Coello Esprit)
5. Balloon angioplasty and drug-eluting stent placement to popliteal artery stenosis behind the knee (6 mm x 60 mm Zilver PTX)
6. Diagnostic aortobiiliac arteriogram
7. Diagnostic left lower extremity arteriogram
8. Ultrasound-guided percutaneous access to the right common femoral artery
Surgeon: Luis Austin III, MD
Governor Assembler: Finn Smith MD PGY2
Anesthesia: Sedation with local
Fluoroscopy:
43.2 min
198 mGy
49.21 gy.cm2
Complications: None
Estimated Blood Loss: Less than 20 cc
History and Indications for Procedure: 79-year-old male with limb threatening ischemia and to his left lower extremity manifested by left heel gangrene
Procedure in Detail: Asher Livingston was correctly identified and placed supine on the operating table. After adequate induction of anesthesia the bilateral groins were prepped and draped in the usual sterile fashion. A timeout was performed with the
nursing and anesthesia staff confirming the patient's identity as well as the nature and laterality of the procedure.
The right common femoral artery was identified under ultrasound guidance. The artery was patent. The superior and inferior aspects of the femoral head were identified with radiographic guidance and marked at the skin level. The proposed puncture
site was infiltrated with local anesthesia. Under ultrasound guidance we accessed the right common femoral artery with a micropuncture needle and upsized to a 5 Fr sheath over a Stylenda wire. The wire and a Shepherds hook flush catheter were
advanced into the distal abdominal aorta and a diagnostic aorto-biiliac arteriogram was performed:
AORTO-ILIAC ARTERIOGRAM:
Aorta: Heavily calcified. Patent with no significant stenosis identified
Right common iliac artery: Heavily calcified. Patent with no significant stenosis identified
Right external iliac artery: Patent with no significant stenosis identified
Left common iliac artery: Heavily calcified. Patent with no significant stenosis identified
Left external iliac artery: Patent with no significant stenosis identified
Under roadmap guidance using a Glidewire and the Shepherds hook catheter we selected the left common iliac artery followed by the external iliac artery and then the common femoral artery. A catheter was tracked up and over the aortic bifurcation and
placed in the common femoral artery. A diagnostic left lower extremity arteriogram was then performed which demonstrated the following:
LEFT LOWER EXTREMITY:
Common femoral artery: Patent with no significant stenosis identified
Profunda femoral artery: Patent with no significant stenosis identified
Superficial femoral artery: Patent with no significant stenosis identified
Popliteal artery: Patent. Focal heavily calcified stenosis behind the knee. Patent below the knee segment with no stenosis identified
Anterior tibial artery: Diffusely diseased with focal segmental occlusions throughout the entire length of the artery. Distal anterior tibial artery reconstitutes at the ankle and forms the dorsalis pedis artery in the foot.
Tibioperoneal trunk: Patent
Peroneal artery: Patent to the ankle. No significant stenosis identified
Posterior tibial artery: Patent stump but occluded thereafter with reconstitution of the heavily diseased and calcified artery in the mid calf.
ENDOVASCULAR INTERVENTION: Systemic heparin was administered. Selected the left superficial femoral artery. Exchanged out for a 5 Fr 70 cm sheath over a [employer] wire and positioned this in the distal superficial femoral artery. Selected the
popliteal artery under roadmap guidance. The calcified popliteal artery stenosis was crossed with a 0.035 SPEX catheter and Glidewire. The wire and catheter were advanced into the tibioperoneal trunk and subtraction angio confirmed proper position
in the true lumen. Under roadmap guidance I then selected the posterior tibial artery stump with a 0.014 Mongo wire. Using this wire and a 0.014 SPEX catheter we were able to successfully cross the occluded posterior tibial artery. The catheter
and wire were advanced through the entire length of the posterior tibial artery and into a plantar branch outflow in the foot. Proper position in the true lumen was confirmed.
Due to the heavily calcified nature of the focal popliteal artery stenosis behind the knee and the posterior tibial artery disease and in an effort to successfully cross the lesion, modify the calcium and achieve luminal gain with endovascular
intervention I elected to proceed with intravascular lithotripsy with a Shockwave Javelin catheter. The Javelin catheter was brought into position under radiographic guidance over the 0.014 wire. The Javelin catheter was positioned within the
calcified popliteal artery stenosis. 20 pulses were delivered to the calcified popliteal artery stenosis. Following this the Javelin catheter was advanced through the posterior tibial artery and into the plantar branch outflow while simultaneously
delivering lithotripsy pulses. The remaining 100 pulses were delivered across the posterior tibial artery and plantar branch in the foot. Post Javelin arteriogram demonstrated nice luminal gain and a now patent posterior tibial artery. I then
followed this with 2 mm x 220 mm angioplasty balloon. The balloon was brought into the desired location under roadmap guidance. The plantar branch as well as the entire posterior tibial artery was angioplastied with this 2 mm balloon. Each
inflation was performed to nominal pressure with a 3-minute hold. 2 inflations were performed to treat the entire length of posterior tibial artery. We then followed this with a 2.5 mm x 200 mm angioplasty balloon. This was used to treat the
posterior tibial artery from the ankle back to its origin. 2 inflations were performed, each at nominal pressure with a 3-minute hold. Subsequent arteriogram demonstrated significant improvement with a patent posterior tibial artery and brisk flow
across the ankle into the foot. Residual stenosis was identified in the proximal posterior tibial artery at the previous point of occlusion. This was treated with a 2.5 mm x 38 mm Coello Esprit stent. A completion arteriogram demonstrated an
excellent technical result with a widely patent posterior tibial artery and no significant residual stenosis identified.
I then focused my attention on the calcified stenosis in the popliteal artery behind the knee. I upsized to a 6 [place] sheath over a Storq wire. Under roadmap guidance I brought into position a 6 mm x 100 mm Zilver PTX stent. This was positioned
and deployed across the popliteal artery stenosis in the desired location. I then profiled the stent with a 6 mm x 60 mm angioplasty balloon.
COMPLETION ARTERIOGRAM: Widely patent popliteal artery with brisk flow and no significant residual stenosis identified. Widely patent popliteal artery stent. Brisk outflow through the posterior tibial artery and peroneal artery. Significantly
improved flow to the heel via the posterior tibial artery. Again demonstrated was diffuse anterior tibial artery disease throughout the entire length.
Satisfied with this result we concluded the procedure. The sheath tip was pulled back into the right external iliac artery. Protamine was administered. The sheath was pulled and direct manual pressure was held over the puncture site until
hemostasis was achieved. A sterile dressing was applied.
The patient tolerated the procedure well and was taken to the recovery area in stable condition.
Attestation: I was present and responsible for the entire procedure.
Signed:
Luis Austin III, MD
Vascular Surgery
[facility]
--- NOTE | 2025-03-23 16:15 | PTOTSP ---
Speech Language Pathology
New SCREW MACHINE SETTER orders required to continue to follow post general anesthesia.
[2025-03-23 16:24] LABS: Glucose - Point of Care 85 mg/dl (70-99)
--- NOTE | 2025-03-23 16:57 | W.PN.HOSP.TC ---
Today's Communication/Plan
-
Continue with IV vancomycin
Assessment / Plan
Assessment / Plan
MRSA sepsis -suspect source is left heel decubital wound infection. MRI without osteomyelitis, or obvious abscess. Cellulitis and tenosynovitis noted. Podiatry comments noted. Continue empiric antibiotics, ID following.
Transthoracic echocardiogram ordered.
Left heel necrotic decubital wound - suspect pressure injury related due to limited mobility, hemiparesis from stroke plus PAD. Offload left heel with pillows.
Status post left lower extremity angiogram 03/23 which showed Chronic occlusion of L PT, focal calcification of distal SFA so had IVL+balloon angioplasty of SFA and PT, stenting of focal SFA lesion
Continue with Plavix
Ulcerative colitis -with diarrhea. GI recommends discontinuing steroids and mesalamine. Continue with diet
Normocytic anemia -unknown acuity. Hemoglobin was normal in November. Monitor for now. No evidence of bleeding.
Pseudohyponatremia -present on admission, resolved.
Hypokalemia-replete
DM 2 with hyperglycemia/hypoglycemia -hemoglobin A1c 8.0% in January of this year. Postprocedure blood sugars 85
Prior to admission he was on Januvia 100 mg daily, glargine insulin 20 units at bedtime.
Lower Lantus dose from 24 down to 20 units at bedtime.
Stage II sacral decubital wound -continue local care. Wound care consulted.
History of stroke with left hemiparesis
Hyperlipidemia -atorvastatin.
Essential hypertension -stable.
BPH -tamsulosin.
Full code
Anticipated Discharge: > 48 hours
Subjective/Interval History
-
Date of Service: March 23, 2025
Patient seen in PACU.
Status post left leg distal SFA and posterior tibial balloon angioplasty
Is alert and oriented.
Feeling hungry.
Denies shortness of breath or chest pain. No nausea.
Objective Data
-
Labs:
Laboratory Results
03/23/25
06:23
WBC 14.6 H
Hgb 9.5 L
Hct 28.6 L
Plt Count 239
Sodium 136
Potassium 3.3 L
Chloride 103
Carbon Dioxide 30
BUN 14
Creatinine 0.8
Glucose 71
Calcium 7.9 L
Vital Signs:
Vital Signs
Temp Pulse Resp BP Pulse Ox
99.0 F 70 20 112/56 94
03/23/25 16:07 03/23/25 16:30 03/23/25 16:30 03/23/25 16:30 03/23/25 16:40
I&O
03/22/25 03/23/25 03/24/25
06:59 06:59 06:59
Intake Total 1790 / 1790 920 / 920 360 / 360
Balance 1790 / 1790 920 / 920 360 / 360
Physical Exam
-
General: Comfortable
Respiratory: Clear to Auscultation (On anterior auscultation) and Non Labored Respirations; Negative Accessory Resp Muscle Use
Cardiac: Regular Rhythm and S1/S2
GI: Soft
Neuro: AO x 3
Psych: Calm
Data Reviewed
-
Labs: Labs Reviewed by me
[2025-03-23] MEDS: NSS 1000 IV (17:12)
[2025-03-23] MEDS: KCL 40 MEQ PO (17:17)
[2025-03-23] MEDS: TYLENOL 650 MG PO (18:19)
--- NOTE | 2025-03-23 19:06 | W.PN.POD ---
Today's Communication
Today's Communication
No acute process involving left heel.
Please reconsult as necessary.
Assessment / Plan
-
Assessment:
Ischemic, decubitus wound of the left postero-plantar heel, without overt clinical signs of infection.
Type 2 DM
PVD
Sepsis of unclear origin.
Plan:
As previously stated, I do not believe the patient's sepsis is related to the heel decubitus. Much of the LLE edema is due to the hemiplegia and dependent positioning of the LE. This has improved clinically.
MRI reveals no abscess, no osteomyelitis in the left heel. Spoke with radiologist (Dr. Velasquez) today, and with the clinical context of chronic LLE hemiplegia and dependent edema, he believes MR findings subcutaneous edema are much less suggestive of
cellulitis.
No podiatric surgical intervention of the left heel warranted at this time.
The left heel must be suspended off the bed surface. Use of multipodos boot (heel drop)
Please reconsult as necessary.
Subjective
Chief Complaint
Left heel decubitus. S/P Endovascular intervention, LLE.
Subjective
Patient resting comfortably in bed. No new complaints.
Objective
Temp Pulse Resp BP Pulse Ox
98 F 71 14 146/61 91
03/23/25 18:13 03/23/25 18:13 03/23/25 18:13 03/23/25 18:13 03/23/25 18:13
WBC: 14.6.
03/20/25 XRAY, LEFT HEEL:
No findings are seen to confirm recent cortical fracture or suggests focal cortical bony destructive process.
Some degenerative changes are seen including posterior calcaneal enthesophyte.
03/20/25 LE Venous U/S: No findings to confirm deep venous thrombosis of the left lower extremity.
03/23/25: LE Arterial U/S:
1. Left ankle brachial index 0.74, left toe brachial index 0.22. Calcified plaque is seen diffusely. Mild stenosis within the left popliteal artery. Spectral Doppler waveform analysis is suggestive of distal SFA disease. The popliteal and small
vessel disease may also be present.
2. Right ankle brachial index 0.82, right toe brachial index 0.21. Scattered arterial plaque. Spectral Doppler waveform analysis is suggestive of predominantly infrapopliteal and small vessel disease.
03/23/25: S/P Intravascular lithotripsy to left popliteal artery (Shockwave Javelin), Intravascular lithotripsy to left posterior tibial artery and plantar artery (Shockwave Javelin), Balloon angioplasty of left posterior tibial artery, LLE.
03/23/23 MRI OF THE ANKLE/HEEL WITHOUT CONTRAST
Lateral posterior heel ulceration noted with mild underlying subcutaneous edema. No loculated fluid collections. No evidence for osteomyelitis.
Mild to moderate subcutaneous edema about the ankle extending more proximally, suggesting cellulitis.
03/23/25 06:23
03/23/25 06:23
Vital Signs and Lab results were reviewed.
LE EXAM:
Non-paplable pedal pulses, bilaterally.
There is reduction in dependent edema with minimal erythema of the left lower leg. Left postero-plantar heel with large, well demarcated wound approximately 8cm x 5cm in diameter with 5cm x 5cm of this a soft, black/ischemic decubitus wound.
The base of the wound is now dry and firm, and without fluctuance. No discharge/bleeding noted. This area is very cold, and painful to the touch. There is no cellulitis extending off the heel, and no extension proximally.
Hemiplegia, Left. with no other overt deformity noted.
[2025-03-23 21:32] LABS: Glucose - Point of Care 186 mg/dl (70-99)
[2025-03-23] MEDS: FLOMAX 0.4 MG PO (22:55)
[2025-03-23] MEDS: LANTUS 0.2 UNITS SC (22:55)
[2025-03-24 03:50] VITALS: BP 109/45
[2025-03-24] MEDS: VANCOCIN 200 IV (05:50)
[2025-03-24 05:57] LABS: Hematocrit 29.5 % (39.0-52.0); Hemoglobin 9.5 g/dL (13.0-18.0); Mean Corp Hgb Conc. 32.2 g/dL (33.0-37.0); Mean Corpuscular Volume 82.6 fL (80.0-94.0); Nucleated Red Blood Cells % 0 % (-); Platelet Count 256 10^3/uL (130-400); Red Cell Dist. Width 15.7 % (11.5-14.5)
[2025-03-24 06:00] VITALS: BMI 28.2
[2025-03-24 08:10] VITALS: BP 128/59
[2025-03-24] MEDS: NEURONTIN 100 MG PO ×2 (08:11→21:18)
[2025-03-24] MEDS: HEPARIN 5000 UNITS SC ×2 (08:15→21:18)
[2025-03-24] MEDS: SANTYL OINTMENT 1 APPLIC TOPICAL (08:15)
[2025-03-24] MEDS: PLAVIX 75 MG PO (08:15)
[2025-03-24 08:20] LABS: Glucose - Point of Care 90 mg/dl (70-99)
[2025-03-24] MEDS: NOVOLOG FLEXPEN-LOW RESISTANCE SC ×3 (08:20→16:12)
--- NOTE | 2025-03-24 08:50 | W.PN.VS ---
Today's Communication / Plan
-
Discussed with Dr. Austin
Assessment/Plan
-
Postop day 1 Intravascular lithotripsy to left popliteal artery (Shockwave Javelin)
2. Intravascular lithotripsy to left posterior tibial artery and plantar artery (Shockwave Javelin)
3. Balloon angioplasty of left posterior tibial artery (2 mm x 220 mm followed by 2.5 mm x 200 mm angioplasty balloon)
4. Drug-eluting bioabsorbable scaffold stent to proximal posterior tibial artery (2.5 mm x 38 mm Coello Esprit)
5. Balloon angioplasty and drug-eluting stent placement to popliteal artery stenosis behind the knee (6 mm x 60 mm Smackageslver PTX)
Plan:
Groin site stable
Continue Plavix
Initiate Xarelto 2.5 mg p.o. twice daily
Can follow-up in our office
Subjective Data
-
Date of Service: March 24, 2025
Patient seen at bedside this a.m. Patient offers no complaints this time. No events overnight. Groin site stable.
Objective Data
-
Vital Signs
Temp Pulse Resp BP Pulse Ox
98.2 F 70 18 128/59 94
03/24/25 08:10 03/24/25 08:10 03/24/25 08:10 03/24/25 08:10 03/24/25 08:10
Intake and Output
03/23/25 03/24/25 03/25/25
06:59 06:59 06:59
Intake Total 920 / 920 460 / 460 1240 / 1240
Balance 920 / 920 460 / 460 1240 / 1240
Intake:
Oral fluids 120 / 120 60 / 60 240 / 240
IV fluids (Total) 500 / 500 100 / 100 800 / 800
Normosal 100 / 100
IV piggybacks 300 / 300 300 / 300 200 / 200
Other:
How many times incontinent 2 4 3
SATURATED amount urine
Lab Results
03/24/25 05:44
Calcium 7.9 mg/dl (8.4-10.2) L 03/23/25 06:23
Total Bilirubin 1.0 mg/dl (0.2-1.3) 03/21/25 08:14
Direct Bilirubin 0.4 mg/dl (0.0-0.4) 03/21/25 08:14
AST 29 U/L (17-59) 03/21/25 08:14
ALT 28 U/L (0-50) 03/21/25 08:14
Alkaline Phosphatase 369 U/L (38-126) H 03/21/25 08:14
Total Protein 6.0 g/dl (6.3-8.2) L 03/21/25 08:14
Albumin 2.9 g/dl (3.5-5.0) L 03/21/25 08:14
Physical Exam
-
Awake and alert
No tachypnea on 2 L nasal cannula
No tachycardia
Abdomen soft
Right groin site clean, dry, soft, intact
Bilateral feet pink and warm
Left foot dressing dry, heels offloaded
[2025-03-24 08:57] LABS: Blood Urea Nitrogen 11 mg/dl (9-20); Calcium 7.3 mg/dl (8.4-10.2); Carbon Dioxide 30 mmol/L (22-30); Chloride 105 mmol/L (98-107); Estimated Creatinine Clearance 72 ml/min; Glucose 118 mg/dl (70-99); Potassium 3.5 mmol/L (3.5-5.1); Sodium 139 mmol/L (135-145); eGFR > 60.00
--- NOTE | 2025-03-24 10:31 | PHA.VAN.FU ---
Addendum entered and electronically signed by Urvashi Parks Liana 03/24/25 11:55:
Agree with assessment and plan
Original Note:
Vancomycin Assessment / Plan
- Assessment
Renal Function: Stable
WBC's are: Trending Down
In the past 24 hrs, patient has been: Afebrile
- Assessment - Therapeutic Drug Monitoring
Extrapolated Cmax (mcg/mL): 24
Peak level was drawn: More than 3 hours after previous dose (drawn ~4H after the END of infusion)
Extrapolated Cmin (mcg/mL): 15.6
Trough Drawn: Appropriately
Levels were drawn: At steady state
Calculated AUC (mcg*h/mL): 469
Calculated ke: 0.0392
Calculated half life (H): 17.7
Calculated Vd (L): 109
Calculated Vanc CL (ml/min): 71
Since peak was drawn >3 hours after dose, there is decreased accuracy of above calculations. Cmax and AUC likely underestimated, while half-life likely overestimated.
However, anticipate half-life remains greater than current dosing interval.
- Dosing Plan
Adjust Regimen to: 1250mg q24h
- Monitoring Plan
No level(s) ordered at this time: consider within next few days
- Follow Up
Pharmacy will continue to follow.
Vancomycin Follow UP
- -
Patient Age: 79
Patient Sex: Male
Vancomycin Day #: 5
Indication: Skin And Soft Tissue
Requesting Provider: Dr. Dex Kauffman
Pertinent Antimicrobial Allergies:
sulfa
Height / Weight:
Height 5 ft 9 in
Actual Weight 86.636 kg
IBW in k.7
Adjusted BW in k.8
Pertinent Past Medical History: limited mobility
- Vital Signs / Lab Results
Temp Pulse Resp BP Pulse Ox
98.2 F 70 18 128/59 94
03/24/25 08:10 03/24/25 08:10 03/24/25 08:10 03/24/25 08:10 03/24/25 08:10
Lab Results - Hematology
03/21/25 03/22/25 03/23/25
08:14 06:27 06:23
WBC 16.6 H 16.8 H 14.6 H
03/24/25
05:44
WBC 13.7 H
Lab Results - Chemistry
03/22/25 03/23/25 03/24/25
06:27 06:23 07:27
BUN 16 14 11
Creatinine 0.8 0.8 0.8
Estimated Creat Clear 72 72 72
Microbiology Results
03/20/25 18:50 Wound Culture - Preliminary
Ulcer Escherichia coli
Proteus mirabilis
Staphylococcus aureus
Streptococcus agalactiae
Gram Stain - Preliminary
03/20/25 18:13 Blood Culture - Preliminary
Blood/Venous Staph aureus MRSA
Gram Stain - Preliminary
03/20/25 18:13 Urine Culture - Final
Urine Escherichia coli
03/22/25 07:08 Blood Culture - Preliminary
Blood/Venous Positive culture in progress
Gram Stain - Preliminary
03/22/25 06:27 Blood Culture - Preliminary
Blood/Venous Positive culture in progress
Gram Stain - Preliminary
03/20/25 18:18 Blood Culture - Preliminary
Blood/Venous Positive culture in progress
Gram Stain - Preliminary
03/21/25 05:42 MRSA Screen - Final
Nose Staph aureus MRSA
Therapeutic Drug Monitoring
Vancomycin Peak 20.5 ug/ml (18-26) 03/23/25 22:16
Vancomycin Trough 15.3 ug/ml (5-20) 03/24/25 05:44
--- NOTE | 2025-03-24 11:15 | PTCARENOTE ---
03/24- Patient is noncompliant with wearing his oxygen. He gets combative when attempting to reapply oxygen. He also gets combative upon wound care and repositioning. Attempted educating him about his care, hygiene and necessity to wear oxygen.
Advised his oxygen levels drop below 90% when he does not wear the oxygen. Offered a humidifier for comfort and moisture in the nares. He refused teaching and told this RN and Tech to 'fuck off.' Patient remains noncompliant with wearing O2.
Skin=pale/pink/dry. +PulsesX4; Cap refill<3sec. No accessory muscle use upon respirations. But POX=88% on RA.
--- NOTE | 2025-03-24 11:24 | W.PN.ID1 ---
Date of Service
Date of Service: March 24, 2025
Today's Communication
Awaiting TTE. If neg - > JACOBO.
Assessment / Plan
# Complicated MRSA bacteremia, sustained, unclear source
# Fever- resolved
# Leukocytosis, improving
- Repeat blood cultures for clearance
- Await echocardiogram (TTE). If negative, JACOBO
- Continue Vancomycin IV. Follow levels closely.
- Trend wbc.
# Left heel necrotic wound
-Not source of bacteremia
- MRI: no abscess, no osteo
# PAD
- 03/23 s/p LLE endovascular intervention
# Diabetes mellitus type 2, uncontrolled A1c 9.3
# Hx CVA with left hemiparesis and dysphagia
# Ulcerative colitis on mesalamine
Chief Complaint
-: Bacteremia
Subjective / Review of Systems
No new complaints.
Vital Signs / Physical Exam
Vital Signs
Vital Signs
Temp Pulse Resp BP Pulse Ox
98.2 F 70 18 128/59 98
03/24/25 08:10 03/24/25 08:10 03/24/25 08:10 03/24/25 08:10 03/24/25 08:15
Physical Exam
Constitutional: Acutely Ill and Chronically Ill
Cardiovascular: Regular Rate and S1/S2
Pulmonary: Clear (anteriorly)
Gastrointestinal: Soft, Non Tender, Non Distended and Normal Bowel Sounds
Extremities: Edema (LLE decreased edema)
Wound: Other (Left foot dressing dry)
Neurological: AO x 3
Objective Data
Lab Data
Lab Results
03/24/25 05:44
03/24/25 07:27
ESR 97 mm/hour (0-20) H 03/21/25 08:14
Estimated Creat Clear 72 ml/min 03/24/25 07:27
Lactic Acid 1.8 mmol/L (0.7-2.0) 03/20/25 18:13
Total Bilirubin 1.0 mg/dl (0.2-1.3) 03/21/25 08:14
AST 29 U/L (17-59) 03/21/25 08:14
ALT 28 U/L (0-50) 03/21/25 08:14
Alkaline Phosphatase 369 U/L (38-126) H 03/21/25 08:14
C-Reactive Protein 241.10 mg/L (0.0-10.00) H 03/23/25 06:23
Most recent labs reviewed.
Micro Results:
03/22/25 06:27 Blood Culture - Preliminary
Blood/Venous Positive culture in progress
Gram Stain - Preliminary
03/22/25 07:08 Blood Culture - Preliminary
Blood/Venous Positive culture in progress
Gram Stain - Preliminary
03/20/25 18:50 Wound Culture - Preliminary
Ulcer Escherichia coli
Proteus mirabilis
Staphylococcus aureus
Streptococcus agalactiae
Gram Stain - Preliminary
03/20/25 18:13 Blood Culture - Preliminary
Blood/Venous Staph aureus MRSA
Gram Stain - Preliminary
03/24/25 08:02 Blood Culture - Pending
Blood/Venous
03/24/25 07:27 Blood Culture - Pending
Blood/Venous
03/20/25 18:13 Urine Culture - Final
Urine Escherichia coli
03/20/25 18:18 Blood Culture - Preliminary
Blood/Venous Positive culture in progress
Gram Stain - Preliminary
03/21/25 05:42 MRSA Screen - Final
Nose Staph aureus MRSA
03/20/25 18:18 Influenza Types A & B (KRISTINE) - Final
Nasal Swab Negative for Influenza A & B, NAAT
Negative results must be combined with clinical observations
and patient history.
Nucleic Acid Amplification test (NAAT)performed on the
[employer] platform.
03/23/25 MRI LLE: Lateral posterior heel ulceration noted with mild underlying subcutaneous edema. No loculated fluid collections. No evidence for osteomyelitis.
Mild to moderate subcutaneous edema about the ankle extending more proximally, suggesting cellulitis. Mild tenosynovitis of the posterior tibialis and flexor digitorum longus tendons.
03/20/25 Left heel XRAY: No findings to suggest recent focal cortical bony destructive process.
[2025-03-24 11:43] LABS: Glucose - Point of Care 98 mg/dl (70-99)
[2025-03-24 11:50] VITALS: BP 138/57
--- NOTE | 2025-03-24 12:12 | PN.CDI ---
CDI
- -
CDI:
Physician Documentation Request
Admit Date: 03/20/25 21:08
Dear Doctor Debbi,
Please review the following and provide your response in the progress notes.
Clinical Indicators:
03/23/25 10:16 (created 03/23/25 15:11) - Wound Note
#Wound Location and type/assessment:
#...Unstageable PI to L heel, dry intact brown eschar, painful to touch.
#...R heel is intact.
#...R sacrum with small stage 3 PI, blanchable pink surrounding.
#...Pale light maroon discoloration on gluteal cleft, suspect evolving DTI.
Physician documentation of the type and location of wounds is required for compliant documentation. Based on the above clinical findings and your assessment, please provide the following in your progress note:
Yes, right sacrum stage 3 pressure injury, POA
No, right sacrum stage 3 pressure injury
Other, (please specify)
1. Location of the ulcer/wound, including laterality.
2. Type (etiology) of ulcer/wound:
- Diabetic ulcer
- Arterial (ischemic) ulcer
- Traumatic wound
- Venous stasis ulcer
- Pressure (decubitus) ulcer
- Other
3. For a pressure ulcer, please also include the stage* of the ulcer:
- Stage 1 - Skin intact, non-blanchable redness
- Stage 2 - Partial thickness loss of dermis, includes intact or open blister
- Stage 3 - Full thickness tissue not including bone, tendon or muscle
- Stage 4 - Full thickness tissue loss, including exposed bone, tendon or muscle
- Unstageable - Full thickness loss in which the base of the ulcer is covered by slough (yellow, baker, manning, green or brown) and/or eschar (baker, brown or black) in the wound bed.
- Unable to determine
Use of terms such as suspected, likely, concern for, or probable (associated with a specific diagnosis that is being evaluated, monitored, or treated as if it exists) are acceptable and can be coded in the inpatient setting, when documented at the
time of discharge.
Thank you,
Hayley Wray RN BSN CCDS
CDI Specialist
Please contact via tiger text
Please use your independent medical judgment in providing your response.
*Source: National Pressure Ulcer Advisory Panel (NPUAP)
--- NOTE | 2025-03-24 12:33 | PN.CDI ---
CDI
- -
CDI:
Physician Documentation Request
Admit Date: 03/20/25 21:08
Dear Doctor Debbi,
Please review the following and provide your response in the progress notes.
The purpose of this query is to ensure the accuracy of the conditions reported for your patient.
Clinical Indicators:
PN, 03/23
#Stage II sacral decubital wound -continue local care. Wound care consulted.
03/23/25 10:16 (created 03/23/25 15:11) - Wound Note
#Wound Location and type/assessment:
#...Unstageable PI to L heel, dry intact brown eschar, painful to touch.
#...R heel is intact.
#...R sacrum with small stage 3 PI, blanchable pink surrounding.
#...Pale light maroon discoloration on gluteal cleft, suspect evolving DTI.
Physician documentation of the type and location of wounds is required for compliant documentation. Based on the above clinical findings and your assessment, please provide the following in your progress note:
Please clarify the stage of the sacral wound, stage 2 PI vs. stage 3 PI
Yes, right sacrum stage 3 pressure injury, POA
Yes, right sacrum stage 2 pressure injury, POA
No, right sacrum stage2/stage 3 pressure injury
Other, (please specify)
1. Location of the ulcer/wound, including laterality.
2. Type (etiology) of ulcer/wound:
- Diabetic ulcer
- Arterial (ischemic) ulcer
- Traumatic wound
- Venous stasis ulcer
- Pressure (decubitus) ulcer
- Other
3. For a pressure ulcer, please also include the stage* of the ulcer:
- Stage 1 - Skin intact, non-blanchable redness
- Stage 2 - Partial thickness loss of dermis, includes intact or open blister
- Stage 3 - Full thickness tissue not including bone, tendon or muscle
- Stage 4 - Full thickness tissue loss, including exposed bone, tendon or muscle
- Unstageable - Full thickness loss in which the base of the ulcer is covered by slough (yellow, baker, manning, green or brown) and/or eschar (baker, brown or black) in the wound bed.
- Unable to determine
Use of terms such as suspected, likely, concern for, or probable (associated with a specific diagnosis that is being evaluated, monitored, or treated as if it exists) are acceptable and can be coded in the inpatient setting, when documented at the
time of discharge.
Thank you,
Hayley Wray RN BSN CCDS
CDI Specialist
Please contact via tiger text
Please use your independent medical judgment in providing your response.
--- NOTE | 2025-03-24 12:52 | W.PN.HOSP.TC ---
Today's Communication/Plan
-
repeat bcx
IV vancomycin
monitor po intake
monitor diarrhea
TTE pending
Assessment / Plan
Assessment / Plan
MRSA bacteremia with unclear source
-MRI without osteomyelitis, or obvious abscess. Cellulitis and tenosynovitis noted. Podiatry comments noted.
-Continue empiric antibiotics with vancomycin.
-TTE ordered.
-Initial blood culture from 03/20/2024 positive with MRSA
-Surveillance cultures from 03/22/2025 remains positive
-Repeat blood cultures to assess for clearance
-May require JACOBO per ID.
-Wound culture with polymicrobial.
Left heel necrotic decubital wound - suspect pressure injury related due to limited mobility, hemiparesis from stroke plus PAD. Offload left heel with pillows.
-Status post left lower extremity angiogram 03/23 which showed Chronic occlusion of L PT, focal calcification of distal SFA so had IVL+balloon angioplasty of SFA and PT, stenting of focal SFA lesion
-Continue with Plavix
-Xarelto 2.5 mg p.o. BID added by vascular surgery
Ulcerative colitis -with diarrhea.
-GI recommends discontinuing steroids and mesalamine.
-Continue with diet
Normocytic anemia -unknown acuity.
-Hemoglobin was normal in November. Monitor for now. No evidence of bleeding.
Pseudohyponatremia -present on admission,
-resolved.
Hypokalemia
-replete and monitor
DM 2 with hyperglycemia/hypoglycemia -hemoglobin A1c 8.0% in January of this year. Postprocedure blood sugars 85
-Prior to admission he was on Januvia 100 mg daily, glargine insulin 20 units at bedtime.
-Lower Lantus dose from 24 down to 20 units at bedtime. POC am 90
-A1C 9.3
Stage II sacral decubital wound -continue local care. Wound care consulted.
History of stroke with left hemiparesis
Hyperlipidemia -atorvastatin.
Essential hypertension -stable. can restart losartan in 24-48h depending on bp. had few episodes of soft BP.
BPH -tamsulosin.
Full code
PT recs SNF.
Anticipated Discharge: > 48 hours
Subjective/Interval History
-
Date of Service: March 24, 2025
states of dec appetite
Objective Data
-
Labs:
Laboratory Results
03/24/25 03/24/25
05:44 07:27
WBC 13.7 H
Hgb 9.5 L
Hct 29.5 L
Plt Count 256
Sodium 139
Potassium 3.5
Chloride 105
Carbon Dioxide 30
BUN 11
Creatinine 0.8
Glucose 118 H
Calcium 7.3 L
Vital Signs:
Vital Signs
Temp Pulse Resp BP Pulse Ox
98.3 F 70 16 138/57 89
03/24/25 11:50 03/24/25 11:50 03/24/25 11:50 03/24/25 11:50 03/24/25 11:50
I&O
03/23/25 03/24/25 03/25/25
06:59 06:59 06:59
Intake Total 920 / 920 460 / 460 1240 / 1240
Balance 920 / 920 460 / 460 1240 / 1240
Physical Exam
-
General: Comfortable
HEENT: Normocephalic, Atraumatic, Moist Mucous Membranes, Nose Appears Normal and Ears Appear Normal
Respiratory: Clear to Auscultation (On anterior auscultation) and Non Labored Respirations; Negative Accessory Resp Muscle Use
Cardiac: Regular Rhythm and S1/S2
GI: Soft, Nontender, Nondistended and Normal Bowel Sounds
Rectal: Deferred by Provider
Musculoskeletal: Other (left leg covered in dressing. )
Skin: Warm
Neuro: Awake and AO x 3
Psych: Calm
Data Reviewed
-
Total Time Spent with Patient (in minutes): 55
[2025-03-24 13:00] VITALS: BP 146/85
--- NOTE | 2025-03-24 13:44 | CM ---
oracle manager reviewed patient's chart and met with patient and plan remains for patient to return to [facility] when stable with [facility].
Cost of Xarelto 2.5mg BID per month is $57.28, coupon provided.
[facility]
Report [phone]

[facility]
[phone]
[2025-03-24 15:20] VITALS: BP 129/62
[2025-03-24 15:53] LABS: Glucose - Point of Care 119 mg/dl (70-99)
[2025-03-24 20:26] VITALS: BP 129/58
[2025-03-24] MEDS: LIPITOR 40 MG PO (21:17)
[2025-03-24] MEDS: XARELTO 2.5 MG PO (21:18)
[2025-03-24] MEDS: TYLENOL 650 MG PO (21:18)
[2025-03-24] MEDS: LIORESAL 5 MG PO (21:18)
[2025-03-24] MEDS: FLOMAX 0.4 MG PO (21:18)
[2025-03-24 21:31] LABS: Glucose - Point of Care 181 mg/dl (70-99)
[2025-03-24] MEDS: LANTUS 0.2 UNITS SC (21:31)
[2025-03-25] VITALS (9 sets, daily range): BP systolic 130–143; BP diastolic 54–68; PULSE 78; O2SAT 92–93; BMI 27.8
[2025-03-25] MEDS: VANCOCIN 275 MG IV (05:33)
[2025-03-25] MEDS: HEPARIN 5000 UNITS SC ×2 (07:30→20:41)
[2025-03-25] MEDS: OCUVITE SOFTGEL 1 CAP PO (07:30)
[2025-03-25] MEDS: XARELTO 2.5 MG PO ×2 (07:30→20:42)
[2025-03-25] MEDS: SANTYL OINTMENT 1 APPLIC TOPICAL (07:30)
[2025-03-25] MEDS: NEURONTIN 100 MG PO ×2 (07:30→20:42)
[2025-03-25] MEDS: PLAVIX 75 MG PO (07:30)
[2025-03-25 07:33] LABS: Glucose - Point of Care 67 mg/dl (70-99)
[2025-03-25] MEDS: NOVOLOG FLEXPEN-LOW RESISTANCE SC ×2 (07:34→12:30)
[2025-03-25 07:50] LABS: Glucose - Point of Care 59 mg/dl (70-99)
[2025-03-25] MEDS: DEXTROSE 50% SYRINGE 12.5 GRAMS IV (08:00)
[2025-03-25 08:44] LABS: Glucose - Point of Care 107 mg/dl (70-99)
[2025-03-25 09:23] LABS: Hematocrit 31.9 % (39.0-52.0); Hemoglobin 10.1 g/dL (13.0-18.0); Mean Corp Hgb Conc. 31.7 g/dL (33.0-37.0); Mean Corpuscular Volume 84.2 fL (80.0-94.0); Nucleated Red Blood Cells % 0 % (-); Platelet Count 331 10^3/uL (130-400); Red Cell Dist. Width 16.0 % (11.5-14.5)
--- NOTE | 2025-03-25 10:18 | CM ---
Chart reviewed and will await physical therapy notes on patient. Cost of Xarelto is $57.28 and patient aware and coupon provided. Plan is to return to [facility] with visiting nurses, depending on physical therapy update.
Jennifer
Report [phone]

[facility]
[phone]
[2025-03-25 10:19] LABS: Blood Urea Nitrogen 8 mg/dl (9-20); Calcium 7.5 mg/dl (8.4-10.2); Carbon Dioxide 28 mmol/L (22-30); Chloride 107 mmol/L (98-107); Estimated Creatinine Clearance 83 ml/min; Glucose 67 mg/dl (70-99); Potassium 3.6 mmol/L (3.5-5.1); Sodium 138 mmol/L (135-145); eGFR > 60.00
--- NOTE | 2025-03-25 11:02 | W.PN.HOSP.TC ---
Addendum entered and electronically signed by Jeronimo Werner MD 03/25/25 13:06:
Sacrum stage III pressure injury
Original Note:
Today's Communication/Plan
-
Cards eval for JACOBO
Reduce lantus
Cont IV vancomycin
OOB/PT
Cont plavix/xarelto
Assessment / Plan
Assessment / Plan
Gen-Awake, , NAD
HEENT-NC, AT, anicteric, clear oral mm
Neck-supple
CV-reg, no M, +S1/S2
Lungs-clear B/L
Abd-soft, NT, ND
Ext-no edema, left heel dressing intact
Musculoskeletal-no cyanosis,left leg covered in dressing
Skin-warm and dry
Neuro-left sided hemiparesis, grossly non-focal
Psych-calm, cooperative
MRSA bacteremia with unclear source
-MRI without osteomyelitis, or obvious abscess. Cellulitis and tenosynovitis noted. Podiatry comments noted.
-Continue empiric antibiotics with vancomycin. Vanc trough and peak level noted
-TTE noted.
-Initial blood culture from 03/20/2024 positive with MRSA
-Surveillance cultures from 03/22/2025 remains positive
-Repeat blood cultures on 03/24 prelim remains negative.
-TTE negative. Cards eval for JACOBO.
-Wound culture with polymicrobial.
Left heel necrotic decubital wound - suspect pressure injury related due to limited mobility, hemiparesis from stroke plus PAD. Offload left heel with pillows.
-Status post left lower extremity angiogram 03/23 which showed Chronic occlusion of L PT, focal calcification of distal SFA so had IVL+balloon angioplasty of SFA and PT, stenting of focal SFA lesion
-Continue with Plavix
-Xarelto 2.5 mg p.o. BID added by vascular surgery
Ulcerative colitis -with diarrhea.
-GI recommends discontinuing steroids and mesalamine.
-Continue with diet
Normocytic anemia -unknown acuity.
-Hemoglobin was normal in November. Monitor for now. No evidence of bleeding.
Pseudohyponatremia -present on admission,
-resolved.
Hypokalemia
-replete and monitor
DM 2 with hyperglycemia/hypoglycemia -hemoglobin A1c 8.0% in January of this year.
-Prior to admission he was on Januvia 100 mg daily, glargine insulin 20 units at bedtime.
-Lower Lantus dose from 24 down to 12 units at bedtime. POC am 67->59-->107
-A1C 9.3
Stage II sacral decubital wound -continue local care. Wound care consulted.
History of stroke with left hemiparesis
Hyperlipidemia -atorvastatin.
Essential hypertension -stable. can restart losartan in 24-48h depending on bp. BP 134/59
BPH -tamsulosin.
Full code
PT recs SNF.
Anticipated Discharge: > 48 hours
Subjective/Interval History
-
Date of Service: March 25, 2025
pt with episode of hypoglycemia earlier today
poc stabilized after juice
Objective Data
-
Labs:
Laboratory Results
03/25/25
08:13
WBC 14.8 H
Hgb 10.1 L
Hct 31.9 L
Plt Count 331 D
Sodium 138
Potassium 3.6
Chloride 107
Carbon Dioxide 28
BUN 8 L
Creatinine 0.7
Glucose 67 L
Calcium 7.5 L
Vital Signs:
Vital Signs
Temp Pulse Resp BP Pulse Ox
97.8 F 76 16 134/59 92
03/25/25 07:00 03/25/25 07:00 03/25/25 07:00 03/25/25 07:00 03/25/25 07:30
I&O
03/24/25 03/25/25 03/26/25
06:59 06:59 06:59
Intake Total 460 / 460 1490 / 1490
Balance 460 / 460 1490 / 1490
Data Reviewed
-
Total Time Spent with Patient (in minutes): 55
--- NOTE | 2025-03-25 11:32 | PHA.VAN.FU ---
Addendum entered and electronically signed by Urvashi Parks [facility] 03/25/25 12:06:
Agree with assessment and plan
Original Note:
Vancomycin Assessment / Plan
- Assessment
Renal Function: Stable
WBC's are: Trending Up
In the past 24 hrs, patient has been: Afebrile
- Dosing Plan
Continue: 1250mg q24h
- Monitoring Plan
No level(s) ordered at this time: consider within the next few days
- Follow Up
Pharmacy will continue to follow.
Vancomycin Follow UP
- -
Patient Age: 79
Patient Sex: Male
Vancomycin Day #: 6
Indication: Skin And Soft Tissue
Requesting Provider: Dr. Dex Kauffman
Pertinent Antimicrobial Allergies:
sulfa
Height / Weight:
Height 5 ft 9 in
Actual Weight 85.389 kg
IBW in k.7
Adjusted BW in k.8
Pertinent Past Medical History: limited mobility
- Vital Signs / Lab Results
Temp Pulse Resp BP Pulse Ox
97.8 F 76 16 134/59 92
03/25/25 07:00 03/25/25 07:00 03/25/25 07:00 03/25/25 07:00 03/25/25 07:30
Lab Results - Hematology
03/23/25 03/24/25 03/25/25
06:23 05:44 08:13
WBC 14.6 H 13.7 H 14.8 H
Lab Results - Chemistry
03/23/25 03/24/25 03/25/25
06:23 07:27 08:13
BUN 14 11 8 L
Creatinine 0.8 0.8 0.7
Estimated Creat Clear 72 72 83
Microbiology Results
03/20/25 18:50 Wound Culture - Final
Ulcer Escherichia coli
Proteus mirabilis
S aureus-Methicillin Sensitive
Streptococcus agalactiae
Gram Stain - Final
03/22/25 07:08 Blood Culture - Preliminary
Blood/Venous Staph aureus MRSA
S aureus-Methicillin Sensitive
Gram Stain - Preliminary
03/22/25 06:27 Blood Culture - Preliminary
Blood/Venous Staph aureus MRSA
S aureus-Methicillin Sensitive
Gram Stain - Preliminary
03/20/25 18:18 Blood Culture - Final
Blood/Venous Staph aureus MRSA
S aureus-Methicillin Sensitive
Gram Stain - Final
03/20/25 18:13 Blood Culture - Final
Blood/Venous Staph aureus MRSA
S aureus-Methicillin Sensitive
Gram Stain - Final
03/24/25 08:02 Blood Culture - Preliminary
Blood/Venous No Growth in 24 hours- Final report to follow
03/24/25 07:27 Blood Culture - Preliminary
Blood/Venous No Growth in 24 hours- Final report to follow
03/20/25 18:13 Urine Culture - Final
Urine Escherichia coli
Therapeutic Drug Monitoring
Vancomycin Peak 20.5 ug/ml (18-26) 03/23/25 22:16
Vancomycin Trough 15.3 ug/ml (5-20) 03/24/25 05:44
[2025-03-25 12:16] LABS: Glucose - Point of Care 157 mg/dl (70-99)
--- NOTE | 2025-03-25 13:11 | W.PN.ID1 ---
Date of Service
Date of Service: March 25, 2025
Today's Communication
JACOBO, if able.
Continue Vancomycin.
Assessment / Plan
# Complicated MRSA and MSSA bacteremia, unclear source
# Fever- resolved
# Leukocytosis stable
- Repeat blood cultures for clearance
- TTE technically difficult, no vege.
- Appreciate cardiology. For JACOBO.
- Continue Vancomycin IV. Follow levels closely.
- Trend wbc.
# Left heel necrotic wound
-Not source of bacteremia
- MRI: no abscess, no osteo
# PAD
- 03/23 s/p LLE endovascular intervention
# Diabetes mellitus type 2, uncontrolled A1c 9.3
# Hx CVA with left hemiparesis and dysphagia
# Ulcerative colitis on mesalamine
Chief Complaint
-: Bacteremia
Subjective / Review of Systems
Feeling better today.
Vital Signs / Physical Exam
Vital Signs
Vital Signs
Temp Pulse Resp BP Pulse Ox
97.6 F 86 16 142/59 96
03/25/25 11:39 03/25/25 11:39 03/25/25 11:39 03/25/25 11:39 03/25/25 11:39
Physical Exam
Constitutional: No Acute Distress and Chronically Ill
Eyes: No Conjunctival Hemorrhage and Sclera Anicteric
Cardiovascular: Regular Rate and S1/S2
Pulmonary: Clear
Gastrointestinal: Soft, Non Tender, Non Distended and Normal Bowel Sounds
Neurological: AO x 3
Objective Data
Lab Data
Lab Results
03/25/25 08:13
03/25/25 08:13
ESR 97 mm/hour (0-20) H 03/21/25 08:14
Estimated Creat Clear 83 ml/min 03/25/25 08:13
Lactic Acid 1.8 mmol/L (0.7-2.0) 03/20/25 18:13
Total Bilirubin 1.0 mg/dl (0.2-1.3) 03/21/25 08:14
AST 29 U/L (17-59) 03/21/25 08:14
ALT 28 U/L (0-50) 03/21/25 08:14
Alkaline Phosphatase 369 U/L (38-126) H 03/21/25 08:14
C-Reactive Protein 241.10 mg/L (0.0-10.00) H 03/23/25 06:23
Most recent labs reviewed.
Micro Results:
03/20/25 18:50 Wound Culture - Final
Ulcer Escherichia coli
Proteus mirabilis
S aureus-Methicillin Sensitive
Streptococcus agalactiae
Gram Stain - Final
03/22/25 07:08 Blood Culture - Preliminary
Blood/Venous Staph aureus MRSA
S aureus-Methicillin Sensitive
Gram Stain - Preliminary
03/22/25 06:27 Blood Culture - Preliminary
Blood/Venous Staph aureus MRSA
S aureus-Methicillin Sensitive
Gram Stain - Preliminary
03/20/25 18:18 Blood Culture - Final
Blood/Venous Staph aureus MRSA
S aureus-Methicillin Sensitive
Gram Stain - Final
03/20/25 18:13 Blood Culture - Final
Blood/Venous Staph aureus MRSA
S aureus-Methicillin Sensitive
Gram Stain - Final
03/24/25 08:02 Blood Culture - Preliminary
Blood/Venous No Growth in 24 hours- Final report to follow
03/24/25 07:27 Blood Culture - Preliminary
Blood/Venous No Growth in 24 hours- Final report to follow
03/20/25 18:13 Urine Culture - Final
Urine Escherichia coli
03/21/25 05:42 MRSA Screen - Final
Nose Staph aureus MRSA
03/20/25 18:18 Influenza Types A & B (KRISTINE) - Final
Nasal Swab Negative for Influenza A & B, NAAT
Negative results must be combined with clinical observations
and patient history.
Nucleic Acid Amplification test (NAAT)performed on the
[employer] platform.
03/23/25 MRI LLE: Lateral posterior heel ulceration noted with mild underlying subcutaneous edema. No loculated fluid collections. No evidence for osteomyelitis.
Mild to moderate subcutaneous edema about the ankle extending more proximally, suggesting cellulitis. Mild tenosynovitis of the posterior tibialis and flexor digitorum longus tendons.
03/20/25 Left heel XRAY: No findings to suggest recent focal cortical bony destructive process.
--- NOTE | 2025-03-25 15:30 | CON.CAR ---
Addendum entered and electronically signed by Lobo Bah MD 03/25/25 17:28:
I saw and examined the patient.
The Leasing Machine Tender's note was reviewed and I agree with the note.
Comment: Briefly, 79-year-old man with past medical history of CVA and residual dysphagia requiring PEG tube placement who presents with left heel wound and found to have MRSA and MSSA bacteremia. Cardiology is consulted for evaluation of JACOBO.
Patient's blood cultures have cleared on vancomycin
No stigmata of infectious endocarditis on physical exam
Left heel wound noted which seems to be a potential source of MRSA and MSSA
Transthoracic echocardiogram reviewed, no significant valvular pathology and no suggestion of endocarditis based on the study
Overall patient is not an ideal candidate for JACOBO given his dysphagia
After discussing risks/ benefits he is hesitant to proceed at this time
For now would not recommend proceeding with JACOBO and ultimately patient is not agreeable
We will sign off, please recall as needed
Original Note:
Consultation
Consultation Request
Date/Time Consultation Performed: 03/25/25
Requesting Provider: Dr. Werner
Performing Provider: Demetra Poon PA-C for Dr. Bah
Reason for Consultation: eval for JACOBO
Medical History
-
Chief Complaint: confusion
History of Present Illness:
Patient is an 79-year-old male with past medical history of prior stroke 08/2024 with residual left hemiparesis and dysphagia requiring temporary PEG tube on chronic Plavix, hypertension, hyperlipidemia, type 2 diabetes with neuropathy and lower
extremity wounds GERD, BPH who presented to [facility] on 03/20/2025 from his assisted living facility due to altered mental status and confusion. He was noted to be febrile with left heel/ankle wound. He is being treated for acute cellulitis. Blood
cultures positive for both MRSA/MSSA, which by 03/24/25 culture have cleared thus far. Echo with preserved EF and no evidence of vegetation seen. Cardiology consulted for evaluation for JACOBO.
PM:
Prior stroke 08/2024 with residual L hemiparesis and dysphagia requiring temporary PEG tube, chronic plavix
Bifascicular block, chronic
HTN
HLD
DM2 with neuropathy
GERD
BPH
Past Medical History
Past Medical History: Other (in HPI)
Social History
Tobacco: Former Smoker
Alcohol: None
Living: Assisted Living
Employment: Retired
Family History
Family History: Reviewed & Not Pertinent
Allergies / Home Medications
Allergy/AdvReac Type Severity Reaction Status Date / Time
Sulfa (Sulfonamide Allergy Unknown Verified 03/20/25 21:08
Antibiotics)
�Medication �Instructions �Recorded �Confirmed �Type
tamsulosin 0.4 mg capsule 0.4 mg PO HS Urinary Issue 08/25/24 03/20/25 History
therapeutic multivitamin 1 tab PO DAILY Supplement 08/25/24 03/20/25 History
pantoprazole 40 mg tablet,delayed 40 mg PO BID Gastrointestinal 10/01/24 03/20/25 Rx
release issue 30 days #60 tabs
atorvastatin 40 mg tablet 40 mg PO DAILY #30 tabs 11/20/24 03/20/25 Rx
acetaminophen 325 mg tablet 650 mg PO HS 03/20/25 03/20/25 History
(Tylenol)
acetaminophen 325 mg tablet 650 mg PO Q4HPRN PRN mild pain 03/20/25 03/20/25 History
(Tylenol)
baclofen 5 mg tablet 5 mg PO HS 03/20/25 03/20/25 History
bisacodyl 10 mg rectal suppository [address] DAILYPRN PRN if no bm by 03/20/25 03/20/25 History
(Dulcolax (bisacodyl)) 3rd day
budesonide 3 mg 9 mg PO DAILY 03/20/25 03/20/25 History
capsule,delayed,extended release
clopidogrel 75 mg tablet (Plavix) 75 mg PO DAILY 03/20/25 03/20/25 History
gabapentin 100 mg capsule 100 mg PO BID 03/20/25 03/20/25 History
guar gum 1 tbsp PO DAILY 03/20/25 03/20/25 History
insulin glargine 100 unit/mL (3 20 unit SC HS 03/20/25 03/20/25 History
mL) subcutaneous pen (Basaglar
KwikPen U-100 Insulin)
losartan 25 mg tablet 25 mg PO DAILY Blood pressure 03/20/25 03/20/25 History
magnesium hydroxide 400 mg/5 mL 2,400 mg PO DAILYPRN PRN 03/20/25 03/20/25 History
oral suspension (Milk of Magnesia) constipation
mesalamine 1.2 gram tablet,delayed 4.8 g PO DAILY 03/20/25 03/20/25 History
release
ondansetron 4 mg disintegrating 4 mg PO Q8HPRN PRN nausea 03/20/25 03/20/25 History
tablet
sitagliptin phosphate 100 mg 100 mg PO DAILY 03/20/25 03/20/25 History
tablet (Januvia)
trazodone 50 mg tablet 25 mg PO HS Sleep 03/20/25 03/20/25 History
vitamins A,C,J-jzdu-slsppd 2,148 1 tab PO BID 03/20/25 03/20/25 History
mcg-113 mg-45 mg-17.4 mg tablet
(PreserVision AREDS)
Review of Systems
-
History Source: Patient
All other systems: Negative unless noted
Physical Exam
Vital Signs
Temp Pulse Resp BP Pulse Ox
97.6 F 86 16 142/59 96
03/25/25 11:39 03/25/25 11:39 03/25/25 11:39 03/25/25 11:39 03/25/25 11:39
Lab Results
03/25/25 08:13
03/25/25 08:13
Physical Exam
General: No Apparent Distress and Comfortable
HEENT: Normocephalic, Anicteric and Moist Mucous Membranes
Respiratory: Clear and Non Labored Respirations
Cardiac: S1/S2 and Regular Rhythm
GI: Soft, Non Tender, Non Distended and Normal Bowel Sounds
Musculoskeletal: No Clubbing, No Cyanosis and No Edema
Skin: Warm and Dry
Neuro: Awake, Alert and Oriented (to self, place)
Impression / Plan
-
Primary Boiler Erector: none prior to admission
Assessment:
Presentation with confusion
Fever
LLE cellulitis
MSSA/MRSA bacteremia
Prior stroke 08/2024 with residual L hemiparesis and dysphagia requiring temporary PEG tube, chronic plavix
Bifascicular block, chronic
HTN
HLD
DM2 with neuropathy
GERD
BPH
ECHO 03/24/25: EF 50 to 55%, no evidence of vegetation seen however if clinical suspicion high would suggest JACOBO, no significant change compared to prior study
Plan:
- Patient presented on 03/20/25 from assisted living facility with confusion. Found to be febrile and with evidence of a left lower extremity wound with concern for cellulitis. Blood cultures positive for MSSA and MRSA. Appear to be clearing by
most recent blood culture taken 03/24/2025.
- Continue antibiotics per ID
- Echocardiogram 03/24/2025 with results as above, no evidence of vegetation seen
- Cardiology consulted to evaluate patient for JACOBO. procedure discussed with patient today.
- With polymicrobial source appears unlikely from endocarditis. He also has issues with dysphagia post stroke 08/2024 and remains on pur�ed diet and aspiration precautions which place him at higher risk. He is also hesitant to move forward with
procedures, so would attempt to avoid JACOBO at this time
- in SR on review of tele
- continue wound care
- d/w nursing
Data Reviewed
-
EKG: Tracing Personally Visualized and interpreted
Medical Tests (Nuc Med, Echo etc): Report Reviewed by me
Labs: Labs Reviewed by me
Old Records: Reviewed
[2025-03-25 16:40] LABS: Glucose - Point of Care 175 mg/dl (70-99)
[2025-03-25] MEDS: NOVOLOG FLEXPEN-LOW RESISTANCE 1 UNITS SC (16:46)
[2025-03-25 21:35] LABS: Glucose - Point of Care 166 mg/dl (70-99)
[2025-03-25] MEDS: FLOMAX 0.4 MG PO (21:38)
[2025-03-25] MEDS: TYLENOL 650 MG PO (21:38)
[2025-03-25] MEDS: LANTUS 0.12 UNITS SC (21:38)
[2025-03-25] MEDS: LIPITOR 40 MG PO (21:38)
[2025-03-26 03:04] VITALS: BP 132/55
[2025-03-26 03:59] LABS: Glucose - Point of Care 86 mg/dl (70-99)
[2025-03-26 05:11] VITALS: BMI 28.6
[2025-03-26] MEDS: VANCOCIN 275 MG IV (05:52)
[2025-03-26 07:40] VITALS: BP 143/64
[2025-03-26] MEDS: NEURONTIN 100 MG PO ×2 (08:21→19:47)
[2025-03-26] MEDS: PLAVIX 75 MG PO (08:21)
[2025-03-26] MEDS: HEPARIN 5000 UNITS SC ×2 (08:21→19:48)
[2025-03-26] MEDS: SANTYL OINTMENT 1 APPLIC TOPICAL (08:21)
[2025-03-26] MEDS: OCUVITE SOFTGEL 1 CAP PO (08:21)
[2025-03-26] MEDS: XARELTO 2.5 MG PO ×2 (08:21→19:49)
[2025-03-26 08:25] LABS: Hematocrit 30.4 % (39.0-52.0); Hemoglobin 10.1 g/dL (13.0-18.0); Mean Corp Hgb Conc. 33.2 g/dL (33.0-37.0); Mean Corpuscular Volume 81.3 fL (80.0-94.0); Nucleated Red Blood Cells % 0 % (-); Platelet Count 355 10^3/uL (130-400); Red Cell Dist. Width 16.0 % (11.5-14.5)
[2025-03-26 08:28] LABS: Glucose - Point of Care 73 mg/dl (70-99)
[2025-03-26] MEDS: NOVOLOG FLEXPEN-LOW RESISTANCE SC ×2 (08:33→12:11)
[2025-03-26 09:01] LABS: Blood Urea Nitrogen 7 mg/dl (9-20); Calcium 7.7 mg/dl (8.4-10.2); Carbon Dioxide 27 mmol/L (22-30); Chloride 108 mmol/L (98-107); Estimated Creatinine Clearance 97 ml/min; Glucose 63 mg/dl (70-99); Potassium 3.9 mmol/L (3.5-5.1); Sodium 138 mmol/L (135-145); eGFR > 60.00
--- NOTE | 2025-03-26 09:24 | PHA.VAN.FU ---
Addendum entered and electronically signed by Urvashi Parks Liana 03/26/25 09:39:
Agree with assessment and plan
Original Note:
Vancomycin Assessment / Plan
- Assessment
Renal Function: SCR Decreasing
WBC's are: Trending Down
In the past 24 hrs, patient has been: Afebrile
- Dosing Plan
Continue: 1250mg q24h
- Monitoring Plan
No level(s) ordered at this time: consider in next few days
- Follow Up
Pharmacy will continue to follow.
Vancomycin Follow UP
- -
Patient Age: 79
Patient Sex: Male
Vancomycin Day #: 7
Indication: Skin And Soft Tissue
Requesting Provider: Dr. Dex Kauffman
Pertinent Antimicrobial Allergies:
sulfa
Height / Weight:
Height 5 ft 9 in
Actual Weight 87.685 kg
IBW in k.7
Adjusted BW in k.8
Pertinent Past Medical History: limited mobility
- Vital Signs / Lab Results
Temp Pulse Resp BP Pulse Ox
98.8 F 77 18 143/64 97
03/26/25 07:40 03/26/25 07:40 03/26/25 07:40 03/26/25 07:40 03/26/25 07:40
Lab Results - Hematology
03/24/25 03/25/25 03/26/25
05:44 08:13 07:51
WBC 13.7 H 14.8 H 13.4 H
Lab Results - Chemistry
03/24/25 03/25/25 03/26/25
07:27 08:13 07:51
BUN 11 8 L 7 L
Creatinine 0.8 0.7 0.6 L
Estimated Creat Clear 72 83 97
Microbiology Results
03/24/25 07:27 Blood Culture - Preliminary
Blood/Venous Positive culture in progress
Gram Stain - Preliminary
03/24/25 08:02 Blood Culture - Preliminary
Blood/Venous No Growth in 48 hours- Final report to follow
03/20/25 18:50 Wound Culture - Final
Ulcer Escherichia coli
Proteus mirabilis
S aureus-Methicillin Sensitive
Streptococcus agalactiae
Gram Stain - Final
03/22/25 07:08 Blood Culture - Preliminary
Blood/Venous Staph aureus MRSA
S aureus-Methicillin Sensitive
Gram Stain - Preliminary
03/22/25 06:27 Blood Culture - Preliminary
Blood/Venous Staph aureus MRSA
S aureus-Methicillin Sensitive
Gram Stain - Preliminary
03/20/25 18:18 Blood Culture - Final
Blood/Venous Staph aureus MRSA
S aureus-Methicillin Sensitive
Gram Stain - Final
03/20/25 18:13 Blood Culture - Final
Blood/Venous Staph aureus MRSA
S aureus-Methicillin Sensitive
Gram Stain - Final
Therapeutic Drug Monitoring
Vancomycin Peak 20.5 ug/ml (18-26) 03/23/25 22:16
Vancomycin Trough 15.3 ug/ml (5-20) 03/24/25 05:44
--- NOTE | 2025-03-26 10:14 | CM ---
Addendum entered by Tiffanie Hauser 03/26/25 16:03:
TCB from daughter Erika with skilled rehab choices, [facility], [facility], [facility], [facility]- referrals to be placed.
Daughter aware financials may need to be completed.
Addendum entered by Tiffanie Hauser 03/26/25 11:37:
Spoke with daughter Erika, discussed skilled rehab prior to returning to [facility], list of long term facilities emailed to daughter at [email or web address]. She will discuss with her brother and get back to CM. Daughter requested call from .
will TT MD.
Addendum entered by Tiffanie Hauser 03/26/25 11:21:
Switched to IV Vanco today for 6 weeks IV anbx. Per Yamileth at [facility], patient is not at baseline and would need skilled rehab prior to returning unless there is improvement in lefel of function. Per ID note patient will require exterminator anbx. He
would need to be re-eval by them prior to return. Discussed with patient he will think about going to skilled rehab, CM will reach out to dtr.
Original Note:
TC to [facility] p# [phone], spoke with Yamileth one of the nurses this cm will fax clinicals and therapy notes to see if patient can return to [facility] at d/c. [facility]- is off the next 2 days. She will contact [facility] to see if patient needs to be
reevaluated prior to accepting back.
--- NOTE | 2025-03-26 10:42 | W.PN.ID1 ---
Date of Service
Date of Service: March 26, 2025
Today's Communication
Replace Vancomycin with Daptomycin.
Assessment / Plan
# Complicated MRSA and MSSA bacteremia
# Fever- resolved
# Leukocytosis stable
- 03/24/25 bcx (1of 2) turned positive.
- Repeat blood cultures for clearance
- TTE technically difficult, no vege.
- Per cardiology, pt not candidate for JACOBO due to dysphagia
- DC Vancomycin.
- Start Daptomycin 800mg IV q24h x 6 weeks from neg blood cx's.
- Follow CK while on daptomycin.
- Trend wbc.
# Left heel necrotic wound
-Not source of bacteremia
- MRI: no abscess, no osteo
# PAD
- 03/23 s/p LLE endovascular intervention
# Diabetes mellitus type 2, uncontrolled A1c 9.3
# Hx CVA with left hemiparesis and dysphagia
# Ulcerative colitis on mesalamine
Chief Complaint
-: Bacteremia
Subjective / Review of Systems
No new complaints.
Vital Signs / Physical Exam
Vital Signs
Vital Signs
Temp Pulse Resp BP Pulse Ox
98.8 F 77 18 143/64 97
03/26/25 07:40 03/26/25 07:40 03/26/25 07:40 03/26/25 07:40 03/26/25 07:40
Physical Exam
Constitutional: No Acute Distress and Chronically Ill
Eyes: No Conjunctival Hemorrhage and Sclera Anicteric
Cardiovascular: Regular Rate and S1/S2
Pulmonary: Clear
Gastrointestinal: Soft, Non Tender, Non Distended and Normal Bowel Sounds
Genito-Urinary: Negative CVA Tenderness
Extremities: Negative Edema
Neurological: AO x 3
Objective Data
Lab Data
Lab Results
03/26/25 07:51
03/26/25 07:51
ESR 97 mm/hour (0-20) H 03/21/25 08:14
Estimated Creat Clear 97 ml/min 03/26/25 07:51
Lactic Acid 1.8 mmol/L (0.7-2.0) 03/20/25 18:13
Total Bilirubin 1.0 mg/dl (0.2-1.3) 03/21/25 08:14
AST 29 U/L (17-59) 03/21/25 08:14
ALT 28 U/L (0-50) 03/21/25 08:14
Alkaline Phosphatase 369 U/L (38-126) H 03/21/25 08:14
C-Reactive Protein 241.10 mg/L (0.0-10.00) H 03/23/25 06:23
Most recent labs reviewed.
Micro Results:
03/26/25 08:16 Blood Culture - Pending
Blood/Venous
03/26/25 07:51 Blood Culture - Pending
Blood/Venous
03/24/25 07:27 Blood Culture - Preliminary
Blood/Venous Positive culture in progress
Gram Stain - Preliminary
03/24/25 08:02 Blood Culture - Preliminary
Blood/Venous No Growth in 48 hours- Final report to follow
03/20/25 18:50 Wound Culture - Final
Ulcer Escherichia coli
Proteus mirabilis
S aureus-Methicillin Sensitive
Streptococcus agalactiae
Gram Stain - Final
03/22/25 07:08 Blood Culture - Preliminary
Blood/Venous Staph aureus MRSA
S aureus-Methicillin Sensitive
Gram Stain - Preliminary
03/22/25 06:27 Blood Culture - Preliminary
Blood/Venous Staph aureus MRSA
S aureus-Methicillin Sensitive
Gram Stain - Preliminary
03/20/25 18:18 Blood Culture - Final
Blood/Venous Staph aureus MRSA
S aureus-Methicillin Sensitive
Gram Stain - Final
03/20/25 18:13 Blood Culture - Final
Blood/Venous Staph aureus MRSA
S aureus-Methicillin Sensitive
Gram Stain - Final
03/20/25 18:13 Urine Culture - Final
Urine Escherichia coli
03/21/25 05:42 MRSA Screen - Final
Nose Staph aureus MRSA
03/20/25 18:18 Influenza Types A & B (KRISTINE) - Final
Nasal Swab Negative for Influenza A & B, NAAT
Negative results must be combined with clinical observations
and patient history.
Nucleic Acid Amplification test (NAAT)performed on the
[employer] platform.
03/23/25 MRI LLE: Lateral posterior heel ulceration noted with mild underlying subcutaneous edema. No loculated fluid collections. No evidence for osteomyelitis.
Mild to moderate subcutaneous edema about the ankle extending more proximally, suggesting cellulitis. Mild tenosynovitis of the posterior tibialis and flexor digitorum longus tendons.
03/20/25 Left heel XRAY: No findings to suggest recent focal cortical bony destructive process.
[2025-03-26 12:08] LABS: Glucose - Point of Care 88 mg/dl (70-99)
--- NOTE | 2025-03-26 12:16 | W.PN.HOSP.TC ---
Addendum entered and electronically signed by Jeronimo Werner MD 03/26/25 15:45:
update daughter over the phone in details.
Original Note:
Today's Communication/Plan
-
plan to start dapto
monitor Ck
restart losartan
monitor poc
Assessment / Plan
Assessment / Plan
Gen-Awake, , NAD
HEENT-NC, AT, anicteric, clear oral mm
Neck-supple
CV-reg, no M, +S1/S2
Lungs-clear B/L
Abd-soft, NT, ND
Ext-no edema, left heel dressing intact
Musculoskeletal-no cyanosis,left leg covered in dressing
Skin-warm and dry
Neuro-left sided hemiparesis, grossly non-focal
Psych-calm, cooperative
MRSA bacteremia with unclear source
-MRI without osteomyelitis, or obvious abscess. Cellulitis and tenosynovitis noted. Podiatry comments noted.
- Plan to discontinue vancomycin and transition patient to daptomycin for 6 weeks.
-TTE noted.
-Initial blood culture from 03/20/2024 positive with MRSA
-Surveillance cultures from 03/22/2025 remains positive
-Repeat blood cultures on 03/24 prelim remains negative.
-TTE negative. Cards eval for JACOBO and are appropriate candidate.
-Wound culture with polymicrobial.
Left heel necrotic decubital wound - suspect pressure injury related due to limited mobility, hemiparesis from stroke plus PAD. Offload left heel with pillows.
-Status post left lower extremity angiogram 03/23 which showed Chronic occlusion of L PT, focal calcification of distal SFA so had IVL+balloon angioplasty of SFA and PT, stenting of focal SFA lesion
-Continue with Plavix
-Xarelto 2.5 mg p.o. BID added by vascular surgery
Ulcerative colitis -with diarrhea.
-GI recommends discontinuing steroids and mesalamine.
-Continue with diet
Normocytic anemia -unknown acuity.
-Hemoglobin was normal in November. Monitor for now. No evidence of bleeding.
Pseudohyponatremia -present on admission,
-resolved.
Hypokalemia
-replete and monitor
DM 2 with hyperglycemia/hypoglycemia -hemoglobin A1c 8.0% in January of this year.
-Prior to admission he was on Januvia 100 mg daily, glargine insulin 20 units at bedtime.
-Lower Lantus dose from 24 down to 12 units at bedtime.
-A1C 9.3
Stage III sacral decubital wound -continue local care. Wound care consulted.
History of stroke with left hemiparesis
Hyperlipidemia -atorvastatin.
Essential hypertension -stable. Continue with losartan.
BPH -tamsulosin.
Full code
PT recs SNF.
called daughter to update but no response. left for call back.
Anticipated Discharge: > 48 hours
Subjective/Interval History
-
Date of Service: March 26, 2025
States he is feeling better
denies any leg pain or abd pain
Objective Data
-
Labs:
Laboratory Results
03/26/25
07:51
WBC 13.4 H
Hgb 10.1 L
Hct 30.4 L
Plt Count 355
Sodium 138
Potassium 3.9
Chloride 108 H
Carbon Dioxide 27
BUN 7 L
Creatinine 0.6 L
Glucose 63 L
Calcium 7.7 L
Vital Signs:
Vital Signs
Temp Pulse Resp BP Pulse Ox
98.8 F 77 18 143/64 97
03/26/25 07:40 03/26/25 07:40 03/26/25 07:40 03/26/25 07:40 03/26/25 07:40
I&O
03/25/25 03/26/25 03/27/25
06:59 06:59 06:59
Intake Total 1490 / 1490 755 / 755
Balance 1490 / 1490 755 / 755
[2025-03-26] MEDS: CUBICIN 16 MG IV (12:21)
[2025-03-26 15:13] VITALS: BP 143/65
[2025-03-26 16:51] LABS: Glucose - Point of Care 170 mg/dl (70-99)
[2025-03-26] MEDS: NOVOLOG FLEXPEN-LOW RESISTANCE 1 UNITS SC (17:24)
[2025-03-26 21:37] LABS: Glucose - Point of Care 122 mg/dl (70-99)
[2025-03-26] MEDS: FLOMAX 0.4 MG PO (21:54)
[2025-03-26] MEDS: TYLENOL 650 MG PO (21:54)
[2025-03-26] MEDS: LANTUS 0.12 UNITS SC (21:55)
[2025-03-26 23:28] VITALS: BP 139/65
[2025-03-27 06:00] VITALS: BMI 27.9
[2025-03-27 06:54] LABS: Hematocrit 31.2 % (39.0-52.0); Hemoglobin 10.0 g/dL (13.0-18.0); Mean Corp Hgb Conc. 32.1 g/dL (33.0-37.0); Mean Corpuscular Volume 83.0 fL (80.0-94.0); Nucleated Red Blood Cells % 0 % (-); Platelet Count 423 10^3/uL (130-400); Red Cell Dist. Width 16.3 % (11.5-14.5)
[2025-03-27 07:00] VITALS: BP 147/96
[2025-03-27 07:20] LABS: Blood Urea Nitrogen 7 mg/dl (9-20); Calcium 7.8 mg/dl (8.4-10.2); Carbon Dioxide 30 mmol/L (22-30); Chloride 107 mmol/L (98-107); Estimated Creatinine Clearance 83 ml/min; Glucose 78 mg/dl (70-99); Potassium 3.9 mmol/L (3.5-5.1); Sodium 139 mmol/L (135-145); eGFR > 60.00
[2025-03-27 07:26] LABS: Glucose - Point of Care 68 mg/dl (70-99)
[2025-03-27] MEDS: NOVOLOG FLEXPEN-LOW RESISTANCE SC ×3 (07:37→17:01)
[2025-03-27 07:46] LABS: Glucose - Point of Care 64 mg/dl (70-99)
[2025-03-27] MEDS: XARELTO 2.5 MG PO ×2 (07:55→20:12)
[2025-03-27] MEDS: SANTYL OINTMENT 1 APPLIC TOPICAL (07:56)
[2025-03-27] MEDS: PLAVIX 75 MG PO (07:56)
[2025-03-27] MEDS: COZAAR 25 MG PO (07:56)
[2025-03-27] MEDS: NEURONTIN 100 MG PO ×2 (07:56→20:12)
[2025-03-27] MEDS: OCUVITE SOFTGEL 1 CAP PO (07:56)
[2025-03-27] MEDS: HEPARIN 5000 UNITS SC ×2 (07:56→20:13)
[2025-03-27 08:07] LABS: Glucose - Point of Care 174 mg/dl (70-99)
--- NOTE | 2025-03-27 08:09 | W.PN.HOSP.TC ---
Today's Communication/Plan
-
Continue with broad-spectrum antibiotic daptomycin
Hold statin
Decrease Lantus
Eventual PICC line once cultures are completely cleared
Assessment / Plan
Assessment / Plan
Gen-Awake, , NAD
HEENT-NC, AT, anicteric, clear oral mm
Neck-supple
CV-reg, no M, +S1/S2
Lungs-clear B/L
Abd-soft, NT, ND
Ext-no edema, left heel dressing intact
Musculoskeletal-no cyanosis,left leg covered in dressing
Skin-warm and dry, heel wound noted.? Lymphangitis uptrending left posterior leg
Neuro-left sided hemiparesis, grossly non-focal
Psych-calm, cooperative
MRSA bacteremia with unclear source
-MRI without osteomyelitis, or obvious abscess. Cellulitis and tenosynovitis noted. Podiatry comments noted.
- Plan to discontinue vancomycin and transition patient to daptomycin for 6 weeks. CK baseline normal. Statin held
-TTE noted.
-Initial blood culture from 03/20/2024 positive with MRSA
-Surveillance cultures from 03/22/2025 remains positive
-Repeat blood cultures on 03/24 prelim remains negative.
-Repeat blood cultures on 03/26 prelim remains negative.
-Repeat blood culture on 03/27 in lab
-TTE negative. Cards eval for JACOBO and are appropriate candidate.
-Wound culture with polymicrobial. Bump in wbc noted. afebrile.
Left heel necrotic decubital wound - suspect pressure injury related due to limited mobility, hemiparesis from stroke plus PAD. Offload left heel with pillows.
-Status post left lower extremity angiogram 03/23 which showed Chronic occlusion of L PT, focal calcification of distal SFA so had IVL+balloon angioplasty of SFA and PT, stenting of focal SFA lesion
-Continue with Plavix
-Xarelto 2.5 mg p.o. BID added by vascular surgery
Ulcerative colitis -with diarrhea.
-GI recommends discontinuing steroids and mesalamine.
-Continue with diet
Normocytic anemia -unknown acuity.
-Hemoglobin was normal in November. Monitor for now. No evidence of bleeding.
Pseudohyponatremia -present on admission,
-resolved.
Hypokalemia
-replete and monitor
DM 2 with hyperglycemia/hypoglycemia -hemoglobin A1c 8.0% in January of this year.
-Prior to admission he was on Januvia 100 mg daily, glargine insulin 20 units at bedtime.
-Lower Lantus dose from 24 down to 8 units at bedtime. as with mild hypoglycemia episode
-A1C 9.3
Stage III sacral decubital wound -continue local care. Wound care consulted.
History of stroke with left hemiparesis
Hyperlipidemia -atorvastatin on hold while on daptomycin.
Essential hypertension -stable. Continue with losartan.
BPH -tamsulosin.
Full code
PT recs SNF.
updated son over the phone in details.
Anticipated Discharge: > 48 hours
Subjective/Interval History
-
Date of Service: March 27, 2025
states feeling weak today
VSS
awaiting breakfast
Objective Data
-
Labs:
Laboratory Results
03/27/25
06:42
WBC 16.2 H
Hgb 10.0 L
Hct 31.2 L
Plt Count 423 H
Sodium 139
Potassium 3.9
Chloride 107
Carbon Dioxide 30
BUN 7 L
Creatinine 0.7
Glucose 78
Calcium 7.8 L
Vital Signs:
Vital Signs
Temp Pulse Resp BP Pulse Ox
97.6 F 76 16 139/65 94
03/26/25 23:28 03/26/25 23:28 03/26/25 23:28 03/26/25 23:28 03/26/25 23:28
I&O
03/26/25 03/27/25 03/28/25
06:59 06:59 06:59
Intake Total 755 / 755 880 / 880
Output Total 400 / 400
Balance 755 / 755 480 / 480
Data Reviewed
-
Total Time Spent with Patient (in minutes): 55
--- NOTE | 2025-03-27 09:50 | CM ---
Chart reviewed and plan is possible skilled placement patient will need IV ABX, PT and OT. Call placed to [facility] this morning and reviewed skilled options, first choice is [facility] and [facility], then [facility],
[facility] and [facility] as back up options.
Plan; Skilled placed for IV ABX, and PT/OT.
[2025-03-27 10:23] LABS: Glucose - Point of Care 91 mg/dl (70-99)
--- NOTE | 2025-03-27 11:09 | WOUNDNOTE ---
L FOOT/ANKLE (ANTERIOR)
--- NOTE | 2025-03-27 11:11 | WOUNDNOTE ---
L THIGH/CALF (POSTERIOR)
--- NOTE | 2025-03-27 11:31 | WOUNDNOTE ---
[facility] RN note: Patient seen for HAPI report for stage 2 scrotal pressure injury. He has small dermal opening on scrotum d/t loose stools. Calazime being used. Patient incontinent of urine. Assisted MARGARITA Metz with jessica care, changing underpads, changed
sacral and heel dressings. Noted L anterior ankle/proximal dorsal foot area with couple purple ecchymotic areas suspect r/t renay use along with PAD. Silicone border foam dressing applied. Sacral ulcer slightly cabin cleaner. L heel dry black eschar
stable. L posterior leg and L medial calf with some linear red firm tender areas (phlebitis?). Guerrero texted Indy Youssef vascular PA picture of posterior thigh/leg who referred to primary service. Guerrero texted Dr. Werner and Dr. Moralez including L
posterior leg picture noting linear red somewhat firm and tender areas; also mentioned purple ecchymotic areas L anterior ankle/proximal dorsal foot suspect from Renay wrap along with PAD. Dr. Werner approved local care to L anterior ankle/foot and
change in L heel wound care (secure dressing with stockinet instead of Renay). Care plan and discharge instructions updated. Discussed with MARGARITA Metz. Guerrero texted JEANA Bolaños re: recommend air mattress at SNF; patient has a sacral stage 3
pressure injury. Will follow as needed.
--- NOTE | 2025-03-27 11:31 | W.PN.ID1 ---
Date of Service
Date of Service: March 27, 2025
Today's Communication
Continue Daptomycin.
LLE venous US.
Assessment / Plan
# Complicated MRSA and MSSA bacteremia
# Fever- resolved
# Leukocytosis increased today
- 03/24/25 bcx (1of 2) positive.
- Repeat blood cultures for clearance
- TTE technically difficult, no vege.
- Per cardiology, pt not candidate for JACOBO due to dysphagia
- Continue Daptomycin 800mg IV q24h x 6 weeks from neg blood cx's, through 05/06/25
- Follow weekly CK, CBC, CMP while on daptomycin.
- Trend wbc.
- If blood cultures remain negative, place PICC Sunday.
# Streaking erythema on LLE calf and posterior thigh
- Ordered periph venous US to access for phlebitis
# PAD
- 03/23 s/p LLE endovascular intervention
# Left heel necrotic wound
- MRI: no abscess, no osteo
# Diabetes mellitus type 2, uncontrolled A1c 9.3
# Hx CVA with left hemiparesis and dysphagia
# Ulcerative colitis on mesalamine
Chief Complaint
-: Bacteremia
Subjective / Review of Systems
No new complaints. No diarrhea.
Vital Signs / Physical Exam
Vital Signs
Vital Signs
Temp Pulse Resp BP Pulse Ox
97.5 F 78 18 147/96 97
03/27/25 07:00 03/27/25 07:00 03/27/25 07:00 03/27/25 07:00 03/27/25 07:00
Physical Exam
Constitutional: Chronically Ill
Cardiovascular: Regular Rate and S1/S2
Pulmonary: Clear
Gastrointestinal: Soft, Non Tender and Non Distended
Extremities: Edema (LLE>RLE)
Skin: Rash (Streaking erythema LLE calf and posterior thigh)
Wound: Other (Reviewed today wound photo: Left heel large wound with eschar)
Neurological: AO x 3
Objective Data
Lab Data
Lab Results
03/27/25 06:42
03/27/25 06:42
ESR 97 mm/hour (0-20) H 03/21/25 08:14
Estimated Creat Clear 83 ml/min 03/27/25 06:42
Lactic Acid 1.8 mmol/L (0.7-2.0) 03/20/25 18:13
Total Bilirubin 1.0 mg/dl (0.2-1.3) 03/21/25 08:14
AST 29 U/L (17-59) 03/21/25 08:14
ALT 28 U/L (0-50) 03/21/25 08:14
Alkaline Phosphatase 369 U/L (38-126) H 03/21/25 08:14
C-Reactive Protein 241.10 mg/L (0.0-10.00) H 03/23/25 06:23
Most recent labs reviewed.
Micro Results:
03/24/25 07:27 Blood Culture - Preliminary
Blood/Venous Staphylococcus aureus
Gram Stain - Preliminary
03/26/25 08:16 Blood Culture - Preliminary
Blood/Venous No Growth in 24 hours- Final report to follow
03/26/25 07:51 Blood Culture - Preliminary
Blood/Venous No Growth in 24 hours- Final report to follow
03/24/25 08:02 Blood Culture - Preliminary
Blood/Venous No Growth in 72 hours- Final report to follow
03/27/25 07:36 Blood Culture - Pending
Blood/Venous
03/27/25 06:42 Blood Culture - Pending
Blood/Venous
03/20/25 18:50 Wound Culture - Final
Ulcer Escherichia coli
Proteus mirabilis
S aureus-Methicillin Sensitive
Streptococcus agalactiae
Gram Stain - Final
03/22/25 07:08 Blood Culture - Preliminary
Blood/Venous Staph aureus MRSA
S aureus-Methicillin Sensitive
Gram Stain - Preliminary
03/22/25 06:27 Blood Culture - Preliminary
Blood/Venous Staph aureus MRSA
S aureus-Methicillin Sensitive
Gram Stain - Preliminary
03/20/25 18:18 Blood Culture - Final
Blood/Venous Staph aureus MRSA
S aureus-Methicillin Sensitive
Gram Stain - Final
03/20/25 18:13 Blood Culture - Final
Blood/Venous Staph aureus MRSA
S aureus-Methicillin Sensitive
Gram Stain - Final
03/20/25 18:13 Urine Culture - Final
Urine Escherichia coli
03/21/25 05:42 MRSA Screen - Final
Nose Staph aureus MRSA
03/20/25 18:18 Influenza Types A & B (KRISTINE) - Final
Nasal Swab Negative for Influenza A & B, NAAT
Negative results must be combined with clinical observations
and patient history.
Nucleic Acid Amplification test (NAAT)performed on the
[employer] platform.
03/23/25 MRI LLE: Lateral posterior heel ulceration noted with mild underlying subcutaneous edema. No loculated fluid collections. No evidence for osteomyelitis.
Mild to moderate subcutaneous edema about the ankle extending more proximally, suggesting cellulitis. Mild tenosynovitis of the posterior tibialis and flexor digitorum longus tendons.
03/20/25 Left heel XRAY: No findings to suggest recent focal cortical bony destructive process.
Care Review
Plan reviewed with: Nurse (Nettie) and Physician (Dr. Werner)
[2025-03-27 11:59] LABS: Glucose - Point of Care 104 mg/dl (70-99)
--- NOTE | 2025-03-27 12:42 | PTCARENOTE ---
Wound dressings were changed with the wound nurse. We changed his R heel foam as well as changed his sacral foam. The wound care nurse also took pictures of abrasions on pt's legs and on his upper back. All dressings are new, clean, dry, and intact.
[2025-03-27] MEDS: CUBICIN 16 MG IV (13:19)
[2025-03-27 15:00] VITALS: BP 131/56
[2025-03-27 16:51] LABS: Glucose - Point of Care 109 mg/dl (70-99)
[2025-03-27 21:39] LABS: Glucose - Point of Care 251 mg/dl (70-99)
[2025-03-27] MEDS: TYLENOL 650 MG PO (21:40)
[2025-03-27] MEDS: FLOMAX 0.4 MG PO (21:40)
[2025-03-27] MEDS: LANTUS 0.08 UNITS SC (21:40)
[2025-03-27 23:00] VITALS: BP 139/58
[2025-03-28 03:38] LABS: Glucose - Point of Care 152 mg/dl (70-99)
[2025-03-28 06:00] VITALS: BMI 28.1
[2025-03-28 07:00] VITALS: BP 139/58
[2025-03-28 07:29] LABS: Glucose - Point of Care 111 mg/dl (70-99)
[2025-03-28 07:56] LABS: Hematocrit 32.2 % (39.0-52.0); Hemoglobin 10.2 g/dL (13.0-18.0); Mean Corp Hgb Conc. 31.7 g/dL (33.0-37.0); Mean Corpuscular Volume 83.4 fL (80.0-94.0); Nucleated Red Blood Cells % 0 % (-); Platelet Count 410 10^3/uL (130-400); Red Cell Dist. Width 16.6 % (11.5-14.5)
[2025-03-28 08:46] LABS: Blood Urea Nitrogen 10 mg/dl (9-20); Calcium 8.0 mg/dl (8.4-10.2); Carbon Dioxide 29 mmol/L (22-30); Chloride 107 mmol/L (98-107); Estimated Creatinine Clearance 83 ml/min; Glucose 117 mg/dl (70-99); Potassium 4.1 mmol/L (3.5-5.1); Sodium 138 mmol/L (135-145); eGFR > 60.00
[2025-03-28] MEDS: NOVOLOG FLEXPEN-LOW RESISTANCE SC (10:08)
[2025-03-28] MEDS: OCUVITE SOFTGEL 1 CAP PO (10:11)
[2025-03-28] MEDS: XARELTO 2.5 MG PO ×2 (10:11→20:23)
[2025-03-28] MEDS: NEURONTIN 100 MG PO ×2 (10:12→20:23)
[2025-03-28] MEDS: SANTYL OINTMENT 1 APPLIC TOPICAL (10:12)
[2025-03-28] MEDS: PLAVIX 75 MG PO (10:12)
[2025-03-28] MEDS: HEPARIN 5000 UNITS SC ×2 (10:14→20:22)
[2025-03-28] MEDS: COZAAR 25 MG PO (10:17)
--- NOTE | 2025-03-28 11:19 | W.PN.HOSP.TC ---
Today's Communication/Plan
-
Continue to monitor surveillance cultures
Continue with daptomycin
Continue monitor POC
Eventual SNF
Assessment / Plan
Assessment / Plan
Gen-Awake, , NAD
HEENT-NC, AT, anicteric, clear oral mm
Neck-supple
CV-reg, no M, +S1/S2
Lungs-clear B/L
Abd-soft, NT, ND
Ext-no edema, left heel dressing intact
Musculoskeletal-no cyanosis,left leg covered in dressing
Skin-warm and dry, heel wound noted.? Lymphangitis uptrending left posterior leg
Neuro-left sided hemiparesis, grossly non-focal
Psych-calm, cooperative
MRSA bacteremia with unclear source
-MRI without osteomyelitis, or obvious abscess. Cellulitis and tenosynovitis noted. Podiatry comments noted.
-Plan to discontinue vancomycin and transition patient to daptomycin for 6 weeks. CK baseline normal. Statin held
-TTE noted.
-Initial blood culture from 03/20/2024 positive with MRSA
-Surveillance cultures from 03/22/2025 remains positive
-Repeat blood cultures on 03/24 prelim remains negative.
-Repeat blood cultures on 03/26 prelim remains negative.
-Repeat blood culture on 03/27 preliminary remains negative
-TTE negative. Cards eval for JACOBO and are appropriate candidate.
-Wound culture with polymicrobial. Bump in wbc noted. afebrile.
-Plan for tentative PICC line placement on Sunday
Left heel necrotic decubital wound - suspect pressure injury related due to limited mobility, hemiparesis from stroke plus PAD. Offload left heel with pillows.
-Status post left lower extremity angiogram 03/23 which showed Chronic occlusion of L PT, focal calcification of distal SFA so had IVL+balloon angioplasty of SFA and PT, stenting of focal SFA lesion
-Continue with Plavix
-Xarelto 2.5 mg p.o. BID added by vascular surgery
Ulcerative colitis -with diarrhea.
-GI recommends discontinuing steroids and mesalamine.
-Continue with diet
Normocytic anemia -unknown acuity.
-Hemoglobin was normal in November. Monitor for now. No evidence of bleeding.
Pseudohyponatremia -present on admission,
-resolved.
Hypokalemia
-replete and monitor
DM 2 with hyperglycemia/hypoglycemia -hemoglobin A1c 8.0% in January of this year.
-Prior to admission he was on Januvia 100 mg daily, glargine insulin 20 units at bedtime.
-Lower Lantus dose from 24 down to 8 units at bedtime. as with mild hypoglycemia episode
-A1C 9.3. No further episode of hypoglycemia in the last 24 hours.
Stage III sacral decubital wound -continue local care. Wound care consulted.
History of stroke with left hemiparesis
Hyperlipidemia -atorvastatin on hold while on daptomycin.
Essential hypertension -stable. Continue with losartan.
BPH -tamsulosin.
Full code
PT recs SNF.
Anticipated Discharge: > 48 hours
Subjective/Interval History
-
Date of Service: March 28, 2025
States slept well overnight
Objective Data
-
Labs:
Laboratory Results
03/28/25 03/28/25
07:10 07:11
WBC 12.1 H
Hgb 10.2 L
Hct 32.2 L
Plt Count 410 H
Sodium 138
Potassium 4.1
Chloride 107
Carbon Dioxide 29
BUN 10
Creatinine 0.7
Glucose 117 H
Calcium 8.0 L
Vital Signs:
Vital Signs
Temp Pulse Resp BP Pulse Ox
97.3 F 75 16 139/58 93
03/28/25 07:00 03/28/25 07:00 03/28/25 07:00 03/28/25 07:00 03/28/25 07:00
I&O
03/27/25 03/28/25 03/29/25
06:59 06:59 06:59
Intake Total 880 / 880 1080 / 1080
Output Total 400 / 400
Balance 480 / 480 1080 / 1080
[2025-03-28 11:34] LABS: Glucose - Point of Care 231 mg/dl (70-99)
[2025-03-28] MEDS: CUBICIN 16 MG IV (12:58)
[2025-03-28] MEDS: FLUSH (NSS) 1 FLUSH IV (13:00)
[2025-03-28] MEDS: NOVOLOG FLEXPEN-LOW RESISTANCE 2 UNITS SC (14:36)
--- NOTE | 2025-03-28 14:36 | W.PN.ID1 ---
Date of Service
Date of Service: March 28, 2025
Today's Communication
Continue antibiotics.
Assessment / Plan
# Complicated MRSA and MSSA bacteremia
# Fever - resolved
# Leukocytosis - improved
- 03/24/25 bcx (1of 2) positive.
- Repeat blood cultures for clearance
- TTE technically difficult, no vege.
- Per cardiology, pt not candidate for JACOBO due to dysphagia
- Continue Daptomycin 800mg IV q24h x 6 weeks from neg blood cx's, through 05/06/25
- Follow weekly CK, CBC, CMP while on daptomycin.
- Trend wbc.
- If blood cultures remain negative, place PICC Sunday.
# Streaking erythema on LLE calf and posterior thigh
- Periph venous US without evidence of DVT.
# PAD
- 03/23 s/p LLE endovascular intervention
# Left heel necrotic wound
- MRI: no abscess, no osteo
# Diabetes mellitus type 2, uncontrolled A1c 9.3
# Hx CVA with left hemiparesis and dysphagia
# Ulcerative colitis on mesalamine
Chief Complaint
-: Bacteremia
Subjective / Review of Systems
Review of Systems: No Fever and No Chills
Vital Signs / Physical Exam
Vital Signs
Vital Signs
Temp Pulse Resp BP Pulse Ox
97.3 F 75 16 139/58 93
03/28/25 07:00 03/28/25 07:00 03/28/25 07:00 03/28/25 07:00 03/28/25 07:00
Physical Exam
Constitutional: Chronically Ill
Cardiovascular: Regular Rate and S1/S2
Pulmonary: Clear
Gastrointestinal: Soft, Non Tender and Non Distended
Extremities: Edema (LLE>RLE)
Neurological: AO x 3
Objective Data
Lab Data
Lab Results
03/28/25 07:11
03/28/25 07:10
ESR 97 mm/hour (0-20) H 03/21/25 08:14
Estimated Creat Clear 83 ml/min 03/28/25 07:10
Lactic Acid 1.8 mmol/L (0.7-2.0) 03/20/25 18:13
Total Bilirubin 1.0 mg/dl (0.2-1.3) 03/21/25 08:14
AST 29 U/L (17-59) 03/21/25 08:14
ALT 28 U/L (0-50) 03/21/25 08:14
Alkaline Phosphatase 369 U/L (38-126) H 03/21/25 08:14
C-Reactive Protein 241.10 mg/L (0.0-10.00) H 03/23/25 06:23
Most recent labs reviewed.
Micro Results:
03/24/25 07:27 Blood Culture - Preliminary
Blood/Venous S aureus-Methicillin Sensitive
Gram Stain - Preliminary
03/26/25 08:16 Blood Culture - Preliminary
Blood/Venous No Growth in 48 hours- Final report to follow
03/26/25 07:51 Blood Culture - Preliminary
Blood/Venous No Growth in 48 hours- Final report to follow
03/24/25 08:02 Blood Culture - Preliminary
Blood/Venous No Growth in 4 days- Final report to follow
03/27/25 07:36 Blood Culture - Preliminary
Blood/Venous No Growth in 24 hours- Final report to follow
03/27/25 06:42 Blood Culture - Preliminary
Blood/Venous No Growth in 24 hours- Final report to follow
03/20/25 18:50 Wound Culture - Final
Ulcer Escherichia coli
Proteus mirabilis
S aureus-Methicillin Sensitive
Streptococcus agalactiae
Gram Stain - Final
03/22/25 07:08 Blood Culture - Preliminary
Blood/Venous Staph aureus MRSA
S aureus-Methicillin Sensitive
Gram Stain - Preliminary
03/22/25 06:27 Blood Culture - Preliminary
Blood/Venous Staph aureus MRSA
S aureus-Methicillin Sensitive
Gram Stain - Preliminary
03/20/25 18:18 Blood Culture - Final
Blood/Venous Staph aureus MRSA
S aureus-Methicillin Sensitive
Gram Stain - Final
03/20/25 18:13 Blood Culture - Final
Blood/Venous Staph aureus MRSA
S aureus-Methicillin Sensitive
Gram Stain - Final
03/20/25 18:13 Urine Culture - Final
Urine Escherichia coli
03/21/25 05:42 MRSA Screen - Final
Nose Staph aureus MRSA
03/20/25 18:18 Influenza Types A & B (KRISTINE) - Final
Nasal Swab Negative for Influenza A & B, NAAT
Negative results must be combined with clinical observations
and patient history.
Nucleic Acid Amplification test (NAAT)performed on the
[employer] platform.
03/23/25 MRI LLE: Lateral posterior heel ulceration noted with mild underlying subcutaneous edema. No loculated fluid collections. No evidence for osteomyelitis.
Mild to moderate subcutaneous edema about the ankle extending more proximally, suggesting cellulitis. Mild tenosynovitis of the posterior tibialis and flexor digitorum longus tendons.
03/20/25 Left heel XRAY: No findings to suggest recent focal cortical bony destructive process.
[2025-03-28 15:00] VITALS: BP 149/68
[2025-03-28 16:34] LABS: Glucose - Point of Care 155 mg/dl (70-99)
[2025-03-28] MEDS: NOVOLOG FLEXPEN-LOW RESISTANCE 1 UNITS SC (18:54)
[2025-03-28 21:39] LABS: Glucose - Point of Care 236 mg/dl (70-99)
[2025-03-28] MEDS: TYLENOL 650 MG PO (22:21)
[2025-03-28] MEDS: LANTUS 0.08 UNITS SC (22:22)
[2025-03-28] MEDS: FLOMAX 0.4 MG PO (22:22)
[2025-03-28 23:00] VITALS: BP 146/68
[2025-03-29 06:00] VITALS: BMI 27.6
[2025-03-29 07:30] VITALS: BP 126/53
[2025-03-29 08:15] LABS: Glucose - Point of Care 130 mg/dl (70-99)
[2025-03-29] MEDS: NOVOLOG FLEXPEN-LOW RESISTANCE SC (08:15)
[2025-03-29] MEDS: XARELTO 2.5 MG PO ×2 (08:18→20:21)
[2025-03-29] MEDS: COZAAR 25 MG PO (08:18)
[2025-03-29] MEDS: HEPARIN 5000 UNITS SC ×2 (08:18→20:22)
[2025-03-29] MEDS: NEURONTIN 100 MG PO ×2 (08:18→20:21)
[2025-03-29] MEDS: PLAVIX 75 MG PO (08:18)
[2025-03-29] MEDS: OCUVITE SOFTGEL 1 CAP PO (08:18)
[2025-03-29 08:19] VITALS: BP 149/62
[2025-03-29] MEDS: SANTYL OINTMENT 1 APPLIC TOPICAL (08:19)
[2025-03-29 09:01] LABS: Hematocrit 33.7 % (39.0-52.0); Hemoglobin 10.6 g/dL (13.0-18.0); Mean Corp Hgb Conc. 31.5 g/dL (33.0-37.0); Mean Corpuscular Volume 85.3 fL (80.0-94.0); Nucleated Red Blood Cells % 0 % (-); Platelet Count 473 10^3/uL (130-400); Red Cell Dist. Width 16.7 % (11.5-14.5)
[2025-03-29 09:25] LABS: Blood Urea Nitrogen 8 mg/dl (9-20); Calcium 8.2 mg/dl (8.4-10.2); Carbon Dioxide 32 mmol/L (22-30); Chloride 106 mmol/L (98-107); Estimated Creatinine Clearance 72 ml/min; Glucose 134 mg/dl (70-99); Potassium 4.0 mmol/L (3.5-5.1); Sodium 141 mmol/L (135-145); eGFR > 60.00
--- NOTE | 2025-03-29 11:01 | W.PN.HOSP.TC ---
Today's Communication/Plan
-
Continue with daptomycin. Hold statin
Monitor POC
Continue Xarelto
Out of bed
PICC likely in next 24 hours
Assessment / Plan
Assessment / Plan
Gen-Awake, , NAD
HEENT-NC, AT, anicteric, clear oral mm
Neck-supple
CV-reg, no M, +S1/S2
Lungs-clear B/L
Abd-soft, NT, ND
Ext-no edema, left heel dressing intact
Musculoskeletal-no cyanosis,left leg covered in dressing
Skin-warm and dry, heel wound noted.? Lymphangitis uptrending left posterior leg
Neuro-left sided hemiparesis, grossly non-focal
Psych-calm, cooperative
MRSA bacteremia with unclear source
-MRI without osteomyelitis, or obvious abscess. Cellulitis and tenosynovitis noted. Podiatry comments noted.
-Plan to discontinue vancomycin and transition patient to daptomycin for 6 weeks. CK baseline normal. Statin held
-TTE noted.
-Initial blood culture from 03/20/2024 positive with MRSA
-Surveillance cultures from 03/22/2025 remains positive
-Repeat blood cultures on 03/26 remains negative.
-Repeat blood culture on 03/27 remains negative
-TTE negative. Cards eval for JACOBO and not a appropriate candidate due to dysphagia.
-Wound culture with polymicrobial. Bump in wbc noted. afebrile.
-Plan for tentative PICC line placement on Sunday
Left heel necrotic decubital wound - suspect pressure injury related due to limited mobility, hemiparesis from stroke plus PAD. Offload left heel with pillows.
-Status post left lower extremity angiogram 03/23 which showed Chronic occlusion of L PT, focal calcification of distal SFA so had IVL+balloon angioplasty of SFA and PT, stenting of focal SFA lesion
-Continue with Plavix
-Xarelto 2.5 mg p.o. BID added by vascular surgery
-Venous doppler negative.
Ulcerative colitis -with diarrhea. resolved
-GI recommends discontinuing steroids and mesalamine.
-Continue with diet
Normocytic anemia -unknown acuity.
-Hemoglobin was normal in November. Monitor for now. No evidence of bleeding.
Pseudohyponatremia -present on admission,
-resolved.
Hypokalemia
-replete and monitor
DM 2 with hyperglycemia/hypoglycemia -hemoglobin A1c 8.0% in January of this year.
-Prior to admission he was on Januvia 100 mg daily, glargine insulin 20 units at bedtime.
-Lower Lantus dose from 24 down to 8 units at bedtime. as with mild hypoglycemia episode
-A1C 9.3. POC am 130
Stage III sacral decubital wound -continue local care. Wound care consulted.
History of stroke with left hemiparesis
Hyperlipidemia -atorvastatin on hold while on daptomycin.
Essential hypertension -stable. Continue with losartan.
BPH -tamsulosin.
Full code
PT recs SNF.
called son to update. no response. left for callback.
Anticipated Discharge: > 48 hours
Subjective/Interval History
-
Date of Service: March 29, 2025
states feeling better
ask if diet can be changed
Objective Data
-
Labs:
Laboratory Results
03/29/25
07:17
WBC 10.4
Hgb 10.6 L
Hct 33.7 L
Plt Count 473 H
Sodium 141
Potassium 4.0
Chloride 106
Carbon Dioxide 32 H
BUN 8 L
Creatinine 0.8
Glucose 134 H
Calcium 8.2 L
Vital Signs:
Vital Signs
Temp Pulse Resp BP Pulse Ox
98.4 F 70 18 149/62 96
03/29/25 08:19 03/29/25 08:19 03/29/25 08:19 03/29/25 08:19 03/29/25 07:30
I&O
03/28/25 03/29/25 03/30/25
06:59 06:59 06:59
Intake Total 1080 / 1080
Balance 1080 / 1080
[2025-03-29 11:50] LABS: Glucose - Point of Care 242 mg/dl (70-99)
[2025-03-29] MEDS: NOVOLOG FLEXPEN-LOW RESISTANCE 2 UNITS SC (11:50)
[2025-03-29] MEDS: CUBICIN 16 MG IV (11:53)
--- NOTE | 2025-03-29 14:42 | PTCARENOTE ---
attempted to get the patient oob. patient refused saying 'It is not the right time for me to sit in a chair, maybe tomorrow'
[2025-03-29 15:40] VITALS: BP 145/55
[2025-03-29 17:18] LABS: Glucose - Point of Care 176 mg/dl (70-99)
--- NOTE | 2025-03-29 17:24 | PTCARENOTE ---
family brought a hoagie for the patient and this RN educated that patient is recommended Minced and moist diet due to risk of aspiration. family declined to follow the recommendations. made aware
[2025-03-29] MEDS: NOVOLOG FLEXPEN-LOW RESISTANCE 1 UNITS SC (17:33)
[2025-03-29 21:14] LABS: Glucose - Point of Care 280 mg/dl (70-99)
[2025-03-29] MEDS: FLOMAX 0.4 MG PO (22:13)
[2025-03-29] MEDS: LANTUS 0.08 UNITS SC (22:13)
[2025-03-29] MEDS: TYLENOL 650 MG PO (22:13)
[2025-03-29 23:57] VITALS: BP 140/60
[2025-03-30 06:00] VITALS: BMI 26.9
[2025-03-30 07:42] LABS: Glucose - Point of Care 141 mg/dl (70-99)
[2025-03-30 07:45] VITALS: BP 140/56
[2025-03-30] MEDS: NOVOLOG FLEXPEN-LOW RESISTANCE SC (07:50)
[2025-03-30 08:10] LABS: Hematocrit 33.8 % (39.0-52.0); Hemoglobin 10.7 g/dL (13.0-18.0); Mean Corp Hgb Conc. 31.7 g/dL (33.0-37.0); Mean Corpuscular Volume 84.7 fL (80.0-94.0); Nucleated Red Blood Cells % 0 % (-); Platelet Count 455 10^3/uL (130-400); Red Cell Dist. Width 16.7 % (11.5-14.5)
[2025-03-30 08:33] LABS: Blood Urea Nitrogen 9 mg/dl (9-20); Calcium 8.0 mg/dl (8.4-10.2); Carbon Dioxide 30 mmol/L (22-30); Chloride 106 mmol/L (98-107); Estimated Creatinine Clearance 72 ml/min; Glucose 169 mg/dl (70-99); Potassium 4.2 mmol/L (3.5-5.1); Sodium 139 mmol/L (135-145); eGFR > 60.00
[2025-03-30] MEDS: NEURONTIN 100 MG PO ×2 (08:42→20:28)
[2025-03-30] MEDS: SANTYL OINTMENT 1 APPLIC TOPICAL (08:42)
[2025-03-30] MEDS: HEPARIN 5000 UNITS SC ×2 (08:43→20:28)
[2025-03-30] MEDS: COZAAR 25 MG PO (08:43)
[2025-03-30] MEDS: PLAVIX 75 MG PO (08:43)
[2025-03-30] MEDS: XARELTO 2.5 MG PO ×2 (08:44→20:28)
[2025-03-30] MEDS: OCUVITE SOFTGEL 1 CAP PO (08:44)
--- NOTE | 2025-03-30 09:34 | CM ---
Addendum entered by Kathleen Cornejo 03/30/25 10:12:
[facility]
Report [phone]

Original Note:
Patient for PICC line placement today for IV ABX, patient is currently on Daptomycin 800mg IV QD, call placed with patient's daughterErika today to confirm facility and she has selected [facility], plan is for rehab at [facility] and then
patient to return to [facility] with Palliative care. Message left with admissions at [facility] to request a bed for patient.
Plan; Skilled placement at [facility] when stable, no Auth required. Patient will need COVID testing completed.
[2025-03-30] MEDS: CUBICIN 16 MG IV (11:54)
[2025-03-30 11:59] LABS: Glucose - Point of Care 152 mg/dl (70-99)
[2025-03-30] MEDS: NOVOLOG FLEXPEN-LOW RESISTANCE 1 UNITS SC ×2 (11:59→16:50)
--- NOTE | 2025-03-30 13:24 | W.PN.ID1 ---
Date of Service
Date of Service: March 30, 2025
Today's Communication
- Continue Daptomycin 800mg IV q24h x 6 weeks from neg blood cx's, through 05/06/25
Assessment / Plan
# Complicated MRSA and MSSA bacteremia
# Fever - resolved
# Leukocytosis - improved
- Repeat blood cultures from 03/26, 03/27 negative to date.
- TTE technically difficult, no vege.
- Per cardiology, pt not candidate for JACOBO due to dysphagia
- Continue Daptomycin 800mg IV q24h x 6 weeks from neg blood cx's, through 05/06/25
- Follow weekly CK, CBC, CMP while on daptomycin.
- Picc placement
- Infusion sheet submitted to behavioral health case manager 03/27.
# PAD
- 03/23 s/p LLE endovascular intervention
# Left heel necrotic wound
- MRI: no abscess, no osteo
# Diabetes mellitus type 2, uncontrolled A1c 9.3
# Hx CVA with left hemiparesis and dysphagia
# Ulcerative colitis on mesalamine
Chief Complaint
-: Bacteremia
Subjective / Review of Systems
No new complaints.
Vital Signs / Physical Exam
Vital Signs
Vital Signs
Temp Pulse Resp BP Pulse Ox
97.6 F 71 16 140/56 95
03/30/25 07:45 03/30/25 07:45 03/30/25 07:45 03/30/25 07:45 03/30/25 07:45
Physical Exam
Constitutional: Chronically Ill
Cardiovascular: Regular Rate and S1/S2
Pulmonary: Clear
Gastrointestinal: Soft, Non Tender and Non Distended
Extremities: Edema (LLE>RLE)
Neurological: AO x 3
Objective Data
Lab Data
Lab Results
03/30/25 07:21
03/30/25 07:21
ESR 97 mm/hour (0-20) H 03/21/25 08:14
Estimated Creat Clear 72 ml/min 03/30/25 07:21
Lactic Acid 1.8 mmol/L (0.7-2.0) 03/20/25 18:13
Total Bilirubin 1.0 mg/dl (0.2-1.3) 03/21/25 08:14
AST 29 U/L (17-59) 03/21/25 08:14
ALT 28 U/L (0-50) 03/21/25 08:14
Alkaline Phosphatase 369 U/L (38-126) H 03/21/25 08:14
C-Reactive Protein 241.10 mg/L (0.0-10.00) H 03/23/25 06:23
Most recent labs reviewed.
Micro Results:
03/26/25 08:16 Blood Culture - Preliminary
Blood/Venous No Growth in 4 days- Final report to follow
03/26/25 07:51 Blood Culture - Preliminary
Blood/Venous No Growth in 4 days- Final report to follow
03/27/25 07:36 Blood Culture - Preliminary
Blood/Venous No Growth in 72 hours- Final report to follow
03/27/25 06:42 Blood Culture - Preliminary
Blood/Venous No Growth in 72 hours- Final report to follow
03/24/25 08:02 Blood Culture - Final
Blood/Venous No Growth - Final Report
03/22/25 07:08 Blood Culture - Final
Blood/Venous Staph aureus MRSA
S aureus-Methicillin Sensitive
Gram Stain - Final
03/22/25 06:27 Blood Culture - Final
Blood/Venous Staph aureus MRSA
S aureus-Methicillin Sensitive
Gram Stain - Final
03/24/25 07:27 Blood Culture - Preliminary
Blood/Venous S aureus-Methicillin Sensitive
Gram Stain - Preliminary
03/20/25 18:50 Wound Culture - Final
Ulcer Escherichia coli
Proteus mirabilis
S aureus-Methicillin Sensitive
Streptococcus agalactiae
Gram Stain - Final
03/20/25 18:18 Blood Culture - Final
Blood/Venous Staph aureus MRSA
S aureus-Methicillin Sensitive
Gram Stain - Final
03/20/25 18:13 Blood Culture - Final
Blood/Venous Staph aureus MRSA
S aureus-Methicillin Sensitive
Gram Stain - Final
03/20/25 18:13 Urine Culture - Final
Urine Escherichia coli
03/21/25 05:42 MRSA Screen - Final
Nose Staph aureus MRSA
03/20/25 18:18 Influenza Types A & B (KRISTINE) - Final
Nasal Swab Negative for Influenza A & B, NAAT
Negative results must be combined with clinical observations
and patient history.
Nucleic Acid Amplification test (NAAT)performed on the
[employer] platform.
03/23/25 MRI LLE: Lateral posterior heel ulceration noted with mild underlying subcutaneous edema. No loculated fluid collections. No evidence for osteomyelitis.
Mild to moderate subcutaneous edema about the ankle extending more proximally, suggesting cellulitis. Mild tenosynovitis of the posterior tibialis and flexor digitorum longus tendons.
03/20/25 Left heel XRAY: No findings to suggest recent focal cortical bony destructive process.
[2025-03-30 15:00] VITALS: BP 140/64
--- NOTE | 2025-03-30 15:06 | W.PN.HOSP.TC ---
Today's Communication/Plan
-
PICC line placement today.
[facility]
Assessment / Plan
Assessment / Plan
MRSA bacteremia with unclear source
-MRI without osteomyelitis, or obvious abscess. Cellulitis and tenosynovitis noted. Podiatry comments noted.
-Plan to discontinue vancomycin and transition patient to daptomycin for 6 weeks. CK baseline normal. Statin held
-TTE noted.
-Initial blood culture from 03/20/2024 positive with MRSA
-Surveillance cultures from 03/22/2025 remains positive
-Repeat blood cultures on 03/26 remains negative.
-Repeat blood culture on 03/27 remains negative
-TTE negative. Cards eval for JACOBO and not a appropriate candidate due to dysphagia.
-Wound culture with polymicrobial. Bump in wbc noted. afebrile.
-Plan for tentative PICC line placement on Sunday
Left heel necrotic decubital wound - suspect pressure injury related due to limited mobility, hemiparesis from stroke plus PAD. Offload left heel with pillows.
-Status post left lower extremity angiogram 03/23 which showed Chronic occlusion of L PT, focal calcification of distal SFA so had IVL+balloon angioplasty of SFA and PT, stenting of focal SFA lesion
-Continue with Plavix
-Xarelto 2.5 mg p.o. BID added by vascular surgery
-Venous doppler negative.
Ulcerative colitis -with diarrhea. resolved
-GI recommends discontinuing steroids and mesalamine.
-Continue with diet
Normocytic anemia -unknown acuity.
-Hemoglobin was normal in November. Monitor for now. No evidence of bleeding.
Pseudohyponatremia -present on admission,
-resolved.
Hypokalemia
-replete and monitor
DM 2 with hyperglycemia/hypoglycemia -hemoglobin A1c 8.0% in January of this year.
-Prior to admission he was on Januvia 100 mg daily, glargine insulin 20 units at bedtime.
-Lower Lantus dose from 24 down to 8 units at bedtime. as with mild hypoglycemia episode
-A1C 9.3. POC am 130
Stage III sacral decubital wound -continue local care. Wound care consulted.
History of stroke with left hemiparesis
Hyperlipidemia -atorvastatin on hold while on daptomycin.
Essential hypertension -stable. Continue with losartan.
BPH -tamsulosin.
Full code
PT recs SNF.
called son to update. no response. left vm for callback.
Anticipated Discharge: Within 24 hours
Subjective/Interval History
-
Date of Service: March 30, 2025
Objective Data
-
Labs:
Laboratory Results
03/30/25
07:21
WBC 10.2
Hgb 10.7 L
Hct 33.8 L
Plt Count 455 H
Sodium 139
Potassium 4.2
Chloride 106
Carbon Dioxide 30
BUN 9
Creatinine 0.8
Glucose 169 H
Calcium 8.0 L
Vital Signs:
Vital Signs
Temp Pulse Resp BP Pulse Ox
97.6 F 71 16 140/56 95
03/30/25 07:45 03/30/25 07:45 03/30/25 07:45 03/30/25 07:45 03/30/25 07:45
I&O
03/29/25 03/30/25 03/31/25
06:59 06:59 06:59
Intake Total 600 / 600
Balance 600 / 600
Physical Exam
-
General: Comfortable
HEENT: Normocephalic, Atraumatic, Moist Mucous Membranes, Nose Appears Normal and Ears Appear Normal
Respiratory: Clear to Auscultation (On anterior auscultation) and Non Labored Respirations; Negative Accessory Resp Muscle Use
Cardiac: Regular Rhythm and S1/S2
GI: Soft, Nontender, Nondistended and Normal Bowel Sounds
Rectal: Deferred by Provider
Musculoskeletal: Other (left leg covered in dressing. )
Skin: Warm
Neuro: Awake and AO x 3
Psych: Calm
--- NOTE | 2025-03-30 16:33 | VATNOTE ---
PICC line looped in SVC. Redirect x1 by this VAT RN. PICC tip now in good position at the SVC.
[2025-03-30 16:44] LABS: Glucose - Point of Care 169 mg/dl (70-99)
[2025-03-30 17:30] LABS: COVID-19 Antigen Negative (Negative)
[2025-03-30] MEDS: FLOMAX 0.4 MG PO (20:28)
[2025-03-30] MEDS: TYLENOL 650 MG PO (20:29)
[2025-03-30 21:10] LABS: Glucose - Point of Care 222 mg/dl (70-99)
[2025-03-30] MEDS: LANTUS 0.08 UNITS SC (22:10)
[2025-03-30 23:21] VITALS: BP 147/75
[2025-03-31 05:37] LABS: Hematocrit 32.0 % (39.0-52.0); Hemoglobin 10.3 g/dL (13.0-18.0); Mean Corp Hgb Conc. 32.2 g/dL (33.0-37.0); Mean Corpuscular Volume 83.6 fL (80.0-94.0); Nucleated Red Blood Cells % 0 % (-); Platelet Count 456 10^3/uL (130-400); Red Cell Dist. Width 17.0 % (11.5-14.5)
[2025-03-31 06:16] VITALS: BMI 27.4
[2025-03-31 07:31] LABS: Glucose - Point of Care 132 mg/dl (70-99)
[2025-03-31] MEDS: NOVOLOG FLEXPEN-LOW RESISTANCE SC ×3 (07:43→16:04)
[2025-03-31 07:50] VITALS: BP 138/57
[2025-03-31] MEDS: COZAAR 25 MG PO (07:51)
[2025-03-31] MEDS: NEURONTIN 100 MG PO (07:51)
[2025-03-31] MEDS: PLAVIX 75 MG PO (07:52)
[2025-03-31] MEDS: OCUVITE SOFTGEL 1 CAP PO (07:52)
[2025-03-31] MEDS: SANTYL OINTMENT 1 APPLIC TOPICAL (07:52)
[2025-03-31] MEDS: HEPARIN 5000 UNITS SC (07:52)
[2025-03-31] MEDS: XARELTO 2.5 MG PO (07:52)
[2025-03-31] MEDS: CUBICIN 16 MG IV (11:59)
--- NOTE | 2025-03-31 12:00 | CHAP ---
Msgr. Kurt Yee of [facility] in [place] gave Asher the Sacrament of the Sick.
[2025-03-31 12:01] LABS: Glucose - Point of Care 132 mg/dl (70-99)
--- NOTE | 2025-03-31 12:13 | W.DS.TRANS ---
DC Summary - Domestic Technician
-
Discharge Instructions:
Discharge Diagnosis/Procedures Complicated MRSA and MSSA bacteremia
Diet Diabetic, Carb Controlled
Others Tests Ultrasound appt: 04/24 @ 9am
Instructions:
Stand-Alone Forms: Vascular Surg Discharge Instr
Changes to Home Medications: Yes
Discharge Medications:
DC Medications w/original date entered in [employer]
tamsulosin 0.4 mg capsule 0.4 mg PO HS Urinary Issue 08/25/24
therapeutic multivitamin 1 tab PO DAILY Supplement 08/25/24
pantoprazole 40 mg tablet,delayed release 40 mg PO BID Gastrointestinal issue 30 days #60 tabs 10/01/24
atorvastatin 40 mg tablet 40 mg PO DAILY #30 tabs 11/20/24
Held on 03/31/25. Instructions: Resume on 05/06/25.
acetaminophen 325 mg tablet (Tylenol) 650 mg PO HS 03/20/25
acetaminophen 325 mg tablet (Tylenol) 650 mg PO Q4HPRN PRN mild pain 03/20/25
baclofen 5 mg tablet 5 mg PO HS 03/20/25
bisacodyl 10 mg rectal suppository (Dulcolax (bisacodyl)) 10 mg GA DAILYPRN PRN if no bm by 3rd day 03/20/25
budesonide 3 mg capsule,delayed,extended release 9 mg PO DAILY 03/20/25
clopidogrel 75 mg tablet (Plavix) 75 mg PO DAILY 03/20/25
gabapentin 100 mg capsule 100 mg PO BID 03/20/25
guar gum 1 tbsp PO DAILY 03/20/25
losartan 25 mg tablet 25 mg PO DAILY Blood pressure 03/20/25
magnesium hydroxide 400 mg/5 mL oral suspension (Milk of Magnesia) 2,400 mg PO DAILYPRN PRN constipation 03/20/25
ondansetron 4 mg disintegrating tablet 4 mg PO Q8HPRN PRN nausea 03/20/25
sitagliptin phosphate 100 mg tablet (Januvia) 100 mg PO DAILY 03/20/25
trazodone 50 mg tablet 25 mg PO HS Sleep 03/20/25
vitamins A,C,Z-fdfq-icxakq 2,148 mcg-113 mg-45 mg-17.4 mg tablet (PreserVision AREDS) 1 tab PO BID 03/20/25
rivaroxaban 2.5 mg tablet (Xarelto) 2.5 mg PO BID #240 tabs 03/24/25
DAPTOmycin [Cubicin] 800 mg As Directed mls/hr IV Q24H 03/31/25
insulin glargine 100 unit/mL (3 mL) subcutaneous pen (Basaglar KwikPen U-100 Insulin) 8 unit (0.08 mL) SC HS #0 mL 03/31/25
Home Medication Changes
Insulin reduced
Mesalamine and corticosteroids discontinued
Statin has been on hold while on daptomycin
Daptomycin infusion through 05/06/2025
Pending Results: No
--- NOTE | 2025-03-31 12:53 | CM ---
Addendum entered by Maria Alejandra Ramos 03/31/25 12:54:
[facility] Report: [phone]
[facility]
Original Note:
Pt has been accepted to [facility] at discharge, anticipated today.
PICC line report and chest xray provided to Group Sales Manager to be sent with discharge records.
Plan: Transfer to [facility] today via ambulance.
[2025-03-31 15:37] VITALS: BP 131/57
--- NOTE | 2025-03-31 19:16 | PTCARENOTE ---
Pt is waiting to go to [facility] @ 1900. Pt's discharge was done because we thought he was leaving at 4pm, but DC got pushed back until 1900. Pt is ready to go, waiting for DC soon.
== END 2025-03-31 19:34 | DRG 853 ==
LOC: 4 WEST ACU 21:08
PROVIDERS: Hospitalist; Internal Medicine Infectious Disease; ADMITTING PHYSICIAN Hospitalist; ATTENDING PHYSICIAN Internal Medicine; CONSULT PHYSICIAN Internal Medicine Cardiovascular Disease; CONSULT PHYSICIAN Internal Medicine Gastroenterology; CONSULT PHYSICIAN Internal Medicine Infectious Disease; CONSULT PHYSICIAN Podiatrist Foot & Ankle Surgery; CONSULT PHYSICIAN Surgery Vascular Surgery; EMERGENCY PHYSICIAN Student in an Organized Health Care Education/Training Program; FAMILY PHYSICIAN Hospitalist
PROC: 04FS3ZZ Fragmentation of Left Posterior Tibial Artery, Percutaneous Approach (ICD-10-PCS; 2025-03-23)
PROC: B41D1ZZ Fluoroscopy of Aorta and Bilateral Lower Extremity Arteries using Low Osmolar Contrast (ICD-10-PCS; 2025-03-23)
PROC: 047S34Z Dilation of Left Posterior Tibial Artery with Drug-eluting Intraluminal Device, Percutaneous Approach (ICD-10-PCS; 2025-03-23)
PROC: 047N34Z Dilation of Left Popliteal Artery with Drug-eluting Intraluminal Device, Percutaneous Approach (ICD-10-PCS; 2025-03-23)
PROC: 04FN3ZZ Fragmentation of Left Popliteal Artery, Percutaneous Approach (ICD-10-PCS; 2025-03-23)
PROC: 02HV33Z Insertion of Infusion Device into Superior Vena Cava, Percutaneous Approach (ICD-10-PCS; 2025-03-30)
DX: A41.02 Sepsis due to Methicillin resistant Staphylococcus aureus (principal); L89.153 Pressure ulcer of sacral region, stage 3; E11.52 Type 2 diabetes mellitus with diabetic peripheral angiopathy with gangrene; N39.0 Urinary tract infection, site not specified; I69.354 Hemiplegia and hemiparesis following cerebral infarction affecting left non-dominant side; K51.90 Ulcerative colitis, unspecified, without complications; I70.262 Atherosclerosis of native arteries of extremities with gangrene, left leg; I45.2 Bifascicular block; L03.116 Cellulitis of left lower limb; I69.391 Dysphagia following cerebral infarction; I10 Essential (primary) hypertension; N40.1 Benign prostatic hyperplasia with lower urinary tract symptoms; I25.10 Atherosclerotic heart disease of native coronary artery without angina pectoris; L89.620 Pressure ulcer of left heel, unstageable; E11.65 Type 2 diabetes mellitus with hyperglycemia; K21.9 Gastro-esophageal reflux disease without esophagitis; D64.9 Anemia, unspecified; E11.40 Type 2 diabetes mellitus with diabetic neuropathy, unspecified; E11.649 Type 2 diabetes mellitus with hypoglycemia without coma; E78.00 Pure hypercholesterolemia, unspecified; E87.6 Hypokalemia; Z11.52 Encounter for screening for COVID-19; Z79.02 Long term (current) use of antithrombotics/antiplatelets; Z79.4 Long term (current) use of insulin; Z79.899 Other long term (current) drug therapy; Z87.891 Personal history of nicotine dependence; Z99.3 Dependence on wheelchair; Z87.11 Personal history of peptic ulcer disease
CPT/HCPCS: 70450; 71045; 73650; 73720; 75625; 75710; 80048; 80053; 80202; 81003; 81015; 82248; 82550; 82962; 83036; 83605; 85025; 85027; 85652; 86140; 87040; 87070; 87071; 87077; 87086; 87147; 87154; 87186; 87205; 87502; 87811; 92526; 92610; 93005; 93306; 93922; 93925; 93971; 96361; 96365; 96366; 96375; 97163; 97167; 97530; 97535; 99285; A9575; C1725; C1769; C1874; C1894; C9765; C9773; J0878; Q9967

== ENCOUNTER → 2025-05-08 10:52 | Outpatient (REF) | payer MEDICARE, OTHER, SELFPAY | LOC: DHVS 10:52 | PROVIDERS: ATTENDING PHYSICIAN Surgery Vascular Surgery; FAMILY PHYSICIAN Family Medicine | DX: I73.9 Peripheral vascular disease, unspecified (principal) | CPT/HCPCS: 93922; 93925 ==

== ENCOUNTER → 2025-07-24 09:38 | Outpatient (REF) | payer MEDICARE, OTHER, SELFPAY | LOC: RAD 09:38 | PROVIDERS: ATTENDING PHYSICIAN Physician Assistant | DX: I73.9 Peripheral vascular disease, unspecified (principal) | CPT/HCPCS: 93922; 93925 ==